=== PATIENT | male | born 1935 | race Caucasian/White ===

== ENCOUNTER 2017-08-19 17:30 | Inpatient (IN) | payer OTHER ==
--- NOTE | 2017-08-19 18:06 | ED Physician Chart ---
ED Chief Complaint/HPI - Patient Information Date Seen:: 08/19/17 Time Seen:: 18:01 Chief Complaint:: Bilateral gangrenous toes History of Present Illness:: 82 yo male with history of poorly controlled DM type II, was brought from [facility] to ER for evaluation of gangrenous right first and second toes, left first toe for 3 weeks. The patient also had cough with congestion. Allergies:: Allergies Allergy/AdvReac Type Severity Reaction Status Date / Time No Known Allergies Allergy Verified 08/19/17 17:40 Vitals:: Vital Signs - 8 hr 08/19/17 17:40 Temp 98.2 F HR 64 RR 19 BP 128/54 O2 Sat % 96 <Krunal Wang - Last Filed: 08/19/17 19:04> - Patient Information Allergies:: Allergies Allergy/AdvReac Type Severity Reaction Status Date / Time No Known Allergies Allergy Verified 08/19/17 17:40 Vitals:: Vital Signs - 8 hr 08/19/17 08/19/17 08/19/17 17:40 17:45 19:03 Temp 98.2 F 98.3 F HR 64 60 66 RR 19 18 16 BP 128/54 127/68 O2 Sat % 96 96 98 08/19/17 08/19/17 19:12 19:47 Temp 98.1 F HR 63 RR 20 BP 132/60 130/51 O2 Sat % 96 <Froylan Awan - Last Filed: 08/19/17 20:00> ED Review of Systems - Review of Systems General/Constitutional: No fever Skin: Skin lesions Head: No headache Eyes: No loss of vision ENT: No earache Neck: No neck pain Cardio Vascular: No chest pain Pulmonary: No SOB GI: No nausea, No vomiting Musculoskeletal: No bone or joint pain Neurological: Paresthesia <Krunal Wang - Last Filed: 08/19/17 19:04> ED Past Medical History - Past Medical History Past Medical History: HTN, DM, CHF, Dyslipidemia, ESRD Social History: Non Smoker, No Alcohol, No Drug Use Surgical History: other (foot surgery, cataract surgery) <Krunal Wang - Last Filed: 08/19/17 19:04> Family Medical History - Family Member Mother History Unknown: Yes Ethnicity: <Krunal Wang - Last Filed: 08/19/17 19:04> ED Physical Exam - Physical Examination General/Constitutional: Awake Head: Atraumatic Eyes: PERRL ENMT: Nasal exam nl Neck: No nuchal rigidity Other Respiratory comments:: lung congested with crackles Cardio Vascular: RRR, No murmur, gallop, rubs, NL S1 S2 GI: No tenderness/rebounding/guarding Other Extremities comments:: Left first toe distal large gangrene. Right first toe distal large gangrene, right second toe gangrene on dorsal PIP joint area. Other Neuro/Psych comments:: oriented to self, place, year and month, not date <Krunal Wang - Last Filed: 08/19/17 19:04> ED Labs/Radiology/EKG Results - Lab Results Results: Laboratory Tests 08/19/17 08/19/17 08/19/17 18:24 18:24 18:24 WBC 12.4 H RBC 4.81 Hgb 13.0 Hct 41.1 MCV 85.6 MCH 27.1 MCHC Differential 31.7 RDW 17.3 Plt Count 298 MPV 7.7 Neutrophils % 75.3 Lymphocytes % 22.1 Monocytes % 1.6 L Eosinophils % 0.8 Basophils % 0.2 PT 10.3 INR 0.99 PTT (Actin FS) 22.2 L Sodium 138 Potassium 4.3 Chloride 99 Carbon Dioxide 32.5 H Anion Gap 10.8 BUN 13 Creatinine 2.3 H Est GFR ( Amer) TNP Est GFR (Non-Af Amer) TNP BUN/Creatinine Ratio 5.7 Glucose 97 Calcium 9.5 Total Bilirubin 0.7 AST 13 ALT 10 Alkaline Phosphatase 91 Troponin I B-Natriuretic Peptide Total Protein 7.1 Albumin 2.9 L Globulin 4.2 Albumin/Globulin Ratio 0.7 L Triglycerides 88 Cholesterol 106 LDL Cholesterol Direct 60 L HDL Cholesterol 34 Urine Source Urine Color Urine Clarity Urine pH Ur Specific [place] Urine Protein Urine Glucose (UA) Urine Ketones Urine Blood Urine Nitrate Urine Bilirubin Urine Urobilinogen Ur Leukocyte Esterase Urine RBC Urine WBC Ur Epithelial Cells Urine Bacteria 08/19/17 08/19/17 08/19/17 18:24 18:24 18:50 WBC RBC Hgb Hct MCV MCH MCHC Differential RDW Plt Count MPV Neutrophils % Lymphocytes % Monocytes % Eosinophils % Basophils % PT INR PTT (Actin FS) Sodium Potassium Chloride Carbon Dioxide Anion Gap BUN Creatinine Est GFR ( Amer) Est GFR (Non-Af Amer) BUN/Creatinine Ratio Glucose Calcium Total Bilirubin AST ALT Alkaline Phosphatase Troponin I 0.06 H B-Natriuretic Peptide 716.0 H Total Protein Albumin Globulin Albumin/Globulin Ratio Triglycerides Cholesterol LDL Cholesterol Direct HDL Cholesterol Urine Source RANDOM Urine Color YELLOW Urine Clarity HAZY Urine pH 6.5 Ur Specific [place] 1.020 Urine Protein >=300 Urine Glucose (UA) NEGATIVE Urine Ketones 15 H Urine Blood LARGE H Urine Nitrate POSITIVE H Urine Bilirubin MODERATE H Urine Urobilinogen 1.0 Ur Leukocyte Esterase LARGE H Urine RBC 10-25 H Urine WBC 50-100 H Ur Epithelial Cells FEW Urine Bacteria MANY H - Radiology Results Results: chest x-ray = cardiomegaly, pleural effusion - EKG Interpretations EKG Time:: 18:37 Rate & Rhythm: 65, sinus [place]: left axis Intervals: no ectopy <Froylan Awan - Last Filed: 08/19/17 20:00> ED Assessment - Assessment General Assessment: Bilateral toes gangrene DM II, poorly controlled Leukocytosis CHF Assessment/Comments:: CBC, CMP, UA PT/PTT, Trop I, BNP, HbA1c CXR, EKG DuoNeb Levofloxacin 750mg IV Lasix 20mg IV <Krunal Wang - Last Filed: 08/19/17 19:04> ED Septic Shock - . Is Septic Shock (SBP<90, OR Lactate>4 mmol\L) present?: No - <6hrs of presentation: Vital Signs: Vital Signs - 8 hr 08/19/17 17:40 Temp 98.2 F HR 64 RR 19 BP 128/54 O2 Sat % 96 <Krunal Wang - Last Filed: 08/19/17 19:04> - . Is Septic Shock (SBP<90, OR Lactate>4 mmol\L) present?: No - <6hrs of presentation: Vital Signs: Vital Signs - 8 hr 08/19/17 08/19/17 08/19/17 17:40 17:45 19:03 Temp 98.2 F 98.3 F HR 64 60 66 RR 19 18 16 BP 128/54 127/68 O2 Sat % 96 96 98 08/19/17 08/19/17 19:12 19:47 Temp 98.1 F HR 63 RR 20 BP 132/60 130/51 O2 Sat % 96 <Froylan Awan - Last Filed: 08/19/17 20:00> ED Reassessment (Disposition) - Reassessment Reassessment:: Dr. Awan assumed care on 19:00 Reassessment Condition:: Improved - Patient Disposition Discharge/Transfer:: Acute Care w/in this hosp Admitting Medical Physician:: Javi Robin <Krunal Wang - Last Filed: 08/19/17 19:04> - Patient Disposition Condition at Disposition:: Unchanged <Froylan Awan - Last Filed: 08/19/17 20:00> ED Discharge Plan <Krunal Wang - Last Filed: 08/19/17 19:04> <Froylan Awan - Last Filed: 08/19/17 20:00> - Patient Disposition Admit/Discharge/Transfer: Acute Care w/in this hosp Condition at Disposition: Unchanged
[2017-08-19 18:30] LABS: % BASOPHILS 0.2 % (0.0-2.0); % EOSINOPHILS 0.8 % (0.0-5.0); % LYMPHOCYTES 22.1 % (20.0-50.0); % MONOCYTES 1.6 % (2.0-10.0); % NEUTROPHILS 75.3 % (40.0-80.0); EOSINOPHILE ABSOLUTE 0.1 Th/cmm (0.1-0.4); HEMATOCRIT 41.1 % (41.0-60); LYMPHOCYTE ABSOLUTE 2.7 Th/cmm (1.5-3.0); MEAN CELL VOLUME 85.6 fl (80-99); MEAN CORPUSCULAR HEMOGLOBIN 27.1 pg (27.0-31.0); MEAN CORPUSCULAR HGB CONC 31.7 pg (28.0-36.0); MEAN PLATELET VOLUME 7.7 fl; MONOCYTE ABSOLUTE 0.2 Th/cmm (0.3-1.0); NEUTROPHILE ABSOLUTE 9.4 Th/cmm (1.8-8.0); PLATELET COUNT 298 Th/cmm (150-400); RED BLOOD COUNT 4.81 Mil/cmm (3.80-5.80); RED CELL DISTRIBUTION WIDTH 17.3 % (11.5-20.0)
[2017-08-19 18:34] LABS: WHITE BLOOD COUNT 12.4 Th/cmm (4.8-10.8)
[2017-08-19 18:46] LABS: INR 0.99 (0.5-1.4); PROTHROMBIN TIME (TEST) 10.3 SECONDS (9.5-11.5)
[2017-08-19 18:50] LABS: ALB/GLOB RATIO 0.7 (1.0-1.8); ALBUMIN 2.9 gm/dL (4.2-5.5); ALKALINE PHOSPHATASE 91 U/L (34-104); ANION GAP 10.8 (7.0-16.0); BILIRUBIN,TOTAL 0.7 mg/dL (0.3-1.0); BUN - UREA NITROGEN 13 mg/dL (7-25); CALCIUM SERUM 9.5 mg/dL (8.6-10.3); CARBON DIOXIDE 32.5 mEq/L (21.0-31.0); CHLORIDE 99 mEq/L (98-107); CHOLESTEROL 106 mg/dL (<200); CREATININE - SERUM 2.3 mg/dL (0.7-1.3); GLUCOSE 97 mg/dL (70-105); HDL -HIGH DENSITY LIPOPROTEIN 34 mg/dL (23-92); POTASSIUM SERUM 4.3 mEq/L (3.5-5.1); SGOT 13 U/L (13-39); SGPT/ALT 10 U/L (7-52); SODIUM SERUM 138 mEq/L (136-145); TOTAL PROTEIN,SERUM 7.1 gm/dL (6.0-8.3); TRIGLYCERIDES 88 mg/dL (<150)
[2017-08-19] MEDS ORDERED: Levofloxacin 750mg/150mL 750 MG/150 ML BAG IV ONE ×2 (18:52→19:10)
[2017-08-19] MEDS ORDERED: Albuterol/Ipratropium Neb 3 ML AERS HHN ONE ×2 (18:53→18:59)
[2017-08-19 19:20] LABS: URINE MICROSCOPIC INDICATED? YES; URINE SOURCE RANDOM
[2017-08-19 19:23] LABS: URINE BILIRUBIN MODERATE (NEGATIVE); URINE BLOOD LARGE (NEGATIVE); URINE GLUCOSE (UA) NEGATIVE (NEGATIVE); URINE KETONE 15 mg/dL (NEGATIVE); URINE LEUKOCYTE ESTERASE LARGE (NEGATIVE); URINE NITRATE POSITIVE (NEGATIVE); URINE PH 6.5 (4.6 - 8.0); URINE PROTEIN >=300 mg/dL (NEGATIVE)
[2017-08-19 19:31] LABS: URINE CLARITY HAZY (CLEAR); URINE COLOR YELLOW
[2017-08-19 19:36] LABS: URINE BACTERIA MANY /hpf (NONE SEEN); URINE EPITHELIAL CELLS FEW /lpf (FEW); URINE WBC 50-100 /hpf (0-5)
[2017-08-19] MEDS ORDERED: Vancomycin HCl 500 MG in Sodium Chloride 0.9% 100 ML IV SCH (22:00)
[2017-08-19] MEDS ORDERED: Piperacillin Sodium/Tazobact 2.25 gm Vial IV ONE (22:57)
[2017-08-20] MEDS: Piperacillin/Tazobact 2.25 gm in 0.9% NS 50 ML IV SCH ×5 (00:13→23:35)
[2017-08-20] MEDS ORDERED: Piperacillin Sodium/Tazobact 2.25 gm Vial IV ONE (03:57)
--- NOTE | 2017-08-20 09:31 | Diagnostic Imaging Report ---
Exam: Chest portable HISTORY cough. Findings: Portable examination of chest upright at 1924 hours reviewed no prior studies available comparison. The study demonstrates right subclavian catheter terminating in superior vena cava. Mediastinal structures midline the heart is not enlarged. There is evidence for left basilar infiltrate superimposed effusion. The right lung parenchyma is well aerated. Degenerative changes shoulder joints appreciated bilaterally. IMPRESSION: Cardiomegaly Left basilar infiltrate and effusion. Follow-up dictation recommended
--- NOTE | 2017-08-20 09:34 | General Progress Note ---
Subjective - Review of Systems Service Date: 08/20/17 Events since last encounter: chart reviewed likely Alzheimers, patient not able to answer coherently has gangrenous toes (dry) bilateral feet are warm, no pedal pulses Arterial doppler ordered Objective - Results Result Diagrams: 08/19/17 18:24 08/19/17 18: Recent Labs: Laboratory Last Values WBC 12.4 Th/cmm (4.8-10.8) H 08/19/17 18: RBC 4.81 Mil/cmm (3.80-5.80) 08/19/17 18: Hgb 13.0 gm/dL (12-16) 08/19/17 18: Hct 41.1 % (41.0-60) 08/19/17 18: MCV 85.6 fl (80-99) 08/19/17 18: MCH 27.1 pg (27.0-31.0) 08/19/17: MCHC Differential 31.7 pg (28.0-36.0) 08/19/17: RDW 17.3 % (11.5-20.0) 08/19/17 18: Plt Count 298 Th/cmm (150-400) 08/19/17 18: MPV 7.7 fl 08/19/17 18: Neutrophils % 75.3 % (40.0-80.0) 08/19/17 18: Lymphocytes % 22.1 % (20.0-50.0) 08/19/17: Monocytes % 1.6 % (2.0-10.0) L 08/19/17: Eosinophils % 0.8 % (0.0-5.0) 08/19/17 18: Basophils % 0.2 % (0.0-2.0) 08/19/17 18: PT 10.3 SECONDS (9.5-11.5) 08/19/17 18: INR 0.99 (0.5-1.4) 08/19/17 18: PTT (Actin FS) 22.2 SECONDS (26.0-38.0) L 08/19/17 18: Sodium 138 mEq/L (136-145) 08/19/17 18: Potassium 4.3 mEq/L (3.5-5.1) 08/19/17 18:24 Chloride 99 mEq/L (98-107) 08/19/17 18:24 Carbon Dioxide 32.5 mEq/L (21.0-31.0) H 08/19/17 18:24 Anion Gap 10.8 (7.0-16.0) 08/19/17 18:24 BUN 13 mg/dL (7-25) 08/19/17 18:24 Creatinine 2.3 mg/dL (0.7-1.3) H 08/19/17 18:24 Est GFR ( Amer) TNP 08/19/17 18:24 Est GFR (Non-Af Amer) TNP 08/19/17 18:24 BUN/Creatinine Ratio 5.7 08/19/17 18:24 Glucose 97 mg/dL (70-105) 08/19/17 18:24 POC Glucose 74 MG/DL (70 - 105) 08/20/17 05:40 Whole Bld Lactic Acid 1.59 mmol/L (0.60-1.99) 08/19/17 19:40 Calcium 9.5 mg/dL (8.6-10.3) 08/19/17 18:24 Total Bilirubin 0.7 mg/dL (0.3-1.0) 08/19/17 18:24 AST 13 U/L (13-39) 08/19/17 18:24 ALT 10 U/L (7-52) 08/19/17 18:24 Alkaline Phosphatase 91 U/L (34-104) 08/19/17 18:24 Troponin I 0.06 ng/mL (0.01-0.05) H 08/19/17 18:24 B-Natriuretic Peptide 716.0 pg/mL (5.0-100.0) H 08/19/17 18:24 Total Protein 7.1 gm/dL (6.0-8.3) 08/19/17 18:24 Albumin 2.9 gm/dL (4.2-5.5) L 08/19/17 18:24 Globulin 4.2 gm/dL 08/19/17 18:24 Albumin/Globulin Ratio 0.7 (1.0-1.8) L 08/19/17 18:24 Triglycerides 88 mg/dL (<150) 08/19/17 18:24 Cholesterol 106 mg/dL (<200) 08/19/17 18:24 LDL Cholesterol Direct 60 mg/dL (75-193) L 08/19/17 18:24 HDL Cholesterol 34 mg/dL (23-92) 08/19/17 18:24 Urine Source RANDOM 08/19/17 18:50 Urine Color YELLOW 08/19/17 18:50 Urine Clarity HAZY (CLEAR) 08/19/17 18:50 Urine pH 6.5 (4.6 - 8.0) 08/19/17 18:50 Ur Specific [place] 1.020 (1.005-1.030) 08/19/17 18:50 Urine Protein >=300 mg/dL (NEGATIVE) 08/19/17 18:50 Urine Glucose (UA) NEGATIVE mg/dL (NEGATIVE) 08/19/17 18:50 Urine Ketones 15 mg/dL (NEGATIVE) H 08/19/17 18:50 Urine Blood LARGE (NEGATIVE) H 08/19/17 18:50 Urine Nitrate POSITIVE (NEGATIVE) H 08/19/17 18:50 Urine Bilirubin MODERATE (NEGATIVE) H 08/19/17 18:50 Urine Urobilinogen 1.0 E.U./dL (0.2 - 1.0) 08/19/17 18:50 Ur Leukocyte Esterase LARGE (NEGATIVE) H 08/19/17 18:50 Urine RBC 10-25 /hpf (0-5) H 08/19/17 18:50 Urine WBC 50-100 /hpf (0-5) H 08/19/17 18:50 Ur Epithelial Cells FEW /lpf (FEW) 08/19/17 18:50 Urine Bacteria MANY /hpf (NONE SEEN) H 08/19/17 18:50 - Physical Exam Vitals and I&O: Vital Signs Temp 97.1 F 08/20/17 08:00 Pulse 62 08/20/17 08:00 Resp 18 08/20/17 08:00 BP 117/70 08/20/17 08:00 Pulse Ox 98 08/20/17 08:00 Intake & Output 08/19/17 08/20/17 08/20/17 18:59 06:59 18:59 Intake Total 296.667 Output Total 100 Balance 196.667 Weight (lbs) 61.689 kg Intake: Intake, IV Amount 146.667 Piperacillin Sodium/ 50 Tazobact 2.25 gm In Sodium Chloride 0.9% 50 ml @ 100 mls/hr IV Q6HR [facility] Rx#:[id number] Vancomycin HCl 500 mg In 96.667 Sodium Chloride 0.9% 100 ml @ 100 mls/hr IV Q24H [facility] Rx#:[id number] Oral 150 Output: Urine 100 Other: # Bowel Movements 0 Weight Source Bedscale Active Medications: Current Medications Piperacillin Sod/Tazobactam (Sod 2.25 gm/ Sodium Chloride) 50 mls @ 100 mls/hr IV Q6HR [facility] Stop: 10/19/17 00:00 Last Admin: 08/20/17 05:35 Dose: 100 mls/hr Vancomycin HCl 500 mg/ Sodium (Chloride) 100 mls @ 100 mls/hr IV Q24H [facility] Stop: 10/19/17 09:59 Miscellaneous (Vancomycin Iv Per Pharmacy) 1 [facility] PRN PRN PRN Reason: PROTOCOL Stop: 10/18/17 19:30 Miscellaneous (Zosyn Iv Per Pharmacy) 1 [facility] PRN PRN PRN Reason: PROTOCOL Stop: 10/18/17 19:30 Assessment/Plan - Problem List Patient Problems: All Active Problems BILATERAL GREAT TOE BLACKNESS (Acute)
[2017-08-20] MEDS ORDERED: Vancomycin HCl 500 MG in Sodium Chloride 0.9% 100 ML IV SCH (10:00)
[2017-08-20] MEDS ORDERED: Albuterol/Ipratropium Neb 3 ML AERS HHN PRN (12:42)
--- NOTE | 2017-08-20 13:05 | History and Physical ---
History of Present Illness - HPI Chief Complaint: Gangrene of the great toes bilaterally HPI: 82 yo male with history of poorly controlled DM type II, was [facility] from [facility] to ER for evaluation of gangrenous right first and second toes, left first toe for 3 weeks. The patient also had cough with congestion. Patient was seen by a group. Vital Signs: Last Vital Signs Temp 97.4 F 08/20/17 12:00 Pulse 63 08/20/17 12:00 Resp 18 08/20/17 12:00 BP 119/71 08/20/17 12:00 Pulse Ox 96 08/20/17 12:00 Past Medical History Cardiovascular: Report: CHF, HTN, Hyperlipidemia. Denies: AFIB, CAD, IA, Syncope, Mitral Valve Stenosis, Aortic Stenosis, Valve Insufficiency, Pulmonary Hypertension Pulmonary: Report: COPD, Pneumonia. Denies: Asthma, Bronchitis, Pulmonary Embolus, Previously Intubated, Other [employer]: Report: Dementia. Denies: Carpal Tunnel Syndrome, CVA, Migraine, Peripheral neuropathy, Seizure, Vertigo GI: Report: GERD. Denies: Constipation, Diverticulosis, GI Bleed, Gastritis, Hemorrhoids, Inflam. bowel disease, Irritable bowel disease, Peptic Ulcer Psych: Denies: Anxiety, Addictions, Bipolar, Depression, Panic, Psychosis, Schizophrenia Musculoskeletal: Report: Osteoarthritis, Swelling (Left upper estimate). Denies : Low Back Pain, Bursitis, Weakness, Stiffness Rheumatologic: Denies: Fibromyalgia, Rheumatoid Arthritis, Vasculitis Infectious Disease: Denies: Bacterial Vaginosis, Chlamydia, Gonorrhea, HIV, Human Papilloma Virus, Herpes Simplex 1, Herpes Simplex 2, Herpes Zoster Renal/: Report: Chronic Renal Insuff. Denies: Acute Renal Failure, Chronic Renal Failure, UTI, Benign Prostatic Enlarg, Prostate CA, Bladder CA, Urinary Incontinence, Hematuria Endocrine: Report: Diabetes, Osteoporosis. Denies: Hyperthyroidism, Hypothyroidism, Hyperparathyroidism, Osteopenia Dermatology: Denies: Eczema, Cellulitis, Psoriasis, Melanoma, Basal Cell, Squamous Cell, Rash - Past Surgical History Past Surgical History: Cataract Removal Family Medical History - Family Member Mother History Unknown: Yes Ethnicity: Living Status: Unknown Hx Family Coronary Artery Disease: (UNKNOWN) Hx Family Congestive Heart Failure: (UNKNOWN) Hx Family Hypertension: (UNKNOWN) Hx Family Stroke: (UNKNOWN) Hx Family Diabetes: (UNKNOWN) Hx Family Seizures: (UNKNOWN) Hx Family Dementia: (UNKNOWN) Hx Family AIDS: (UNKNOWN) Hx Family COPD: (UNKNOWN) Hx Family Hepatitis: (UNKNOWN) Hx Family Psychiatric Problems: (UNKNOWN) Hx Family Tuberculosis: (UNKNOWN) Other Medical History: UNKNOWN Social History Smoke: No Alcohol: None Drugs: None Lives: [facility] - Medications Home Medications: Home Medication Medication Instructions Recorded Type Acetaminophen [Tylenol] 650 mg PO Q4HR PRN 08/19/17 History Albuterol/Ipratropium Neb [Duoneb 3 ml HHN Q12H PRN 08/19/17 History Neb] Amlodipine Besylate 10 mg PO DAILY 08/19/17 History Ascorbic Acid [Vitamin C] 500 mg PO DAILY 08/19/17 History Aspirin [Aspirin Chewable] 81 mg PO DAILY 08/19/17 History Atorvastatin Calcium [Lipitor] 20 mg PO HS 08/19/17 History Bisacodyl [Dulcolax 10 Mg Supp] 10 mg RC DAILY PRN 08/19/17 History Calazime 1 unit TP DAILY 08/19/17 History Calcium Carbonate 500 mg PO DAILY 08/19/17 History Cranberry Fruit Extract [Cranberry] 425 mg PO BID 08/19/17 History Docusate Sodium [Colace] 100 mg PO BID 08/19/17 History Ferrous Sulfate [Iron] 1 tab PO DAILY 08/19/17 History Finasteride [Proscar*] 5 mg PO DAILY 08/19/17 History Folic Acid/Vit Bcomp,C 0.8 mg PO DAILY 08/19/17 History [Nephro-Cordelia Tablet] Insulin Aspart Sliding Scale 0 units SUBQ QID 08/19/17 History [NovoLOG INSULIN SLIDING SCALE] Insulin Detemir [Levemir] 10 unit SQ HS 08/19/17 History Levofloxacin [Levaquin] 500 mg PO Q48H 08/19/17 History Ondansetron [Zofran ODT] 4 mg PO Q4H PRN 08/19/17 History Sennosides A and B [Senna] 2 tab PO HS 08/19/17 History Tamsulosin [Flomax] 0.4 mg PO DAILY 08/19/17 History - Allergies Allergies/Adverse Reactions: Allergies Allergy/AdvReac Type Severity Reaction Status Date / Time No Known Allergies Allergy Verified 08/19/17 17:40 Review of Systems - Review of Systems Constitutional: Report: Weakness. Denies: Fever, Chills, Sweats, Malaise Eyes: Denies: Pain, Vision Change, Conjunctivae Inflammation, Eyelid Inflammation, Redness ENT: Denies: Ear Pain, Ear Discharge, Nose Pain, Nose Discharge, Nose Congestion , Mouth Pain, Mouth Swelling, Throat Pain, Throat Swelling, Other Respiratory: Report: Cough. Denies: Dry, Shortness of Breath, Hemoptysis, SOB with Excertion, Pleuritic Pain, Sputum, Wheezing Cardiovascular: Report: No Significant. Denies: Chest Pain, Palpitations, Orthopnea, Paroxysmal Noc. Dyspnea, Edema, Light Headedness Gastrointestinal: Report: No Significant Genitourinary: Denies: Dysuria, Frequency, Incontinence, Hematuria, Retention Musculoskeletal: Denies: Neck Pain, Shoulder Pain, Arm Pain, Back Pain, Hand Pain Skin: Denies: Rash, Lesions, Eduardo, Bruising Neurological: Report: Weakness. Denies: Numbness, Incoordination, Change in Speech, Confusion, Seizures Other: Gangrene of the bilateral big toes for more than 1 month Physical Exam - Physical Exam HEENT: Report: Ears Nose Throat within normal limits Neck: Report: Within normal limits Cardiovascular Systems: Report: +s1/s2 noted, Regular, Rate and Rhythm Respiratory: Report: Breath Sounds are within normal limits Abdomen: Report: Non-tender to palpation Back: Report: Inspection of back is within normal limits. Extremities: Report: Non-tender to palpation., Other (left upper extremity AV shunt). Denies: Calf tenderness was noted. Skin: Report: Color of skin is within normal limits, Other Neuro/Psych: Report: Mood affect is within normal limits, A+Ox3, CN II-XII intact, No sensory deficit Other Systems Exam: The toes of both feet has dry gangrene at the distal end. - Lab Results All Lab Results last 24 hours: Laboratory Results - last 24 hr 08/19/17 08/19/17 08/20/17 19:40 22:38 05:40 POC Glucose 82 74 Whole Bld Lactic Acid 1.59 - Assessment Assessment: Current Active Problems Problem Status Onset BILATERAL GREAT TOE BLACKNESS Acute 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 2. Diabetes mellitus type 2. 3. 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 4. Hypertension. 5. History of peripheral artery disease. 6. CHF. 7. Recent history of pneumonia. 8. Anemia of chronic disease. 9. COPD. 10. UTI. 11. Hyperlipidemia. 12. GERD. 13. DVT prophylaxis. 14. PPI prophylaxis. - Plan Plan: Continue vancomycin and Zosyn. Continue home medication. 2-D echocardiogram. Arterial study. Heparin subcutaneous and SCD. Protonix by mouth. Consult Dr. Day. Vascular surgery. Consult Dr. Mcmahan. Nephrology. [employer] Dr. Con Robin. Cardiology.
--- NOTE | 2017-08-20 13:56 | Discharge Progress Note ---
Discharge Progress Notes Disposition: [facility] (Not SNF) Procedures Performed: 08/19/17 19:31 ADMIT ORDERS ONCE PHYSICIAN [CONS] ONCE Vancomycin IV per Pharmacy 1 ea PRN PRN Zosyn IV Per Pharmacy 1 [facility] PRN PRN 08/19/17 19:32 PHYSICIAN [CONS] ONCE 08/19/17 22:00 Vancomycin HCl [Vancomycin] 500 mg Sodium Chloride 0.9% [NaCL 0.9%] 100 ml IV Q24H 08/19/17 22:07 Vancomycin HCl [Vancomycin] 500 mg IV .STK-MED ONE 08/19/17 22:38 GLUCOSE ACCUCHECK NOVA Routine 08/19/17 22:57 Piperacillin Sodium/Tazobact [Zosyn] 2.25 gm IV .STK-MED ONE 08/19/17 Breakfast MECHANICAL SOFT GROUND [DIET] 08/20/17 00:00 Piperacillin Sodium/Tazobact [Zosyn] 2.25 gm Sodium Chloride 0.9% [NaCL 0.9%] 50 ml IV Q6HR 08/20/17 03:57 Piperacillin Sodium/Tazobact [Zosyn] 2.25 gm IV .STK-MED ONE 08/20/17 04:41 DIETARY/NUTRITION [CONS] ONCE WOUND CARE [CONS] ONCE 08/20/17 05:40 GLUCOSE ACCUCHECK NOVA Routine 08/20/17 09:35 U/S ARTERIAL, BL LOWER EXTREM [US] Urgent 08/20/17 10:00 Vancomycin HCl [Vancomycin] 500 mg Sodium Chloride 0.9% [NaCL 0.9%] 100 ml IV Q24H 08/20/17 12:05 PHYSICIAN [CONS] ONCE 08/20/17 12:42 Acetaminophen [Tylenol] 650 mg PO Q4HR PRN Albuterol/Ipratropium Neb [Duoneb Neb] 3 ml HHN Q2HRT PRN Bisacodyl [Dulcolax 10 Mg Supp] 10 mg RC DAILY PRN Ondansetron [Zofran ODT] 4 mg PO Q4H PRN 08/20/17 13:22 Sequential Compression Device ONCE 08/20/17 13:25 PHYSICIAN [CONS] ONCE 08/20/17 13:28 ECHOCARDIOGRAM Routine 08/20/17 13:51 Apply Z Guard PRN with soiling PRN 08/20/17 17:00 Cranberry Fruit Extract [Cranberry] 425 mg PO BID Docusate Sodium [Colace] 100 mg PO BID 08/20/17 21:00 Atorvastatin Calcium [Lipitor] 20 mg PO HS Heparin Sodium [Heparin] 5,000 units SUBQ Q12HR Insulin Detemir [Levemir Insulin] 10 units SUBQ HS Sennosides A and B [Senna] 17.2 mg PO HS 08/21/17 06:00 CMP (COMPLETE METABOLIC) Routine PHOSPHOROUS Routine 08/21/17 09:00 VANCOMYCIN TROUGH Timed Ascorbic Acid [Vitamin C] 500 mg PO DAILY Aspirin [Aspirin Chewable] 81 mg PO DAILY Calazime 1 unit TP DAILY Calcium Carbonate [Os-Brad] 500 mg PO DAILY Ferrous Sulfate [Iron] 325 mg PO DAILY Finasteride [Proscar] 5 mg PO DAILY Pantoprazole [Protonix] 40 mg PO DAILY Tamsulosin [Flomax] 0.4 mg PO DAILY Vitamin B Complex w/Vitamin C 1 tab PO DAILY amLODIPine Besylate [Norvasc] 10 mg PO DAILY 08/19/17 22:38 GLUCOSE ACCUCHECK NOVA Routine 08/20/17 05:40 GLUCOSE ACCUCHECK NOVA Routine 08/21/17 06:00 CMP (COMPLETE METABOLIC) Routine PHOSPHOROUS Routine 08/21/17 09:00 VANCOMYCIN TROUGH Timed 08/20/17 12:49 Nurse Notes by Cassie Beebe Nurse's Notes: Dr. Javi Robin came in around 12:30pm and saw the patient today. Dr. Olvin Robin is covering Dr. Galeas today. Initialized on 08/20/17 12:49 - END OF NOTE 08/20/17 11:31 Nurse Notes by Cassie Beebe Nurse's Notes: Received a call back from Dr. Javi Robin at 11:07am. Told him that medications need to be reconciled and he might need breathing tx since patient has hx of COPD and occasional coughing. Doctor said that ok and he will be here today. Will continue to monitor patient. Initialized on 08/20/17 11:31 - END OF NOTE 08/20/17 10:56 Nurse Notes by Cassie Beebe Initial Notes: Received a report from PM nurse at bedside. Patient is alert and oriented x1. Confused. No sign of acute distress, pain, or labored breathing. VSS. Patient has dry coughing time to time. Medications have not reconciled yet but paged Dr. Javi Robin at 10:37am regarding it. Will wait for a call from a doctor. IV remains intact on right hand #[id number]. Patient had one loose moderate amount of bowel movement in the morning. Ate 20% of breakfast. Call light is within reach and bed is in low position. Will continue to monitor patient. Initialized on 08/20/17 10:56 - END OF NOTE 08/20/17 10:37 Nurse Notes by Cassie Beebe Nurse's Notes: Paged Dr. Javi Robin at 10:37am to ask medication reconciliations. Will wait for a call from doctor at this time. Initialized on 08/20/17 10:37 - END OF NOTE 08/20/17 07:08 Nurse Notes by Gómez Crowell END OF SHIFT: NO C/O PAIN ON SINUS RHYTHM STILL COUGHING SALINE LOCK INTACT MARINO CATH DRAINING WELL SMALL AMOUNT OF URINE REPOSITIONED NO DISTRESS CALL LIGHT AT REACH BED ALARM ON. Initialized on 08/20/17 07:08 - END OF NOTE 08/20/17 00:55 Nurse Notes by Gómez Crowell NURSE NOTES: ADMITTED THIS PT FROM ER VIA GURNEY PT AAOX3 NO C/O PAIN SOB ON EXERTION WITH OCCASSIONAL COUGH O2 ON SINUS RHYTHM TO SINUS SHANTI WHEN PT ASLEEP VSS SKIN ASSESSMENT DONE IV ANTIBIOTICS GIVEN ORDERED NO ADVERSE REACTION NOTED KEPT MONITORED. Initialized on 08/20/17 00:55 - END OF NOTE 08/19/17 20:08 Nurse Notes by Naman Goff 2004: SBAR REPORT CALLED AND GIVEN TO NURSE GÓMEZ DURAN. PATIENT TAKEN TO TELE ROOM 29B VIA RNEY ACCOMPANIED BY THIS DOPE HOUSE OPERATOR HELPER. Initialized on 08/19/17 20:08 - END OF NOTE 08/19/17 19:37 Nurse Notes by Naman Goff 193: patient admitted to Telemetry unit under the care of Dr. Javi Robin with dx of CHF, UTI and gangrenous B feet. awaiting for bed assignment from nursing retail route supervisor. Initialized on 08/19/17 19:37 - END OF NOTE Reason for Hospitalization: Gangrene of Both big toe Hospital Course (Significant Findings/Progress/Treatments): 82-year-old male with a past medical history of diabetes mellitus type 2, hypertension, hyperlipidemia, COPD, peripheral artery disease, admitted for gangrene of the great toes of both feet. Arterial study was performed................... Patient Aware of Diagnosis & Prognosis?: Yes Allergies/Adverse Reactions: Allergies Allergy/AdvReac Type Severity Reaction Status Date / Time No Known Allergies Allergy Verified 08/19/17 17:40 Condition at Discharge: Unchanged Home Medications: Home Medication Medication Instructions Recorded Type Acetaminophen [Tylenol] 650 mg PO Q4HR PRN 08/19/17 History Albuterol/Ipratropium Neb [Duoneb 3 ml HHN Q12H PRN 08/19/17 History Neb] Amlodipine Besylate 10 mg PO DAILY 08/19/17 History Ascorbic Acid [Vitamin C] 500 mg PO DAILY 08/19/17 History Aspirin [Aspirin Chewable] 81 mg PO DAILY 08/19/17 History Atorvastatin Calcium [Lipitor] 20 mg PO HS 08/19/17 History Bisacodyl [Dulcolax 10 Mg Supp] 10 mg RC DAILY PRN 08/19/17 History Calazime 1 unit TP DAILY 08/19/17 History Calcium Carbonate 500 mg PO DAILY 08/19/17 History Cranberry Fruit Extract [Cranberry] 425 mg PO BID 08/19/17 History Docusate Sodium [Colace] 100 mg PO BID 08/19/17 History Ferrous Sulfate [Iron] 1 tab PO DAILY 08/19/17 History Finasteride [Proscar*] 5 mg PO DAILY 08/19/17 History Folic Acid/Vit Bcomp,C 0.8 mg PO DAILY 08/19/17 History [Nephro-Cordelia Tablet] Insulin Aspart Sliding Scale 0 units SUBQ QID 08/19/17 History [NovoLOG INSULIN SLIDING SCALE] Insulin Detemir [Levemir] 10 unit SQ HS 08/19/17 History Levofloxacin [Levaquin] 500 mg PO Q48H 08/19/17 History Ondansetron [Zofran ODT] 4 mg PO Q4H PRN 08/19/17 History Sennosides A and B [Senna] 2 tab PO HS 08/19/17 History Tamsulosin [Flomax] 0.4 mg PO DAILY 08/19/17 History Referrals: Jorden Galeas [Primary Care Provider] - Rehab Potential: Poor Diet: Renal
[2017-08-20 14:31] LABS: A1C % 6.7 % (4.0-6.0)
--- NOTE | 2017-08-20 15:03 | Consultation ---
DATE OF CONSULTATION: 08/19/2017 RENAL CONSULTATION I thank you very much, Dr. Javi Robin for allowing me to participate in the management of this patient of yours. IDENTIFICATION: This is an 82-year-old gentleman conscious, alert. The patient is not a good historian. History taken from the old chart and from the patient. HISTORY OF PRESENT ILLNESS: This is an 82-year-old male patient who is known case of CKD 5, on chronic hemodialysis. The patient has a right subclavian Perm-A-Cath and the left upper extremity AV fistula. The patient states that he is getting dialysis from both of that since AV graft is not functioning properly many times. The patient also has a history of diabetes mellitus, hypertension, anemia, and peripheral vascular disease. The patient has for last 2-3 weeks worsening of both feet big toe getting black and with pain. The patient was evaluated in the Emergency Room and was found to have bilateral toe gangrene, cellulitis, severe peripheral vascular disease. The patient has been admitted. Zosyn and vancomycin antibiotic has been started. The patient has been evaluated by Dr. Day. The patient's last hemodialysis was yesterday, which was uneventful. The patient is conscious and alert. Denies chest pain. The patient does complain of mild cough, which is chronic in nature. No complaint of vomiting, diarrhea, or shortness of breath. PAST MEDICAL HISTORY: Diabetes mellitus; hypertension; CKD 5, on chronic hemodialysis; history of anemia; and peripheral vascular disease. PAST SURGICAL HISTORY: History of right subclavian Perm-A-Cath insertion and history of left upper extremity AV graft surgery. SOCIAL HISTORY: No history of drug use, alcohol, or smoking. PHYSICAL EXAMINATION: GENERAL: An 82-year-old male patient, conscious, alert. VITAL SIGNS: Temperature 97.4, pulse 63, blood pressure 119/71, and respirations 18. HEENT: Head is normocephalic and atraumatic. Eyes, sclerae is nonicteric. Conjunctivae are pink. Pupils are reactive. Ear, nose, and throat, no bleeding or discharge. NECK: Thyroid is nontender, not enlarged. Jugular venous pressure is not distended. LUNGS: Good air entry. No rales or rhonchi. HEART: Regular. No rub or gallop. Devine in the sixth intercostal space outside the midclavicular line. ABDOMEN: Soft and not distended. Bowel sounds present. EXTREMITIES: No edema of the leg. Dorsalis pedis diminished both sides. Both feet big toe gangrene and cellulitis. NEUROLOGICAL: Conscious and alert. Able to move all 4 extremities. LABORATORY DATA: WBC 12.4 and hemoglobin 13. Sodium 138, potassium 4.3, chloride 99, CO2 32, BUN 13, creatinine 2.3, blood sugar 97, and calcium 9.5. Urinalysis; nitrite positive, large leukocyte count, many bacterias. ASSESSMENT: 1. Urinary tract infection. 2. Bilateral toe cellulitis and gangrene. 3. Peripheral vascular disease. 4. Diabetes mellitus. 5. Hypertension. 6. Anemia. 7. Peripheral vascular disease. 8. Chronic kidney disease 5, on chronic hemodialysis Monday, , and Monday. PLAN: 1. Next hemodialysis will be on Monday. 2. Check blood cultures and urine culture. 3. Check CMP, phosphorus, CBC, and TSH in the morning. 4. Depends upon the outcome of this blood test tomorrow, further management will be determined. Meanwhile, the patient is being evaluated by vascular surgeon, infectious disease cardiology consultants also. ____ will take over this patient starting tomorrow morning. JOB# [id number]
[2017-08-20] MEDS ORDERED: Non-Formulary Item 1 EA (Cranberry Fruit Extract [Cranberry] 425 MG) PO SCH (17:00)
[2017-08-20] MEDS: Albuterol/Ipratropium Neb 3 ML AERS HHN SCH (18:33)
[2017-08-20] MEDS ORDERED: Albuterol/Ipratropium Neb 3 ML AERS HHN SCH (19:00)
[2017-08-20 20:35] VITALS: BP 129/47
--- NOTE | 2017-08-20 22:34 | Consultation ---
DATE OF CONSULTATION: 08/20/[address] Galeas. HISTORY AND PHYSICAL: This is an 82-year-old male patient who was transferred from [facility] complaining of pain in both toes. The patient was found to have gangrene of the right first and second toe and left first toe. The patient also had elevated BNP level with congestive heart failure and hence Cardiology consult is requested. PAST MEDICAL HISTORY: Diabetes mellitus type 2, insulin-dependent diabetes mellitus, diabetic peripheral vascular disease with gangrene of the toes, hypertension, hyperlipidemia, congestive heart failure, iron deficiency anemia, BPH, COPD. FAMILY HISTORY: Unremarkable. SOCIAL HISTORY: No history of smoking, alcohol abuse. ALLERGIES: None. PHYSICAL EXAMINATION: VITAL SIGNS: Blood pressure 150/80, pulse 70, respirations 20. HEAD: Normocephalic. No lumps or bumps. EYES: Pupils equal, reactive to light. Fundi showing nicking, sclerae white, conjunctivae pink. NECK: Carotid 2+. Normal upstroke. JVD 10 cm above sternal angle. Thyroid not palpable. Lymph nodes not palpable. CHEST: Shows increased AP diameter. No kyphosis, scoliosis. LUNGS: Bilateral rales. Decreased breath sounds both the bases. HEART: PMI sixth intercostal space with lateral to midclavicular line. S1, S2, S3, S4, soft systolic murmur. ABDOMEN: Soft. Liver, spleen not palpable. No organomegaly. Bowel sounds active. NEUROLOGIC: No focal neurological deficit. EXTREMITIES: Peripheral pulses feeble. The patient has gangrene of the right first, second toe and left first toe. DIAGNOSES: Congestive heart failure. We will get echocardiogram for left ventricular function, gangrene of the first and second toe of the right foot and left foot first toe secondary to diabetes mellitus with peripheral vascular disease. Diabetes mellitus type 2, insulin-dependent diabetes mellitus, hypertension, hyperlipidemia, iron deficiency anemia, BPH, chronic obstructive pulmonary disease. PLAN: At the present time, we will continue present care dialysis with ultrafiltration and get an echocardiogram. JOB# [id number]
[2017-08-20] MEDS: Atorvastatin Calcium 10 MG TAB PO SCH (23:18)
[2017-08-20] MEDS: Insulin Detemir 100 units/mL 10mL Vial SUBQ SCH (23:18)
[2017-08-21] MEDS: Piperacillin/Tazobact 2.25 gm in 0.9% NS 50 ML IV SCH ×3 (05:43→17:51)
[2017-08-21] MEDS: Albuterol/Ipratropium Neb 3 ML AERS HHN SCH ×3 (06:59→18:47)
[2017-08-21 07:01] LABS: ALB/GLOB RATIO 0.7 (1.0-1.8); ALBUMIN 2.4 gm/dL (4.2-5.5); ALKALINE PHOSPHATASE 70 U/L (34-104); ANION GAP 12.2 (7.0-16.0); BILIRUBIN,TOTAL 0.6 mg/dL (0.3-1.0); BUN - UREA NITROGEN 23 mg/dL (7-25); CALCIUM SERUM 8.4 mg/dL (8.6-10.3); CARBON DIOXIDE 26.7 mEq/L (21.0-31.0); CHLORIDE 102 mEq/L (98-107); CREATININE - SERUM 3.9 mg/dL (0.7-1.3); GLUCOSE 111 mg/dL (70-105); PHOSPHOROUS 3.1 mg/dL (2.5-5.0); POTASSIUM SERUM 3.9 mEq/L (3.5-5.1); SGOT 10 U/L (13-39); SGPT/ALT 6 U/L (7-52); SODIUM SERUM 137 mEq/L (136-145); TOTAL PROTEIN,SERUM 5.8 gm/dL (6.0-8.3)
--- NOTE | 2017-08-21 07:31 | Diagnostic Imaging Report ---
Bilateral lower extremity arterial Doppler study HISTORY: Gangrenous toes COMPARISON: None Technique: Longitudinal and transverse sonographic images of the bilateral lower extremity arteries were obtained with doppler analysis. FINDINGS: Exam of the right side demonstrates diffuse atherosclerotic vascular disease with primarily biphasic monophasic waveforms. No significant flow was identified in areas of the right posterior and right anterior tibial arteries. Right KIRBY was not able to be obtained after multiple attempts. Exam of the left side demonstrates diffuse atherosclerotic vascular disease with primarily monophasic and biphasic waveforms. No significant flow was identified in portions of the left posterior tibial artery. The left ankle-brachial index is not able to be obtained. IMPRESSION: Moderate to severe bilateral atherosclerotic vascular disease. No significant flow identified in areas of the right anterior and posterior tibial arteries and left posterior tibial artery. Please correlate with clinical findings. If indicated, dedicated CT angiography of the bilateral lower extremity may be obtained.
[2017-08-21] MEDS: Pantoprazole 40 mg EC Tab PO SCH (09:00)
[2017-08-21] MEDS ORDERED: CALAZIME TP SCH (09:00)
[2017-08-21] MEDS: Aspirin 81mg Chewable Tab PO SCH (09:00)
[2017-08-21] MEDS: Ferrous Sulfate 325 MG TAB PO SCH (09:01)
[2017-08-21] MEDS: Vitamin B Complex w/Vitamin C Tab PO SCH (09:01)
[2017-08-21] MEDS ORDERED: Probiotic Screen MC PRN (09:15)
--- NOTE | 2017-08-21 11:24 | General Progress Note ---
Subjective - Review of Systems Service Date: 08/21/17 Events since last encounter: occluded distal vessels, no revascularization recommended Plan: 1. right 1st and 2nd toe amputation 2. amputation of left big toe Objective - Results Result Diagrams: 08/19/17 18:24 08/21/17 06:11 Recent Labs: Laboratory Last Values WBC 12.4 Th/cmm (4.8-10.8) H 08/19/17 18:24 RBC 4.81 Mil/cmm (3.80-5.80) 08/19/17 18:24 Hgb 13.0 gm/dL (12-16) 08/19/17 18:24 Hct 41.1 % (41.0-60) 08/19/17 18:24 MCV 85.6 fl (80-99) 08/19/17 18:24 MCH 27.1 pg (27.0-31.0) 08/19/17 18: MCHC Differential 31.7 pg (28.0-36.0) 08/19/17 18: RDW 17.3 % (11.5-20.0) 08/19/17 18:24 Plt Count 298 Th/cmm (150-400) 08/19/17 18:24 MPV 7.7 fl 08/19/17 18:24 Neutrophils % 75.3 % (40.0-80.0) 08/19/17 18:24 Lymphocytes % 22.1 % (20.0-50.0) 08/19/17 18:24 Monocytes % 1.6 % (2.0-10.0) L 08/19/17 18: Eosinophils % 0.8 % (0.0-5.0) 08/19/17 18: Basophils % 0.2 % (0.0-2.0) 08/19/17 18:24 PT 10.3 SECONDS (9.5-11.5) 08/19/17 18:24 INR 0.99 (0.5-1.4) 08/19/17 18:24 PTT (Actin FS) 22.2 SECONDS (26.0-38.0) L 08/19/17 18:24 Sodium 137 mEq/L (136-145) 08/21/17 06:11 Potassium 3.9 mEq/L (3.5-5.1) 08/21/17 06:11 Chloride 102 mEq/L (98-107) 08/21/17 06:11 Carbon Dioxide 26.7 mEq/L (21.0-31.0) 08/21/17 06:11 Anion Gap 12.2 (7.0-16.0) 08/21/17 06:11 BUN 23 mg/dL (7-25) 08/21/17 06:11 Creatinine 3.9 mg/dL (0.7-1.3) H 08/21/17 06:11 Est GFR ( Amer) TNP 08/21/17 06:11 Est GFR (Non-Af Amer) TNP 08/21/17 06:11 BUN/Creatinine Ratio 5.9 08/21/17 06:11 Glucose 111 mg/dL (70-105) H 08/21/17 06:11 POC Glucose 152 MG/DL (70 - 105) H 08/20/17 23:07 Hemoglobin A1c % 6.7 % (4.0-6.0) H 08/19/17 18:24 Whole Bld Lactic Acid 1.59 mmol/L (0.60-1.99) 08/19/17 19:40 Calcium 8.4 mg/dL (8.6-10.3) L 08/21/17 06:11 Phosphorus 3.1 mg/dL (2.5-5.0) 08/21/17 06:11 Total Bilirubin 0.6 mg/dL (0.3-1.0) 08/21/17 06:11 AST 10 U/L (13-39) L 08/21/17 06:11 ALT 6 U/L (7-52) L 08/21/17 06:11 Alkaline Phosphatase 70 U/L (34-104) 08/21/17 06:11 Troponin I 0.06 ng/mL (0.01-0.05) H 08/19/17 18:24 B-Natriuretic Peptide 716.0 pg/mL (5.0-100.0) H 08/19/17 18:24 Total Protein 5.8 gm/dL (6.0-8.3) L 08/21/17 06:11 Albumin 2.4 gm/dL (4.2-5.5) L 08/21/17 06:11 Globulin 3.4 gm/dL 08/21/17 06:11 Albumin/Globulin Ratio 0.7 (1.0-1.8) L 08/21/17 06:11 Triglycerides 88 mg/dL (<150) 08/19/17 18:24 Cholesterol 106 mg/dL (<200) 08/19/17 18:24 LDL Cholesterol Direct 60 mg/dL (75-193) L 08/19/17 18:24 HDL Cholesterol 34 mg/dL (23-92) 08/19/17 18:24 Urine Source RANDOM 08/19/17 18:50 Urine Color YELLOW 08/19/17 18:50 Urine Clarity HAZY (CLEAR) 08/19/17 18:50 Urine pH 6.5 (4.6 - 8.0) 08/19/17 18:50 Ur Specific [place] 1.020 (1.005-1.030) 08/19/17 18:50 Urine Protein >=300 mg/dL (NEGATIVE) 08/19/17 18:50 Urine Glucose (UA) NEGATIVE mg/dL (NEGATIVE) 08/19/17 18:50 Urine Ketones 15 mg/dL (NEGATIVE) H 08/19/17 18:50 Urine Blood LARGE (NEGATIVE) H 08/19/17 18:50 Urine Nitrate POSITIVE (NEGATIVE) H 08/19/17 18:50 Urine Bilirubin MODERATE (NEGATIVE) H 08/19/17 18:50 Urine Urobilinogen 1.0 E.U./dL (0.2 - 1.0) 08/19/17 18:50 Ur Leukocyte Esterase LARGE (NEGATIVE) H 08/19/17 18:50 Urine RBC 10-25 /hpf (0-5) H 08/19/17 18:50 Urine WBC 50-100 /hpf (0-5) H 08/19/17 18:50 Ur Epithelial Cells FEW /lpf (FEW) 08/19/17 18:50 Urine Bacteria MANY /hpf (NONE SEEN) H 08/19/17 18:50 Vancomycin Trough 10.5 ug/mL (5-10) H 08/21/17 06:11 - Physical Exam Vitals and I&O: Vital Signs Temp 97.8 F 08/21/17 08:00 Pulse 62 08/21/17 09:00 Resp 18 08/21/17 08:00 BP 124/49 08/21/17 09:00 Pulse Ox 99 08/21/17 08:00 Intake & Output 08/20/17 08/21/17 08/21/17 18:59 06:59 18:59 Intake Total 550.000 200 Output Total 25 25 Balance 525.000 175 Weight (lbs) 61.779 kg 61.689 kg Intake: Intake, IV Amount 200.000 100 Piperacillin Sodium/ 100.000 100 Tazobact 2.25 gm In Sodium Chloride 0.9% 50 ml @ 100 mls/hr IV Q6HR [facility] Rx#:[id number] Vancomycin HCl 500 mg In 100 Sodium Chloride 0.9% 100 ml @ 100 mls/hr IV Q24H [facility] Rx#:[id number] Oral 350 100 Output: Urine 25 25 Other: # Bowel Movements 1 0 Stool Characteristics Soft Green Weight Source Bedscale Bedscale Active Medications: Current Medications Acetaminophen (Tylenol) 650 mg PO Q4HR PRN PRN Reason: MILD PAIN Stop: 10/19/17 12:41 Albuterol/Ipratropium (Duoneb Neb) 3 ml HHN Q2HRT PRN PRN Reason: COPD Stop: 10/19/17 12:41 Last Admin: 08/20/17 13:22 Dose: 3 ml Albuterol/Ipratropium (Duoneb Neb) 3 ml HHN [id number] [facility] Stop: 10/19/17 18:59 Last Admin: 08/21/17 06:59 Dose: 3 ml Amlodipine Besylate (Norvasc) 10 mg PO DAILY [facility] Stop: 10/20/17 08:59 Last Admin: 08/21/17 09:00 Dose: 10 mg Ascorbic Acid (Vitamin C) 500 mg PO DAILY [facility] Stop: 10/20/17 08:59 Last Admin: 08/21/17 09:01 Dose: 500 mg Aspirin (Aspirin Chewable) 81 mg PO DAILY [facility] Stop: 10/20/17 08:59 Last Admin: 08/21/17 09:00 Dose: 81 mg Atorvastatin Calcium (Lipitor) 20 mg PO HS [facility] Stop: 10/19/17 20:59 Last Admin: 08/20/17 23:18 Dose: 20 mg Bisacodyl (Dulcolax 10 Mg Supp) 10 mg RC DAILY PRN PRN Reason: IF MOM INEFECTIVE Stop: 10/19/17 12:41 Calcium Carbonate (Os-Brad) 500 mg PO DAILY [facility] Stop: 10/20/17 08:59 Last Admin: 08/21/17 09:01 Dose: 500 mg Docusate Sodium (Colace) 100 mg PO BID [facility] Stop: 10/19/17 16:59 Last Admin: 08/21/17 09:01 Dose: 100 mg Ferrous Sulfate (Iron) 325 mg PO DAILY [facility] Stop: 10/20/17 08:59 Last Admin: 08/21/17 09:01 Dose: 325 mg Finasteride (Proscar) 5 mg PO DAILY [facility] PRN Reason: Protocol Stop: 10/20/17 08:59 Last Admin: 08/21/17 09:00 Dose: 5 mg Heparin Sodium (Porcine) (Heparin) 5,000 units SUBQ Q12HR [facility] Stop: 10/19/17 20:59 Last Admin: 08/21/17 09:01 Dose: 5,000 units Piperacillin Sod/Tazobactam (Sod 2.25 gm/ Sodium Chloride) 50 mls @ 100 mls/hr IV Q6HR [facility] Stop: 10/19/17 00:00 Last Infusion: 08/21/17 06:49 Dose: Infused Insulin Aspart (Novolog Insulin Sliding Scale) 0 units SUBQ ACHS [facility] PRN Reason: Protocol Stop: 10/20/17 11:29 Insulin Detemir (Levemir Insulin) 10 units SUBQ HS [facility] PRN Reason: Protocol Stop: 10/19/17 20:59 Last Admin: 08/20/17 23:18 Dose: 2 unit Lactobacillus Rhamnosus (Culturelle 15b) 1 each PO DAILY [facility] Stop: 10/21/17 08:59 Miscellaneous (Vancomycin Iv Per Pharmacy) 1 ea PRN PRN PRN Reason: PROTOCOL Stop: 10/18/17 19:30 Miscellaneous (Zosyn Iv Per Pharmacy) 1 ea PRN PRN PRN Reason: PROTOCOL Stop: 10/18/17 19:30 Miscellaneous (Probiotic Screen) 1 ea PRN PRN PRN Reason: PROTOCOL Stop: 10/20/17 09:14 Ondansetron HCl (Zofran Odt) 4 mg PO Q4H PRN PRN Reason: Nausea / Vomiting Stop: 10/19/17 12:41 Pantoprazole Sodium (Protonix) 40 mg PO DAILY [facility] Stop: 10/20/17 08:59 Last Admin: 08/21/17 09:00 Dose: 40 mg Senna (Senna) 17.2 mg PO HS [facility] Stop: 10/19/17 20:59 Last Admin: 08/20/17 23:18 Dose: 17.2 mg Tamsulosin HCl (Flomax) 0.4 mg PO DAILY [facility] Stop: 10/20/17 08:59 Last Admin: 08/21/17 09:01 Dose: 0.4 mg Vitamin B Complex/Vit C/Folic Acid (Vitamin B Complex W/Vitamin C) 1 tab PO DAILY [facility] Stop: 10/20/17 08:59 Last Admin: 08/21/17 09:01 Dose: 1 tab Assessment/Plan - Problem List Patient Problems: All Active Problems BILATERAL GREAT TOE BLACKNESS (Acute)
--- NOTE | 2017-08-21 11:33 | General Progress Note ---
Subjective - Review of Systems Service Date: 08/21/17 Events since last encounter: discussed informed consent with daughter in law Plan: amputation in AM Objective - Results Result Diagrams: 08/19/17 18:24 08/21/17 06:11 Recent Labs: Laboratory Last Values WBC 12.4 Th/cmm (4.8-10.8) H 08/19/17 18:24 RBC 4.81 Mil/cmm (3.80-5.80) 08/19/17 18:24 Hgb 13.0 gm/dL (12-16) 08/19/17 18:24 Hct 41.1 % (41.0-60) 08/19/17 18:24 MCV 85.6 fl (80-99) 08/19/17 18:24 MCH 27.1 pg (27.0-31.0) 08/19/17 18: MCHC Differential 31.7 pg (28.0-36.0) 08/19/17 18:24 RDW 17.3 % (11.5-20.0) 08/19/17 18:24 Plt Count 298 Th/cmm (150-400) 08/19/17 18:24 MPV 7.7 fl 08/19/17 18:24 Neutrophils % 75.3 % (40.0-80.0) 08/19/17 18:24 Lymphocytes % 22.1 % (20.0-50.0) 08/19/17 18:24 Monocytes % 1.6 % (2.0-10.0) L 08/19/17 18: Eosinophils % 0.8 % (0.0-5.0) 08/19/17 18: Basophils % 0.2 % (0.0-2.0) 08/19/17 18:24 PT 10.3 SECONDS (9.5-11.5) 08/19/17 18:24 INR 0.99 (0.5-1.4) 08/19/17 18:24 PTT (Actin FS) 22.2 SECONDS (26.0-38.0) L 08/19/17 18:24 Sodium 137 mEq/L (136-145) 08/21/17 06:11 Potassium 3.9 mEq/L (3.5-5.1) 08/21/17 06:11 Chloride 102 mEq/L (98-107) 08/21/17 06:11 Carbon Dioxide 26.7 mEq/L (21.0-31.0) 08/21/17 06:11 Anion Gap 12.2 (7.0-16.0) 08/21/17 06:11 BUN 23 mg/dL (7-25) 08/21/17 06:11 Creatinine 3.9 mg/dL (0.7-1.3) H 08/21/17 06:11 Est GFR ( Amer) TNP 08/21/17 06:11 Est GFR (Non-Af Amer) TNP 08/21/17 06:11 BUN/Creatinine Ratio 5.9 08/21/17 06:11 Glucose 111 mg/dL (70-105) H 08/21/17 06:11 POC Glucose 152 MG/DL (70 - 105) H 08/20/17 23:07 Hemoglobin A1c % 6.7 % (4.0-6.0) H 08/19/17 18:24 Whole Bld Lactic Acid 1.59 mmol/L (0.60-1.99) 08/19/17 19:40 Calcium 8.4 mg/dL (8.6-10.3) L 08/21/17 06:11 Phosphorus 3.1 mg/dL (2.5-5.0) 08/21/17 06:11 Total Bilirubin 0.6 mg/dL (0.3-1.0) 08/21/17 06:11 AST 10 U/L (13-39) L 08/21/17 06:11 ALT 6 U/L (7-52) L 08/21/17 06:11 Alkaline Phosphatase 70 U/L (34-104) 08/21/17 06:11 Troponin I 0.06 ng/mL (0.01-0.05) H 08/19/17 18:24 B-Natriuretic Peptide 716.0 pg/mL (5.0-100.0) H 08/19/17 18:24 Total Protein 5.8 gm/dL (6.0-8.3) L 08/21/17 06:11 Albumin 2.4 gm/dL (4.2-5.5) L 08/21/17 06:11 Globulin 3.4 gm/dL 08/21/17 06:11 Albumin/Globulin Ratio 0.7 (1.0-1.8) L 08/21/17 06:11 Triglycerides 88 mg/dL (<150) 08/19/17 18:24 Cholesterol 106 mg/dL (<200) 08/19/17 18:24 LDL Cholesterol Direct 60 mg/dL (75-193) L 08/19/17 18:24 HDL Cholesterol 34 mg/dL (23-92) 08/19/17 18:24 Urine Source RANDOM 08/19/17 18:50 Urine Color YELLOW 08/19/17 18:50 Urine Clarity HAZY (CLEAR) 08/19/17 18:50 Urine pH 6.5 (4.6 - 8.0) 08/19/17 18:50 Ur Specific Conrad 1.020 (1.005-1.030) 08/19/17 18:50 Urine Protein >=300 mg/dL (NEGATIVE) 08/19/17 18:50 Urine Glucose (UA) NEGATIVE mg/dL (NEGATIVE) 08/19/17 18:50 Urine Ketones 15 mg/dL (NEGATIVE) H 08/19/17 18:50 Urine Blood LARGE (NEGATIVE) H 08/19/17 18:50 Urine Nitrate POSITIVE (NEGATIVE) H 08/19/17 18:50 Urine Bilirubin MODERATE (NEGATIVE) H 08/19/17 18:50 Urine Urobilinogen 1.0 E.U./dL (0.2 - 1.0) 08/19/17 18:50 Ur Leukocyte Esterase LARGE (NEGATIVE) H 08/19/17 18:50 Urine RBC 10-25 /hpf (0-5) H 08/19/17 18:50 Urine WBC 50-100 /hpf (0-5) H 08/19/17 18:50 Ur Epithelial Cells FEW /lpf (FEW) 08/19/17 18:50 Urine Bacteria MANY /hpf (NONE SEEN) H 08/19/17 18:50 Vancomycin Trough 10.5 ug/mL (5-10) H 08/21/17 06:11 - Physical Exam Vitals and I&O: Vital Signs Temp 97.8 F 08/21/17 08:00 Pulse 62 08/21/17 09:00 Resp 18 08/21/17 08:00 BP 124/49 08/21/17 09:00 Pulse Ox 99 08/21/17 08:00 Intake & Output 08/20/17 08/21/17 08/21/17 18:59 06:59 18:59 Intake Total 550.000 200 Output Total 25 25 Balance 525.000 175 Weight (lbs) 61.779 kg 61.689 kg Intake: Intake, IV Amount 200.000 100 Piperacillin Sodium/ 100.000 100 Tazobact 2.25 gm In Sodium Chloride 0.9% 50 ml @ 100 mls/hr IV Q6HR [facility] Rx#:[id number] Vancomycin HCl 500 mg In 100 Sodium Chloride 0.9% 100 ml @ 100 mls/hr IV Q24H [facility] Rx#:[id number] Oral 350 100 Output: Urine 25 25 Other: # Bowel Movements 1 0 Stool Characteristics Soft Green Weight Source Bedscale Bedscale Active Medications: Current Medications Acetaminophen (Tylenol) 650 mg PO Q4HR PRN PRN Reason: MILD PAIN Stop: 10/19/17 12:41 Albuterol/Ipratropium (Duoneb Neb) 3 ml HHN Q2HRT PRN PRN Reason: COPD Stop: 10/19/17 12:41 Last Admin: 08/20/17 13:22 Dose: 3 ml Albuterol/Ipratropium (Duoneb Neb) 3 ml HHN [id number] [facility] Stop: 10/19/17 18:59 Last Admin: 08/21/17 06:59 Dose: 3 ml Amlodipine Besylate (Norvasc) 10 mg PO DAILY [facility] Stop: 10/20/17 08:59 Last Admin: 08/21/17 09:00 Dose: 10 mg Ascorbic Acid (Vitamin C) 500 mg PO DAILY [facility] Stop: 10/20/17 08:59 Last Admin: 08/21/17 09:01 Dose: 500 mg Aspirin (Aspirin Chewable) 81 mg PO DAILY [facility] Stop: 10/20/17 08:59 Last Admin: 08/21/17 09:00 Dose: 81 mg Atorvastatin Calcium (Lipitor) 20 mg PO HS [facility] Stop: 10/19/17 20:59 Last Admin: 08/20/17 23:18 Dose: 20 mg Bisacodyl (Dulcolax 10 Mg Supp) 10 mg RC DAILY PRN PRN Reason: IF MOM INEFECTIVE Stop: 10/19/17 12:41 Calcium Carbonate (Os-Brad) 500 mg PO DAILY [facility] Stop: 10/20/17 08:59 Last Admin: 08/21/17 09:01 Dose: 500 mg Docusate Sodium (Colace) 100 mg PO BID [facility] Stop: 10/19/17 16:59 Last Admin: 08/21/17 09:01 Dose: 100 mg Ferrous Sulfate (Iron) 325 mg PO DAILY [facility] Stop: 10/20/17 08:59 Last Admin: 08/21/17 09:01 Dose: 325 mg Finasteride (Proscar) 5 mg PO DAILY [facility] PRN Reason: Protocol Stop: 10/20/17 08:59 Last Admin: 08/21/17 09:00 Dose: 5 mg Heparin Sodium (Porcine) (Heparin) 5,000 units SUBQ Q12HR [facility] Stop: 10/19/17 20:59 Last Admin: 08/21/17 09:01 Dose: 5,000 units Piperacillin Sod/Tazobactam (Sod 2.25 gm/ Sodium Chloride) 50 mls @ 100 mls/hr IV Q6HR [facility] Stop: 10/19/17 00:00 Last Infusion: 08/21/17 06:49 Dose: Infused Insulin Aspart (Novolog Insulin Sliding Scale) 0 units SUBQ ACHS [facility] PRN Reason: Protocol Stop: 10/20/17 11:29 Insulin Detemir (Levemir Insulin) 10 units SUBQ HS [facility] PRN Reason: Protocol Stop: 10/19/17 20:59 Last Admin: 08/20/17 23:18 Dose: 2 unit Lactobacillus Rhamnosus (Culturelle 15b) 1 each PO DAILY [facility] Stop: 10/21/17 08:59 Miscellaneous (Vancomycin Iv Per Pharmacy) 1 ea PRN PRN PRN Reason: PROTOCOL Stop: 10/18/17 19:30 Miscellaneous (Zosyn Iv Per Pharmacy) 1 ea PRN PRN PRN Reason: PROTOCOL Stop: 10/18/17 19:30 Miscellaneous (Probiotic Screen) 1 ea PRN PRN PRN Reason: PROTOCOL Stop: 10/20/17 09:14 Ondansetron HCl (Zofran Odt) 4 mg PO Q4H PRN PRN Reason: Nausea / Vomiting Stop: 10/19/17 12:41 Pantoprazole Sodium (Protonix) 40 mg PO DAILY [facility] Stop: 10/20/17 08:59 Last Admin: 08/21/17 09:00 Dose: 40 mg Senna (Senna) 17.2 mg PO HS [facility] Stop: 10/19/17 20:59 Last Admin: 08/20/17 23:18 Dose: 17.2 mg Tamsulosin HCl (Flomax) 0.4 mg PO DAILY [facility] Stop: 10/20/17 08:59 Last Admin: 08/21/17 09:01 Dose: 0.4 mg Vitamin B Complex/Vit C/Folic Acid (Vitamin B Complex W/Vitamin C) 1 tab PO DAILY [facility] Stop: 10/20/17 08:59 Last Admin: 08/21/17 09:01 Dose: 1 tab Assessment/Plan - Problem List Patient Problems: All Active Problems BILATERAL GREAT TOE BLACKNESS (Acute)
--- NOTE | 2017-08-21 11:40 | Infectious Disease Prog Note ---
Infectious Disease Subjective - Review of Systems Service Date: 08/21/17 Subjective: There is no new change, no fever. Infectious Disease Objective - Results Result Diagrams: 08/19/17 18:24 08/21/17 06:11 Recent Labs: Laboratory Last Values WBC 12.4 Th/cmm (4.8-10.8) H 08/19/17 18:24 RBC 4.81 Mil/cmm (3.80-5.80) 08/19/17 18: Hgb 13.0 gm/dL (12-16) 08/19/17 18:24 Hct 41.1 % (41.0-60) 08/19/17 18:24 MCV 85.6 fl (80-99) 08/19/17 18: MCH 27.1 pg (27.0-31.0) 08/19/17 18: MCHC Differential 31.7 pg (28.0-36.0) 08/19/17 18: RDW 17.3 % (11.5-20.0) 08/19/17 18: Plt Count 298 Th/cmm (150-400) 08/19/17 18:24 MPV 7.7 fl 08/19/17 18:24 Neutrophils % 75.3 % (40.0-80.0) 08/19/17 18:24 Lymphocytes % 22.1 % (20.0-50.0) 08/19/17 18:24 Monocytes % 1.6 % (2.0-10.0) L 08/19/17 18: Eosinophils % 0.8 % (0.0-5.0) 08/19/17 18: Basophils % 0.2 % (0.0-2.0) 08/19/17 18:24 PT 10.3 SECONDS (9.5-11.5) 08/19/17 18:24 INR 0.99 (0.5-1.4) 08/19/17 18:24 PTT (Actin FS) 22.2 SECONDS (26.0-38.0) L 08/19/17 18:24 Sodium 137 mEq/L (136-145) 08/21/17 06:11 Potassium 3.9 mEq/L (3.5-5.1) 08/21/17 06:11 Chloride 102 mEq/L (98-107) 08/21/17 06:11 Carbon Dioxide 26.7 mEq/L (21.0-31.0) 08/21/17 06:11 Anion Gap 12.2 (7.0-16.0) 08/21/17 06:11 BUN 23 mg/dL (7-25) 08/21/17 06:11 Creatinine 3.9 mg/dL (0.7-1.3) H 08/21/17 06:11 Est GFR ( Amer) TNP 08/21/17 06:11 Est GFR (Non-Af Amer) TNP 08/21/17 06:11 BUN/Creatinine Ratio 5.9 08/21/17 06:11 Glucose 111 mg/dL (70-105) H 08/21/17 06:11 POC Glucose 152 MG/DL (70 - 105) H 08/20/17 23:07 Hemoglobin A1c % 6.7 % (4.0-6.0) H 08/19/17 18:24 Whole Bld Lactic Acid 1.59 mmol/L (0.60-1.99) 08/19/17 19:40 Calcium 8.4 mg/dL (8.6-10.3) L 08/21/17 06:11 Phosphorus 3.1 mg/dL (2.5-5.0) 08/21/17 06:11 Total Bilirubin 0.6 mg/dL (0.3-1.0) 08/21/17 06:11 AST 10 U/L (13-39) L 08/21/17 06:11 ALT 6 U/L (7-52) L 08/21/17 06:11 Alkaline Phosphatase 70 U/L (34-104) 08/21/17 06:11 Troponin I 0.06 ng/mL (0.01-0.05) H 08/19/17 18:24 B-Natriuretic Peptide 716.0 pg/mL (5.0-100.0) H 08/19/17 18:24 Total Protein 5.8 gm/dL (6.0-8.3) L 08/21/17 06:11 Albumin 2.4 gm/dL (4.2-5.5) L 08/21/17 06:11 Globulin 3.4 gm/dL 08/21/17 06:11 Albumin/Globulin Ratio 0.7 (1.0-1.8) L 08/21/17 06:11 Triglycerides 88 mg/dL (<150) 08/19/17 18:24 Cholesterol 106 mg/dL (<200) 08/19/17 18:24 LDL Cholesterol Direct 60 mg/dL (75-193) L 08/19/17 18:24 HDL Cholesterol 34 mg/dL (23-92) 08/19/17 18:24 Urine Source RANDOM 08/19/17 18:50 Urine Color YELLOW 08/19/17 18:50 Urine Clarity HAZY (CLEAR) 08/19/17 18:50 Urine pH 6.5 (4.6 - 8.0) 08/19/17 18:50 Ur Specific [place] 1.020 (1.005-1.030) 08/19/17 18:50 Urine Protein >=300 mg/dL (NEGATIVE) 08/19/17 18:50 Urine Glucose (UA) NEGATIVE mg/dL (NEGATIVE) 08/19/17 18:50 Urine Ketones 15 mg/dL (NEGATIVE) H 08/19/17 18:50 Urine Blood LARGE (NEGATIVE) H 08/19/17 18:50 Urine Nitrate POSITIVE (NEGATIVE) H 08/19/17 18:50 Urine Bilirubin MODERATE (NEGATIVE) H 08/19/17 18:50 Urine Urobilinogen 1.0 E.U./dL (0.2 - 1.0) 08/19/17 18:50 Ur Leukocyte Esterase LARGE (NEGATIVE) H 08/19/17 18:50 Urine RBC 10-25 /hpf (0-5) H 08/19/17 18:50 Urine WBC 50-100 /hpf (0-5) H 08/19/17 18:50 Ur Epithelial Cells FEW /lpf (FEW) 08/19/17 18:50 Urine Bacteria MANY /hpf (NONE SEEN) H 08/19/17 18:50 Vancomycin Trough 10.5 ug/mL (5-10) H 08/21/17 06:11 - Physical Exam Vitals and I&O: Vital Signs Temp 97.8 F 08/21/17 08:00 Pulse 62 08/21/17 09:00 Resp 18 08/21/17 08:00 BP 124/49 08/21/17 09:00 Pulse Ox 99 08/21/17 08:00 Intake & Output 08/20/17 08/21/17 08/21/17 18:59 06:59 18:59 Intake Total 550.000 200 Output Total 25 25 Balance 525.000 175 Weight (lbs) 61.779 kg 61.689 kg Intake: Intake, IV Amount 200.000 100 Piperacillin Sodium/ 100.000 100 Tazobact 2.25 gm In Sodium Chloride 0.9% 50 ml @ 100 mls/hr IV Q6HR [facility] Rx#:[id number] Vancomycin HCl 500 mg In 100 Sodium Chloride 0.9% 100 ml @ 100 mls/hr IV Q24H [facility] Rx#:[id number] Oral 350 100 Output: Urine 25 25 Other: # Bowel Movements 1 0 Stool Characteristics Soft Green Weight Source Bedscale Bedscale Active Medications: Current Medications Acetaminophen (Tylenol) 650 mg PO Q4HR PRN PRN Reason: MILD PAIN Stop: 10/19/17 12:41 Albuterol/Ipratropium (Duoneb Neb) 3 ml HHN Q2HRT PRN PRN Reason: COPD Stop: 10/19/17 12:41 Last Admin: 08/20/17 13:22 Dose: 3 ml Albuterol/Ipratropium (Duoneb Neb) 3 ml HHN [id number] [facility] Stop: 10/19/17 18:59 Last Admin: 08/21/17 06:59 Dose: 3 ml Amlodipine Besylate (Norvasc) 10 mg PO DAILY [facility] Stop: 10/20/17 08:59 Last Admin: 08/21/17 09:00 Dose: 10 mg Ascorbic Acid (Vitamin C) 500 mg PO DAILY [facility] Stop: 10/20/17 08:59 Last Admin: 08/21/17 09:01 Dose: 500 mg Aspirin (Aspirin Chewable) 81 mg PO DAILY [facility] Stop: 10/20/17 08:59 Last Admin: 08/21/17 09:00 Dose: 81 mg Atorvastatin Calcium (Lipitor) 20 mg PO HS [facility] Stop: 10/19/17 20:59 Last Admin: 08/20/17 23:18 Dose: 20 mg Bisacodyl (Dulcolax 10 Mg Supp) 10 mg RC DAILY PRN PRN Reason: IF MOM INEFECTIVE Stop: 10/19/17 12:41 Calcium Carbonate (Os-Brad) 500 mg PO DAILY [facility] Stop: 10/20/17 08:59 Last Admin: 08/21/17 09:01 Dose: 500 mg Docusate Sodium (Colace) 100 mg PO BID [facility] Stop: 10/19/17 16:59 Last Admin: 08/21/17 09:01 Dose: 100 mg Ferrous Sulfate (Iron) 325 mg PO DAILY [facility] Stop: 10/20/17 08:59 Last Admin: 08/21/17 09:01 Dose: 325 mg Finasteride (Proscar) 5 mg PO DAILY [facility] PRN Reason: Protocol Stop: 10/20/17 08:59 Last Admin: 08/21/17 09:00 Dose: 5 mg Heparin Sodium (Porcine) (Heparin) 5,000 units SUBQ Q12HR [facility] Stop: 10/19/17 20:59 Last Admin: 08/21/17 09:01 Dose: 5,000 units Piperacillin Sod/Tazobactam (Sod 2.25 gm/ Sodium Chloride) 50 mls @ 100 mls/hr IV Q6HR [facility] Stop: 10/19/17 00:00 Last Infusion: 08/21/17 06:49 Dose: Infused Insulin Aspart (Novolog Insulin Sliding Scale) 0 units SUBQ ACHS [facility] PRN Reason: Protocol Stop: 10/20/17 11:29 Insulin Detemir (Levemir Insulin) 10 units SUBQ HS [facility] PRN Reason: Protocol Stop: 10/19/17 20:59 Last Admin: 08/20/17 23:18 Dose: 2 unit Lactobacillus Rhamnosus (Culturelle 15b) 1 each PO DAILY [facility] Stop: 10/21/17 08:59 Miscellaneous (Vancomycin Iv Per Pharmacy) 1 ea PRN PRN PRN Reason: PROTOCOL Stop: 10/18/17 19:30 Miscellaneous (Zosyn Iv Per Pharmacy) 1 ea PRN PRN PRN Reason: PROTOCOL Stop: 10/18/17 19:30 Miscellaneous (Probiotic Screen) 1 ea PRN PRN PRN Reason: PROTOCOL Stop: 10/20/17 09:14 Ondansetron HCl (Zofran Odt) 4 mg PO Q4H PRN PRN Reason: Nausea / Vomiting Stop: 10/19/17 12:41 Pantoprazole Sodium (Protonix) 40 mg PO DAILY [facility] Stop: 10/20/17 08:59 Last Admin: 08/21/17 09:00 Dose: 40 mg Senna (Senna) 17.2 mg PO HS [facility] Stop: 10/19/17 20:59 Last Admin: 08/20/17 23:18 Dose: 17.2 mg Tamsulosin HCl (Flomax) 0.4 mg PO DAILY [facility] Stop: 10/20/17 08:59 Last Admin: 08/21/17 09:01 Dose: 0.4 mg Vitamin B Complex/Vit C/Folic Acid (Vitamin B Complex W/Vitamin C) 1 tab PO DAILY [facility] Stop: 10/20/17 08:59 Last Admin: 08/21/17 09:01 Dose: 1 tab General: no acute distress, well developed, well nourished HEENT: atraumatic, normocephalic, PERRLA Neck: supple, no thyromegaly Cardiovascular: S1S2, regular Lungs: clear to auscultation bilaterally, clear to percussion Abdomen: soft, no tender, no distended Extremities: other (gangrene of the bilateral big toes, and right 2nd toe.), no cyanosis, no clubbing Neurological: awake, alert, oriented Infectious Disease Assmt/Plan - Problem List Patient Problems: All Active Problems BILATERAL GREAT TOE BLACKNESS (Acute) - Assessment Assessment: Current Active Problems Problem Status Onset BILATERAL GREAT TOE BLACKNESS Acute 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 2. Diabetes mellitus type 2. 3. 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 4. Hypertension. 5. History of peripheral artery disease. 6. CHF. 7. Recent history of pneumonia. 8. Anemia of chronic disease. 9. COPD. 10. UTI. 11. Hyperlipidemia. 12. GERD. 13. DVT prophylaxis. 14. PPI prophylaxis. - Plan Plan: Continue vancomycin and Zosyn. Plan to do amputation of toes. Continue home medication. 2-D echocardiogram. Heparin subcutaneous and SCD. Protonix by mouth. Consult Dr. Day. Vascular surgery. Consult Dr. Mcmahan. Nephrology. Form Grader Operator Dr. Con Robin. Cardiology.
[2017-08-21] MEDS: INSULIN ASPART SLIDING SCALE 100 UNITS/ML UNIT SUBQ SCH ×2 (12:51→17:46)
--- NOTE | 2017-08-21 15:00 | General Progress Note ---
Subjective - Review of Systems Service Date: 08/21/17 Subjective: alert, verbal, min pain Objective - Results Result Diagrams: 08/19/17 18:24 08/21/17 06:11 Recent Labs: Laboratory Last Values WBC 12.4 Th/cmm (4.8-10.8) H 08/19/17 18:24 RBC 4.81 Mil/cmm (3.80-5.80) 08/19/17 18:24 Hgb 13.0 gm/dL (12-16) 08/19/17 18:24 Hct 41.1 % (41.0-60) 08/19/17 18:24 MCV 85.6 fl (80-99) 08/19/17 18: MCH 27.1 pg (27.0-31.0) 08/19/17 18: MCHC Differential 31.7 pg (28.0-36.0) 08/19/17 18: RDW 17.3 % (11.5-20.0) 08/19/17 18: Plt Count 298 Th/cmm (150-400) 08/19/17 18:24 MPV 7.7 fl 08/19/17 18:24 Neutrophils % 75.3 % (40.0-80.0) 08/19/17 18:24 Lymphocytes % 22.1 % (20.0-50.0) 08/19/17 18: Monocytes % 1.6 % (2.0-10.0) L 08/19/17 18: Eosinophils % 0.8 % (0.0-5.0) 08/19/17 18: Basophils % 0.2 % (0.0-2.0) 08/19/17 18:24 PT 10.3 SECONDS (9.5-11.5) 08/19/17 18:24 INR 0.99 (0.5-1.4) 08/19/17 18:24 PTT (Actin FS) 22.2 SECONDS (26.0-38.0) L 08/19/17 18:24 Sodium 137 mEq/L (136-145) 08/21/17 06:11 Potassium 3.9 mEq/L (3.5-5.1) 08/21/17 06:11 Chloride 102 mEq/L (98-107) 08/21/17 06:11 Carbon Dioxide 26.7 mEq/L (21.0-31.0) 08/21/17 06:11 Anion Gap 12.2 (7.0-16.0) 08/21/17 06:11 BUN 23 mg/dL (7-25) 08/21/17 06:11 Creatinine 3.9 mg/dL (0.7-1.3) H 08/21/17 06:11 Est GFR ( Amer) TNP 08/21/17 06:11 Est GFR (Non-Af Amer) TNP 08/21/17 06:11 BUN/Creatinine Ratio 5.9 08/21/17 06:11 Glucose 111 mg/dL (70-105) H 08/21/17 06:11 POC Glucose 156 MG/DL (70 - 105) H 08/21/17 12:49 Hemoglobin A1c % 6.7 % (4.0-6.0) H 08/19/17 18:24 Whole Bld Lactic Acid 1.59 mmol/L (0.60-1.99) 08/19/17 19:40 Calcium 8.4 mg/dL (8.6-10.3) L 08/21/17 06:11 Phosphorus 3.1 mg/dL (2.5-5.0) 08/21/17 06:11 Total Bilirubin 0.6 mg/dL (0.3-1.0) 08/21/17 06:11 AST 10 U/L (13-39) L 08/21/17 06:11 ALT 6 U/L (7-52) L 08/21/17 06:11 Alkaline Phosphatase 70 U/L (34-104) 08/21/17 06:11 Troponin I 0.06 ng/mL (0.01-0.05) H 08/19/17 18:24 B-Natriuretic Peptide 716.0 pg/mL (5.0-100.0) H 08/19/17 18:24 Total Protein 5.8 gm/dL (6.0-8.3) L 08/21/17 06:11 Albumin 2.4 gm/dL (4.2-5.5) L 08/21/17 06:11 Globulin 3.4 gm/dL 08/21/17 06:11 Albumin/Globulin Ratio 0.7 (1.0-1.8) L 08/21/17 06:11 Triglycerides 88 mg/dL (<150) 08/19/17 18:24 Cholesterol 106 mg/dL (<200) 08/19/17 18:24 LDL Cholesterol Direct 60 mg/dL (75-193) L 08/19/17 18:24 HDL Cholesterol 34 mg/dL (23-92) 08/19/17 18:24 Urine Source RANDOM 08/19/17 18:50 Urine Color YELLOW 08/19/17 18:50 Urine Clarity HAZY (CLEAR) 08/19/17 18:50 Urine pH 6.5 (4.6 - 8.0) 08/19/17 18:50 Ur Specific [place] 1.020 (1.005-1.030) 08/19/17 18:50 Urine Protein >=300 mg/dL (NEGATIVE) 08/19/17 18:50 Urine Glucose (UA) NEGATIVE mg/dL (NEGATIVE) 08/19/17 18:50 Urine Ketones 15 mg/dL (NEGATIVE) H 08/19/17 18:50 Urine Blood LARGE (NEGATIVE) H 08/19/17 18:50 Urine Nitrate POSITIVE (NEGATIVE) H 08/19/17 18:50 Urine Bilirubin MODERATE (NEGATIVE) H 08/19/17 18:50 Urine Urobilinogen 1.0 E.U./dL (0.2 - 1.0) 08/19/17 18:50 Ur Leukocyte Esterase LARGE (NEGATIVE) H 08/19/17 18:50 Urine RBC 10-25 /hpf (0-5) H 08/19/17 18:50 Urine WBC 50-100 /hpf (0-5) H 08/19/17 18:50 Ur Epithelial Cells FEW /lpf (FEW) 08/19/17 18:50 Urine Bacteria MANY /hpf (NONE SEEN) H 08/19/17 18:50 Vancomycin Trough 10.5 ug/mL (5-10) H 08/21/17 06:11 - Physical Exam Vitals and I&O: Vital Signs Temp 97.6 F 08/21/17 12:00 Pulse 62 08/21/17 12:30 Resp 16 08/21/17 12:30 BP 105/49 08/21/17 12:00 Pulse Ox 93 08/21/17 12:30 Intake & Output 08/20/17 08/21/1718 18:59 06:59 18:59 Intake Total 550.000 200 Output Total 25 25 Balance 525.000 175 Weight (lbs) 61.779 kg 61.689 kg 61.689 kg Intake: Intake, IV Amount 200.000 100 Piperacillin Sodium/ 100.000 100 Tazobact 2.25 gm In Sodium Chloride 0.9% 50 ml @ 100 mls/hr IV Q6HR [facility] Rx#:[id number] Vancomycin HCl 500 mg In 100 Sodium Chloride 0.9% 100 ml @ 100 mls/hr IV Q24H [facility] Rx#:[id number] Oral 350 100 Output: Urine 25 25 Other: # Bowel Movements 1 0 0 Stool Characteristics Soft Green Weight Source Bedscale Bedscale Bedscale Active Medications: Current Medications Acetaminophen (Tylenol) 650 mg PO Q4HR PRN PRN Reason: MILD PAIN Stop: 10/19/17 12:41 Albuterol/Ipratropium (Duoneb Neb) 3 ml HHN Q2HRT PRN PRN Reason: COPD Stop: 10/19/17 12:41 Last Admin: 08/20/17 13:22 Dose: 3 ml Albuterol/Ipratropium (Duoneb Neb) 3 ml HHN [id number] [facility] Stop: 10/19/17 18:59 Last Admin: 08/21/17 12:27 Dose: 3 ml Amlodipine Besylate (Norvasc) 10 mg PO DAILY [facility] Stop: 10/20/17 08:59 Last Admin: 08/21/17 09:00 Dose: 10 mg Ascorbic Acid (Vitamin C) 500 mg PO DAILY [facility] Stop: 10/20/17 08:59 Last Admin: 08/21/17 09:01 Dose: 500 mg Aspirin (Aspirin Chewable) 81 mg PO DAILY [facility] Stop: 10/20/17 08:59 Last Admin: 08/21/17 09:00 Dose: 81 mg Atorvastatin Calcium (Lipitor) 20 mg PO HS [facility] Stop: 10/19/17 20:59 Last Admin: 08/20/17 23:18 Dose: 20 mg Bisacodyl (Dulcolax 10 Mg Supp) 10 mg RC DAILY PRN PRN Reason: IF MOM INEFECTIVE Stop: 10/19/17 12:41 Calcium Carbonate (Os-Brad) 500 mg PO DAILY [facility] Stop: 10/20/17 08:59 Last Admin: 08/21/17 09:01 Dose: 500 mg Docusate Sodium (Colace) 100 mg PO BID [facility] Stop: 10/19/17 16:59 Last Admin: 08/21/17 09:01 Dose: 100 mg Ferrous Sulfate (Iron) 325 mg PO DAILY [facility] Stop: 10/20/17 08:59 Last Admin: 08/21/17 09:01 Dose: 325 mg Finasteride (Proscar) 5 mg PO DAILY [facility] PRN Reason: Protocol Stop: 10/20/17 08:59 Last Admin: 08/21/17 09:00 Dose: 5 mg Heparin Sodium (Porcine) (Heparin) 5,000 units SUBQ Q12HR [facility] Stop: 10/19/17 20:59 Last Admin: 08/21/17 09:01 Dose: 5,000 units Piperacillin Sod/Tazobactam (Sod 2.25 gm/ Sodium Chloride) 50 mls @ 100 mls/hr IV Q6HR [facility] Stop: 10/19/17 00:00 Last Admin: 08/21/17 12:52 Dose: 100 mls/hr Insulin Aspart (Novolog Insulin Sliding Scale) 0 units SUBQ ACHS [facility] PRN Reason: Protocol Stop: 10/20/17 11:29 Last Admin: 08/21/17 12:51 Dose: Not Given Insulin Detemir (Levemir Insulin) 10 units SUBQ HS [facility] PRN Reason: Protocol Stop: 10/19/17 20:59 Last Admin: 08/20/17 23:18 Dose: 2 unit Lactobacillus Rhamnosus (Culturelle 15b) 1 each PO DAILY [facility] Stop: 10/21/17 08:59 Miscellaneous (Vancomycin Iv Per Pharmacy) 1 ea [facility] PRN PRN PRN Reason: PROTOCOL Stop: 10/18/17 19:30 Miscellaneous (Zosyn Iv Per Pharmacy) 1 ea [facility] PRN PRN PRN Reason: PROTOCOL Stop: 10/18/17 19:30 Miscellaneous (Probiotic Screen) 1 ea [facility] PRN PRN PRN Reason: PROTOCOL Stop: 10/20/17 09:14 Ondansetron HCl (Zofran Odt) 4 mg PO Q4H PRN PRN Reason: Nausea / Vomiting Stop: 10/19/17 12:41 Pantoprazole Sodium (Protonix) 40 mg PO DAILY [facility] Stop: 10/20/17 08:59 Last Admin: 08/21/17 09:00 Dose: 40 mg Senna (Senna) 17.2 mg PO HS [facility] Stop: 10/19/17 20:59 Last Admin: 08/20/17 23:18 Dose: 17.2 mg Tamsulosin HCl (Flomax) 0.4 mg PO DAILY [facility] Stop: 10/20/17 08:59 Last Admin: 08/21/17 09:01 Dose: 0.4 mg Vitamin B Complex/Vit C/Folic Acid (Vitamin B Complex W/Vitamin C) 1 tab PO DAILY [facility] Stop: 10/20/17 08:59 Last Admin: 08/21/17 09:01 Dose: 1 tab General: Alert, Mild distress HEENT: Mucous membr. moist/pink Neck: Supple, +2 carotid pulse wo bruit Cardiovascular: Regular rate, Normal S1, Normal S2 Lungs: Normal air movement Abdomen: Bowel sounds, Soft Extremities: no Edema Neurological: Sensation intact Skin: no Rash Psych/Mental Status: Mood NL Assessment/Plan - Problem List Patient Problems: All Active Problems BILATERAL GREAT TOE BLACKNESS (Acute) - Assessment Assessment: 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 Htn W/ CKD PAD CHF Anemia of CD COPD Dyslipidemia GERD - Plan Plan: Lab - Result Diagrams 08/21/17 06:11 Current Medications Acetaminophen (Tylenol) 650 mg PO Q4HR PRN PRN Reason: MILD PAIN Stop: 10/19/17 12:41 Albuterol/Ipratropium (Duoneb Neb) 3 ml HHN Q2HRT PRN PRN Reason: COPD Stop: 10/19/17 12:41 Last Admin: 08/20/17 13:22 Dose: 3 ml Albuterol/Ipratropium (Duoneb Neb) 3 ml HHN [id number] [facility] Stop: 10/19/17 18:59 Last Admin: 08/21/17 12:27 Dose: 3 ml Amlodipine Besylate (Norvasc) 10 mg PO DAILY [facility] Stop: 10/20/17 08:59 Last Admin: 08/21/17 09:00 Dose: 10 mg Ascorbic Acid (Vitamin C) 500 mg PO DAILY [facility] Stop: 10/20/17 08:59 Last Admin: 08/21/17 09:01 Dose: 500 mg Aspirin (Aspirin Chewable) 81 mg PO DAILY [facility] Stop: 10/20/17 08:59 Last Admin: 08/21/17 09:00 Dose: 81 mg Atorvastatin Calcium (Lipitor) 20 mg PO HS [facility] Stop: 10/19/17 20:59 Last Admin: 08/20/17 23:18 Dose: 20 mg Bisacodyl (Dulcolax 10 Mg Supp) 10 mg RC DAILY PRN PRN Reason: IF MOM INEFECTIVE Stop: 10/19/17 12:41 Calcium Carbonate (Os-Brad) 500 mg PO DAILY [facility] Stop: 10/20/17 08:59 Last Admin: 08/21/17 09:01 Dose: 500 mg Docusate Sodium (Colace) 100 mg PO BID [facility] Stop: 10/19/17 16:59 Last Admin: 08/21/17 09:01 Dose: 100 mg Ferrous Sulfate (Iron) 325 mg PO DAILY [facility] Stop: 10/20/17 08:59 Last Admin: 08/21/17 09:01 Dose: 325 mg Finasteride (Proscar) 5 mg PO DAILY [facility] PRN Reason: Protocol Stop: 10/20/17 08:59 Last Admin: 08/21/17 09:00 Dose: 5 mg Heparin Sodium (Porcine) (Heparin) 5,000 units SUBQ Q12HR [facility] Stop: 10/19/17 20:59 Last Admin: 08/21/17 09:01 Dose: 5,000 units Piperacillin Sod/Tazobactam (Sod 2.25 gm/ Sodium Chloride) 50 mls @ 100 mls/hr IV Q6HR [facility] Stop: 10/19/17 00:00 Last Admin: 08/21/17 12:52 Dose: 100 mls/hr Insulin Aspart (Novolog Insulin Sliding Scale) 0 units SUBQ ACHS [facility] PRN Reason: Protocol Stop: 10/20/17 11:29 Last Admin: 08/21/17 12:51 Dose: Not Given Insulin Detemir (Levemir Insulin) 10 units SUBQ HS [facility] PRN Reason: Protocol Stop: 10/19/17 20:59 Last Admin: 08/20/17 23:18 Dose: 2 unit Lactobacillus Rhamnosus (Culturelle 15b) 1 each PO DAILY [facility] Stop: 10/21/17 08:59 Miscellaneous (Vancomycin Iv Per Pharmacy) 1 ea [facility] PRN PRN PRN Reason: PROTOCOL Stop: 10/18/17 19:30 Miscellaneous (Zosyn Iv Per Pharmacy) 1 ea PRN PRN PRN Reason: PROTOCOL Stop: 10/18/17 19:30 Miscellaneous (Probiotic Screen) 1 ea PRN PRN PRN Reason: PROTOCOL Stop: 10/20/17 09:14 Ondansetron HCl (Zofran Odt) 4 mg PO Q4H PRN PRN Reason: Nausea / Vomiting Stop: 10/19/17 12:41 Pantoprazole Sodium (Protonix) 40 mg PO DAILY [facility] Stop: 10/20/17 08:59 Last Admin: 08/21/17 09:00 Dose: 40 mg Senna (Senna) 17.2 mg PO HS [facility] Stop: 10/19/17 20:59 Last Admin: 08/20/17 23:18 Dose: 17.2 mg Tamsulosin HCl (Flomax) 0.4 mg PO DAILY [facility] Stop: 10/20/17 08:59 Last Admin: 08/21/17 09:01 Dose: 0.4 mg Vitamin B Complex/Vit C/Folic Acid (Vitamin B Complex W/Vitamin C) 1 tab PO DAILY [facility] Stop: 10/20/17 08:59 Last Admin: 08/21/17 09:01 Dose: 1 tab Lab - Result Diagrams 08/19/17 18:24 08/21/17 06:11 schedule for HD in am possible amputations of toes f/u electrolytes, cbc
[2017-08-21] MEDS: Atorvastatin Calcium 10 MG TAB PO SCH (22:21)
[2017-08-22] MEDS ORDERED: Albumin 25% 25gm/100mL 25 GM/100 ML BTL IV PRN
[2017-08-22] MEDS: Piperacillin/Tazobact 2.25 gm in 0.9% NS 50 ML IV SCH ×4 (00:16→20:47)
[2017-08-22] MEDS: INSULIN ASPART SLIDING SCALE 100 UNITS/ML UNIT SUBQ SCH ×5 (00:46→20:49)
[2017-08-22] MEDS: Insulin Detemir 100 units/mL 10mL Vial SUBQ SCH ×2 (00:47→20:48)
[2017-08-22 06:18] LABS: % BASOPHILS 0.4 % (0.0-2.0); % EOSINOPHILS 1.9 % (0.0-5.0); % LYMPHOCYTES 27.2 % (20.0-50.0); % MONOCYTES 7.2 % (2.0-10.0); % NEUTROPHILS 63.3 % (40.0-80.0); EOSINOPHILE ABSOLUTE 0.2 Th/cmm (0.1-0.4); HEMATOCRIT 31.8 % (41.0-60); HEMOGLOBIN 10.2 gm/dL (12-16); LYMPHOCYTE ABSOLUTE 2.9 Th/cmm (1.5-3.0); MEAN CELL VOLUME 86.1 fl (80-99); MEAN CORPUSCULAR HEMOGLOBIN 27.7 pg (27.0-31.0); MEAN CORPUSCULAR HGB CONC 32.2 pg (28.0-36.0); MEAN PLATELET VOLUME 7.2 fl; MONOCYTE ABSOLUTE 0.8 Th/cmm (0.3-1.0); NEUTROPHILE ABSOLUTE 6.6 Th/cmm (1.8-8.0); PLATELET COUNT 233 Th/cmm (150-400); RED BLOOD COUNT 3.69 Mil/cmm (3.80-5.80); RED CELL DISTRIBUTION WIDTH 17.9 % (11.5-20.0); WHITE BLOOD COUNT 10.5 Th/cmm (4.8-10.8)
[2017-08-22 06:30] LABS: ANION GAP 13.9 (7.0-16.0); BUN - UREA NITROGEN 24 mg/dL (7-25); CALCIUM SERUM 6.5 mg/dL (8.6-10.3); CARBON DIOXIDE 21.2 mEq/L (21.0-31.0); CHLORIDE 109 mEq/L (98-107); CREATININE - SERUM 3.8 mg/dL (0.7-1.3); GLUCOSE 108 mg/dL (70-105); POTASSIUM SERUM 3.1 mEq/L (3.5-5.1); SODIUM SERUM 141 mEq/L (136-145)
[2017-08-22] MEDS: Albuterol/Ipratropium Neb 3 ML AERS HHN SCH ×3 (06:52→19:15)
[2017-08-22] MEDS ORDERED: Lidocaine 2% Vial 20 mL Vial ONE ×2 (07:30→14:17)
[2017-08-22] MEDS ORDERED: PROPOFOL SURGERY USE ONLY IV ONE (07:30)
[2017-08-22] MEDS: Aspirin 81mg Chewable Tab PO SCH (08:17)
[2017-08-22] MEDS: Lactobacillus Rhamnosus GG 15 Billion CFU CAP.SPRINK PO SCH (08:18)
[2017-08-22] MEDS: Ferrous Sulfate 325 MG TAB PO SCH (08:18)
[2017-08-22] MEDS: Pantoprazole 40 mg EC Tab PO SCH (08:19)
[2017-08-22] MEDS: Vitamin B Complex w/Vitamin C Tab PO SCH (08:19)
--- NOTE | 2017-08-22 09:33 | Infectious Disease Prog Note ---
Infectious Disease Subjective - Review of Systems Service Date: 08/22/17 Subjective: There is no new change, no fever. Infectious Disease Objective - Results Result Diagrams: 08/22/17 05:50 08/22/17 05:50 Recent Labs: Laboratory Last Values WBC 10.5 Th/cmm (4.8-10.8) 08/22/17 05:50 RBC 3.69 Mil/cmm (3.80-5.80) L 08/22/17 05:50 Hgb 10.2 gm/dL (12-16) L 08/22/17 05:50 Hct 31.8 % (41.0-60) L 08/22/17 05:50 MCV 86.1 fl (80-99) 08/22/17 05:50 MCH 27.7 pg (27.0-31.0) 08/22/17 05:50 MCHC Differential 32.2 pg (28.0-36.0) 08/22/17 05:50 RDW 17.9 % (11.5-20.0) 08/22/17 05:50 Plt Count 233 Th/cmm (150-400) 08/22/17 05:50 MPV 7.2 fl 08/22/17 05:50 Neutrophils % 63.3 % (40.0-80.0) 08/22/17 05:50 Lymphocytes % 27.2 % (20.0-50.0) 08/22/17 05:50 Monocytes % 7.2 % (2.0-10.0) 08/22/17 05:50 Eosinophils % 1.9 % (0.0-5.0) 08/22/17 05:50 Basophils % 0.4 % (0.0-2.0) 08/22/17 05:50 PT 10.3 SECONDS (9.5-11.5) 08/19/17 18:24 INR 0.99 (0.5-1.4) 08/19/17 18:24 PTT (Actin FS) 22.2 SECONDS (26.0-38.0) L 08/19/17 18:24 Sodium 141 mEq/L (136-145) 08/22/17 05:50 Potassium 3.1 mEq/L (3.5-5.1) L 08/22/17 05:50 Chloride 109 mEq/L (98-107) H 08/22/17 05:50 Carbon Dioxide 21.2 mEq/L (21.0-31.0) 08/22/17 05:50 Anion Gap 13.9 (7.0-16.0) 08/22/17 05:50 BUN 24 mg/dL (7-25) 08/22/17 05:50 Creatinine 3.8 mg/dL (0.7-1.3) H 08/22/17 05:50 Est GFR ( Amer) TNP 08/22/17 05:50 Est GFR (Non-Af Amer) TNP 08/22/17 05:50 BUN/Creatinine Ratio 6.3 08/22/17 05:50 Glucose 108 mg/dL (70-105) H 08/22/17 05:50 POC Glucose 116 MG/DL (70 - 105) H 08/22/17 06:56 Hemoglobin A1c % 6.7 % (4.0-6.0) H 08/19/17 18:24 Whole Bld Lactic Acid 1.59 mmol/L (0.60-1.99) 08/19/17 19:40 Calcium 6.5 mg/dL (8.6-10.3) L 08/22/17 05:50 Phosphorus 3.1 mg/dL (2.5-5.0) 08/21/17 06:11 Total Bilirubin 0.6 mg/dL (0.3-1.0) 08/21/17 06:11 AST 10 U/L (13-39) L 08/21/17 06:11 ALT 6 U/L (7-52) L 08/21/17 06:11 Alkaline Phosphatase 70 U/L (34-104) 08/21/17 06:11 Troponin I 0.06 ng/mL (0.01-0.05) H 08/19/17 18:24 B-Natriuretic Peptide 716.0 pg/mL (5.0-100.0) H 08/19/17 18:24 Total Protein 5.8 gm/dL (6.0-8.3) L 08/21/17 06:11 Albumin 2.4 gm/dL (4.2-5.5) L 08/21/17 06:11 Globulin 3.4 gm/dL 08/21/17 06:11 Albumin/Globulin Ratio 0.7 (1.0-1.8) L 08/21/17 06:11 Triglycerides 88 mg/dL (<150) 08/19/17 18:24 Cholesterol 106 mg/dL (<200) 08/19/17 18:24 LDL Cholesterol Direct 60 mg/dL (75-193) L 08/19/17 18:24 HDL Cholesterol 34 mg/dL (23-92) 08/19/17 18:24 Urine Source RANDOM 08/19/17 18:50 Urine Color YELLOW 08/19/17 18:50 Urine Clarity HAZY (CLEAR) 08/19/17 18:50 Urine pH 6.5 (4.6 - 8.0) 08/19/17 18:50 Ur Specific [place] 1.020 (1.005-1.030) 08/19/17 18:50 Urine Protein >=300 mg/dL (NEGATIVE) 08/19/17 18:50 Urine Glucose (UA) NEGATIVE mg/dL (NEGATIVE) 08/19/17 18:50 Urine Ketones 15 mg/dL (NEGATIVE) H 08/19/17 18:50 Urine Blood LARGE (NEGATIVE) H 08/19/17 18:50 Urine Nitrate POSITIVE (NEGATIVE) H 08/19/17 18:50 Urine Bilirubin MODERATE (NEGATIVE) H 08/19/17 18:50 Urine Urobilinogen 1.0 E.U./dL (0.2 - 1.0) 08/19/17 18:50 Ur Leukocyte Esterase LARGE (NEGATIVE) H 08/19/17 18:50 Urine RBC 10-25 /hpf (0-5) H 08/19/17 18:50 Urine WBC 50-100 /hpf (0-5) H 08/19/17 18:50 Ur Epithelial Cells FEW /lpf (FEW) 08/19/17 18:50 Urine Bacteria MANY /hpf (NONE SEEN) H 08/19/17 18:50 Vancomycin Trough 10.5 ug/mL (5-10) H 08/21/17 06:11 Random Vancomycin 19.0 ug/mL (5.0-40.0) 08/22/17 05:50 - Physical Exam Vitals and I&O: Vital Signs Temp 96.3 F 08/22/17 07:52 Pulse 94 08/22/17 08:16 Resp 17 08/22/17 07:52 BP 127/55 05/01/18 08:16 Pulse Ox 98 08/22/17 07:52 Intake & Output 08/21/17 08/22/17 08/22/17 18:59 06:59 18:59 Intake Total 100 450 50 Output Total 70 Balance 100 380 50 Weight (lbs) 61.689 kg 69.49 kg Intake: Intake, IV Amount 100 50 50 Piperacillin Sodium/ 100 50 50 Tazobact 2.25 gm In Sodium Chloride 0.9% 50 ml @ 100 mls/hr IV Q6HR [facility] Rx#:[id number] Oral 400 Output: Urine 70 Other: # Bowel Movements 0 0 Weight Source Bedscale Bedscale Active Medications: Current Medications Acetaminophen (Tylenol) 650 mg PO Q4HR PRN PRN Reason: MILD PAIN Stop: 10/19/17 12:41 Albuterol/Ipratropium (Duoneb Neb) 3 ml HHN Q2HRT PRN PRN Reason: COPD Stop: 10/19/17 12:41 Last Admin: 08/20/17 13:22 Dose: 3 ml Albuterol/Ipratropium (Duoneb Neb) 3 ml HHN [id number] [facility] Stop: 10/19/17 18:59 Last Admin: 08/22/17 06:52 Dose: 3 ml Amlodipine Besylate (Norvasc) 10 mg PO DAILY [facility] Stop: 10/20/17 08:59 Last Admin: 08/22/17 08:16 Dose: Not Given Ascorbic Acid (Vitamin C) 500 mg PO DAILY [facility] Stop: 10/20/17 08:59 Last Admin: 08/22/17 08:17 Dose: Not Given Aspirin (Aspirin Chewable) 81 mg PO DAILY [facility] Stop: 10/20/17 08:59 Last Admin: 08/22/17 08:17 Dose: Not Given Atorvastatin Calcium (Lipitor) 20 mg PO HS [facility] Stop: 10/19/17 20:59 Last Admin: 08/21/17 22:21 Dose: 20 mg Bisacodyl (Dulcolax 10 Mg Supp) 10 mg RC DAILY PRN PRN Reason: IF MOM INEFECTIVE Stop: 10/19/17 12:41 Calcium Carbonate (Os-Alic[place]) 500 mg PO DAILY [facility] Stop: 10/20/17 08:59 Last Admin: 05/01/18 08:17 Dose: Not Given Docusate Sodium (Colace) 100 mg PO BID [facility] Stop: 10/19/17 16:59 Last Admin: 08/22/17 08:17 Dose: Not Given Ferrous Sulfate (Iron) 325 mg PO DAILY [facility] Stop: 10/20/17 08:59 Last Admin: 08/22/17 08:18 Dose: Not Given Finasteride (Proscar) 5 mg PO DAILY [facility] PRN Reason: Protocol Stop: 10/20/17 08:59 Last Admin: 08/22/17 08:18 Dose: Not Given Heparin Sodium (Porcine) (Heparin) 5,000 units SUBQ Q12HR [facility] Stop: 10/19/17 20:59 Last Admin: 08/22/17 08:18 Dose: Not Given Heparin Sodium (Porcine) (Heparin) 5,000 units HD UD [facility] Stop: 08/23/17 00:00 Last Admin: 08/22/17 00:19 Dose: Not Given Piperacillin Sod/Tazobactam (Sod 2.25 gm/ Sodium Chloride) 50 mls @ 100 mls/hr IV Q6HR [facility] Stop: 10/19/17 00:00 Last Infusion: 08/22/17 07:22 Dose: Infused Albumin Human (Albuminar 25%) 25 gm in 100 mls @ 50 mls/hr IV PRN PRN PRN Reason: BP Support During HD Vancomycin HCl 1.25 gm/ Sodium (Chloride) 250 mls @ 165 mls/hr IV ONCE ONE Stop: 08/22/17 11:30 Insulin Aspart (Novolog Insulin Sliding Scale) 0 units SUBQ ACHS [facility] PRN Reason: Protocol Stop: 10/20/17 11:29 Last Admin: 08/22/17 08:16 Dose: Not Given Insulin Detemir (Levemir Insulin) 10 units SUBQ HS [facility] PRN Reason: Protocol Stop: 10/19/17 20:59 Last Admin: 08/22/17 00:47 Dose: Not Given Lactobacillus Rhamnosus (Culturelle 15b) 1 each PO DAILY [facility] Stop: 10/21/17 08:59 Last Admin: 08/22/17 08:18 Dose: Not Given Miscellaneous (Vancomycin Iv Per Pharmacy) 1 ea PRN PRN PRN Reason: PROTOCOL Stop: 10/18/17 19:30 Miscellaneous (Zosyn Iv Per Pharmacy) 1 ea PRN PRN PRN Reason: PROTOCOL Stop: 10/18/17 19:30 Miscellaneous (Probiotic Screen) 1 [facility] PRN PRN PRN Reason: PROTOCOL Stop: 10/20/17 09:14 Ondansetron HCl (Zofran Odt) 4 mg PO Q4H PRN PRN Reason: Nausea / Vomiting Stop: 10/19/17 12:41 Pantoprazole Sodium (Protonix) 40 mg PO DAILY [facility] Stop: 10/20/17 08:59 Last Admin: 08/22/17 08:19 Dose: Not Given Senna (Senna) 17.2 mg PO HS [facility] Stop: 10/19/17 20:59 Last Admin: 08/21/17 22:21 Dose: 17.2 mg Tamsulosin HCl (Flomax) 0.4 mg PO DAILY [facility] Stop: 10/20/17 08:59 Last Admin: 08/22/17 08:19 Dose: Not Given Vitamin B Complex/Vit C/Folic Acid (Vitamin B Complex W/Vitamin C) 1 tab PO DAILY [facility] Stop: 10/20/17 08:59 Last Admin: 08/22/17 08:19 Dose: Not Given General: no acute distress, well developed, well nourished HEENT: atraumatic, normocephalic, PERRLA, EOMI Neck: supple, no thyromegaly Cardiovascular: S1S2, regular Lungs: clear to auscultation bilaterally, clear to percussion Abdomen: soft, no tender, no distended, no mass, no rebound, no hepatomegaly Extremities: other (Right 1st and 2nd toes, and left 1st toe blackening of the skin/dry gangrene.), no cyanosis, no clubbing, no edema Infectious Disease Assmt/Plan - Problem List Patient Problems: All Active Problems BILATERAL GREAT TOE BLACKNESS (Acute) - Assessment Assessment: Current Active Problems Problem Status Onset BILATERAL GREAT TOE BLACKNESS Acute 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 2. Diabetes mellitus type 2. 3. 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 4. Hypertension. 5. History of peripheral artery disease. 6. CHF. 7. Recent history of pneumonia. 8. Anemia of chronic disease. 9. COPD. 10. UTI. 11. Hyperlipidemia. 12. GERD. 13. DVT prophylaxis. 14. PPI prophylaxis. - Plan Plan: Continue vancomycin and Zosyn. Plan to do amputation of toes. Continue home medication. 2-D echocardiogram. Heparin subcutaneous and SCD. Protonix by mouth. Consult Dr. Day. Vascular surgery. Consult Dr. Mcmahan. Nephrology. Teletypesetter Monitor Dr. Con Robin. Cardiology. Consult, Dr El Robin, Pulmonary. Nutritional Asmnt/[place]-PDOC - Dietary Evaluation Malnutrition Findings (Please click <Entered> for more info): Nutritional Asmnt/Malnutrition Start: 08/21/17 17: 29 Text: Status: Complete Freq: Document 08/21/17 17:29 HENG (Rec: 08/21/17 17:43 LCHEN [id number]) Nutritional Asmnt/Malnutrition Patient General Information Nutritional Screening High Risk Consult Diagnosis CHF, gangrenuous L&R foot Pertinent Medical Hx/Surgical Hx CHF, HTN, hyperlipidemia, COPD , PNA, dementia, GERD, OA, swelling, chronic renal insuff , DM, osteoporosis Subjective Information Consult received for diabetic. Pt seen lying in bed at time of visit, awake and alert. Pt reported good appetite. Per nurse note, pt will have amputation on right great and 2nd toe, and left great toe. Per EMR, PO intake 30-75%. Pt is on diaysis noted. Current Diet Order/ Nutrition Support mech soft renal nectar thick liquid Pertinent Medications vit C, os-alicia, colace, iron, novolog, levemir, culturelle, protonix, piperacillin, senna, vitamin B complex /vitC/folic acid Pertinent Labs 08/21 cr 3.9, glucose 111, POC 156 08/19 A1c 6.7 Nutritional Hx/Data Height 1.7 m Height (Calculated Centimeters) 170.2 Current Weight (lbs) 61.689 kg Weight (Calculated Kilograms) 61.7 Weight (Calculated Grams) 06057.6 [place] Body Weight 148 Body Mass Index (BMI) 21.2 Weight Status Approriate GI Symptoms GI Symptoms None Last BM 08/20 Difficult in: None Skin Integrity/Comment: Yes: DECUBS decubs to sacrum, 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 Problem Problem altered nutrition related labs Etiology hx of DM, chronic renal insuff Signs/Symptoms: Cr 3.9, glucose 111, POC 156, A1c 6.7 Malnutrition Alert Protein-Calorie Malnutrition N/A Is there a minimum of two criteria No selected? Query Text:Check all the applicable criteria. A minimum of two criteria are recommended for diagnosis of either severe or non-severe malnutrition. Intervention/Recommendation Comments 1. Considering adding CCHO- 60gm diet if glucose continue high. Encouraged protein food intake. 2. Monitor PO intake, wt, labs and skin integrity 3. F/U as high risk in 2-3 days, 5/2-5/3 Expected Outcomes/Goals Expected Outcomes/Goals 1. PO intake to meet at least 75% of nutritional needs. 2. Wt stability, skin to remain intact, labs to approach WNL.
[2017-08-22] MEDS ORDERED: Potassium Chloride 20 mEq ER Tab PO ONE (11:50)
[2017-08-22] MEDS ORDERED: Propofol **SURGERY USE ONLY** 20 ML IV ONE (14:17)
--- NOTE | 2017-08-22 14:32 | General Progress Note ---
Subjective - Review of Systems Service Date: 08/22/17 Subjective: alert, verbal, min pain Objective - Results Result Diagrams: 08/22/17 05:50 08/22/17 05:50 Recent Labs: Laboratory Last Values WBC 10.5 Th/cmm (4.8-10.8) 08/22/17 05:50 RBC 3.69 Mil/cmm (3.80-5.80) L 08/22/17 05:50 Hgb 10.2 gm/dL (12-16) L 08/22/17 05:50 Hct 31.8 % (41.0-60) L 08/22/17 05:50 MCV 86.1 fl (80-99) 08/22/17 05:50 MCH 27.7 pg (27.0-31.0) 08/22/17 05:50 MCHC Differential 32.2 pg (28.0-36.0) 08/22/17 05:50 RDW 17.9 % (11.5-20.0) 08/22/17 05:50 Plt Count 233 Th/cmm (150-400) 08/22/17 05:50 MPV 7.2 fl 08/22/17 05:50 Neutrophils % 63.3 % (40.0-80.0) 08/22/17 05:50 Lymphocytes % 27.2 % (20.0-50.0) 08/22/17 05:50 Monocytes % 7.2 % (2.0-10.0) 08/22/17 05:50 Eosinophils % 1.9 % (0.0-5.0) 08/22/17 05:50 Basophils % 0.4 % (0.0-2.0) 08/22/17 05:50 PT 10.3 SECONDS (9.5-11.5) 08/19/17 18:24 INR 0.99 (0.5-1.4) 08/19/17 18:24 PTT (Actin FS) 22.2 SECONDS (26.0-38.0) L 08/19/17 18:24 Sodium 141 mEq/L (136-145) 08/22/17 05:50 Potassium 3.1 mEq/L (3.5-5.1) L 08/22/17 05:50 Chloride 109 mEq/L (98-107) H 08/22/17 05:50 Carbon Dioxide 21.2 mEq/L (21.0-31.0) 08/22/17 05:50 Anion Gap 13.9 (7.0-16.0) 08/22/17 05:50 BUN 24 mg/dL (7-25) 08/22/17 05:50 Creatinine 3.8 mg/dL (0.7-1.3) H 08/22/17 05:50 Est GFR ( Amer) TNP 08/22/17 05:50 Est GFR (Non-Af Amer) TNP 08/22/17 05:50 BUN/Creatinine Ratio 6.3 08/22/17 05:50 Glucose 108 mg/dL (70-105) H 08/22/17 05:50 POC Glucose 111 MG/DL (70 - 105) H 08/22/17 12:24 Hemoglobin A1c % 6.7 % (4.0-6.0) H 08/19/17 18:24 Whole Bld Lactic Acid 1.59 mmol/L (0.60-1.99) 08/19/17 19:40 Calcium 6.5 mg/dL (8.6-10.3) L 08/22/17 05:50 Phosphorus 3.1 mg/dL (2.5-5.0) 08/21/17 06:11 Total Bilirubin 0.6 mg/dL (0.3-1.0) 08/21/17 06:11 AST 10 U/L (13-39) L 08/21/17 06:11 ALT 6 U/L (7-52) L 08/21/17 06:11 Alkaline Phosphatase 70 U/L (34-104) 08/21/17 06:11 Troponin I 0.06 ng/mL (0.01-0.05) H 08/19/17 18:24 B-Natriuretic Peptide 716.0 pg/mL (5.0-100.0) H 08/19/17 18:24 Total Protein 5.8 gm/dL (6.0-8.3) L 08/21/17 06:11 Albumin 2.4 gm/dL (4.2-5.5) L 08/21/17 06:11 Globulin 3.4 gm/dL 08/21/17 06:11 Albumin/Globulin Ratio 0.7 (1.0-1.8) L 08/21/17 06:11 Triglycerides 88 mg/dL (<150) 08/19/17 18:24 Cholesterol 106 mg/dL (<200) 08/19/17 18:24 LDL Cholesterol Direct 60 mg/dL (75-193) L 08/19/17 18:24 HDL Cholesterol 34 mg/dL (23-92) 08/19/17 18:24 Urine Source RANDOM 08/19/17 18:50 Urine Color YELLOW 08/19/17 18:50 Urine Clarity HAZY (CLEAR) 08/19/17 18:50 Urine pH 6.5 (4.6 - 8.0) 08/19/17 18:50 Ur Specific [place] 1.020 (1.005-1.030) 08/19/17 18:50 Urine Protein >=300 mg/dL (NEGATIVE) 08/19/17 18:50 Urine Glucose (UA) NEGATIVE mg/dL (NEGATIVE) 08/19/17 18:50 Urine Ketones 15 mg/dL (NEGATIVE) H 08/19/17 18:50 Urine Blood LARGE (NEGATIVE) H 08/19/17 18:50 Urine Nitrate POSITIVE (NEGATIVE) H 08/19/17 18:50 Urine Bilirubin MODERATE (NEGATIVE) H 08/19/17 18:50 Urine Urobilinogen 1.0 E.U./dL (0.2 - 1.0) 08/19/17 18:50 Ur Leukocyte Esterase LARGE (NEGATIVE) H 08/19/17 18:50 Urine RBC 10-25 /hpf (0-5) H 08/19/17 18:50 Urine WBC 50-100 /hpf (0-5) H 08/19/17 18:50 Ur Epithelial Cells FEW /lpf (FEW) 08/19/17 18:50 Urine Bacteria MANY /hpf (NONE SEEN) H 08/19/17 18:50 Vancomycin Trough 10.5 ug/mL (5-10) H 08/21/17 06:11 Random Vancomycin 19.0 ug/mL (5.0-40.0) 08/22/17 05:50 - Physical Exam Vitals and I&O: Vital Signs Temp 96.7 F 08/22/17 12:03 Pulse 57 08/22/17 13:07 Resp 18 08/22/17 13:07 BP 130/45 08/22/17 12:03 Pulse Ox 96 08/22/17 13:07 Intake & Output 08/21/17 08/22/17 08/22/17 18:59 06:59 18:59 Intake Total 100 450 250 Output Total 70 Balance 100 380 250 Weight (lbs) 61.689 kg 69.49 kg 61.689 kg Intake: Intake, IV Amount 100 50 50 Piperacillin Sodium/ 100 50 50 Tazobact 2.25 gm In Sodium Chloride 0.9% 50 ml @ 100 mls/hr IV Q6HR [facility] Rx#:[id number] Oral 400 200 Output: Urine 70 Other: # Bowel Movements 0 0 0 Weight Source Bedscale Bedscale Bedscale Active Medications: Current Medications Acetaminophen (Tylenol) 650 mg PO Q4HR PRN PRN Reason: MILD PAIN Stop: 10/19/17 12:41 Albuterol/Ipratropium (Duoneb Neb) 3 ml HHN Q2HRT PRN PRN Reason: COPD Stop: 10/19/17 12:41 Last Admin: 08/20/17 13:22 Dose: 3 ml Albuterol/Ipratropium (Duoneb Neb) 3 ml HHN [id number] [facility] Stop: 10/19/17 18:59 Last Admin: 08/22/17 13:07 Dose: 3 ml Albuterol/Ipratropium (Duoneb Neb) 3 ml HHN [id number] [facility] Stop: 10/21/17 14:59 Amlodipine Besylate (Norvasc) 10 mg PO DAILY [facility] Stop: 10/20/17 08:59 Last Admin: 08/22/17 08:16 Dose: Not Given Ascorbic Acid (Vitamin C) 500 mg PO DAILY [facility] Stop: 10/20/17 08:59 Last Admin: 08/22/17 08:17 Dose: Not Given Aspirin (Aspirin Chewable) 81 mg PO DAILY [facility] Stop: 10/20/17 08:59 Last Admin: 08/22/17 08:17 Dose: Not Given Atorvastatin Calcium (Lipitor) 20 mg PO HS [facility] Stop: 10/19/17 20:59 Last Admin: 08/21/17 22:21 Dose: 20 mg Bisacodyl (Dulcolax 10 Mg Supp) 10 mg RC DAILY PRN PRN Reason: IF MOM INEFECTIVE Stop: 10/19/17 12:41 Budesonide (Pulmicort) 0.5 mg HHN BIDRT [facility] Stop: 10/21/17 18:59 Calcium Carbonate (Os-Brad) 500 mg PO DAILY [facility] Stop: 10/20/17 08:59 Last Admin: 08/22/17 08:17 Dose: Not Given Docusate Sodium (Colace) 100 mg PO BID [facility] Stop: 10/19/17 16:59 Last Admin: 08/22/17 08:17 Dose: Not Given Ferrous Sulfate (Iron) 325 mg PO DAILY [facility] Stop: 10/20/17 08:59 Last Admin: 08/22/17 08:18 Dose: Not Given Finasteride (Proscar) 5 mg PO DAILY [facility] PRN Reason: Protocol Stop: 10/20/17 08:59 Last Admin: 08/22/17 08:18 Dose: Not Given Heparin Sodium (Porcine) (Heparin) 5,000 units SUBQ Q12HR [facility] Stop: 10/19/17 20:59 Last Admin: 08/22/17 08:18 Dose: Not Given Heparin Sodium (Porcine) (Heparin) 5,000 units HD UD [facility] Stop: 08/23/17 00:00 Last Admin: 08/22/17 09:35 Dose: Not Given Piperacillin Sod/Tazobactam (Sod 2.25 gm/ Sodium Chloride) 50 mls @ 100 mls/hr IV Q6HR [facility] Stop: 10/19/17 00:00 Last Admin: 08/22/17 12:39 Dose: 100 mls/hr Albumin Human (Albuminar 25%) 25 gm in 100 mls @ 50 mls/hr IV PRN PRN PRN Reason: BP Support During HD Insulin Aspart (Novolog Insulin Sliding Scale) 0 units SUBQ ACHS [facility] PRN Reason: Protocol Stop: 10/20/17 11:29 Last Admin: 08/22/17 12:31 Dose: Not Given Insulin Detemir (Levemir Insulin) 10 units SUBQ HS [facility] PRN Reason: Protocol Stop: 10/19/17 20:59 Last Admin: 08/22/17 00:47 Dose: Not Given Lactobacillus Rhamnosus (Culturelle 15b) 1 each PO DAILY [facility] Stop: 10/21/17 08:59 Last Admin: 08/22/17 08:18 Dose: Not Given Miscellaneous (Vancomycin Iv Per Pharmacy) 1 ea PRN PRN PRN Reason: PROTOCOL Stop: 10/18/17 19:30 Miscellaneous (Zosyn Iv Per Pharmacy) 1 [facility] PRN PRN PRN Reason: PROTOCOL Stop: 10/18/17 19:30 Miscellaneous (Probiotic Screen) 1 [facility] PRN PRN PRN Reason: PROTOCOL Stop: 10/20/17 09:14 Ondansetron HCl (Zofran Odt) 4 mg PO Q4H PRN PRN Reason: Nausea / Vomiting Stop: 10/19/17 12:41 Pantoprazole Sodium (Protonix) 40 mg PO DAILY [facility] Stop: 10/20/17 08:59 Last Admin: 08/22/17 08:19 Dose: Not Given Senna (Senna) 17.2 mg PO HS [facility] Stop: 10/19/17 20:59 Last Admin: 08/21/17 22:21 Dose: 17.2 mg Tamsulosin HCl (Flomax) 0.4 mg PO DAILY [facility] Stop: 10/20/17 08:59 Last Admin: 08/22/17 08:19 Dose: Not Given Vitamin B Complex/Vit C/Folic Acid (Vitamin B Complex W/Vitamin C) 1 tab PO DAILY [facility] Stop: 10/20/17 08:59 Last Admin: 08/22/17 08:19 Dose: Not Given General: Alert, Mild distress HEENT: Mucous membr. moist/pink Neck: Supple, +2 carotid pulse wo bruit Cardiovascular: Regular rate, Normal S1, Normal S2 Lungs: Normal air movement Abdomen: Bowel sounds, Soft Extremities: no Edema Neurological: Sensation intact Skin: no Rash Psych/Mental Status: Mood NL Assessment/Plan - Problem List Patient Problems: All Active Problems BILATERAL GREAT TOE BLACKNESS (Acute) - Assessment Assessment: 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 Htn W/ CKD PAD CHF Anemia of CD COPD Dyslipidemia GERD - Plan Plan: Lab - Result Diagrams 08/21/17 06:11 Current Medications Acetaminophen (Tylenol) 650 mg PO Q4HR PRN PRN Reason: MILD PAIN Stop: 10/19/17 12:41 Albuterol/Ipratropium (Duoneb Neb) 3 ml HHN Q2HRT PRN PRN Reason: COPD Stop: 10/19/17 12:41 Last Admin: 08/20/17 13:22 Dose: 3 ml Albuterol/Ipratropium (Duoneb Neb) 3 ml HHN [id number] [facility] Stop: 10/19/17 18:59 Last Admin: 08/21/17 12:27 Dose: 3 ml Amlodipine Besylate (Norvasc) 10 mg PO DAILY [facility] Stop: 10/20/17 08:59 Last Admin: 08/21/17 09:00 Dose: 10 mg Ascorbic Acid (Vitamin C) 500 mg PO DAILY [facility] Stop: 10/20/17 08:59 Last Admin: 08/21/17 09:01 Dose: 500 mg Aspirin (Aspirin Chewable) 81 mg PO DAILY [facility] Stop: 10/20/17 08:59 Last Admin: 08/21/17 09:00 Dose: 81 mg Atorvastatin Calcium (Lipitor) 20 mg PO HS [facility] Stop: 10/19/17 20:59 Last Admin: 08/20/17 23:18 Dose: 20 mg Bisacodyl (Dulcolax 10 Mg Supp) 10 mg RC DAILY PRN PRN Reason: IF MOM INEFECTIVE Stop: 10/19/17 12:41 Calcium Carbonate (Os-Brad) 500 mg PO DAILY [facility] Stop: 10/20/17 08:59 Last Admin: 08/21/17 09:01 Dose: 500 mg Docusate Sodium (Colace) 100 mg PO BID [facility] Stop: 10/19/17 16:59 Last Admin: 08/21/17 09:01 Dose: 100 mg Ferrous Sulfate (Iron) 325 mg PO DAILY [facility] Stop: 10/20/17 08:59 Last Admin: 08/21/17 09:01 Dose: 325 mg Finasteride (Proscar) 5 mg PO DAILY [facility] PRN Reason: Protocol Stop: 10/20/17 08:59 Last Admin: 08/21/17 09:00 Dose: 5 mg Heparin Sodium (Porcine) (Heparin) 5,000 units SUBQ Q12HR [facility] Stop: 10/19/17 20:59 Last Admin: 08/21/17 09:01 Dose: 5,000 units Piperacillin Sod/Tazobactam (Sod 2.25 gm/ Sodium Chloride) 50 mls @ 100 mls/hr IV Q6HR [facility] Stop: 10/19/17 00:00 Last Admin: 08/21/17 12:52 Dose: 100 mls/hr Insulin Aspart (Novolog Insulin Sliding Scale) 0 units SUBQ ACHS [facility] PRN Reason: Protocol Stop: 10/20/17 11:29 Last Admin: 08/21/17 12:51 Dose: Not Given Insulin Detemir (Levemir Insulin) 10 units SUBQ HS [facility] PRN Reason: Protocol Stop: 10/19/17 20:59 Last Admin: 08/20/17 23:18 Dose: 2 unit Lactobacillus Rhamnosus (Culturelle 15b) 1 each PO DAILY [facility] Stop: 10/21/17 08:59 Miscellaneous (Vancomycin Iv Per Pharmacy) 1 ea PRN PRN PRN Reason: PROTOCOL Stop: 10/18/17 19:30 Miscellaneous (Zosyn Iv Per Pharmacy) 1 [facility] PRN PRN PRN Reason: PROTOCOL Stop: 10/18/17 19:30 Miscellaneous (Probiotic Screen) 1 [facility] PRN PRN PRN Reason: PROTOCOL Stop: 10/20/17 09:14 Ondansetron HCl (Zofran Odt) 4 mg PO Q4H PRN PRN Reason: Nausea / Vomiting Stop: 10/19/17 12:41 Pantoprazole Sodium (Protonix) 40 mg PO DAILY [facility] Stop: 10/20/17 08:59 Last Admin: 08/21/17 09:00 Dose: 40 mg Senna (Senna) 17.2 mg PO HS [facility] Stop: 10/19/17 20:59 Last Admin: 08/20/17 23:18 Dose: 17.2 mg Tamsulosin HCl (Flomax) 0.4 mg PO DAILY [facility] Stop: 10/20/17 08:59 Last Admin: 08/21/17 09:01 Dose: 0.4 mg Vitamin B Complex/Vit C/Folic Acid (Vitamin B Complex W/Vitamin C) 1 tab PO DAILY [facility] Stop: 10/20/17 08:59 Last Admin: 08/21/17 09:01 Dose: 1 tab Lab - Result Diagrams 08/22/17 05:50 08/22/17 05:50 schedule for HD in am possible amputations of toes today f/u electrolytes, cbc replace K Nutritional Asmnt/Malnutr-PDOC - Dietary Evaluation Malnutrition Findings (Please click <Entered> for more info): Nutritional Asmnt/Malnutrition Start: 08/21/17 17: 29 Text: Status: Complete Freq: Document 08/21/17 17:29 LCHENG (Rec: 08/21/17 17:43 [id number]) Nutritional Asmnt/Malnutrition Patient General Information Nutritional Screening High Risk Consult Diagnosis CHF, gangrenuous L&R foot Pertinent Medical Hx/Surgical Hx CHF, HTN, hyperlipidemia, COPD , PNA, dementia, GERD, OA, swelling, chronic renal insuff , DM, osteoporosis Subjective Information Consult received for diabetic. Pt seen lying in bed at time of visit, awake and alert. Pt reported good appetite. Per nurse note, pt will have amputation on right great and 2nd toe, and left great toe. Per EMR, PO intake 30-75%. Pt is on diaysis noted. Current Diet Order/ Nutrition Support [facility] soft renal nectar thick liquid Pertinent Medications vit C, os-brad, colace, iron, novolog, levemir, culturelle, protonix, piperacillin, senna, vitamin B complex /vitC/folic acid Pertinent Labs 08/21 cr 3.9, glucose 111, POC 156 08/19 A1c 6.7 Nutritional Hx/Data Height 1.7 m Height (Calculated Centimeters) 170.2 Current Weight (lbs) 61.689 kg Weight (Calculated Kilograms) 61.7 Weight (Calculated Grams) 42728.6 [place] Body Weight 148 Body Mass Index (BMI) 21.2 Weight Status Approriate GI Symptoms GI Symptoms None Last BM 08/20 Difficult in: None Skin Integrity/Comment: Yes: DECUBS decubs to sacrum, gangrene to right toe, left toe and left lower foot Current %PO Fair (50-74%) Estimated Nutritional Goals BEE in Kcals: Using Current wt Calories/Kcals/Kg 30-35 Kcals Calculated 8176-3427 Protein: Using Current wt Protein g/k.2-1.4 Protein Calculated 74-87 Fluid: ml per MD Nutritional Problem 1. Problem Problem altered nutrition related labs Etiology hx of DM, chronic renal insuff Signs/Symptoms: Cr 3.9, glucose 111, POC 156, A1c 6.7 Malnutrition Alert Protein-Calorie Malnutrition N/A Is there a minimum of two criteria No selected? Query Text:Check all the applicable criteria. A minimum of two criteria are recommended for diagnosis of either severe or non-severe malnutrition. Intervention/Recommendation Comments 1. Considering adding CCHO- 60gm diet if glucose continue high. Encouraged protein food intake. 2. Monitor PO intake, wt, labs and skin integrity 3. F/U as high risk in 2-3 days, 08/23-08/24 Expected Outcomes/Goals Expected Outcomes/Goals 1. PO intake to meet at least 75% of nutritional needs. 2. Wt stability, skin to remain intact, labs to approach WNL.
[2017-08-22] MEDS ORDERED: fentaNYL Citrate 100 mcg/2mL Vial IVP PRN (15:52)
--- NOTE | 2017-08-22 16:15 | Consultation ---
DATE OF CONSULTATION: 08/20/2017 REFERRING PHYSICIAN: Dr. Javi Robin. REASON FOR CONSULTATION: Gangrene, right and left toes. Thank you for referring this patient to me. HISTORY OF PRESENT ILLNESS: An 82-year-old male with poorly controlled diabetes mellitus who comes in because of gangrenous changes and the toes of the right and left foot. The patient has had a cough and congestion as well. He has history of chronic kidney disease on hemodialysis, hypertension, peripheral vascular disease, CHF, and COPD. The examination shows gangrene of the tips of the right big toe and second toe and on the left side the big toe gangrene of the distal phalanx. There is an ulceration in the left leg medial aspect. LABORATORY STUDIES: Were done and this showed a CBC to be essentially normal. BUN is 24, creatinine of 3.8. The patient underwent a Doppler study of lower extremities, which showed severe disease showing no flow in the right anterior and posterior tibial arteries and in the left side there is no flow in the left posterior tibial. Physical examination shows that both feet are slightly cool, but moves extremities well. The [id number] has approved consent for amputation of right first and second toes and the left big toe as well as debridement of the left leg. PLAN: We will schedule for surgery. JOB# [id number]
--- NOTE | 2017-08-22 17:58 | Operative Report ---
DATE OF SURGERY: 08/22/2017 PREOPERATIVE DIAGNOSES: 1. Gangrene of the right big toe. 2. Gangrene of the right second toe. 3. Gangrene of the left big toe. 4. Ulcer, left medial aspect of the leg. 5. Diabetes mellitus with poor control. 6. Hypertension. 7. Peripheral vascular disease, severe. POSTOPERATIVE DIAGNOSES: 1. Gangrene of the right big toe. 2. Gangrene of the right second toe. 3. Gangrene of the left big toe. 4. Ulcer, left medial aspect of the leg. 5. Diabetes mellitus with poor control. 6. Hypertension. 7. Peripheral vascular disease, severe. OPERATION DONE: 1. Disarticulation of the right big toe at the MP joint 2. Disarticulation at the MP joint of the right second toe. 3. Disarticulation of the left big toe at the MP joint. 4. Excisional debridement, left leg ulcer. 5. Removal of tunneled catheter (Perm-A-Cath), left internal jugular vein. SURGEON: Prasanna Day M.D. ANESTHESIA: General. ANESTHESIOLOGIST: Michael. ESTIMATED BLOOD LOSS: 10 mL. PROCEDURE: The patient was given general anesthesia. Both feet and left leg were prepped with Betadine and draped. Disarticulation was done with incision on the dorsal and plantar aspect of the MP joint on the right big toe extending into the second toe. The MP joints were then disarticulated. Bleeders were electrocoagulated. The wound was reprepped with Betadine and the incision was closed with interrupted sutures of 3-0 Vicryl subcutaneously and the skin with subcuticular suture of 4-0 Vicryl. Compression dressing was placed over this. The same procedure was repeated on the left big toe. The ulcer in the left leg was debrided. A size of this ulcer is 2 x 1 cm. In the process of the procedure, the [id number] called and asked that the Perm-A-Cath be removed. This was witnessed by 2 nurses in the operating room. This had not been discussed before, but the instruction of the [id number] was followed. The Perm-A-Cath on the right neck area was exposed via an incision to remove cuff from the subcutaneous tissues, which is done, with scar formation now. The catheter was removed from the jugular vein and compression was placed on the vein. The rest of the catheter was removed. All specimens were sent to pathology. The patient tolerated the procedure well. [facility]# [id number] JORDY
[2017-08-22] MEDS: Budesonide 0.5 Mg/2 mL Ud HHN SCH (19:37)
[2017-08-22] MEDS: Atorvastatin Calcium 10 MG TAB PO SCH (20:46)
[2017-08-23] MEDS: Piperacillin/Tazobact 2.25 gm in 0.9% NS 50 ML IV SCH ×4 (01:00→17:25)
--- NOTE | 2017-08-23 04:31 | Progress Notes ---
DATE: 08/19/2017 REASON FOR CONSULTATION: Abnormal chest x-ray. CONSULT NOTE: This is an 82-year-old gentleman who is on chronic renal failure, hemodialysis. He stays in a local convalescent home. As the patient developed gangrenous on the right toes, first and second and third over the last couple of days. Subsequently, the patient was brought to the hospital. Incidentally, the patient also has a history of coughing, some wheezing and some shortness of breath, though had "some kind of pneumonia," for which he was admitted to the hospital. The patient denies of shortness of breath, some coughing, not much sputum production. Denies of any chest pain, no fever or chills. PAST MEDICAL HISTORY: History of hypertension, dyslipoproteinemia, question COPD, recent pneumonia, and a history of renal failure on hemodialysis, and smoking history is nil. SURGICAL HISTORY: Cataract removal. FAMILY HISTORY: Noncontributory. Questionable history suggestive of obstructive sleep apnea syndrome. CURRENT MEDICATION: Prior to coming to the hospital includes multiple including breathing treatment with albuterol, insulin with sliding scale, Levaquin, Flomax, ferrous sulfate, finasteride, Proscar, vitamins, calcium carbonate, Lipitor. ALLERGIES: None. PHYSICAL EXAMINATION: GENERAL: This is an elderly looking gentleman, quite heavy set, snoring at my exam, but waking up, in no respiratory distress, etc. VITAL SIGNS: The patient's recorded vital signs, temperature is 96.3, blood pressure 130/45, saturation is 96 and respirations 18. HEENT: Examination of the head is essentially unremarkable. Pupils appear to be equal and reacting to light. Conjunctivae are slightly pallor. Oral cavity shows poor dental hygiene with tongue coated. Oropharyngeal opening is very small. NECK: Very short practically nonexistent. No palpable nodes in the neck could be appreciated. CHEST: Shows diminished air entry with occasional secretory noise. ABDOMEN: Soft, nontender. EXTREMITIES: Right leg's first and second toe gangrene is dry. Poor pulsations. Left side appears to be okay. No peripheral edema. LABORATORY DATA: The patient's pertinent laboratory studies: White count is 10.5, potassium is 3.1, creatinine is 3.8 and sugar is 108. The patient's chest x-ray shows some haziness in the left basal area and potassium is 3.1. ASSESSMENT: 1. The patient clinically appears to have a resolving pneumonia, effusion either parapneumonic and/or possibly fluid overload. 2. Suspect obstructive sleep apnea syndrome with morbid obesity. 4. Renal failure, on hemodialysis. 5. Dry gangrene is on right upper toes, but otherwise unremarkable. IMPRESSION: 1. The patient has probably resolving pneumonia, though is very hard to say with previous history of pneumonia recently. 2. Possibly effusion, possibly parapneumonic versus fluid overload, ____ suspect obstructive sleep apnea syndrome. PLANS AND SUGGESTIONS: We will give aggressive inhalation treatment, bronchodilator studies, bronchodilator treatment, inhale steroid, repeat sputum studies and antibiotic per ID. We will get a CT of the chest, etc., and see how he does and go from there. JOB# [id number]
[2017-08-23] MEDS ORDERED: Dextrose 50% 50 mL Abboject IVP ONE (05:31)
[2017-08-23] MEDS: Budesonide 0.5 Mg/2 mL Ud HHN SCH ×2 (06:43→18:56)
[2017-08-23] MEDS: Albuterol/Ipratropium Neb 3 ML AERS HHN SCH ×4 (06:43→18:56)
[2017-08-23] MEDS: Vitamin B Complex w/Vitamin C Tab PO SCH (08:24)
[2017-08-23] MEDS: Pantoprazole 40 mg EC Tab PO SCH (08:24)
[2017-08-23] MEDS: Ferrous Sulfate 325 MG TAB PO SCH (08:25)
[2017-08-23] MEDS: Lactobacillus Rhamnosus GG 15 Billion CFU CAP.SPRINK PO SCH (08:25)
[2017-08-23] MEDS: INSULIN ASPART SLIDING SCALE 100 UNITS/ML UNIT SUBQ SCH ×4 (08:26→20:51)
[2017-08-23] MEDS: Aspirin 81mg Chewable Tab PO SCH (08:38)
--- NOTE | 2017-08-23 08:51 | Infectious Disease Prog Note ---
Infectious Disease Subjective - Review of Systems Service Date: 08/23/17 Events since last encounter: Amputation of right 1st, 2nd, left 1st toes was performed by Dr Day yesterday. He had bleeding form permacath, aspirin and heparin was put on hold. Permacath was removed, had had bleeding from the cath site, pressure dressing applied. Subjective: There is no new change, no fever. Infectious Disease Objective - Results Result Diagrams: 08/22/17 05:50 08/22/17 05:50 Recent Labs: Laboratory Last Values WBC 10.5 Th/cmm (4.8-10.8) 08/22/17 05:50 RBC 3.69 Mil/cmm (3.80-5.80) L 08/22/17 05:50 Hgb 10.2 gm/dL (12-16) L 08/22/17 05:50 Hct 31.8 % (41.0-60) L 08/22/17 05:50 MCV 86.1 fl (80-99) 08/22/17 05:50 MCH 27.7 pg (27.0-31.0) 08/22/17 05:50 MCHC Differential 32.2 pg (28.0-36.0) 08/22/17 05:50 RDW 17.9 % (11.5-20.0) 08/22/17 05:50 Plt Count 233 Th/cmm (150-400) 08/22/17 05:50 MPV 7.2 fl 08/22/17 05:50 Neutrophils % 63.3 % (40.0-80.0) 08/22/17 05:50 Lymphocytes % 27.2 % (20.0-50.0) 08/22/17 05:50 Monocytes % 7.2 % (2.0-10.0) 08/22/17 05:50 Eosinophils % 1.9 % (0.0-5.0) 08/22/17 05:50 Basophils % 0.4 % (0.0-2.0) 08/22/17 05:50 PT 10.3 SECONDS (9.5-11.5) 08/19/17 18:24 INR 0.99 (0.5-1.4) 08/19/17 18:24 PTT (Actin FS) 22.2 SECONDS (26.0-38.0) L 08/19/17 18:24 Sodium 141 mEq/L (136-145) 08/22/17 05:50 Potassium 3.1 mEq/L (3.5-5.1) L 08/22/17 05:50 Chloride 109 mEq/L (98-107) H 08/22/17 05:50 Carbon Dioxide 21.2 mEq/L (21.0-31.0) 08/22/17 05:50 Anion Gap 13.9 (7.0-16.0) 08/22/17 05:50 BUN 24 mg/dL (7-25) 08/22/17 05:50 Creatinine 3.8 mg/dL (0.7-1.3) H 08/22/17 05:50 Est GFR ( Amer) TNP 08/22/17 05:50 Est GFR (Non-Af Amer) TNP 08/22/17 05:50 BUN/Creatinine Ratio 6.3 08/22/17 05:50 Glucose 52 mg/dL (70-105) L 08/23/17 05:47 POC Glucose 138 MG/DL (70 - 105) H 08/23/17 06:27 Hemoglobin A1c % 6.7 % (4.0-6.0) H 08/19/17 18:24 Whole Bld Lactic Acid 1.59 mmol/L (0.60-1.99) 08/19/17 19:40 Calcium 6.5 mg/dL (8.6-10.3) L 08/22/17 05:50 Phosphorus 3.1 mg/dL (2.5-5.0) 08/21/17 06:11 Total Bilirubin 0.6 mg/dL (0.3-1.0) 08/21/17 06:11 AST 10 U/L (13-39) L 08/21/17 06:11 ALT 6 U/L (7-52) L 08/21/17 06:11 Alkaline Phosphatase 70 U/L (34-104) 08/21/17 06:11 Troponin I 0.06 ng/mL (0.01-0.05) H 08/19/17 18:24 B-Natriuretic Peptide 716.0 pg/mL (5.0-100.0) H 08/19/17 18:24 Total Protein 5.8 gm/dL (6.0-8.3) L 08/21/17 06:11 Albumin 2.4 gm/dL (4.2-5.5) L 08/21/17 06:11 Globulin 3.4 gm/dL 08/21/17 06:11 Albumin/Globulin Ratio 0.7 (1.0-1.8) L 08/21/17 06:11 Triglycerides 88 mg/dL (<150) 08/19/17 18:24 Cholesterol 106 mg/dL (<200) 08/19/17 18:24 LDL Cholesterol Direct 60 mg/dL (75-193) L 08/19/17 18:24 HDL Cholesterol 34 mg/dL (23-92) 08/19/17 18:24 Urine Source RANDOM 08/19/17 18:50 Urine Color YELLOW 08/19/17 18:50 Urine Clarity HAZY (CLEAR) 08/19/17 18:50 Urine pH 6.5 (4.6 - 8.0) 08/19/17 18:50 Ur Specific [place] 1.020 (1.005-1.030) 08/19/17 18:50 Urine Protein >=300 mg/dL (NEGATIVE) 08/19/17 18:50 Urine Glucose (UA) NEGATIVE mg/dL (NEGATIVE) 08/19/17 18:50 Urine Ketones 15 mg/dL (NEGATIVE) H 08/19/17 18:50 Urine Blood LARGE (NEGATIVE) H 08/19/17 18:50 Urine Nitrate POSITIVE (NEGATIVE) H 08/19/17 18:50 Urine Bilirubin MODERATE (NEGATIVE) H 08/19/17 18:50 Urine Urobilinogen 1.0 E.U./dL (0.2 - 1.0) 08/19/17 18:50 Ur Leukocyte Esterase LARGE (NEGATIVE) H 08/19/17 18:50 Urine RBC 10-25 /hpf (0-5) H 08/19/17 18:50 Urine WBC 50-100 /hpf (0-5) H 08/19/17 18:50 Ur Epithelial Cells FEW /lpf (FEW) 08/19/17 18:50 Urine Bacteria MANY /hpf (NONE SEEN) H 08/19/17 18:50 Vancomycin Trough 10.5 ug/mL (5-10) H 08/21/17 06:11 Random Vancomycin 19.0 ug/mL (5.0-40.0) 08/22/17 05:50 - Physical Exam Vitals and I&O: Vital Signs Temp 97.6 F 08/23/17 07:50 Pulse 68 08/23/17 07:50 Resp 18 08/23/17 08:35 BP 134/54 08/23/17 07:50 Pulse Ox 98 08/23/17 07:50 Intake & Output 08/22/17 08/23/17 08/23/17 18:59 06:59 18:59 Intake Total 300 340 Output Total 2250 Balance 300 -1910 Weight (lbs) 61.689 kg 72.257 kg Intake: Intake, IV Amount 100 100 Piperacillin Sodium/ 100 100 Tazobact 2.25 gm In Sodium Chloride 0.9% 50 ml @ 100 mls/hr IV Q6HR [facility] Rx#:[id number] Oral 200 240 Output: Urine 150 Hemodialysis 2100 Other: # Bowel Movements 0 3 Weight Source Bedscale Bedscale Active Medications: Current Medications Acetaminophen (Tylenol) 650 mg PO Q4HR PRN PRN Reason: MILD PAIN Stop: 10/19/17 12:41 Albuterol/Ipratropium (Duoneb Neb) 3 ml HHN Q2HRT PRN PRN Reason: COPD Stop: 10/19/17 12:41 Last Admin: 08/20/17 13:22 Dose: 3 ml Albuterol/Ipratropium (Duoneb Neb) 3 ml HHN [id number] [facility] Stop: 10/21/17 14:59 Last Admin: 08/23/17 06:43 Dose: 3 ml Amlodipine Besylate (Norvasc) 10 mg PO DAILY [facility] Stop: 10/20/17 08:59 Last Admin: 08/23/17 08:38 Dose: Not Given Ascorbic Acid (Vitamin C) 500 mg PO DAILY [facility] Stop: 10/20/17 08:59 Last Admin: 08/23/17 08:25 Dose: 500 mg Aspirin (Aspirin Chewable) 81 mg PO DAILY [facility] Stop: 10/20/17 08:59 Last Admin: 08/23/17 08:38 Dose: Not Given Atorvastatin Calcium (Lipitor) 20 mg PO HS [facility] Stop: 10/19/17 20:59 Last Admin: 08/22/17 20:46 Dose: 20 mg Bisacodyl (Dulcolax 10 Mg Supp) 10 mg RC DAILY PRN PRN Reason: IF MOM INEFECTIVE Stop: 10/19/17 12:41 Budesonide (Pulmicort) 0.5 mg HHN BIDRT [facility] Stop: 10/21/17 18:59 Last Admin: 08/23/17 06:43 Dose: 0.5 mg Calcium Carbonate (Os-Alicia) 500 mg PO DAILY [facility] Stop: 10/20/17 08:59 Last Admin: 08/23/17 08:25 Dose: 500 mg Docusate Sodium (Colace) 100 mg PO BID [facility] Stop: 10/19/17 16:59 Last Admin: 08/23/17 08:25 Dose: 100 mg Fentanyl Citrate (Sublimaze) 50 mcg IVP UD PRN PRN Reason: Pain (Moderate) Stop: 08/23/17 15:51 Ferrous Sulfate (Iron) 325 mg PO DAILY [facility] Stop: 10/20/17 08:59 Last Admin: 08/23/17 08:25 Dose: 325 mg Finasteride (Proscar) 5 mg PO DAILY [facility] PRN Reason: Protocol Stop: 10/20/17 08:59 Last Admin: 08/23/17 08:25 Dose: 5 mg Heparin Sodium (Porcine) (Heparin) 5,000 units SUBQ Q12HR [facility] Stop: 10/19/17 20:59 Last Admin: 08/23/17 08:38 Dose: Not Given Piperacillin Sod/Tazobactam (Sod 2.25 gm/ Sodium Chloride) 50 mls @ 100 mls/hr IV Q6HR [facility] Stop: 10/19/17 00:00 Last Admin: 08/23/17 06:09 Dose: 100 mls/hr Albumin Human (Albuminar 25%) 25 gm in 100 mls @ 50 mls/hr IV PRN PRN PRN Reason: BP Support During HD Insulin Aspart (Novolog Insulin Sliding Scale) 0 units SUBQ ACHS [facility] PRN Reason: Protocol Stop: 10/20/17 11:29 Last Admin: 08/23/17 08:26 Dose: Not Given Insulin Detemir (Levemir Insulin) 10 units SUBQ HS [facility] PRN Reason: Protocol Stop: 10/19/17 20:59 Last Admin: 08/22/17 20:48 Dose: 10 unit Lactobacillus Rhamnosus (Culturelle 15b) 1 each PO DAILY [facility] Stop: 10/21/17 08:59 Last Admin: 08/23/17 08:25 Dose: 1 each Miscellaneous (Vancomycin Iv Per Pharmacy) 1 ea PRN PRN PRN Reason: PROTOCOL Stop: 10/18/17 19:30 Miscellaneous (Zosyn Iv Per Pharmacy) 1 ea PRN PRN PRN Reason: PROTOCOL Stop: 10/18/17 19:30 Miscellaneous (Probiotic Screen) 1 ea PRN PRN PRN Reason: PROTOCOL Stop: 10/20/17 09:14 Ondansetron HCl (Zofran Odt) 4 mg PO Q4H PRN PRN Reason: Nausea / Vomiting Stop: 10/19/17 12:41 Ondansetron HCl (Zofran) 4 mg IV UD PRN PRN Reason: Nausea / Vomiting Stop: 08/23/17 15:51 Pantoprazole Sodium (Protonix) 40 mg PO DAILY [facility] Stop: 10/20/17 08:59 Last Admin: 08/23/17 08:24 Dose: 40 mg Senna (Senna) 17.2 mg PO HS [facility] Stop: 10/19/17 20:59 Last Admin: 08/22/17 20:46 Dose: 17.2 mg Tamsulosin HCl (Flomax) 0.4 mg PO DAILY [facility] Stop: 10/20/17 08:59 Last Admin: 08/23/17 08:25 Dose: 0.4 mg Vitamin B Complex/Vit C/Folic Acid (Vitamin B Complex W/Vitamin C) 1 tab PO DAILY [facility] Stop: 10/20/17 08:59 Last Admin: 08/23/17 08:24 Dose: 1 tab General: no acute distress, well developed, well nourished HEENT: atraumatic, normocephalic, PERRLA, EOMI Neck: supple, no thyromegaly Cardiovascular: S1S2, regular Lungs: clear to auscultation bilaterally, clear to percussion, crackles Abdomen: soft, no tender, no distended, no mass, no hepatomegaly Extremities: other (bilateral foot dressing.), no cyanosis, no clubbing, no edema Neurological: awake, alert, oriented Infectious Disease Assmt/Plan - Problem List Patient Problems: All Active Problems BILATERAL GREAT TOE BLACKNESS (Acute) - Assessment Assessment: Current Active Problems Problem Status Onset BILATERAL GREAT TOE BLACKNESS Acute 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 2. Diabetes mellitus type 2. 3. 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 4. Hypertension. 5. History of peripheral artery disease. 6. CHF. 7. Recent history of pneumonia. 8. Anemia of chronic disease. 9. COPD. 10. UTI. 11. Hyperlipidemia. 12. GERD. 13. bleeding from permacath site. 14. PPI prophylaxis. 15. DVT prophylaxis. - Plan Plan: Continue vancomycin and Zosyn. Continue same treatment. 2-D echocardiogram. Heparin subcutaneous and SCD. Protonix by mouth. Consult Dr. Day. Vascular surgery. Consult Dr. Mcmahan. Nephrology. Storage Manager Dr. Con Robin. Cardiology. Consult, Dr El Robin, Pulmonary. Dc Plan to snf or LTAC tomorrow. Nutritional Asmnt/Malnutr-PDOC - Dietary Evaluation Malnutrition Findings (Please click <Entered> for more info): Nutritional Asmnt/Malnutrition Start: 08/21/17 17: 29 Text: Status: Complete Freq: Document 08/21/17 17:29 HEN (Rec: 08/21/17 17:43 LCHEN [email or web address]) Nutritional Asmnt/Malnutrition Patient General Information Nutritional Screening High Risk Consult Diagnosis CHF, gangrenuous L&R foot Pertinent Medical Hx/Surgical Hx CHF, HTN, hyperlipidemia, COPD , PNA, dementia, GERD, OA, swelling, chronic renal insuff , DM, osteoporosis Subjective Information Consult received for diabetic. Pt seen lying in bed at time of visit, awake and alert. Pt reported good appetite. Per nurse note, pt will have amputation on right great and 2nd toe, and left great toe. Per EMR, PO intake 30-75%. Pt is on diaysis noted. Current Diet Order/ Nutrition Support [facility] soft renal nectar thick liquid Pertinent Medications vit C, os-alicia, colace, iron, novolog, levemir, culturelle, protonix, piperacillin, senna, vitamin B complex /vitC/folic acid Pertinent Labs 08/21 cr 3.9, glucose 111, POC 156 08/19 A1c 6.7 Nutritional Hx/Data Height 1.7 m Height (Calculated Centimeters) 170.2 Current Weight (lbs) 61.689 kg Weight (Calculated Kilograms) 61.7 Weight (Calculated Grams) 60577.6 [place] Body Weight 148 Body Mass Index (BMI) 21.2 Weight Status Approriate GI Symptoms GI Symptoms None Last BM 08/20 Difficult in: None Skin Integrity/Comment: Yes: DECUBS decubs to sacrum, gangrene to right toe, left toe and left lower foot Current %PO Fair (50-74%) Estimated Nutritional Goals BEE in Kcals: Using Current wt Calories/Kcals/Kg 30-35 Kcals Calculated 6801-7779 Protein: Using Current wt Protein g/k.2-1.4 Protein Calculated 74-87 Fluid: ml per MD Nutritional Problem 1. Problem Problem altered nutrition related labs Etiology hx of DM, chronic renal insuff Signs/Symptoms: Cr 3.9, glucose 111, POC 156, A1c 6.7 Malnutrition Alert Protein-Calorie Malnutrition N/A Is there a minimum of two criteria No selected? Query Text:Check all the applicable criteria. A minimum of two criteria are recommended for diagnosis of either severe or non-severe malnutrition. Intervention/Recommendation Comments 1. Considering adding CCHO- 60gm diet if glucose continue high. Encouraged protein food intake. 2. Monitor PO intake, wt, labs and skin integrity 3. F/U as high risk in 2-3 days, 5/2-5/3 Expected Outcomes/Goals Expected Outcomes/Goals 1. PO intake to meet at least 75% of nutritional needs. 2. Wt stability, skin to remain intact, labs to approach WNL.
--- NOTE | 2017-08-23 09:15 | General Progress Note ---
Subjective - Review of Systems Service Date: 08/23/17 Events since last encounter: stumps of amputation clean some oozing from IJ site removal of permcath Objective - Results Result Diagrams: 08/22/17 05:50 08/22/17 05:50 Recent Labs: Laboratory Last Values WBC 10.5 Th/cmm (4.8-10.8) 08/22/17 05:50 RBC 3.69 Mil/cmm (3.80-5.80) L 08/22/17 05:50 Hgb 10.2 gm/dL (12-16) L 08/22/17 05:50 Hct 31.8 % (41.0-60) L 08/22/17 05:50 MCV 86.1 fl (80-99) 08/22/17 05:50 MCH 27.7 pg (27.0-31.0) 08/22/17 05:50 MCHC Differential 32.2 pg (28.0-36.0) 08/22/17 05:50 RDW 17.9 % (11.5-20.0) 08/22/17 05:50 Plt Count 233 Th/cmm (150-400) 08/22/17 05:50 MPV 7.2 fl 08/22/17 05:50 Neutrophils % 63.3 % (40.0-80.0) 08/22/17 05:50 Lymphocytes % 27.2 % (20.0-50.0) 08/22/17 05:50 Monocytes % 7.2 % (2.0-10.0) 08/22/17 05:50 Eosinophils % 1.9 % (0.0-5.0) 08/22/17 05:50 Basophils % 0.4 % (0.0-2.0) 08/22/17 05:50 PT 10.3 SECONDS (9.5-11.5) 08/19/17 18:24 INR 0.99 (0.5-1.4) 08/19/17 18:24 PTT (Actin FS) 22.2 SECONDS (26.0-38.0) L 08/19/17 18:24 Sodium 141 mEq/L (136-145) 08/22/17 05:50 Potassium 3.1 mEq/L (3.5-5.1) L 08/22/17 05:50 Chloride 109 mEq/L (98-107) H 08/22/17 05:50 Carbon Dioxide 21.2 mEq/L (21.0-31.0) 08/22/17 05:50 Anion Gap 13.9 (7.0-16.0) 08/22/17 05:50 BUN 24 mg/dL (7-25) 08/22/17 05:50 Creatinine 3.8 mg/dL (0.7-1.3) H 08/22/17 05:50 Est GFR ( Amer) TNP 08/22/17 05:50 Est GFR (Non-Af Amer) TNP 08/22/17 05:50 BUN/Creatinine Ratio 6.3 08/22/17 05:50 Glucose 52 mg/dL (70-105) L 08/23/17 05:47 POC Glucose 138 MG/DL (70 - 105) H 08/23/17 06:27 Hemoglobin A1c % 6.7 % (4.0-6.0) H 08/19/17 18:24 Whole Bld Lactic Acid 1.59 mmol/L (0.60-1.99) 08/19/17 19:40 Calcium 6.5 mg/dL (8.6-10.3) L 08/22/17 05:50 Phosphorus 3.1 mg/dL (2.5-5.0) 08/21/17 06:11 Total Bilirubin 0.6 mg/dL (0.3-1.0) 08/21/17 06:11 AST 10 U/L (13-39) L 08/21/17 06:11 ALT 6 U/L (7-52) L 08/21/17 06:11 Alkaline Phosphatase 70 U/L (34-104) 08/21/17 06:11 Troponin I 0.06 ng/mL (0.01-0.05) H 08/19/17 18:24 B-Natriuretic Peptide 716.0 pg/mL (5.0-100.0) H 08/19/17 18:24 Total Protein 5.8 gm/dL (6.0-8.3) L 08/21/17 06:11 Albumin 2.4 gm/dL (4.2-5.5) L 08/21/17 06:11 Globulin 3.4 gm/dL 08/21/17 06:11 Albumin/Globulin Ratio 0.7 (1.0-1.8) L 08/21/17 06:11 Triglycerides 88 mg/dL (<150) 08/19/17 18:24 Cholesterol 106 mg/dL (<200) 08/19/17 18:24 LDL Cholesterol Direct 60 mg/dL (75-193) L 08/19/17 18:24 HDL Cholesterol 34 mg/dL (23-92) 08/19/17 18:24 Urine Source RANDOM 08/19/17 18:50 Urine Color YELLOW 08/19/17 18:50 Urine Clarity HAZY (CLEAR) 08/19/17 18:50 Urine pH 6.5 (4.6 - 8.0) 08/19/17 18:50 Ur Specific [place] 1.020 (1.005-1.030) 08/19/17 18:50 Urine Protein >=300 mg/dL (NEGATIVE) 08/19/17 18:50 Urine Glucose (UA) NEGATIVE mg/dL (NEGATIVE) 08/19/17 18:50 Urine Ketones 15 mg/dL (NEGATIVE) H 08/19/17 18:50 Urine Blood LARGE (NEGATIVE) H 08/19/17 18:50 Urine Nitrate POSITIVE (NEGATIVE) H 08/19/17 18:50 Urine Bilirubin MODERATE (NEGATIVE) H 08/19/17 18:50 Urine Urobilinogen 1.0 E.U./dL (0.2 - 1.0) 08/19/17 18:50 Ur Leukocyte Esterase LARGE (NEGATIVE) H 08/19/17 18:50 Urine RBC 10-25 /hpf (0-5) H 08/19/17 18:50 Urine WBC 50-100 /hpf (0-5) H 08/19/17 18:50 Ur Epithelial Cells FEW /lpf (FEW) 08/19/17 18:50 Urine Bacteria MANY /hpf (NONE SEEN) H 08/19/17 18:50 Vancomycin Trough 10.5 ug/mL (5-10) H 08/21/17 06:11 Random Vancomycin 19.0 ug/mL (5.0-40.0) 08/22/17 05:50 - Physical Exam Vitals and I&O: Vital Signs Temp 97.6 F 08/23/17 07:50 Pulse 68 08/23/17 07:50 Resp 18 08/23/17 08:35 BP 134/54 08/23/17 07:50 Pulse Ox 98 08/23/17 07:50 Intake & Output 08/22/17 08/23/17 08/23/17 18:59 06:59 18:59 Intake Total 300 340 Output Total 2250 Balance 300 -1910 Weight (lbs) 61.689 kg 72.257 kg Intake: Intake, IV Amount 100 100 Piperacillin Sodium/ 100 100 Tazobact 2.25 gm In Sodium Chloride 0.9% 50 ml @ 100 mls/hr IV Q6HR [facility] Rx#:[id number] Oral 200 240 Output: Urine 150 Hemodialysis 2100 Other: # Bowel Movements 0 3 Weight Source Bedscale Bedscale Active Medications: Current Medications Acetaminophen (Tylenol) 650 mg PO Q4HR PRN PRN Reason: MILD PAIN Stop: 10/19/17 12:41 Albuterol/Ipratropium (Duoneb Neb) 3 ml HHN Q2HRT PRN PRN Reason: COPD Stop: 10/19/17 12:41 Last Admin: 08/20/17 13:22 Dose: 3 ml Albuterol/Ipratropium (Duoneb Neb) 3 ml HHN [id number] [facility] Stop: 10/21/17 14:59 Last Admin: 08/23/17 06:43 Dose: 3 ml Amlodipine Besylate (Norvasc) 10 mg PO DAILY [facility] Stop: 10/20/17 08:59 Last Admin: 08/23/17 08:38 Dose: Not Given Ascorbic Acid (Vitamin C) 500 mg PO DAILY [facility] Stop: 10/20/17 08:59 Last Admin: 08/23/17 08:25 Dose: 500 mg Aspirin (Aspirin Chewable) 81 mg PO DAILY [facility] Stop: 10/20/17 08:59 Last Admin: 08/23/17 08:38 Dose: Not Given Atorvastatin Calcium (Lipitor) 20 mg PO HS [facility] Stop: 10/19/17 20:59 Last Admin: 08/22/17 20:46 Dose: 20 mg Bisacodyl (Dulcolax 10 Mg Supp) 10 mg RC DAILY PRN PRN Reason: IF MOM INEFECTIVE Stop: 10/19/17 12:41 Budesonide (Pulmicort) 0.5 mg HHN BIDRT [facility] Stop: 10/21/17 18:59 Last Admin: 08/23/17 06:43 Dose: 0.5 mg Calcium Carbonate (Os-Alicia) 500 mg PO DAILY [facility] Stop: 10/20/17 08:59 Last Admin: 08/23/17 08:25 Dose: 500 mg Docusate Sodium (Colace) 100 mg PO BID [facility] Stop: 10/19/17 16:59 Last Admin: 08/23/17 08:25 Dose: 100 mg Fentanyl Citrate (Sublimaze) 50 mcg IVP UD PRN PRN Reason: Pain (Moderate) Stop: 08/23/17 15:51 Ferrous Sulfate (Iron) 325 mg PO DAILY [facility] Stop: 10/20/17 08:59 Last Admin: 08/23/17 08:25 Dose: 325 mg Finasteride (Proscar) 5 mg PO DAILY [facility] PRN Reason: Protocol Stop: 10/20/17 08:59 Last Admin: 08/23/17 08:25 Dose: 5 mg Heparin Sodium (Porcine) (Heparin) 5,000 units SUBQ Q12HR [facility] Stop: 10/19/17 20:59 Last Admin: 08/23/17 08:38 Dose: Not Given Piperacillin Sod/Tazobactam (Sod 2.25 gm/ Sodium Chloride) 50 mls @ 100 mls/hr IV Q6HR [facility] Stop: 10/19/17 00:00 Last Admin: 08/23/17 06:09 Dose: 100 mls/hr Albumin Human (Albuminar 25%) 25 gm in 100 mls @ 50 mls/hr IV PRN PRN PRN Reason: BP Support During HD Insulin Aspart (Novolog Insulin Sliding Scale) 0 units SUBQ ACHS [facility] PRN Reason: Protocol Stop: 10/20/17 11:29 Last Admin: 08/23/17 08:26 Dose: Not Given Insulin Detemir (Levemir Insulin) 10 units SUBQ HS [facility] PRN Reason: Protocol Stop: 10/19/17 20:59 Last Admin: 08/22/17 20:48 Dose: 10 unit Lactobacillus Rhamnosus (Culturelle 15b) 1 each PO DAILY [facility] Stop: 10/21/17 08:59 Last Admin: 08/23/17 08:25 Dose: 1 each Miscellaneous (Vancomycin Iv Per Pharmacy) 1 ea PRN PRN PRN Reason: PROTOCOL Stop: 10/18/17 19:30 Miscellaneous (Zosyn Iv Per Pharmacy) 1 ea MC PRN PRN PRN Reason: PROTOCOL Stop: 10/18/17 19:30 Miscellaneous (Probiotic Screen) 1 ea MC PRN PRN PRN Reason: PROTOCOL Stop: 10/20/17 09:14 Ondansetron HCl (Zofran Odt) 4 mg PO Q4H PRN PRN Reason: Nausea / Vomiting Stop: 10/19/17 12:41 Ondansetron HCl (Zofran) 4 mg IV UD PRN PRN Reason: Nausea / Vomiting Stop: 08/23/17 15:51 Pantoprazole Sodium (Protonix) 40 mg PO DAILY [facility] Stop: 10/20/17 08:59 Last Admin: 08/23/17 08:24 Dose: 40 mg Senna (Senna) 17.2 mg PO HS [facility] Stop: 10/19/17 20:59 Last Admin: 08/22/17 20:46 Dose: 17.2 mg Tamsulosin HCl (Flomax) 0.4 mg PO DAILY [facility] Stop: 10/20/17 08:59 Last Admin: 08/23/17 08:25 Dose: 0.4 mg Vitamin B Complex/Vit C/Folic Acid (Vitamin B Complex W/Vitamin C) 1 tab PO DAILY [facility] Stop: 10/20/17 08:59 Last Admin: 08/23/17 08:24 Dose: 1 tab General: Alert, Mild distress HEENT: Mucous membr. moist/pink Neck: Supple, +2 carotid pulse wo bruit Cardiovascular: Regular rate, Normal S1, Normal S2 Lungs: Normal air movement Abdomen: Bowel sounds, Soft Extremities: no Edema Neurological: Sensation intact Skin: no Rash Psych/Mental Status: Mood NL Assessment/Plan - Problem List Patient Problems: All Active Problems BILATERAL GREAT TOE BLACKNESS (Acute) Nutritional Asmnt/Malnutr-PDOC - Dietary Evaluation Malnutrition Findings (Please click <Entered> for more info): Nutritional Asmnt/Malnutrition Start: 08/21/17 17: 29 Text: Status: Complete Freq: Document 08/21/17 17:29 HERACLIO (Rec: 08/21/17 17:43 MOY [id number]) Nutritional Asmnt/Malnutrition Patient General Information Nutritional Screening High Risk Consult Diagnosis CHF, gangrenuous L&R foot Pertinent Medical Hx/Surgical Hx CHF, HTN, hyperlipidemia, COPD , PNA, dementia, GERD, OA, swelling, chronic renal insuff , DM, osteoporosis Subjective Information Consult received for diabetic. Pt seen lying in bed at time of visit, awake and alert. Pt reported good appetite. Per nurse note, pt will have amputation on right great and 2nd toe, and left great toe. Per EMR, PO intake 30-75%. Pt is on diaysis noted. Current Diet Order/ Nutrition Support [facility] soft renal nectar thick liquid Pertinent Medications vit C, os-alicia, colace, iron, novolog, levemir, culturelle, protonix, piperacillin, senna, vitamin B complex /vitC/folic acid Pertinent Labs 08/21 cr 3.9, glucose 111, POC 156 08/19 A1c 6.7 Nutritional Hx/Data Height 1.7 m Height (Calculated Centimeters) 170.2 Current Weight (lbs) 61.689 kg Weight (Calculated Kilograms) 61.7 Weight (Calculated Grams) 02725.6 [place] Body Weight 148 Body Mass Index (BMI) 21.2 Weight Status Approriate GI Symptoms GI Symptoms None Last BM 08/20 Difficult in: None Skin Integrity/Comment: Yes: DECUBS decubs to sacrum, 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 Problem Problem altered nutrition related labs Etiology hx of DM, chronic renal insuff Signs/Symptoms: Cr 3.9, glucose 111, POC 156, A1c 6.7 Malnutrition Alert Protein-Calorie Malnutrition N/A Is there a minimum of two criteria No selected? Query Text:Check all the applicable criteria. A minimum of two criteria are recommended for diagnosis of either severe or non-severe malnutrition. Intervention/Recommendation Comments 1. Considering adding CCHO- 60gm diet if glucose continue high. Encouraged protein food intake. 2. Monitor PO intake, wt, labs and skin integrity 3. F/U as high risk in 2-3 days, 5/2-/ Expected Outcomes/Goals Expected Outcomes/Goals 1. PO intake to meet at least 75% of nutritional needs. 2. Wt stability, skin to remain intact, labs to approach WNL.
--- NOTE | 2017-08-23 12:00 | Diagnostic Imaging Report ---
CT Chest without IV contrast HISTORY: Pneumonia, pleural effusions COMPARISON: Chest x-ray on 08/19/2017. Technique: Axial images were obtained from the base of the neck to the upper abdomen without IV contrast. Reconstructions were made. Total DLP 362, CTD I 19.1 Findings: Evaluation of the mediastinum is limited due to lack of IV contrast. Area of primarily fluid density is seen along the pretracheal region located posterior to the aortic arch measuring 3.7 x 2.3 cm. A few calcified mediastinal lymph nodes are noted. Moderate atherosclerosis is noted. Heart size is normal. Trace pericardial fluid is noted. The lung whitaker demonstrate hypoventilatory and atelectatic changes. Small left and trace right pleural effusion is seen with left basal consolidative changes and possible partial collapse. There is a 3 mm nodular density along the minor fissure. There is elevation of the left hemidiaphragm. The upper abdomen demonstrates distended stomach and small hiatal hernia. Nonspecific mild bilateral perinephric Inflammatory changes are noted. Degenerative changes of the spine are noted with mild scoliosis. Diffuse large marginal osteophytic spurring is noted. Advanced degenerative changes of the shoulders are noted. IMPRESSION: Small left pleural effusion with marked left basal passive atelectasis/consolidative changes involving the left lower lobe. Postobstructive pneumonia/endobronchial lesion cannot be excluded. Clinical correlation follow-up is recommended to ensure resolution. Trace right effusion with minimal right basal passive atelectasis and consolidative changes. 3 mm nodular density along the minor fissure probably due to old infectious or inflammatory process. Fluid density measuring 3.7 x 2.3 cm along the pretracheal region posterior to the aortic arch. Significance is uncertain may have been due to old inflammatory process. Moderate atherosclerotic vascular disease.
--- NOTE | 2017-08-23 14:10 | General Progress Note ---
Subjective - Review of Systems Service Date: 08/23/17 Subjective: alert, verbal, min pain Objective - Results Result Diagrams: 08/22/17 05:50 08/22/17 05:50 Recent Labs: Laboratory Last Values WBC 10.5 Th/cmm (4.8-10.8) 08/22/17 05:50 RBC 3.69 Mil/cmm (3.80-5.80) L 08/22/17 05:50 Hgb 10.2 gm/dL (12-16) L 08/22/17 05:50 Hct 31.8 % (41.0-60) L 08/22/17 05:50 MCV 86.1 fl (80-99) 08/22/17 05:50 MCH 27.7 pg (27.0-31.0) 08/22/17 05:50 MCHC Differential 32.2 pg (28.0-36.0) 08/22/17 05:50 RDW 17.9 % (11.5-20.0) 08/22/17 05:50 Plt Count 233 Th/cmm (150-400) 08/22/17 05:50 MPV 7.2 fl 08/22/17 05:50 Neutrophils % 63.3 % (40.0-80.0) 08/22/17 05:50 Lymphocytes % 27.2 % (20.0-50.0) 08/22/17 05:50 Monocytes % 7.2 % (2.0-10.0) 08/22/17 05:50 Eosinophils % 1.9 % (0.0-5.0) 08/22/17 05:50 Basophils % 0.4 % (0.0-2.0) 08/22/17 05:50 PT 10.3 SECONDS (9.5-11.5) 08/19/17 18:24 INR 0.99 (0.5-1.4) 08/19/17 18:24 PTT (Actin FS) 22.2 SECONDS (26.0-38.0) L 08/19/17 18:24 Sodium 141 mEq/L (136-145) 08/22/17 05:50 Potassium 3.1 mEq/L (3.5-5.1) L 08/22/17 05:50 Chloride 109 mEq/L (98-107) H 08/22/17 05:50 Carbon Dioxide 21.2 mEq/L (21.0-31.0) 08/22/17 05:50 Anion Gap 13.9 (7.0-16.0) 08/22/17 05:50 BUN 24 mg/dL (7-25) 08/22/17 05:50 Creatinine 3.8 mg/dL (0.7-1.3) H 08/22/17 05:50 Est GFR ( Amer) TNP 08/22/17 05:50 Est GFR (Non-Af Amer) TNP 08/22/17 05:50 BUN/Creatinine Ratio 6.3 08/22/17 05:50 Glucose 52 mg/dL (70-105) L 08/23/17 05:47 POC Glucose 179 MG/DL (70 - 105) H 08/23/17 12:05 Hemoglobin A1c % 6.7 % (4.0-6.0) H 08/19/17 18:24 Whole Bld Lactic Acid 1.59 mmol/L (0.60-1.99) 08/19/17 19:40 Calcium 6.5 mg/dL (8.6-10.3) L 08/22/17 05:50 Phosphorus 3.1 mg/dL (2.5-5.0) 08/21/17 06:11 Total Bilirubin 0.6 mg/dL (0.3-1.0) 08/21/17 06:11 AST 10 U/L (13-39) L 08/21/17 06:11 ALT 6 U/L (7-52) L 08/21/17 06:11 Alkaline Phosphatase 70 U/L (34-104) 08/21/17 06:11 Troponin I 0.06 ng/mL (0.01-0.05) H 08/19/17 18:24 B-Natriuretic Peptide 716.0 pg/mL (5.0-100.0) H 08/19/17 18:24 Total Protein 5.8 gm/dL (6.0-8.3) L 08/21/17 06:11 Albumin 2.4 gm/dL (4.2-5.5) L 08/21/17 06:11 Globulin 3.4 gm/dL 08/21/17 06:11 Albumin/Globulin Ratio 0.7 (1.0-1.8) L 08/21/17 06:11 Triglycerides 88 mg/dL (<150) 08/19/17 18:24 Cholesterol 106 mg/dL (<200) 08/19/17 18:24 LDL Cholesterol Direct 60 mg/dL (75-193) L 08/19/17 18:24 HDL Cholesterol 34 mg/dL (23-92) 08/19/17 18:24 Urine Source RANDOM 08/19/17 18:50 Urine Color YELLOW 08/19/17 18:50 Urine Clarity HAZY (CLEAR) 08/19/17 18:50 Urine pH 6.5 (4.6 - 8.0) 08/19/17 18:50 Ur Specific [place] 1.020 (1.005-1.030) 08/19/17 18:50 Urine Protein >=300 mg/dL (NEGATIVE) 08/19/17 18:50 Urine Glucose (UA) NEGATIVE mg/dL (NEGATIVE) 08/19/17 18:50 Urine Ketones 15 mg/dL (NEGATIVE) H 08/19/17 18:50 Urine Blood LARGE (NEGATIVE) H 08/19/17 18:50 Urine Nitrate POSITIVE (NEGATIVE) H 08/19/17 18:50 Urine Bilirubin MODERATE (NEGATIVE) H 08/19/17 18:50 Urine Urobilinogen 1.0 E.U./dL (0.2 - 1.0) 08/19/17 18:50 Ur Leukocyte Esterase LARGE (NEGATIVE) H 08/19/17 18:50 Urine RBC 10-25 /hpf (0-5) H 08/19/17 18:50 Urine WBC 50-100 /hpf (0-5) H 08/19/17 18:50 Ur Epithelial Cells FEW /lpf (FEW) 08/19/17 18:50 Urine Bacteria MANY /hpf (NONE SEEN) H 08/19/17 18:50 Vancomycin Trough 10.5 ug/mL (5-10) H 08/21/17 06:11 Random Vancomycin 19.0 ug/mL (5.0-40.0) 08/22/17 05:50 - Physical Exam Vitals and I&O: Vital Signs Temp 97.6 F 08/23/17 12:07 Pulse 54 08/23/17 12:07 Resp 19 08/23/17 12:07 BP 109/59 08/23/17 12:07 Pulse Ox 90 08/23/17 12:07 Intake & Output 08/22/17 08/23/17 08/23/17 18:59 06:59 18:59 Intake Total 300 390 Output Total 2250 Balance 300 -1860 Weight (lbs) 61.689 kg 72.257 kg Intake: Intake, IV Amount 100 150 Piperacillin Sodium/ 100 150 Tazobact 2.25 gm In Sodium Chloride 0.9% 50 ml @ 100 mls/hr IV Q6HR [facility] Rx#:[id number] Oral 200 240 Output: Urine 150 Hemodialysis 2100 Other: # Bowel Movements 0 3 Weight Source Bedscale Bedscale Active Medications: Current Medications Acetaminophen (Tylenol) 650 mg PO Q4HR PRN PRN Reason: MILD PAIN Stop: 10/19/17 12:41 Albuterol/Ipratropium (Duoneb Neb) 3 ml HHN Q2HRT PRN PRN Reason: COPD Stop: 10/19/17 12:41 Last Admin: 08/20/17 13:22 Dose: 3 ml Albuterol/Ipratropium (Duoneb Neb) 3 ml HHN [id number] [facility] Stop: 10/21/17 14:59 Last Admin: 08/23/17 10:35 Dose: 3 ml Amlodipine Besylate (Norvasc) 10 mg PO DAILY [facility] Stop: 10/20/17 08:59 Last Admin: 08/23/17 08:38 Dose: Not Given Ascorbic Acid (Vitamin C) 500 mg PO DAILY [facility] Stop: 10/20/17 08:59 Last Admin: 08/23/17 08:25 Dose: 500 mg Aspirin (Aspirin Chewable) 81 mg PO DAILY [facility] Stop: 10/20/17 08:59 Last Admin: 08/23/17 08:38 Dose: Not Given Atorvastatin Calcium (Lipitor) 20 mg PO HS [facility] Stop: 10/19/17 20:59 Last Admin: 08/22/17 20:46 Dose: 20 mg Bisacodyl (Dulcolax 10 Mg Supp) 10 mg RC DAILY PRN PRN Reason: IF MOM INEFECTIVE Stop: 10/19/17 12:41 Budesonide (Pulmicort) 0.5 mg HHN BIDRT [facility] Stop: 10/21/17 18:59 Last Admin: 08/23/17 06:43 Dose: 0.5 mg Calcium Carbonate (Os-Brda) 500 mg PO DAILY [facility] Stop: 10/20/17 08:59 Last Admin: 08/23/17 08:25 Dose: 500 mg Docusate Sodium (Colace) 100 mg PO BID [facility] Stop: 10/19/17 16:59 Last Admin: 08/23/17 08:25 Dose: 100 mg Fentanyl Citrate (Sublimaze) 50 mcg IVP UD PRN PRN Reason: Pain (Moderate) Stop: 08/23/17 15:51 Ferrous Sulfate (Iron) 325 mg PO DAILY [facility] Stop: 10/20/17 08:59 Last Admin: 08/23/17 08:25 Dose: 325 mg Finasteride (Proscar) 5 mg PO DAILY [facility] PRN Reason: Protocol Stop: 10/20/17 08:59 Last Admin: 08/23/17 08:25 Dose: 5 mg Heparin Sodium (Porcine) (Heparin) 5,000 units SUBQ Q12HR [facility] Stop: 10/19/17 20:59 Last Admin: 08/23/17 08:38 Dose: Not Given Piperacillin Sod/Tazobactam (Sod 2.25 gm/ Sodium Chloride) 50 mls @ 100 mls/hr IV Q6HR [facility] Stop: 10/19/17 00:00 Last Admin: 08/23/17 12:46 Dose: 100 mls/hr Albumin Human (Albuminar 25%) 25 gm in 100 mls @ 50 mls/hr IV PRN PRN PRN Reason: BP Support During HD Insulin Aspart (Novolog Insulin Sliding Scale) 0 units SUBQ ACHS [facility] PRN Reason: Protocol Stop: 10/20/17 11:29 Last Admin: 08/23/17 13:40 Dose: Not Given Insulin Detemir (Levemir Insulin) 10 units SUBQ HS [facility] PRN Reason: Protocol Stop: 10/19/17 20:59 Last Admin: 08/22/17 20:48 Dose: 10 unit Lactobacillus Rhamnosus (Culturelle 15b) 1 each PO DAILY [facility] Stop: 10/21/17 08:59 Last Admin: 08/23/17 08:25 Dose: 1 each Miscellaneous (Vancomycin Iv Per Pharmacy) 1 ea PRN PRN PRN Reason: PROTOCOL Stop: 10/18/17 19:30 Miscellaneous (Zosyn Iv Per Pharmacy) 1 ea PRN PRN PRN Reason: PROTOCOL Stop: 10/18/17 19:30 Miscellaneous (Probiotic Screen) 1 ea PRN PRN PRN Reason: PROTOCOL Stop: 10/20/17 09:14 Ondansetron HCl (Zofran Odt) 4 mg PO Q4H PRN PRN Reason: Nausea / Vomiting Stop: 10/19/17 12:41 Ondansetron HCl (Zofran) 4 mg IV UD PRN PRN Reason: Nausea / Vomiting Stop: 08/23/17 15:51 Pantoprazole Sodium (Protonix) 40 mg PO DAILY [facility] Stop: 10/20/17 08:59 Last Admin: 08/23/17 08:24 Dose: 40 mg Senna (Senna) 17.2 mg PO HS [facility] Stop: 10/19/17 20:59 Last Admin: 08/22/17 20:46 Dose: 17.2 mg Tamsulosin HCl (Flomax) 0.4 mg PO DAILY [facility] Stop: 10/20/17 08:59 Last Admin: 08/23/17 08:25 Dose: 0.4 mg Vitamin B Complex/Vit C/Folic Acid (Vitamin B Complex W/Vitamin C) 1 tab PO DAILY [facility] Stop: 10/20/17 08:59 Last Admin: 08/23/17 08:24 Dose: 1 tab General: Alert, Mild distress HEENT: Mucous membr. moist/pink Neck: Supple, +2 carotid pulse wo bruit Cardiovascular: Regular rate, Normal S1, Normal S2 Lungs: Normal air movement Abdomen: Bowel sounds, Soft Extremities: Other (dressings intact), no Edema Neurological: Sensation intact Skin: no Rash Psych/Mental Status: Mood NL - Procedures Procedures: Procedures Procedure Code Date AMPUTATION OF TOE 74165 08/19/17 DETACHMENT AT LEFT 1ST TOE, COMPLETE, OPEN APPROACH [id number] 08/19/17 DETACHMENT AT RIGHT 1ST TOE, COMPLETE, OPEN APPROACH [id number] 08/19/17 DETACHMENT AT RIGHT 2ND TOE, COMPLETE, OPEN APPROACH [id number] 08/19/17 REMOVAL OF INFUSION DEVICE FROM UPPER VEIN, PERC APPROACH [id number] 08/19/17 REMOVAL TUNNELED CV CATH 92002 08/19/17 Assessment/Plan - Problem List Patient Problems: All Active Problems BILATERAL GREAT TOE BLACKNESS (Acute) - Assessment Assessment: 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 Htn W/ CKD PAD CHF Anemia of CD COPD Dyslipidemia GERD - Plan Plan: Lab - Result Diagrams 08/21/17 06:11 Current Medications Acetaminophen (Tylenol) 650 mg PO Q4HR PRN PRN Reason: MILD PAIN Stop: 10/19/17 12:41 Albuterol/Ipratropium (Duoneb Neb) 3 ml HHN Q2HRT PRN PRN Reason: COPD Stop: 10/19/17 12:41 Last Admin: 08/20/17 13:22 Dose: 3 ml Albuterol/Ipratropium (Duoneb Neb) 3 ml HHN [id number] [facility] Stop: 10/19/17 18:59 Last Admin: 08/21/17 12:27 Dose: 3 ml Amlodipine Besylate (Norvasc) 10 mg PO DAILY [facility] Stop: 10/20/17 08:59 Last Admin: 08/21/17 09:00 Dose: 10 mg Ascorbic Acid (Vitamin C) 500 mg PO DAILY [facility] Stop: 10/20/17 08:59 Last Admin: 08/21/17 09:01 Dose: 500 mg Aspirin (Aspirin Chewable) 81 mg PO DAILY [facility] Stop: 10/20/17 08:59 Last Admin: 08/21/17 09:00 Dose: 81 mg Atorvastatin Calcium (Lipitor) 20 mg PO HS [facility] Stop: 10/19/17 20:59 Last Admin: 08/20/17 23:18 Dose: 20 mg Bisacodyl (Dulcolax 10 Mg Supp) 10 mg RC DAILY PRN PRN Reason: IF MOM INEFECTIVE Stop: 10/19/17 12:41 Calcium Carbonate (Os-Brad) 500 mg PO DAILY [facility] Stop: 10/20/17 08:59 Last Admin: 08/21/17 09:01 Dose: 500 mg Docusate Sodium (Colace) 100 mg PO BID [facility] Stop: 10/19/17 16:59 Last Admin: 08/21/17 09:01 Dose: 100 mg Ferrous Sulfate (Iron) 325 mg PO DAILY [facility] Stop: 10/20/17 08:59 Last Admin: 08/21/17 09:01 Dose: 325 mg Finasteride (Proscar) 5 mg PO DAILY [facility] PRN Reason: Protocol Stop: 10/20/17 08:59 Last Admin: 08/21/17 09:00 Dose: 5 mg Heparin Sodium (Porcine) (Heparin) 5,000 units SUBQ Q12HR [facility] Stop: 10/19/17 20:59 Last Admin: 08/21/17 09:01 Dose: 5,000 units Piperacillin Sod/Tazobactam (Sod 2.25 gm/ Sodium Chloride) 50 mls @ 100 mls/hr IV Q6HR [facility] Stop: 10/19/17 00:00 Last Admin: 08/21/17 12:52 Dose: 100 mls/hr Insulin Aspart (Novolog Insulin Sliding Scale) 0 units SUBQ ACHS [facility] PRN Reason: Protocol Stop: 10/20/17 11:29 Last Admin: 08/21/17 12:51 Dose: Not Given Insulin Detemir (Levemir Insulin) 10 units SUBQ HS [facility] PRN Reason: Protocol Stop: 10/19/17 20:59 Last Admin: 08/20/17 23:18 Dose: 2 unit Lactobacillus Rhamnosus (Culturelle 15b) 1 each PO DAILY [facility] Stop: 10/21/17 08:59 Miscellaneous (Vancomycin Iv Per Pharmacy) 1 ea PRN PRN PRN Reason: PROTOCOL Stop: 10/18/17 19:30 Miscellaneous (Zosyn Iv Per Pharmacy) 1 [facility] PRN PRN PRN Reason: PROTOCOL Stop: 10/18/17 19:30 Miscellaneous (Probiotic Screen) 1 [facility] PRN PRN PRN Reason: PROTOCOL Stop: 10/20/17 09:14 Ondansetron HCl (Zofran Odt) 4 mg PO Q4H PRN PRN Reason: Nausea / Vomiting Stop: 10/19/17 12:41 Pantoprazole Sodium (Protonix) 40 mg PO DAILY [facility] Stop: 10/20/17 08:59 Last Admin: 08/21/17 09:00 Dose: 40 mg Senna (Senna) 17.2 mg PO HS [facility] Stop: 10/19/17 20:59 Last Admin: 08/20/17 23:18 Dose: 17.2 mg Tamsulosin HCl (Flomax) 0.4 mg PO DAILY [facility] Stop: 10/20/17 08:59 Last Admin: 08/21/17 09:01 Dose: 0.4 mg Vitamin B Complex/Vit C/Folic Acid (Vitamin B Complex W/Vitamin C) 1 tab PO DAILY [facility] Stop: 10/20/17 08:59 Last Admin: 08/21/17 09:01 Dose: 1 tab Lab - Result Diagrams 08/22/17 05:50 08/22/17 05:50 schedule for HD in am possible amputations of toes today f/u electrolytes, cbc replace K Nutritional Asmnt/Malnutr-PDOC - Dietary Evaluation Malnutrition Findings (Please click <Entered> for more info): Nutritional Asmnt/Malnutrition Start: 08/21/17 17: 29 Text: Status: Complete Freq: Document 08/21/17 17:29 HENG (Rec: 08/21/17 17:43 HEN [id number]) Nutritional Asmnt/Malnutrition Patient General Information Nutritional Screening High Risk Consult Diagnosis CHF, gangrenuous L&R foot Pertinent Medical Hx/Surgical Hx CHF, HTN, hyperlipidemia, COPD , PNA, dementia, GERD, OA, swelling, chronic renal insuff , DM, osteoporosis Subjective Information Consult received for diabetic. Pt seen lying in bed at time of visit, awake and alert. Pt reported good appetite. Per nurse note, pt will have amputation on right great and 2nd toe, and left great toe. Per EMR, PO intake 30-75%. Pt is on diaysis noted. Current Diet Order/ Nutrition Support mech soft renal nectar thick liquid Pertinent Medications vit C, os-brad, colace, iron, novolog, levemir, culturelle, protonix, piperacillin, senna, vitamin B complex /vitC/folic acid Pertinent Labs 08/21 cr 3.9, glucose 111, POC 156 08/19 A1c 6.7 Nutritional Hx/Data Height 1.7 m Height (Calculated Centimeters) 170.2 Current Weight (lbs) 61.689 kg Weight (Calculated Kilograms) 61.7 Weight (Calculated Grams) 52223.6 [place] Body Weight 148 Body Mass Index (BMI) 21.2 Weight Status Approriate GI Symptoms GI Symptoms None Last BM 08/20 Difficult in: None Skin Integrity/Comment: Yes: DECUBS decubs to sacrum, gangrene to right toe, left toe and left lower foot Current %PO Fair (50-74%) Estimated Nutritional Goals BEE in Kcals: Using Current wt Calories/Kcals/Kg 30-35 Kcals Calculated 8984-6827 Protein: Using Current wt Protein g/k.2-1.4 Protein Calculated 74-87 Fluid: ml per MD Nutritional Problem 1. Problem Problem altered nutrition related labs Etiology hx of DM, chronic renal insuff Signs/Symptoms: Cr 3.9, glucose 111, POC 156, A1c 6.7 Malnutrition Alert Protein-Calorie Malnutrition N/A Is there a minimum of two criteria No selected? Query Text:Check all the applicable criteria. A minimum of two criteria are recommended for diagnosis of either severe or non-severe malnutrition. Intervention/Recommendation Comments 1. Considering adding CCHO- 60gm diet if glucose continue high. Encouraged protein food intake. 2. Monitor PO intake, wt, labs and skin integrity 3. F/U as high risk in 2-3 days, 5/2-5/3 Expected Outcomes/Goals Expected Outcomes/Goals 1. PO intake to meet at least 75% of nutritional needs. 2. Wt stability, skin to remain intact, labs to approach WNL.
--- NOTE | 2017-08-23 17:50 | Cardiology ---
08/21/2017 PROCEDURE: Echocardiogram The patient of Dr. Javi Robin. M-MODE ECHOCARDIOGRAM: Mitral valve, anterior leaflet of mitral valve shows normal excursion, EF velocity. Posterior leaflet of the mitral valve shows normal excursion. Left ventricle posterior wall shows increased thickness, normal excursion. Interventricular septum shows increased thickness, normal excursion, hypertrophy of the left ventricle, ejection fraction 66%. Left atrium normal. Aortic root shows normal dimension, normal excursion of aortic leaflets. CONCLUSION: Hypertrophy of the left ventricle, ejection fraction 66%. 2D ECHO: Long axis view showed normal sized left ventricle with hypertrophy of the left ventricle. Left atrium normal. Aortic root shows normal dimension, normal excursion of aortic leaflets. Short axis view of mitral valve normal. Short axis of view of aortic valve normal. Apical four chamber view showed normal sized left ventricle, left atrium, right ventricle, right atrium, tricuspid and mitral valve. Ejection fraction 66%. CONCLUSION: Hypertrophy of the left ventricle, ejection fraction 66%. Doppler study shows mild mitral regurgitation, mild tricuspid regurgitation, prominent area consistent with poor compliance of left ventricle. [facility]# [id number]
[2017-08-23] MEDS: Insulin Detemir 100 units/mL 10mL Vial SUBQ SCH (20:43)
[2017-08-23] MEDS: Atorvastatin Calcium 10 MG TAB PO SCH (20:44)
--- NOTE | 2017-08-23 22:57 | Progress Notes ---
DATE: 08/23/2017 PROBLEM LIST: 1. Possibly left lower lobe pneumonia. 2. Obstructive sleep apnea syndrome. 3. Metabolic syndrome with chronic renal failure, on hemodialysis. SYMPTOMS: Nil. The patient is feeling okay, offers no specific new symptoms, feeling cold when symptoms recovered. PHYSICAL EXAMINATION: GENERAL: Not in any acute distress. VITAL SIGNS: The patient's recorded vitals: Temperature is 97.6, respirations 18, saturation 90% on 2 liters per minute. NECK: Veins not visualized. CHEST: Shows diminished air entry with occasional rhonchi. HEART: Regular. ABDOMEN: Soft, nontender. PERTINENT LABORATORY STUDIES: Sugar is 179 and the patient's ABG is pending and the patient's CT of the chest shows some minor fissure fluid with trace of effusion on the right side and significant atherosclerotic changes. Urine shows E. coli, ESBL, otherwise unremarkable. ASSESSMENT: 1. The patient clinically and respiratory gallegos stable, possibly fluid overload. 2. Urine ESBL. 3. Suspect obstructive sleep apnea syndrome. PLANS AND SUGGESTIONS: We will continue current treatment as initiated by Dr. Javi Robin. We will continue to monitor the status periodically, etc. and go from there. JOB# [id number]
[2017-08-24] MEDS: Piperacillin/Tazobact 2.25 gm in 0.9% NS 50 ML IV SCH ×4 (00:21→18:38)
[2017-08-24 06:16] LABS: % BASOPHILS 0.2 % (0.0-2.0); % EOSINOPHILS 2.3 % (0.0-5.0); % LYMPHOCYTES 27.8 % (20.0-50.0); % MONOCYTES 6.9 % (2.0-10.0); % NEUTROPHILS 62.8 % (40.0-80.0); EOSINOPHILE ABSOLUTE 0.3 Th/cmm (0.1-0.4); HEMATOCRIT 31.4 % (41.0-60); HEMOGLOBIN 10.2 gm/dL (12-16); LYMPHOCYTE ABSOLUTE 3.3 Th/cmm (1.5-3.0); MEAN CELL VOLUME 85.3 fl (80-99); MEAN CORPUSCULAR HEMOGLOBIN 27.8 pg (27.0-31.0); MEAN CORPUSCULAR HGB CONC 32.6 pg (28.0-36.0); MEAN PLATELET VOLUME 7.1 fl; MONOCYTE ABSOLUTE 0.8 Th/cmm (0.3-1.0); NEUTROPHILE ABSOLUTE 7.3 Th/cmm (1.8-8.0); PLATELET COUNT 232 Th/cmm (150-400); RED BLOOD COUNT 3.68 Mil/cmm (3.80-5.80); RED CELL DISTRIBUTION WIDTH 17.5 % (11.5-20.0); WHITE BLOOD COUNT 11.7 Th/cmm (4.8-10.8)
[2017-08-24 06:31] LABS: ANION GAP 12.2 (7.0-16.0); BUN - UREA NITROGEN 21 mg/dL (7-25); CALCIUM SERUM 7.9 mg/dL (8.6-10.3); CARBON DIOXIDE 23.7 mEq/L (21.0-31.0); CHLORIDE 105 mEq/L (98-107); GLUCOSE 104 mg/dL (70-105); POTASSIUM SERUM 3.9 mEq/L (3.5-5.1); SODIUM SERUM 137 mEq/L (136-145)
[2017-08-24 06:36] LABS: CREATININE - SERUM 4.3 mg/dL (0.7-1.3)
[2017-08-24] MEDS: INSULIN ASPART SLIDING SCALE 100 UNITS/ML UNIT SUBQ SCH ×3 (06:45→17:43)
[2017-08-24] MEDS: Albuterol/Ipratropium Neb 3 ML AERS HHN SCH ×3 (07:01→17:12)
[2017-08-24] MEDS: Budesonide 0.5 Mg/2 mL Ud HHN SCH (07:01)
--- NOTE | 2017-08-24 08:53 | General Progress Note ---
Subjective - Review of Systems Service Date: 08/24/17 Events since last encounter: stumps redressed, clean may DC Objective - Results Result Diagrams: 08/24/17 06:04 08/24/17 06:04 Recent Labs: Laboratory Last Values WBC 11.7 Th/cmm (4.8-10.8) H 08/24/17 06:04 RBC 3.68 Mil/cmm (3.80-5.80) L 08/24/17 06:04 Hgb 10.2 gm/dL (12-16) L 08/24/17 06:04 Hct 31.4 % (41.0-60) L 08/24/17 06:04 MCV 85.3 fl (80-99) 08/24/17 06:04 MCH 27.8 pg (27.0-31.0) 08/24/17 06:04 MCHC Differential 32.6 pg (28.0-36.0) 08/24/17 06:04 RDW 17.5 % (11.5-20.0) 08/24/17 06:04 Plt Count 232 Th/cmm (150-400) 08/24/17 06:04 MPV 7.1 fl 08/24/17 06:04 Neutrophils % 62.8 % (40.0-80.0) 08/24/17 06:04 Lymphocytes % 27.8 % (20.0-50.0) 08/24/17 06:04 Monocytes % 6.9 % (2.0-10.0) 08/24/17 06:04 Eosinophils % 2.3 % (0.0-5.0) 08/24/17 06:04 Basophils % 0.2 % (0.0-2.0) 08/24/17 06:04 PT 10.3 SECONDS (9.5-11.5) 08/19/17 18:24 INR 0.99 (0.5-1.4) 08/19/17 18:24 PTT (Actin FS) 22.2 SECONDS (26.0-38.0) L 08/19/17 18:24 Sodium 137 mEq/L (136-145) 08/24/17 06:04 Potassium 3.9 mEq/L (3.5-5.1) 08/24/17 06:04 Chloride 105 mEq/L (98-107) 08/24/17 06:04 Carbon Dioxide 23.7 mEq/L (21.0-31.0) 08/24/17 06:04 Anion Gap 12.2 (7.0-16.0) 08/24/17 06:04 BUN 21 mg/dL (7-25) 08/24/17 06:04 Creatinine 4.3 mg/dL (0.7-1.3) H* 08/24/17 06:04 Est GFR ( Amer) TNP 08/24/17 06:04 Est GFR (Non-Af Amer) TNP 08/24/17 06:04 BUN/Creatinine Ratio 4.9 08/24/17 06:04 Glucose 104 mg/dL (70-105) 08/24/17 06:04 POC Glucose 97 MG/DL (70 - 105) 08/24/17 06:02 Hemoglobin A1c % 6.7 % (4.0-6.0) H 08/19/17 18:24 Whole Bld Lactic Acid 1.59 mmol/L (0.60-1.99) 08/19/17 19:40 Calcium 7.9 mg/dL (8.6-10.3) L 08/24/17 06:04 Phosphorus 3.1 mg/dL (2.5-5.0) 08/21/17 06:11 Total Bilirubin 0.6 mg/dL (0.3-1.0) 08/21/17 06:11 AST 10 U/L (13-39) L 08/21/17 06:11 ALT 6 U/L (7-52) L 08/21/17 06:11 Alkaline Phosphatase 70 U/L (34-104) 08/21/17 06:11 Troponin I 0.06 ng/mL (0.01-0.05) H 08/19/17 18:24 B-Natriuretic Peptide 716.0 pg/mL (5.0-100.0) H 08/19/17 18:24 Total Protein 5.8 gm/dL (6.0-8.3) L 08/21/17 06:11 Albumin 2.4 gm/dL (4.2-5.5) L 08/21/17 06:11 Globulin 3.4 gm/dL 08/21/17 06:11 Albumin/Globulin Ratio 0.7 (1.0-1.8) L 08/21/17 06:11 Triglycerides 88 mg/dL (<150) 08/19/17 18:24 Cholesterol 106 mg/dL (<200) 08/19/17 18:24 LDL Cholesterol Direct 60 mg/dL (75-193) L 08/19/17 18:24 HDL Cholesterol 34 mg/dL (23-92) 08/19/17 18:24 Urine Source RANDOM 08/19/17 18:50 Urine Color YELLOW 08/19/17 18:50 Urine Clarity HAZY (CLEAR) 08/19/17 18:50 Urine pH 6.5 (4.6 - 8.0) 08/19/17 18:50 Ur Specific [place] 1.020 (1.005-1.030) 08/19/17 18:50 Urine Protein >=300 mg/dL (NEGATIVE) 08/19/17 18:50 Urine Glucose (UA) NEGATIVE mg/dL (NEGATIVE) 08/19/17 18:50 Urine Ketones 15 mg/dL (NEGATIVE) H 08/19/17 18:50 Urine Blood LARGE (NEGATIVE) H 08/19/17 18:50 Urine Nitrate POSITIVE (NEGATIVE) H 08/19/17 18:50 Urine Bilirubin MODERATE (NEGATIVE) H 08/19/17 18:50 Urine Urobilinogen 1.0 E.U./dL (0.2 - 1.0) 08/19/17 18:50 Ur Leukocyte Esterase LARGE (NEGATIVE) H 08/19/17 18:50 Urine RBC 10-25 /hpf (0-5) H 08/19/17 18:50 Urine WBC 50-100 /hpf (0-5) H 08/19/17 18:50 Ur Epithelial Cells FEW /lpf (FEW) 08/19/17 18:50 Urine Bacteria MANY /hpf (NONE SEEN) H 08/19/17 18:50 Vancomycin Trough 10.5 ug/mL (5-10) H 08/21/17 06:11 Random Vancomycin 30.2 ug/mL (5.0-40.0) 08/24/17 06:04 - Physical Exam Vitals and I&O: Vital Signs Temp 98.4 F 08/24/17 07:35 Pulse 77 08/24/17 07:35 Resp 18 08/24/17 07:35 BP 124/100 08/24/17 07:35 Pulse Ox 100 08/24/17 07:35 Intake & Output 08/23/17 08/24/17 08/24/17 18:59 06:59 18:59 Intake Total 100 700 Output Total 80 Balance 100 620 Weight (lbs) 72.575 kg Intake: Intake, IV Amount 100 50 Piperacillin Sodium/ 100 50 Tazobact 2.25 gm In Sodium Chloride 0.9% 50 ml @ 100 mls/hr IV Q6HR [facility] Rx#:[id number] Oral 650 Output: Urine 80 Other: # Bowel Movements 1 Weight Source Bedscale Active Medications: Current Medications Acetaminophen (Tylenol) 650 mg PO Q4HR PRN PRN Reason: MILD PAIN Stop: 10/19/17 12:41 Last Admin: 08/24/17 03:42 Dose: 650 mg Albuterol/Ipratropium (Duoneb Neb) 3 ml HHN Q2HRT PRN PRN Reason: COPD Stop: 10/19/17 12:41 Last Admin: 08/20/17 13:22 Dose: 3 ml Albuterol/Ipratropium (Duoneb Neb) 3 ml HHN [id number] [facility] Stop: 10/21/17 14:59 Last Admin: 08/24/17 07:01 Dose: 3 ml Amlodipine Besylate (Norvasc) 10 mg PO DAILY [facility] Stop: 10/20/17 08:59 Last Admin: 08/23/17 08:38 Dose: Not Given Ascorbic Acid (Vitamin C) 500 mg PO DAILY [facility] Stop: 10/20/17 08:59 Last Admin: 08/23/17 08:25 Dose: 500 mg Aspirin (Aspirin Chewable) 81 mg PO DAILY [facility] Stop: 10/20/17 08:59 Last Admin: 08/23/17 08:38 Dose: Not Given Atorvastatin Calcium (Lipitor) 20 mg PO HS [facility] Stop: 10/19/17 20:59 Last Admin: 08/23/17 20:44 Dose: 20 mg Bisacodyl (Dulcolax 10 Mg Supp) 10 mg RC DAILY PRN PRN Reason: IF MOM INEFECTIVE Stop: 10/19/17 12:41 Budesonide (Pulmicort) 0.5 mg HHN BIDRT [facility] Stop: 10/21/17 18:59 Last Admin: 08/24/17 07:01 Dose: 0.5 mg Calcium Carbonate (Os-Brad) 500 mg PO DAILY [facility] Stop: 10/20/17 08:59 Last Admin: 08/23/17 08:25 Dose: 500 mg Docusate Sodium (Colace) 100 mg PO BID [facility] Stop: 10/19/17 16:59 Last Admin: 08/23/17 17:25 Dose: Not Given Ferrous Sulfate (Iron) 325 mg PO DAILY [facility] Stop: 10/20/17 08:59 Last Admin: 08/23/17 08:25 Dose: 325 mg Finasteride (Proscar) 5 mg PO DAILY [facility] PRN Reason: Protocol Stop: 10/20/17 08:59 Last Admin: 08/23/17 08:25 Dose: 5 mg Heparin Sodium (Porcine) (Heparin) 5,000 units SUBQ Q12HR [facility] Stop: 10/19/17 20:59 Last Admin: 08/23/17 20:50 Dose: 5,000 units Piperacillin Sod/Tazobactam (Sod 2.25 gm/ Sodium Chloride) 50 mls @ 100 mls/hr IV Q6HR [facility] Stop: 10/19/17 00:00 Last Admin: 08/24/17 05:53 Dose: 100 mls/hr Albumin Human (Albuminar 25%) 25 gm in 100 mls @ 50 mls/hr IV PRN PRN PRN Reason: BP Support During HD Insulin Aspart (Novolog Insulin Sliding Scale) 0 units SUBQ ACHS [facility] PRN Reason: Protocol Stop: 10/20/17 11:29 Last Admin: 08/24/17 06:45 Dose: Not Given Insulin Detemir (Levemir Insulin) 10 units SUBQ HS [facility] PRN Reason: Protocol Stop: 10/19/17 20:59 Last Admin: 08/23/17 20:43 Dose: Not Given Lactobacillus Rhamnosus (Culturelle 15b) 1 each PO DAILY [facility] Stop: 10/21/17 08:59 Last Admin: 08/23/17 08:25 Dose: 1 each Miscellaneous (Vancomycin Iv Per Pharmacy) 1 ea PRN PRN PRN Reason: PROTOCOL Stop: 10/18/17 19:30 Miscellaneous (Zosyn Iv Per Pharmacy) 1 ea PRN PRN PRN Reason: PROTOCOL Stop: 10/18/17 19:30 Miscellaneous (Probiotic Screen) 1 ea PRN PRN PRN Reason: PROTOCOL Stop: 10/20/17 09:14 Ondansetron HCl (Zofran Odt) 4 mg PO Q4H PRN PRN Reason: Nausea / Vomiting Stop: 10/19/17 12:41 Pantoprazole Sodium (Protonix) 40 mg PO DAILY [facility] Stop: 10/20/17 08:59 Last Admin: 08/23/17 08:24 Dose: 40 mg Senna (Senna) 17.2 mg PO HS [facility] Stop: 10/19/17 20:59 Last Admin: 08/23/17 20:45 Dose: 17.2 mg Tamsulosin HCl (Flomax) 0.4 mg PO DAILY [facility] Stop: 10/20/17 08:59 Last Admin: 08/23/17 08:25 Dose: 0.4 mg Vitamin B Complex/Vit C/Folic Acid (Vitamin B Complex W/Vitamin C) 1 tab PO DAILY [facility] Stop: 10/20/17 08:59 Last Admin: 08/23/17 08:24 Dose: 1 tab General: Alert, Mild distress HEENT: Mucous membr. moist/pink Neck: Supple, +2 carotid pulse wo bruit Cardiovascular: Regular rate, Normal S1, Normal S2 Lungs: Normal air movement Abdomen: Bowel sounds, Soft Extremities: Other (dressings intact), no Edema Neurological: Sensation intact Skin: no Rash Psych/Mental Status: Mood NL - Procedures Procedures: Procedures Procedure Code Date AMPUTATION OF TOE 18428 08/19/17 DETACHMENT AT LEFT 1ST TOE, COMPLETE, OPEN APPROACH [id number] 08/19/17 DETACHMENT AT RIGHT 1ST TOE, COMPLETE, OPEN APPROACH [id number] 08/19/17 DETACHMENT AT RIGHT 2ND TOE, COMPLETE, OPEN APPROACH [id number] 08/19/17 REMOVAL OF INFUSION DEVICE FROM UPPER VEIN, PERC APPROACH [id number] 08/19/17 REMOVAL TUNNELED CV CATH [id number] 08/19/17 Assessment/Plan - Problem List Patient Problems: All Active Problems BILATERAL GREAT TOE BLACKNESS (Acute) Nutritional Asmnt/Malnutr-PDOC - Dietary Evaluation Malnutrition Findings (Please click <Entered> for more info): Nutritional Asmnt/Malnutrition Start: 08/21/17 17: 29 Text: Status: Complete Freq: Document 08/21/17 17:29 [facility] (Rec: 08/21/17 17:43 [facility] [id number]) Nutritional Asmnt/Malnutrition Patient General Information Nutritional Screening High Risk Consult Diagnosis CHF, gangrenuous L&R foot Pertinent Medical Hx/Surgical Hx CHF, HTN, hyperlipidemia, COPD , PNA, dementia, GERD, OA, swelling, chronic renal insuff , DM, osteoporosis Subjective Information Consult received for diabetic. Pt seen lying in bed at time of visit, awake and alert. Pt reported good appetite. Per nurse note, pt will have amputation on right great and 2nd toe, and left great toe. Per EMR, PO intake 30-75%. Pt is on diaysis noted. Current Diet Order/ Nutrition Support [facility] soft renal nectar thick liquid Pertinent Medications vit C, os-brad, colace, iron, novolog, levemir, culturelle, protonix, piperacillin, senna, vitamin B complex /vitC/folic acid Pertinent Labs 08/21 cr 3.9, glucose 111, POC 156 08/19 A1c 6.7 Nutritional Hx/Data Height 1.7 m Height (Calculated Centimeters) 170.2 Current Weight (lbs) 61.689 kg Weight (Calculated Kilograms) 61.7 Weight (Calculated Grams) 89272.6 [place] Body Weight 148 Body Mass Index (BMI) 21.2 Weight Status Approriate GI Symptoms GI Symptoms None Last BM 08/20 Difficult in: None Skin Integrity/Comment: Yes: DECUBS decubs to sacrum, gangrene to right toe, left toe and left lower foot Current %PO Fair (50-74%) Estimated Nutritional Goals BEE in Kcals: Using Current wt Calories/Kcals/Kg 30-35 Kcals Calculated 4372-5202 Protein: Using Current wt Protein g/k.2-1.4 Protein Calculated 74-87 Fluid: ml per MD Nutritional Problem 1. Problem Problem altered nutrition related labs Etiology hx of DM, chronic renal insuff Signs/Symptoms: Cr 3.9, glucose 111, POC 156, A1c 6.7 Malnutrition Alert Protein-Calorie Malnutrition N/A Is there a minimum of two criteria No selected? Query Text:Check all the applicable criteria. A minimum of two criteria are recommended for diagnosis of either severe or non-severe malnutrition. Intervention/Recommendation Comments 1. Considering adding CCHO- 60gm diet if glucose continue high. Encouraged protein food intake. 2. Monitor PO intake, wt, labs and skin integrity 3. F/U as high risk in 2-3 days, 08/23-08/24 Expected Outcomes/Goals Expected Outcomes/Goals 1. PO intake to meet at least 75% of nutritional needs. 2. Wt stability, skin to remain intact, labs to approach WNL.
[2017-08-24] MEDS ORDERED: Meropenem 500 MG in Sodium Chloride 0.9% 100 ML IV SCH (09:45)
--- NOTE | 2017-08-24 09:45 | Infectious Disease Prog Note ---
Infectious Disease Subjective - Review of Systems Service Date: 08/24/17 Subjective: There is no new change, no fever. Infectious Disease Objective - Results Result Diagrams: 08/24/17 06:04 08/24/17 06:04 Recent Labs: Laboratory Last Values WBC 11.7 Th/cmm (4.8-10.8) H 08/24/17 06:04 RBC 3.68 Mil/cmm (3.80-5.80) L 08/24/17 06:04 Hgb 10.2 gm/dL (12-16) L 08/24/17 06:04 Hct 31.4 % (41.0-60) L 08/24/17 06:04 MCV 85.3 fl (80-99) 08/24/17 06:04 MCH 27.8 pg (27.0-31.0) 08/24/17 06:04 MCHC Differential 32.6 pg (28.0-36.0) 08/24/17 06:04 RDW 17.5 % (11.5-20.0) 08/24/17 06:04 Plt Count 232 Th/cmm (150-400) 08/24/17 06:04 MPV 7.1 fl 08/24/17 06:04 Neutrophils % 62.8 % (40.0-80.0) 08/24/17 06:04 Lymphocytes % 27.8 % (20.0-50.0) 08/24/17 06:04 Monocytes % 6.9 % (2.0-10.0) 08/24/17 06:04 Eosinophils % 2.3 % (0.0-5.0) 08/24/17 06:04 Basophils % 0.2 % (0.0-2.0) 08/24/17 06:04 PT 10.3 SECONDS (9.5-11.5) 08/19/17 18:24 INR 0.99 (0.5-1.4) 08/19/17 18:24 PTT (Actin FS) 22.2 SECONDS (26.0-38.0) L 08/19/17 18:24 Sodium 137 mEq/L (136-145) 08/24/17 06:04 Potassium 3.9 mEq/L (3.5-5.1) 08/24/17 06:04 Chloride 105 mEq/L (98-107) 08/24/17 06:04 Carbon Dioxide 23.7 mEq/L (21.0-31.0) 08/24/17 06:04 Anion Gap 12.2 (7.0-16.0) 08/24/17 06:04 BUN 21 mg/dL (7-25) 08/24/17 06:04 Creatinine 4.3 mg/dL (0.7-1.3) H* 08/24/17 06:04 Est GFR ( Amer) TNP 08/24/17 06:04 Est GFR (Non-Af Amer) TNP 08/24/17 06:04 BUN/Creatinine Ratio 4.9 08/24/17 06:04 Glucose 104 mg/dL (70-105) 08/24/17 06:04 POC Glucose 97 MG/DL (70 - 105) 08/24/17 06:02 Hemoglobin A1c % 6.7 % (4.0-6.0) H 08/19/17 18:24 Whole Bld Lactic Acid 1.59 mmol/L (0.60-1.99) 08/19/17 19:40 Calcium 7.9 mg/dL (8.6-10.3) L 08/24/17 06:04 Phosphorus 3.1 mg/dL (2.5-5.0) 08/21/17 06:11 Total Bilirubin 0.6 mg/dL (0.3-1.0) 08/21/17 06:11 AST 10 U/L (13-39) L 08/21/17 06:11 ALT 6 U/L (7-52) L 08/21/17 06:11 Alkaline Phosphatase 70 U/L (34-104) 08/21/17 06:11 Troponin I 0.06 ng/mL (0.01-0.05) H 08/19/17 18:24 B-Natriuretic Peptide 716.0 pg/mL (5.0-100.0) H 08/19/17 18:24 Total Protein 5.8 gm/dL (6.0-8.3) L 08/21/17 06:11 Albumin 2.4 gm/dL (4.2-5.5) L 08/21/17 06:11 Globulin 3.4 gm/dL 08/21/17 06:11 Albumin/Globulin Ratio 0.7 (1.0-1.8) L 08/21/17 06:11 Triglycerides 88 mg/dL (<150) 08/19/17 18:24 Cholesterol 106 mg/dL (<200) 08/19/17 18:24 LDL Cholesterol Direct 60 mg/dL (75-193) L 08/19/17 18:24 HDL Cholesterol 34 mg/dL (23-92) 08/19/17 18:24 Urine Source RANDOM 08/19/17 18:50 Urine Color YELLOW 08/19/17 18:50 Urine Clarity HAZY (CLEAR) 08/19/17 18:50 Urine pH 6.5 (4.6 - 8.0) 08/19/17 18:50 Ur Specific [place] 1.020 (1.005-1.030) 08/19/17 18:50 Urine Protein >=300 mg/dL (NEGATIVE) 08/19/17 18:50 Urine Glucose (UA) NEGATIVE mg/dL (NEGATIVE) 08/19/17 18:50 Urine Ketones 15 mg/dL (NEGATIVE) H 08/19/17 18:50 Urine Blood LARGE (NEGATIVE) H 08/19/17 18:50 Urine Nitrate POSITIVE (NEGATIVE) H 08/19/17 18:50 Urine Bilirubin MODERATE (NEGATIVE) H 08/19/17 18:50 Urine Urobilinogen 1.0 E.U./dL (0.2 - 1.0) 08/19/17 18:50 Ur Leukocyte Esterase LARGE (NEGATIVE) H 08/19/17 18:50 Urine RBC 10-25 /hpf (0-5) H 08/19/17 18:50 Urine WBC 50-100 /hpf (0-5) H 08/19/17 18:50 Ur Epithelial Cells FEW /lpf (FEW) 08/19/17 18:50 Urine Bacteria MANY /hpf (NONE SEEN) H 08/19/17 18:50 Vancomycin Trough 10.5 ug/mL (5-10) H 08/21/17 06:11 Random Vancomycin 30.2 ug/mL (5.0-40.0) 08/24/17 06:04 - Physical Exam Vitals and I&O: Vital Signs Temp 98.4 F 08/24/17 07:35 Pulse 77 08/24/17 07:35 Resp 18 08/24/17 07:35 BP 124/100 08/24/17 07:35 Pulse Ox 100 08/24/17 07:35 Intake & Output 08/23/17 08/24/17 08/24/17 18:59 06:59 18:59 Intake Total 100 700 Output Total 80 Balance 100 620 Weight (lbs) 72.575 kg Intake: Intake, IV Amount 100 50 Piperacillin Sodium/ 100 50 Tazobact 2.25 gm In Sodium Chloride 0.9% 50 ml @ 100 mls/hr IV Q6HR [facility] Rx#:[id number] Oral 650 Output: Urine 80 Other: # Bowel Movements 1 Weight Source Bedscale Active Medications: Current Medications Acetaminophen (Tylenol) 650 mg PO Q4HR PRN PRN Reason: MILD PAIN Stop: 10/19/17 12:41 Last Admin: 08/24/17 03:42 Dose: 650 mg Albuterol/Ipratropium (Duoneb Neb) 3 ml HHN Q2HRT PRN PRN Reason: COPD Stop: 10/19/17 12:41 Last Admin: 08/20/17 13:22 Dose: 3 ml Albuterol/Ipratropium (Duoneb Neb) 3 ml HHN [id number] [facility] Stop: 10/21/17 14:59 Last Admin: 08/24/17 07:01 Dose: 3 ml Amlodipine Besylate (Norvasc) 10 mg PO DAILY [facility] Stop: 10/20/17 08:59 Last Admin: 08/23/17 08:38 Dose: Not Given Ascorbic Acid (Vitamin C) 500 mg PO DAILY [facility] Stop: 10/20/17 08:59 Last Admin: 08/23/17 08:25 Dose: 500 mg Aspirin (Aspirin Chewable) 81 mg PO DAILY [facility] Stop: 10/20/17 08:59 Last Admin: 08/23/17 08:38 Dose: Not Given Atorvastatin Calcium (Lipitor) 20 mg PO HS [facility] Stop: 10/19/17 20:59 Last Admin: 08/23/17 20:44 Dose: 20 mg Bisacodyl (Dulcolax 10 Mg Supp) 10 mg RC DAILY PRN PRN Reason: IF MOM INEFECTIVE Stop: 10/19/17 12:41 Budesonide (Pulmicort) 0.5 mg HHN BIDRT [facility] Stop: 10/21/17 18:59 Last Admin: 08/24/17 07:01 Dose: 0.5 mg Calcium Carbonate (Os-Alicia) 500 mg PO DAILY [facility] Stop: 10/20/17 08:59 Last Admin: 08/23/17 08:25 Dose: 500 mg Docusate Sodium (Colace) 100 mg PO BID [facility] Stop: 10/19/17 16:59 Last Admin: 08/23/17 17:25 Dose: Not Given Ferrous Sulfate (Iron) 325 mg PO DAILY [facility] Stop: 10/20/17 08:59 Last Admin: 08/23/17 08:25 Dose: 325 mg Finasteride (Proscar) 5 mg PO DAILY [facility] PRN Reason: Protocol Stop: 10/20/17 08:59 Last Admin: 08/23/17 08:25 Dose: 5 mg Heparin Sodium (Porcine) (Heparin) 5,000 units SUBQ Q12HR [facility] Stop: 10/19/17 20:59 Last Admin: 08/23/17 20:50 Dose: 5,000 units Piperacillin Sod/Tazobactam (Sod 2.25 gm/ Sodium Chloride) 50 mls @ 100 mls/hr IV Q6HR [facility] Stop: 10/19/17 00:00 Last Admin: 08/24/17 05:53 Dose: 100 mls/hr Albumin Human (Albuminar 25%) 25 gm in 100 mls @ 50 mls/hr IV PRN PRN PRN Reason: BP Support During HD Meropenem 500 mg/ Sodium (Chloride) 100 mls @ 100 mls/hr IV Q12H [facility] Stop: 10/23/17 09:44 Insulin Aspart (Novolog Insulin Sliding Scale) 0 units SUBQ ACHS [facility] PRN Reason: Protocol Stop: 10/20/17 11:29 Last Admin: 08/24/17 06:45 Dose: Not Given Insulin Detemir (Levemir Insulin) 10 units SUBQ HS [facility] PRN Reason: Protocol Stop: 10/19/17 20:59 Last Admin: 08/23/17 20:43 Dose: Not Given Lactobacillus Rhamnosus (Culturelle 15b) 1 each PO DAILY [facility] Stop: 10/21/17 08:59 Last Admin: 08/23/17 08:25 Dose: 1 each Miscellaneous (Probiotic Screen) 1 ea PRN PRN PRN Reason: PROTOCOL Stop: 10/20/17 09:14 Ondansetron HCl (Zofran Odt) 4 mg PO Q4H PRN PRN Reason: Nausea / Vomiting Stop: 10/19/17 12:41 Pantoprazole Sodium (Protonix) 40 mg PO DAILY [facility] Stop: 10/20/17 08:59 Last Admin: 08/23/17 08:24 Dose: 40 mg Senna (Senna) 17.2 mg PO HS [facility] Stop: 10/19/17 20:59 Last Admin: 08/23/17 20:45 Dose: 17.2 mg Tamsulosin HCl (Flomax) 0.4 mg PO DAILY [facility] Stop: 10/20/17 08:59 Last Admin: 08/23/17 08:25 Dose: 0.4 mg General: no acute distress, well developed, well nourished HEENT: atraumatic, normocephalic, PERRLA, EOMI Neck: supple, no thyromegaly Cardiovascular: S1S2, regular Lungs: clear to auscultation bilaterally, clear to percussion Abdomen: soft, no tender, no distended Extremities: other (bilateral foot surgical incision : healthy. ), no cyanosis, no clubbing, no edema Neurological: awake, alert, oriented - Procedures Procedures: Procedures Procedure Code Date AMPUTATION OF TOE 84063 08/19/17 DETACHMENT AT LEFT 1ST TOE, COMPLETE, OPEN APPROACH [id number] 08/19/17 DETACHMENT AT RIGHT 1ST TOE, COMPLETE, OPEN APPROACH [id number] 08/19/17 DETACHMENT AT RIGHT 2ND TOE, COMPLETE, OPEN APPROACH [id number] 08/19/17 REMOVAL OF INFUSION DEVICE FROM UPPER VEIN, PERC APPROACH [id number] 08/19/17 REMOVAL TUNNELED CV CATH [id number] 08/19/17 Infectious Disease Assmt/Plan - Problem List Patient Problems: All Active Problems BILATERAL GREAT TOE BLACKNESS (Acute) - Assessment Assessment: Current Active Problems Problem Status Onset BILATERAL GREAT TOE BLACKNESS Acute 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 2. Diabetes mellitus type 2. 3. 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 4. Hypertension. 5. History of peripheral artery disease. 6. CHF. 7. Recent history of pneumonia. 8. Anemia of chronic disease. 9. COPD. 10. UTI, ESBL positive E coli. 11. Hyperlipidemia. 12. GERD. 13. bleeding from permacath site. 14. PPI prophylaxis. 15. DVT prophylaxis. - Plan Plan: Change vancomycin and Zosyn to meropenem, It can be changed to invanz 250mg iv daily for 7 days. Continue same treatment. Heparin subcutaneous and SCD. Protonix by mouth. Consult Dr. Day. Vascular surgery. Consult Dr. Mcmahan. Nephrology. Property Controller Dr. Con Robin. Cardiology. Consult, Dr El Robin, Pulmonary. Dc Plan to snf today. Nutritional Asmnt/Malnutr-PDOC - Dietary Evaluation Malnutrition Findings (Please click <Entered> for more info): Nutritional Asmnt/Malnutrition Start: 08/21/17 17: 29 Text: Status: Complete Freq: Document 08/21/17 17:29 [facility] (Rec: 08/21/17 17:43 [facility] [email or web address]) Nutritional Asmnt/Malnutrition Patient General Information Nutritional Screening High Risk Consult Diagnosis CHF, gangrenuous L&R foot Pertinent Medical Hx/Surgical Hx CHF, HTN, hyperlipidemia, COPD , PNA, dementia, GERD, OA, swelling, chronic renal insuff , DM, osteoporosis Subjective Information Consult received for diabetic. Pt seen lying in bed at time of visit, awake and alert. Pt reported good appetite. Per nurse note, pt will have amputation on right great and 2nd toe, and left great toe. Per EMR, PO intake 30-75%. Pt is on diaysis noted. Current Diet Order/ Nutrition Support [facility] soft renal nectar thick liquid Pertinent Medications vit C, os-alicia, colace, iron, novolog, levemir, culturelle, protonix, piperacillin, senna, vitamin B complex /vitC/folic acid Pertinent Labs 08/21 cr 3.9, glucose 111, POC 156 08/19 A1c 6.7 Nutritional Hx/Data Height 1.7 m Height (Calculated Centimeters) 170.2 Current Weight (lbs) 61.689 kg Weight (Calculated Kilograms) 61.7 Weight (Calculated Grams) 11830.6 Adams Body Weight 148 Body Mass Index (BMI) 21.2 Weight Status Approriate GI Symptoms GI Symptoms None Last BM 08/20 Difficult in: None Skin Integrity/Comment: Yes: DECUBS decubs to sacrum, 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 Problem Problem altered nutrition related labs Etiology hx of DM, chronic renal insuff Signs/Symptoms: Cr 3.9, glucose 111, POC 156, A1c 6.7 Malnutrition Alert Protein-Calorie Malnutrition N/A Is there a minimum of two criteria No selected? Query Text:Check all the applicable criteria. A minimum of two criteria are recommended for diagnosis of either severe or non-severe malnutrition. Intervention/Recommendation Comments 1. Considering adding CCHO- 60gm diet if glucose continue high. Encouraged protein food intake. 2. Monitor PO intake, wt, labs and skin integrity 3. F/U as high risk in 2-3 days, 5/2-5/3 Expected Outcomes/Goals Expected Outcomes/Goals 1. PO intake to meet at least 75% of nutritional needs. 2. Wt stability, skin to remain intact, labs to approach WNL.
[2017-08-24] MEDS: Vitamin B Complex w/Vitamin C Tab PO SCH (10:02)
[2017-08-24] MEDS: Aspirin 81mg Chewable Tab PO SCH (10:57)
[2017-08-24] MEDS: Ferrous Sulfate 325 MG TAB PO SCH (10:57)
[2017-08-24] MEDS: Lactobacillus Rhamnosus GG 15 Billion CFU CAP.SPRINK PO SCH (10:58)
[2017-08-24] MEDS: Pantoprazole 40 mg EC Tab PO SCH (10:58)
--- NOTE | 2017-08-24 13:18 | General Progress Note ---
Subjective - Review of Systems Service Date: 08/24/17 Subjective: alert, verbal, min pain Objective - Results Result Diagrams: 08/24/17 06:04 08/24/17 06:04 Recent Labs: Laboratory Last Values WBC 11.7 Th/cmm (4.8-10.8) H 08/24/17 06:04 RBC 3.68 Mil/cmm (3.80-5.80) L 08/24/17 06:04 Hgb 10.2 gm/dL (12-16) L 08/24/17 06:04 Hct 31.4 % (41.0-60) L 08/24/17 06:04 MCV 85.3 fl (80-99) 08/24/17 06:04 MCH 27.8 pg (27.0-31.0) 08/24/17 06:04 MCHC Differential 32.6 pg (28.0-36.0) 08/24/17 06:04 RDW 17.5 % (11.5-20.0) 08/24/17 06:04 Plt Count 232 Th/cmm (150-400) 08/24/17 06:04 MPV 7.1 fl 08/24/17 06:04 Neutrophils % 62.8 % (40.0-80.0) 08/24/17 06:04 Lymphocytes % 27.8 % (20.0-50.0) 08/24/17 06:04 Monocytes % 6.9 % (2.0-10.0) 08/24/17 06:04 Eosinophils % 2.3 % (0.0-5.0) 08/24/17 06:04 Basophils % 0.2 % (0.0-2.0) 08/24/17 06:04 PT 10.3 SECONDS (9.5-11.5) 08/19/17 18:24 INR 0.99 (0.5-1.4) 08/19/17 18:24 PTT (Actin FS) 22.2 SECONDS (26.0-38.0) L 08/19/17 18:24 Sodium 137 mEq/L (136-145) 08/24/17 06:04 Potassium 3.9 mEq/L (3.5-5.1) 08/24/17 06:04 Chloride 105 mEq/L (98-107) 08/24/17 06:04 Carbon Dioxide 23.7 mEq/L (21.0-31.0) 08/24/17 06:04 Anion Gap 12.2 (7.0-16.0) 08/24/17 06:04 BUN 21 mg/dL (7-25) 08/24/17 06:04 Creatinine 4.3 mg/dL (0.7-1.3) H* 08/24/17 06:04 Est GFR ( Amer) TNP 08/24/17 06:04 Est GFR (Non-Af Amer) TNP 08/24/17 06:04 BUN/Creatinine Ratio 4.9 08/24/17 06:04 Glucose 104 mg/dL (70-105) 08/24/17 06:04 POC Glucose 152 MG/DL (70 - 105) H 08/24/17 12:26 Hemoglobin A1c % 6.7 % (4.0-6.0) H 08/19/17 18:24 Whole Bld Lactic Acid 1.59 mmol/L (0.60-1.99) 08/19/17 19:40 Calcium 7.9 mg/dL (8.6-10.3) L 08/24/17 06:04 Phosphorus 3.1 mg/dL (2.5-5.0) 08/21/17 06:11 Total Bilirubin 0.6 mg/dL (0.3-1.0) 08/21/17 06:11 AST 10 U/L (13-39) L 08/21/17 06:11 ALT 6 U/L (7-52) L 08/21/17 06:11 Alkaline Phosphatase 70 U/L (34-104) 08/21/17 06:11 Troponin I 0.06 ng/mL (0.01-0.05) H 08/19/17 18:24 B-Natriuretic Peptide 716.0 pg/mL (5.0-100.0) H 08/19/17 18:24 Total Protein 5.8 gm/dL (6.0-8.3) L 08/21/17 06:11 Albumin 2.4 gm/dL (4.2-5.5) L 08/21/17 06:11 Globulin 3.4 gm/dL 08/21/17 06:11 Albumin/Globulin Ratio 0.7 (1.0-1.8) L 08/21/17 06:11 Triglycerides 88 mg/dL (<150) 08/19/17 18:24 Cholesterol 106 mg/dL (<200) 08/19/17 18:24 LDL Cholesterol Direct 60 mg/dL (75-193) L 08/19/17 18:24 HDL Cholesterol 34 mg/dL (23-92) 08/19/17 18:24 Urine Source RANDOM 08/19/17 18:50 Urine Color YELLOW 08/19/17 18:50 Urine Clarity HAZY (CLEAR) 08/19/17 18:50 Urine pH 6.5 (4.6 - 8.0) 08/19/17 18:50 Ur Specific [place] 1.020 (1.005-1.030) 08/19/17 18:50 Urine Protein >=300 mg/dL (NEGATIVE) 08/19/17 18:50 Urine Glucose (UA) NEGATIVE mg/dL (NEGATIVE) 08/19/17 18:50 Urine Ketones 15 mg/dL (NEGATIVE) H 08/19/17 18:50 Urine Blood LARGE (NEGATIVE) H 08/19/17 18:50 Urine Nitrate POSITIVE (NEGATIVE) H 08/19/17 18:50 Urine Bilirubin MODERATE (NEGATIVE) H 08/19/17 18:50 Urine Urobilinogen 1.0 E.U./dL (0.2 - 1.0) 08/19/17 18:50 Ur Leukocyte Esterase LARGE (NEGATIVE) H 08/19/17 18:50 Urine RBC 10-25 /hpf (0-5) H 08/19/17 18:50 Urine WBC 50-100 /hpf (0-5) H 08/19/17 18:50 Ur Epithelial Cells FEW /lpf (FEW) 08/19/17 18:50 Urine Bacteria MANY /hpf (NONE SEEN) H 08/19/17 18:50 Vancomycin Trough 10.5 ug/mL (5-10) H 08/21/17 06:11 Random Vancomycin 30.2 ug/mL (5.0-40.0) 08/24/17 06:04 - Physical Exam Vitals and I&O: Vital Signs Temp 97.7 F 08/24/17 11:54 Pulse 70 08/24/17 11:54 Resp 17 08/24/17 11:54 BP 120/98 08/24/17 11:54 Pulse Ox 99 08/24/17 11:54 Intake & Output 08/23/17 08/24/17 08/24/17 18:59 06:59 18:59 Intake Total 100 700 Output Total 80 Balance 100 620 Weight (lbs) 72.575 kg Intake: Intake, IV Amount 100 50 Piperacillin Sodium/ 100 50 Tazobact 2.25 gm In Sodium Chloride 0.9% 50 ml @ 100 mls/hr IV Q6HR [facility] Rx#:[id number] Oral 650 Output: Urine 80 Other: # Bowel Movements 1 Weight Source Bedscale Active Medications: Current Medications Acetaminophen (Tylenol) 650 mg PO Q4HR PRN PRN Reason: MILD PAIN Stop: 10/19/17 12:41 Last Admin: 08/24/17 03:42 Dose: 650 mg Albuterol/Ipratropium (Duoneb Neb) 3 ml HHN Q2HRT PRN PRN Reason: COPD Stop: 10/19/17 12:41 Last Admin: 08/20/17 13:22 Dose: 3 ml Albuterol/Ipratropium (Duoneb Neb) [id number] [facility] Stop: 10/21/17 14:59 Last Admin: 08/24/17 10:19 Dose: 3 ml Amlodipine Besylate (Norvasc) [address] [facility] Stop: 10/20/17 08:59 Last Admin: 08/24/17 09:57 Dose: Not Given Ascorbic Acid (Vitamin C) [address] [facility] Stop: 10/20/17 08:59 Last Admin: 08/24/17 10:57 Dose: 500 mg Aspirin (Aspirin Chewable) [address] [facility] Stop: 10/20/17 08:59 Last Admin: 08/24/17 10:57 Dose: 81 mg Atorvastatin Calcium (Lipitor) [address] [facility] Stop: 10/19/17 20:59 Last Admin: 08/23/17 20:44 Dose: 20 mg Bisacodyl (Dulcolax 10 Mg Supp) 10 mg RC DAILY PRN PRN Reason: IF MOM INEFECTIVE Stop: 10/19/17 12:41 Budesonide (Pulmicort) 0.[address] [facility] Stop: 10/21/17 18:59 Last Admin: 08/24/17 07:01 Dose: 0.5 mg Calcium Carbonate (Os-Brad) 500 mg PO DAILY [facility] Stop: 10/20/17 08:59 Last Admin: 08/24/17 10:57 Dose: 500 mg Docusate Sodium (Colace) 100 mg PO BID [facility] Stop: 10/19/17 16:59 Last Admin: 08/24/17 10:57 Dose: 100 mg Ferrous Sulfate (Iron) 325 mg PO DAILY [facility] Stop: 10/20/17 08:59 Last Admin: 08/24/17 10:57 Dose: 325 mg Finasteride (Proscar) 5 mg PO DAILY [facility] PRN Reason: Protocol Stop: 10/20/17 08:59 Last Admin: 08/24/17 09:59 Dose: Not Given Heparin Sodium (Porcine) (Heparin) 5,[address] [facility] Stop: 10/19/17 20:59 Last Admin: 08/24/17 10:58 Dose: 5,000 units Piperacillin Sod/Tazobactam (Sod 2.25 gm/ Sodium Chloride) 50 mls @ 100 mls/hr IV Q6HR [facility] Stop: 10/19/17 00:00 Last Admin: 08/24/17 05:53 Dose: 100 mls/hr Albumin Human (Albuminar 25%) 25 gm in 100 mls @ 50 mls/hr IV PRN PRN PRN Reason: BP Support During HD Meropenem 500 mg/ Sodium (Chloride) 100 mls @ 100 mls/hr IV Q12H [facility] Stop: 10/23/17 09:44 Last Admin: 08/24/17 12:45 Dose: 100 mls/hr Insulin Aspart (Novolog Insulin Sliding Scale) 0 units SUBQ ACHS [facility] PRN Reason: Protocol Stop: 10/20/17 11:29 Last Admin: 08/24/17 12:47 Dose: 2 units Insulin Detemir (Levemir Insulin) 10 units SUBQ HS [facility] PRN Reason: Protocol Stop: 10/19/17 20:59 Last Admin: 08/23/17 20:43 Dose: Not Given Lactobacillus Rhamnosus (Culturelle 15b) [address] [facility] Stop: 10/21/17 08:59 Last Admin: 08/24/17 10:58 Dose: 1 each Miscellaneous (Probiotic Screen) 1 ea PRN PRN PRN Reason: PROTOCOL Stop: 10/20/17 09:14 Ondansetron HCl (Zofran Odt) 4 mg PO Q4H PRN PRN Reason: Nausea / Vomiting Stop: 10/19/17 12:41 Pantoprazole Sodium (Protonix) [address] [facility] Stop: 10/20/17 08:59 Last Admin: 08/24/17 10:58 Dose: 40 mg Senna (Senna) 17.2 mg PO HS [facility] Stop: 10/19/17 20:59 Last Admin: 08/23/17 20:45 Dose: 17.2 mg Tamsulosin HCl (Flomax) 0.[address] [facility] Stop: 10/20/17 08:59 Last Admin: 08/24/17 10:58 Dose: 0.4 mg General: Alert, Mild distress HEENT: Mucous membr. moist/pink Neck: Supple, +2 carotid pulse wo bruit Cardiovascular: Regular rate, Normal S1, Normal S2 Lungs: Normal air movement Abdomen: Bowel sounds, Soft Extremities: Other (dressings intact), no Edema Neurological: Sensation intact Skin: no Rash Psych/Mental Status: Mood NL - Procedures Procedures: Procedures Procedure Code Date AMPUTATION OF TOE 42021 08/19/17 DETACHMENT AT LEFT 1ST TOE, COMPLETE, OPEN APPROACH [id number] 08/19/17 DETACHMENT AT RIGHT 1ST TOE, COMPLETE, OPEN APPROACH [id number] 08/19/17 DETACHMENT AT RIGHT 2ND TOE, COMPLETE, OPEN APPROACH [id number] 08/19/17 REMOVAL OF INFUSION DEVICE FROM UPPER VEIN, PERC APPROACH [id number] 08/19/17 REMOVAL TUNNELED CV CATH 09446 08/19/17 Assessment/Plan - Problem List Patient Problems: All Active Problems BILATERAL GREAT TOE BLACKNESS (Acute) - Assessment Assessment: 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 Htn W/ CKD PAD CHF Anemia of CD COPD Dyslipidemia GERD - Plan Plan: Lab - Result Diagrams 08/21/17 06:11 Current Medications Acetaminophen (Tylenol) 650 mg PO Q4HR PRN PRN Reason: MILD PAIN Stop: 10/19/17 12:41 Albuterol/Ipratropium (Duoneb Neb) 3 ml HHN Q2HRT PRN PRN Reason: COPD Stop: 10/19/17 12:41 Last Admin: 08/20/17 13:22 Dose: 3 ml Albuterol/Ipratropium (Duoneb Neb) [id number] [facility] Stop: 10/19/17 18:59 Last Admin: 08/21/17 12:27 Dose: 3 ml Amlodipine Besylate (Norvasc) 10 mg PO DAILY [facility] Stop: 10/20/17 08:59 Last Admin: 08/21/17 09:00 Dose: 10 mg Ascorbic Acid (Vitamin C) 500 mg PO DAILY [facility] Stop: 10/20/17 08:59 Last Admin: 08/21/17 09:01 Dose: 500 mg Aspirin (Aspirin Chewable) 81 mg PO DAILY [facility] Stop: 10/20/17 08:59 Last Admin: 08/21/17 09:00 Dose: 81 mg Atorvastatin Calcium (Lipitor) [address] [facility] Stop: 10/19/17 20:59 Last Admin: 08/20/17 23:18 Dose: 20 mg Bisacodyl (Dulcolax 10 Mg Supp) 10 mg RC DAILY PRN PRN Reason: IF MOM INEFECTIVE Stop: 10/19/17 12:41 Calcium Carbonate (Os-Brad) [address] [facility] Stop: 10/20/17 08:59 Last Admin: 08/21/17 09:01 Dose: 500 mg Docusate Sodium (Colace) [address] [facility] Stop: 10/19/17 16:59 Last Admin: 08/21/17 09:01 Dose: 100 mg Ferrous Sulfate (Iron) [address] [facility] Stop: 10/20/17 08:59 Last Admin: 08/21/17 09:01 Dose: 325 mg Finasteride (Proscar) [address] [facility] PRN Reason: Protocol Stop: 10/20/17 08:59 Last Admin: 08/21/17 09:00 Dose: 5 mg Heparin Sodium (Porcine) (Heparin) 5,000 units SUBQ Q12HR [facility] Stop: 10/19/17 20:59 Last Admin: 08/21/17 09:01 Dose: 5,000 units Piperacillin Sod/Tazobactam (Sod 2.25 gm/ Sodium Chloride) 50 mls @ 100 mls/hr IV Q6HR [facility] Stop: 10/19/17 00:00 Last Admin: 08/21/17 12:52 Dose: 100 mls/hr Insulin Aspart (Novolog Insulin Sliding Scale) 0 units SUBQ ACHS [facility] PRN Reason: Protocol Stop: 10/20/17 11:29 Last Admin: 08/21/17 12:51 Dose: Not Given Insulin Detemir (Levemir Insulin) 10 units SUBQ HS [facility] PRN Reason: Protocol Stop: 10/19/17 20:59 Last Admin: 08/20/17 23:18 Dose: 2 unit Lactobacillus Rhamnosus (Culturelle 15b) 1 each PO DAILY [facility] Stop: 10/21/17 08:59 Miscellaneous (Vancomycin Iv Per Pharmacy) 1 ea PRN PRN PRN Reason: PROTOCOL Stop: 10/18/17 19:30 Miscellaneous (Zosyn Iv Per Pharmacy) 1 [facility] PRN PRN PRN Reason: PROTOCOL Stop: 10/18/17 19:30 Miscellaneous (Probiotic Screen) 1 [facility] PRN PRN PRN Reason: PROTOCOL Stop: 10/20/17 09:14 Ondansetron HCl (Zofran Odt) 4 mg PO Q4H PRN PRN Reason: Nausea / Vomiting Stop: 10/19/17 12:41 Pantoprazole Sodium (Protonix) 40 mg PO DAILY [facility] Stop: 10/20/17 08:59 Last Admin: 08/21/17 09:00 Dose: 40 mg Senna (Senna) 17.[address] [facility] Stop: 10/19/17 20:59 Last Admin: 08/20/17 23:18 Dose: 17.2 mg Tamsulosin HCl (Flomax) 0.4 mg PO DAILY [facility] Stop: 10/20/17 08:59 Last Admin: 08/21/17 09:01 Dose: 0.4 mg Vitamin B Complex/Vit C/Folic Acid (Vitamin B Complex W/Vitamin C) 1 tab PO DAILY [facility] Stop: 10/20/17 08:59 Last Admin: 08/21/17 09:01 Dose: 1 tab Lab - Result Diagrams 08/24/17 06:04 08/24/17 06:04 schedule for HD today f/u electrolytes, cbc replace K possible DC Nutritional Asmnt/Malnutr-PDOC - Dietary Evaluation Malnutrition Findings (Please click <Entered> for more info): Nutritional Asmnt/Malnutrition Start: 08/21/17 17: 29 Text: Status: Complete Freq: Document 08/21/17 17:29 LCHENG (Rec: 08/21/17 17:43 [id number]) Nutritional Asmnt/Malnutrition Patient General Information Nutritional Screening High Risk Consult Diagnosis CHF, gangrenuous L&R foot Pertinent Medical Hx/Surgical Hx CHF, HTN, hyperlipidemia, COPD , PNA, dementia, GERD, OA, swelling, chronic renal insuff , DM, osteoporosis Subjective Information Consult received for diabetic. Pt seen lying in bed at time of visit, awake and alert. Pt reported good appetite. Per nurse note, pt will have amputation on right great and 2nd toe, and left great toe. Per EMR, PO intake 30-75%. Pt is on diaysis noted. Current Diet Order/ Nutrition Support [facility] soft renal nectar thick liquid Pertinent Medications vit C, os-brad, colace, iron, novolog, levemir, culturelle, protonix, piperacillin, senna, vitamin B complex /vitC/folic acid Pertinent Labs 08/21 cr 3.9, glucose 111, POC 156 08/19 A1c 6.7 Nutritional Hx/Data Height 1.7 m Height (Calculated Centimeters) 170.2 Current Weight (lbs) 61.689 kg Weight (Calculated Kilograms) 61.7 Weight (Calculated Grams) 57710.6 [place] Body Weight 148 Body Mass Index (BMI) 21.2 Weight Status Approriate GI Symptoms GI Symptoms None Last BM 08/20 Difficult in: None Skin Integrity/Comment: Yes: DECUBS decubs to sacrum, gangrene to right toe, left toe and left lower foot Current %PO Fair (50-74%) Estimated Nutritional Goals BEE in Kcals: Using Current wt Calories/Kcals/Kg 30-35 Kcals Calculated 2311-3254 Protein: Using Current wt Protein g/k.2-1.4 Protein Calculated 74-87 Fluid: ml per MD Nutritional Problem 1. Problem Problem altered nutrition related labs Etiology hx of DM, chronic renal insuff Signs/Symptoms: Cr 3.9, glucose 111, POC 156, A1c 6.7 Malnutrition Alert Protein-Calorie Malnutrition N/A Is there a minimum of two criteria No selected? Query Text:Check all the applicable criteria. A minimum of two criteria are recommended for diagnosis of either severe or non-severe malnutrition. Intervention/Recommendation Comments 1. Considering adding CCHO- 60gm diet if glucose continue high. Encouraged protein food intake. 2. Monitor PO intake, wt, labs and skin integrity 3. F/U as high risk in 2-3 days, 08/23-08/24 Expected Outcomes/Goals Expected Outcomes/Goals 1. PO intake to meet at least 75% of nutritional needs. 2. Wt stability, skin to remain intact, labs to approach WNL.
[2017-08-24 13:45] LABS: pH 7.47 (7.35-7.45)
[2017-08-24 13:46] LABS: ALLEN TEST Y
--- NOTE | 2017-08-25 01:51 | Progress Notes ---
DATE: 08/24/2017 PROBLEM LIST: 1. Mild degree of acute tracheobronchitis. 2. Left-sided small effusion. 3. He has chronic renal failure, on hemodialysis. 4. Suspect obstructive sleep apnea syndrome. SYMPTOMS: The patient is feeling okay. She is going to stay in the hospital for 3 days, then will get discharged. Denies of any coughing or wheezing or any much shortness of breath. PHYSICAL EXAMINATION: VITAL SIGNS: T-max 99.7, blood pressure 120/98, temperature is 99, saturation 99 on 2 liters per minute. NECK: Veins not visualized. CHEST: Shows diminished air entry with occasional secretory noise. HEART: Regular. ABDOMEN: Soft, nontender. LABORATORY DATA: The patient's white count is 11.7. Creatinine is 4.3. ASSESSMENT: The patient is clinically overall doing better with mild degree of tracheobronchitis with questionable pneumonia with urosepsis. PLANS AND SUGGESTIONS: We will go ahead and continue current antibiotic per ID, continue inhalation treatment, etc. and go from there. JOB# [id number]
--- NOTE | 2017-08-28 12:57 | Pathology Report ---
[id number] Collection date: 08/22/2017 Surgeon: Dr. Kirstin Day Specimen Description: 1. Right big toe and right second toe amputation 2. Left big toe amputation 3. Debrided tissue, left leg 4. Tip of Perm-A-Cath from right chest Gross Description: Part I: Received in formalin is a right big toe amputation measuring 6 cm in length x up to 2.7 cm in width, with a 3.5 cm area of blackish-brown discoloration and gangrenous ulceration seen covering most of the distal aspect of the right big toe. Also received is the right second toe measuring 5 cm in length x 1.2 cm in width, and this also shows an area of brownish black discoloration and gangrenous ulceration. Carton Liner sections are submitted in one cassette labeled A. Gross Description: Part II: Received in formalin is a left big toe amputation measuring 6.5 cm in length x 2.9 cm in width, with a 1.8 cm area of brownish - black discoloration and gangrenous ulceration covering the distal aspect of the left big toe. Sectioning shows degenerated necrotic tissue. Carton Liner sections are submitted in one cassette labeled B. Gross Description: Part III: Received in formalin is a 2.0 x 0.8 x 0.2 cm portion of brownish black necrotic skin and soft tissue. Carton Liner section is submitted one cassette labeled C. Gross Description: Part IV: Received in formalin is a 6 cm in length x 0.4 cm in diameter plastic Perm-A-Cath catheter with a blueish color and a 1 cm portion of attached sol fibroconnective tissue seen on the distal tip. Carton Liner portion of the soft tissue is submitted in one cassette labeled D. Microscopic Description: Part I: The histologic sections show ulcerated necrotic skin with extensive suppurative inflammation consisting of large collections of neutrophils within a degenerative necrotic background. Diagnosis: Part I: Ulcerated necrotic tissue consistent with gangrene, right big toe and right second amputations. Microscopic Description: Part II: The histologic sections show ulcerated skin and underlying bone with extensive suppurative inflammation consisting of large collections of neutrophils within a degenerative necrotic background. These inflammatory changes are seen extending into the underlying bone consistent with osteomyelitis. Diagnosis: Part II: Ulcerated necrotic skin and bone consistent with gangrene and osteomyelitis (left big toe amputation). Microscopic Description: Part III: The histologic sections show ulcerated necrotic skin and soft tissue showing suppurative inflammation consisting of large collections of neutrophils within a degenerative necrotic background. Diagnosis: Part III: Ulcerated necrotic skin and soft tissue consistent with gangrene (left leg debridement). Microscopic Description: Part IV: The histologic sections show fibroconnective tissue with chronic inflammation consisting of lymphocytes and plasma cells. Areas of fibrosis and scarring are appreciated with granulation tissue reaction surrounding the plastic catheter. Diagnosis: Part IV: Chronic inflammation and fibrosis (tip of Perm-A-Cath catheter). [facility]# [id number] MTDD
--- NOTE | 2017-09-13 21:23 | Discharge Summary ---
DATE OF DISCHARGE: 08/24/2017 CHIEF COMPLIANT: Gangrene of the great toes bilaterally. HISTORY OF PRESENT ILLNESS AND HOSPITAL COURSE: The patient is an 82-year-old male with a past medical history of poorly controlled diabetes mellitus type 2, brought from the SNF to the ER for evaluation of the gangrene to the right first and second toe, left first toe for the last 3 weeks. The patient also had cough and congestion. The patient was diagnosed to have dry gangrene on the great toes and diabetes mellitus type 2; CKD stage 5, on hemodialysis; hypertension; history of peripheral artery disease; CHF; recent history of pneumonia; COPD; anemia of chronic disease; UTI; hyperlipidemia. The patient was treated by antibiotic and an arterial study of both lower extremities. There is a stent, [id number] bilateral atherosclerotic vascular disease. Dr. Robin was called and he performed amputation of right second toe and left big toe. Perm-A-Cath was removed. The patient did well and the patient was discharged in stable condition on 08/24/2017. Consultations were called included Dr. Day, Vascular Surgery; Dr. Naresh Robin, Cardiology; Dr. Mcmahan for Nephrology; and Dr. El Robin for Pulmonary. DISCHARGE CONDITION: Stable. DISCHARGE DIAGNOSES: 1. Dragging of the great toe. 2. Diabetes mellitus type 2. 3. Chronic kidney disease stage 5, on hemodialysis. 4. Hypertension. 5. Peripheral artery disease. 6. Congestive heart failure. 7. History of pneumonia. 8. Anemia of chronic disease. 9. Chronic obstructive pulmonary disease. 10. Urinary tract infection, extended spectrum beta-lactamases positive Escherichia coli. 11. Hyperlipidemia. 12. Gastroesophageal reflux disease. 13. Redness around the Perm-A-Cath site. 14. Mental status stabilized. RECOMMENDATION: Continue meropenem. DISCHARGE MEDICATIONS: Invanz 250 mg IV daily for 7 days. DISCHARGE DISPOSITION: Bozena Armenta [facility]# [id number]
== END 2017-08-24 20:20 | DRG 255 ==
LOC: ER 17:30 → TELE 19:30
PROVIDERS: ADMIT Internal Medicine Infectious Disease; ATTEND Internal Medicine Infectious Disease
PROC: 0Y6Q0Z0 Detachment at Left 1st Toe, Complete, Open Approach (ICD-10-PCS; principal; 2017-08-22)
PROC: 0Y6R0Z0 Detachment at Right 2nd Toe, Complete, Open Approach (ICD-10-PCS; 2017-08-22)
PROC: 0Y6P0Z0 Detachment at Right 1st Toe, Complete, Open Approach (ICD-10-PCS; 2017-08-22)
PROC: 05PY33Z Removal of Infusion Device from Upper Vein, Percutaneous Approach (ICD-10-PCS; 2017-08-22)
PROC: 0JBP0ZZ Excision of Left Lower Leg Subcutaneous Tissue and Fascia, Open Approach (ICD-10-PCS; 2017-08-22)
PROC: 5A1D70Z Performance of Urinary Filtration, Intermittent, Less than 6 Hours Per Day (ICD-10-PCS; 2017-08-22)
DX: E11.52 Type 2 diabetes mellitus with diabetic peripheral angiopathy with gangrene (principal); J18.9 Pneumonia, unspecified organism; N18.6 End stage renal disease; N39.0 Urinary tract infection, site not specified; I96 Gangrene, not elsewhere classified; I13.2 Hypertensive heart and chronic kidney disease with heart failure and with stage 5 chronic kidney disease, or end stage renal disease; L97.829 Non-pressure chronic ulcer of other part of left lower leg with unspecified severity; J44.0 Chronic obstructive pulmonary disease with (acute) lower respiratory infection; E11.22 Type 2 diabetes mellitus with diabetic chronic kidney disease; Z99.2 Dependence on renal dialysis; I50.9 Heart failure, unspecified; R58 Hemorrhage, not elsewhere classified; E78.5 Hyperlipidemia, unspecified; K21.9 Gastro-esophageal reflux disease without esophagitis; D63.8 Anemia in other chronic diseases classified elsewhere; N40.0 Benign prostatic hyperplasia without lower urinary tract symptoms; D50.9 Iron deficiency anemia, unspecified; B96.20 Unspecified Escherichia coli [E. coli] as the cause of diseases classified elsewhere; Z16.12 Extended spectrum beta lactamase (ESBL) resistance; M19.90 Unspecified osteoarthritis, unspecified site; M81.0 Age-related osteoporosis without current pathological fracture; J40 Bronchitis, not specified as acute or chronic; F03.90 Unspecified dementia, unspecified severity, without behavioral disturbance, psychotic disturbance, mood disturbance, and anxiety; E11.65 Type 2 diabetes mellitus with hyperglycemia; D72.829 Elevated white blood cell count, unspecified; L03.032 Cellulitis of left toe; L03.031 Cellulitis of right toe; Z87.01 Personal history of pneumonia (recurrent); Z98.42 Cataract extraction status, left eye; Z98.41 Cataract extraction status, right eye; Z79.82 Long term (current) use of aspirin; Z79.899 Other long term (current) drug therapy; Z79.4 Long term (current) use of insulin; Y92.89 Other specified places as the place of occurrence of the external cause
CPT/HCPCS: 36415-UA; 36600-90; 71045-TC; 71250-TC; 80048-TC; 80053-TC; 80061-TC; 80202-TC; 81001-TC; 82803-TC; 82947-TC; 82948-90; 83036-90; 83605; 83880-TC; 84100-TC; 84484-TC; 85025-TC; 85610-TC; 87086-90; 88304-TC; 90937; 93005; 93925-TC; 94640; 94760; J1644; J1815; J1940; J1956; J2185; J2543; J2704; J3010; J3370; J7030; J7040; J7799; V2790; X5716; X6494; Z7610

== ENCOUNTER 2017-09-23 14:45 | Inpatient (IN) | payer MEDICARE, OTHER ==
--- NOTE | 2017-09-23 15:25 | ED Physician Chart ---
ED Chief Complaint/HPI - Patient Information Date Seen:: 09/23/17 Time Seen:: 15:26 Chief Complaint:: LEFT AV DIALYSIS SHUNT CLOGGED WHEN HE WENT TO DIALYSIS TODAY. History of Present Illness:: Mr. Sanford is a 82 year old dialysis patient Who is scheduled for dialysis Three times a week. He was scheduled for dialysisEarlier today But technicians were unable to accessHis SchutDue to coagulation.He has no other acute complaints. Allergies:: Allergies Allergy/AdvReac Type Severity Reaction Status Date / Time No Known Allergies Allergy Verified 08/19/17 17:40 Vitals:: Vital Signs - 8 hr 09/23/17 15:01 Temp 98.2 F HR 82 RR 16 BP 137/64 O2 Sat % 100 ED Review of Systems - Review of Systems General/Constitutional: No fever, No chills, No weight loss, No weakness, No diaphoresis, No edema, Loss of appetite Skin: Skin lesions, No skin lesions, No bruising Head: No headache, No light-headedness Eyes: No diplopia ENT: No earache, No sore throat (Okay), No tinnitus (Can't do it) Hematopoietic: No bruising, No lymphadenopathy Allergic/Immuno: No urticaria, No angioedema Neurological: No paresthesia, No vertigo ED Past Medical History - Past Medical History Past Medical History: CVA/TIA Family History: Diabetes Melitus Social History: Care Facility Psychiatricy History: Dementia Medication: Reviewed (MILD DEMENTIA) Family Medical History - Family Member Mother History Unknown: Yes Ethnicity: Living Status: Unknown Hx Family Cancer: (UNKNOWN) Hx Family Coronary Artery Disease: (UNKNOWN) Hx Family Congestive Heart Failure: (UNKNOWN) Hx Family Hypertension: (UNKNOWN) Hx Family Stroke: (UNKNOWN) Hx Family Diabetes: (UNKNOWN) Hx Family Seizures: (UNKNOWN) Hx Family Dementia: (UNKNOWN) Hx Family AIDS: (UNKNOWN) Hx Family COPD: (UNKNOWN) Hx Family Hepatitis: (UNKNOWN) Hx Family Psychiatric Problems: (UNKNOWN) Hx Family Tuberculosis: (UNKNOWN) ED Physical Exam - Physical Examination General/Constitutional: Awake, Well-developed, well-nourished, Alert, No distress, Non-toxic appearing Other Gen/Cons comments:: NOT AMBULATORY. RECENT SURGERY ON BOH FEET. Head: Atraumatic Eyes: Lids, conjuctiva normal, PERRL, EOMI (SKIN LESIONS: MIDDINNG MULTIPLE DUR TO ISCHEMIC BLCK GANGRENE IN TOES) ED Septic Shock - . Is Septic Shock (SBP<90, OR Lactate>4 mmol\L) present?: No - <6hrs of presentation: Vital Signs: Vital Signs - 8 hr 09/23/17 15:01 Temp 98.2 F HR 82 RR 16 BP 137/64 O2 Sat % 100 ED Reassessment (Disposition) - Reassessment Reassessment Condition:: Unchanged - Diagnosis Diagnosis:: DIABETES MILITANTS PAD,BOTH LOWER EXTREMITIES, ADVANCED - Aftercare/Follow up Instructions Aftercare/Follow-Up Instructions:: Counseled pt regarding lab results/diagnosis & need follow up - Patient Disposition Discharge/Transfer:: Acute Care w/in this hosp ED Discharge Plan - Patient Disposition Admit/Discharge/Transfer: Acute Care w/in this hosp Condition at Disposition: Stable
[2017-09-23 16:04] LABS: ALB/GLOB RATIO 0.8 (1.0-1.8); ALBUMIN 2.7 gm/dL (4.2-5.5); ALKALINE PHOSPHATASE 91 U/L (34-104); ANION GAP 9.9 (7.0-16.0); BILIRUBIN,TOTAL 0.5 mg/dL (0.3-1.0); BUN - UREA NITROGEN 26 mg/dL (7-25); CALCIUM SERUM 8.6 mg/dL (8.6-10.3); CHLORIDE 97 mEq/L (98-107); CREATININE - SERUM 3.6 mg/dL (0.7-1.3); GLUCOSE 171 mg/dL (70-105); INR 0.9 (0.5-1.4); POTASSIUM SERUM 4.9 mEq/L (3.5-5.1); PROTHROMBIN TIME (TEST) 9.4 SECONDS (9.5-11.5); SGOT 14 U/L (13-39); SGPT/ALT 13 U/L (7-52); SODIUM SERUM 134 mEq/L (136-145); TOTAL PROTEIN,SERUM 6.1 gm/dL (6.0-8.3)
[2017-09-23] MEDS ORDERED: Albuterol/Ipratropium Neb 3 ML AERS HHN PRN (17:31)
--- NOTE | 2017-09-23 17:37 | History and Physical ---
History of Present Illness - HPI Chief Complaint: av shunt malfunction HPI: 82 year old male who is a shelter resident admitted to [facility] due to av shunt malfunction. Vital Signs: Last Vital Signs Temp 98.2 F 09/23/17 15:01 Pulse 76 09/23/17 16:29 Resp 16 09/23/17 16:29 BP 139/68 09/23/17 16:29 Pulse Ox 100 09/23/17 16:29 Past Medical History Other History: esrd on hd chf htn hyperlipidemia dementia gerd oa - Past Surgical History Past Surgical History: Cataract Removal Family Medical History - Family Member Mother History Unknown: Yes Ethnicity: Living Status: Unknown Hx Family Cancer: (UNKNOWN) Hx Family Coronary Artery Disease: (UNKNOWN) Hx Family Congestive Heart Failure: (UNKNOWN) Hx Family Hypertension: (UNKNOWN) Hx Family Stroke: (UNKNOWN) Hx Family Diabetes: (UNKNOWN) Hx Family Seizures: (UNKNOWN) Hx Family Dementia: (UNKNOWN) Hx Family AIDS: (UNKNOWN) Hx Family COPD: (UNKNOWN) Hx Family Hepatitis: (UNKNOWN) Hx Family Psychiatric Problems: (UNKNOWN) Hx Family Tuberculosis: (UNKNOWN) Social History Smoke: No Alcohol: None Drugs: None Lives: Prison - Medications Home Medications: Home Medication Medication Instructions Recorded Type Acetaminophen [Tylenol] 650 mg PO Q4HR PRN 08/19/17 History Albuterol/Ipratropium Neb [Duoneb 3 ml HHN Q12H PRN 08/19/17 History Neb] Amlodipine Besylate 10 mg PO DAILY 08/19/17 History Ascorbic Acid [Vitamin C] 500 mg PO DAILY 08/19/17 History Aspirin [Aspirin Chewable] 81 mg PO DAILY 08/19/17 History Atorvastatin Calcium [Lipitor] 20 mg PO HS 08/19/17 History Bisacodyl [Dulcolax 10 Mg Supp] 10 mg RC DAILY PRN 08/19/17 History Calazime 1 unit TP DAILY 08/19/17 History Calcium Carbonate 500 mg PO DAILY 08/19/17 History Cranberry Fruit Extract [Cranberry] 425 mg PO BID 08/19/17 History Docusate Sodium [Colace] 100 mg PO BID 08/19/17 History Ferrous Sulfate [Iron] 1 tab PO DAILY 08/19/17 History Finasteride [Proscar*] 5 mg PO DAILY 08/19/17 History Folic Acid/Vit Bcomp,C 0.8 mg PO DAILY 08/19/17 History [Nephro-Cordelia Tablet] Insulin Aspart Sliding Scale 0 units SUBQ QID 08/19/17 History [NovoLOG INSULIN SLIDING SCALE] Insulin Detemir [Levemir] 10 unit SQ HS 08/19/17 History Ondansetron [Zofran Odt] 4 mg PO Q4H PRN 08/19/17 History Sennosides A and B [Senna] 2 tab PO HS 08/19/17 History Tamsulosin [Flomax] 0.4 mg PO DAILY 08/19/17 History Albuterol/Ipratropium Neb [Duoneb 3 ml HHN [id number] aers 08/24/17 Rx Neb] Budesonide [Pulmicort] 0.5 mg HHN BIDRT ud 08/24/17 Rx Heparin Sodium [Heparin*] 5,000 units SUBQ Q12HR vial 08/24/17 Rx Insulin Aspart Sliding Scale See Protocol SUBQ ACHS unit 08/24/17 Rx [NovoLOG INSULIN SLIDING SCALE] Lactobacillus Rhamnosus GG 15B 1 each PO DAILY cap.sprink 08/24/17 Rx [Culturelle 15B] Pantoprazole [Protonix] 40 mg PO DAILY ect 08/24/17 Rx - Allergies Allergies/Adverse Reactions: Allergies Allergy/AdvReac Type Severity Reaction Status Date / Time No Known Allergies Allergy Verified 08/19/17 17:40 Review of Systems - Review of Systems Constitutional: Report: No Significant Eyes: Report: No Significant ENT: Report: No Significant Respiratory: Report: No Significant Cardiovascular: Report: No Significant Neurological: Report: Weakness Physical Exam - Physical Exam HEENT: Report: Ears Nose Throat within normal limits Neck: Report: Within normal limits Cardiovascular Systems: Report: +s1/s2 noted, Regular, Rate and Rhythm Respiratory: Report: Breath Sounds are within normal limits Abdomen: Report: Non-tender to palpation Skin: Report: Warm, Dry - Lab Results All Lab Results last 24 hours: Laboratory Results - last 24 hr 09/23/17 15:43 Sodium 134 L Potassium 4.9 Chloride 97 L Carbon Dioxide 32.0 H Anion Gap 9.9 BUN 26 H Creatinine 3.6 H Est GFR ( Amer) TNP Est GFR (Non-Af Amer) TNP BUN/Creatinine Ratio 7.2 Glucose 171 H Calcium 8.6 Total Bilirubin 0.5 AST 14 ALT 13 Alkaline Phosphatase 91 Total Protein 6.1 Albumin 2.7 L Globulin 3.4 Albumin/Globulin Ratio 0.8 L - Assessment Assessment: AV shunt malfunction esrd on hd chf htn hyperlipidemia dementia gerd oa - Plan Plan: surgical consultation for revision of shunt cbc/bmp in am accucheck with sliding scale continue the rest of the orders
[2017-09-23] MEDS: Albuterol/Ipratropium Neb 3 ML AERS HHN SCH (19:19)
[2017-09-23] MEDS: Budesonide 0.5 Mg/2 mL Ud HHN SCH (19:56)
[2017-09-23] MEDS: Insulin Detemir 100 units/mL 10mL Vial SUBQ SCH (21:32)
[2017-09-23] MEDS: INSULIN ASPART SLIDING SCALE 100 UNITS/ML UNIT SUBQ SCH (21:32)
[2017-09-23] MEDS: Atorvastatin Calcium 10 MG TAB PO SCH (21:39)
[2017-09-24] MEDS: INSULIN ASPART SLIDING SCALE 100 UNITS/ML UNIT SUBQ SCH ×4 (06:37→21:30)
[2017-09-24] MEDS: Budesonide 0.5 Mg/2 mL Ud HHN SCH ×2 (07:02→19:19)
[2017-09-24] MEDS: Albuterol/Ipratropium Neb 3 ML AERS HHN SCH ×4 (07:03→19:15)
[2017-09-24 07:13] LABS: % BASOPHILS 0.4 % (0.0-2.0); % EOSINOPHILS 5.1 % (0.0-5.0); % LYMPHOCYTES 27.1 % (20.0-50.0); % MONOCYTES 6.7 % (2.0-10.0); % NEUTROPHILS 60.7 % (40.0-80.0); EOSINOPHILE ABSOLUTE 0.5 Th/cmm (0.1-0.4); HEMOGLOBIN 9.8 gm/dL (12-16); LYMPHOCYTE ABSOLUTE 2.8 Th/cmm (1.5-3.0); MEAN CELL VOLUME 91.7 fl (80-99); MEAN CORPUSCULAR HEMOGLOBIN 29.9 pg (27.0-31.0); MEAN CORPUSCULAR HGB CONC 32.6 pg (28.0-36.0); MEAN PLATELET VOLUME 7.4 fl; MONOCYTE ABSOLUTE 0.7 Th/cmm (0.3-1.0); NEUTROPHILE ABSOLUTE 6.4 Th/cmm (1.8-8.0); PLATELET COUNT 372 Th/cmm (150-400); RED BLOOD COUNT 3.27 Mil/cmm (3.80-5.80); RED CELL DISTRIBUTION WIDTH 23.2 % (11.5-20.0); WHITE BLOOD COUNT 10.4 Th/cmm (4.8-10.8)
[2017-09-24 07:34] LABS: BUN - UREA NITROGEN 33 mg/dL (7-25); CALCIUM SERUM 8.5 mg/dL (8.6-10.3); CARBON DIOXIDE 28.3 mEq/L (21.0-31.0); CHLORIDE 99 mEq/L (98-107); GLUCOSE 107 mg/dL (70-105); POTASSIUM SERUM 4.3 mEq/L (3.5-5.1); SODIUM SERUM 135 mEq/L (136-145)
[2017-09-24 07:46] LABS: CREATININE - SERUM 4.2 mg/dL (0.7-1.3)
--- NOTE | 2017-09-24 08:47 | General Progress Note ---
Subjective - Review of Systems Service Date: 09/24/17 Events since last encounter: had left arm AV shunt (?) placed 6 months ago in [facility], declotted 3 days ago. discussed with daughter who will obtain records - thrombectomy with stent?? had amputation of toes 1 month ago, stumps necrotic and will need revision Plan: thrombectomy left arm AV shunt reamputation both feet Objective - Results Result Diagrams: 09/24/17 06:40 09/24/17 06:40 Recent Labs: Laboratory Last Values WBC 10.4 Th/cmm (4.8-10.8) 09/24/17 06:40 RBC 3.27 Mil/cmm (3.80-5.80) L 09/24/17 06:40 Hgb 9.8 gm/dL (12-16) L 09/24/17 06:40 Hct 30.0 % (41.0-60) L 09/24/17 06:40 MCV 91.7 fl (80-99) 09/24/17 06:40 MCH 29.9 pg (27.0-31.0) 09/24/17 06:40 MCHC Differential 32.6 pg (28.0-36.0) 09/24/17 06:40 RDW 23.2 % (11.5-20.0) H 09/24/17 06:40 Plt Count 372 Th/cmm (150-400) 09/24/17 06:40 MPV 7.4 fl 09/24/17 06:40 Neutrophils % 60.7 % (40.0-80.0) 09/24/17 06:40 Lymphocytes % 27.1 % (20.0-50.0) 09/24/17 06:40 Monocytes % 6.7 % (2.0-10.0) 09/24/17 06:40 Eosinophils % 5.1 % (0.0-5.0) H 09/24/17 06:40 Basophils % 0.4 % (0.0-2.0) 09/24/17 06:40 PT 9.4 SECONDS (9.5-11.5) L 09/23/17 15:43 INR 0.90 (0.5-1.4) 09/23/17 15:43 PTT (Actin FS) 24.5 SECONDS (26.0-38.0) L 09/23/17 15:43 Sodium 135 mEq/L (136-145) L 09/24/17 06:40 Potassium 4.3 mEq/L (3.5-5.1) 09/24/17 06:40 Chloride 99 mEq/L (98-107) 09/24/17 06:40 Carbon Dioxide 28.3 mEq/L (21.0-31.0) 09/24/17 06:40 Anion Gap 12.0 (7.0-16.0) 09/24/17 06:40 BUN 33 mg/dL (7-25) H 09/24/17 06:40 Creatinine 4.2 mg/dL (0.7-1.3) H* 09/24/17 06:40 Est GFR ( Amer) TNP 09/24/17 06:40 Est GFR (Non-Af Amer) TNP 09/24/17 06:40 BUN/Creatinine Ratio 7.9 09/24/17 06:40 Glucose 107 mg/dL (70-105) H 09/24/17 06:40 Calcium 8.5 mg/dL (8.6-10.3) L 09/24/17 06:40 Total Bilirubin 0.5 mg/dL (0.3-1.0) 09/23/17 15:43 AST 14 U/L (13-39) 09/23/17 15:43 ALT 13 U/L (7-52) 09/23/17 15:43 Alkaline Phosphatase 91 U/L (34-104) 09/23/17 15:43 Total Protein 6.1 gm/dL (6.0-8.3) 09/23/17 15:43 Albumin 2.7 gm/dL (4.2-5.5) L 09/23/17 15:43 Globulin 3.4 gm/dL 09/23/17 15:43 Albumin/Globulin Ratio 0.8 (1.0-1.8) L 09/23/17 15:43 - Physical Exam Vitals and I&O: Vital Signs Temp 97.7 F 09/24/17 07:47 Pulse 83 09/24/17 07:47 Resp 18 09/24/17 07:47 BP 137/58 09/24/17 07:47 Pulse Ox 100 09/24/17 07:47 Intake & Output 09/23/17 09/24/17 09/24/17 18:59 06:59 18:59 Intake Total 75 Output Total 350 Balance -275 Weight (lbs) 72.575 kg 62.142 kg Intake: Oral 75 Output: Urine 350 Stool 0 Other: Stool Characteristics Soft Weight Source Bedscale Bedscale Active Medications: Current Medications Acetaminophen (Tylenol) 650 mg PO Q4HR PRN PRN Reason: MILD PAIN Stop: 11/22/17 17:30 Albuterol/Ipratropium (Duoneb Neb) 3 ml HHN Q12HRT PRN PRN Reason: COPD Stop: 11/22/17 17:30 Albuterol/Ipratropium (Duoneb Neb) 3 ml HHN [id number] [facility] Stop: 11/22/17 18:59 Last Admin: 09/24/17 07:03 Dose: 3 ml Amlodipine Besylate (Norvasc) 10 mg PO DAILY [facility] Stop: 11/23/17 08:59 Ascorbic Acid (Vitamin C) 500 mg PO DAILY [facility] Stop: 11/23/17 08:59 Aspirin (Aspirin Chewable) 81 mg PO DAILY [facility] Stop: 11/23/17 08:59 Atorvastatin Calcium (Lipitor) 20 mg PO HS [facility] Stop: 11/22/17 20:59 Last Admin: 09/23/17 21:39 Dose: 20 mg Bisacodyl (Dulcolax 10 Mg Supp) 10 mg RC DAILY PRN PRN Reason: IF MOM INEFECTIVE Stop: 11/22/17 17:30 Budesonide (Pulmicort) 0.5 mg HHN BIDRT [facility] Stop: 11/22/17 18:59 Last Admin: 09/24/17 07:02 Dose: 0.5 mg Calcium Carbonate (Os-Brad) 500 mg PO DAILY [facility] Stop: 11/23/17 08:59 Docusate Sodium (Colace) 100 mg PO BID [facility] Stop: 11/23/17 08:59 Ferrous Sulfate (Iron) 325 mg PO DAILY [facility] Stop: 11/23/17 08:59 Finasteride (Proscar) 5 mg PO DAILY [facility]; Protocol Stop: 11/23/17 08:59 Heparin Sodium (Porcine) (Heparin) 5,000 units SUBQ Q12HR [facility] Stop: 11/22/17 20:59 Last Admin: 09/23/17 21:39 Dose: 5,000 units Insulin Aspart (Novolog Insulin Sliding Scale) 0 units SUBQ ACHS [facility]; Protocol Stop: 11/22/17 20:59 Last Admin: 09/24/17 06:37 Dose: Not Given Insulin Detemir (Levemir Insulin) 10 units SUBQ HS [facility]; Protocol Stop: 11/22/17 20:59 Last Admin: 09/23/17 21:32 Dose: Not Given Lactobacillus Rhamnosus (Culturelle 15b) 1 each PO DAILY [facility] Stop: 11/23/17 08:59 Ondansetron HCl (Zofran Odt) 4 mg PO Q4H PRN PRN Reason: Nausea / Vomiting Stop: 11/22/17 17:30 Pantoprazole Sodium (Protonix) 40 mg PO DAILY [facility] Stop: 11/23/17 08:59 Senna (Senna) 17.2 mg PO HS [facility] Stop: 11/22/17 20:59 Last Admin: 09/23/17 21:39 Dose: 17.2 mg Tamsulosin HCl (Flomax) 0.4 mg PO DAILY [facility] Stop: 11/23/17 08:59 Vitamin B Complex/Vit C/Folic Acid (Vitamin B Complex W/Vitamin C) 1 tab PO DAILY [facility] Stop: 11/23/17 08:59 - Procedures Procedures: Procedures Procedure Code Date AMPUTATION OF TOE 50918 08/19/17 DETACHMENT AT LEFT 1ST TOE, COMPLETE, OPEN APPROACH [id number] 08/19/17 DETACHMENT AT RIGHT 1ST TOE, COMPLETE, OPEN APPROACH [id number] 08/19/17 DETACHMENT AT RIGHT 2ND TOE, COMPLETE, OPEN APPROACH [id number] 08/19/17 EXCISION OF L LOW LEG SUBCU/FASCIA, OPEN APPROACH [id number] 08/19/17 PERFORMANCE OF URINARY FILTRATION, <6 HRS/DAY [id number] 08/19/17 REMOVAL OF INFUSION DEVICE FROM UPPER VEIN, PERC APPROACH [id number] 08/19/17 REMOVAL TUNNELED CV CATH [id number] 08/19/17
[2017-09-24] MEDS ORDERED: Non-Formulary Item 1 EA (Cranberry Fruit Extract [Cranberry] 425 MG) PO SCH (09:00)
[2017-09-24] MEDS ORDERED: CALAZIME TP SCH (09:00)
[2017-09-24] MEDS: Lactobacillus Rhamnosus GG 15 Billion CFU CAP.SPRINK PO SCH (09:18)
[2017-09-24] MEDS: Pantoprazole 40 mg EC Tab PO SCH (09:18)
[2017-09-24] MEDS: Ferrous Sulfate 325 MG TAB PO SCH (09:19)
[2017-09-24] MEDS: Vitamin B Complex w/Vitamin C Tab PO SCH (09:19)
[2017-09-24] MEDS: Aspirin 81mg Chewable Tab PO SCH (09:19)
--- NOTE | 2017-09-24 09:20 | Diagnostic Imaging Report ---
CHEST X-RAY: AP view INDICATION: Cough COMPARISON: Chest x-ray 08/11/[address] chest on 09-08 FINDINGS: Small left pleural effusion is noted. Cardiomegaly is noted. IMPRESSION Small left effusion. Pneumonia of the left lung base cannot be excluded. Cardiomegaly.
--- NOTE | 2017-09-24 10:28 | General Progress Note ---
Subjective - Review of Systems Events since last encounter: patient admitted for av shunt malfunction in no acute distress Objective - Results Result Diagrams: 09/24/17 06:40 09/24/17 06:40 Recent Labs: Laboratory Last Values WBC 10.4 Th/cmm (4.8-10.8) 09/24/17 06:40 RBC 3.27 Mil/cmm (3.80-5.80) L 09/24/17 06:40 Hgb 9.8 gm/dL (12-16) L 09/24/17 06:40 Hct 30.0 % (41.0-60) L 09/24/17 06:40 MCV 91.7 fl (80-99) 09/24/17 06:40 MCH 29.9 pg (27.0-31.0) 09/24/17 06:40 MCHC Differential 32.6 pg (28.0-36.0) 09/24/17 06:40 RDW 23.2 % (11.5-20.0) H 09/24/17 06:40 Plt Count 372 Th/cmm (150-400) 09/24/17 06:40 MPV 7.4 fl 09/24/17 06:40 Neutrophils % 60.7 % (40.0-80.0) 09/24/17 06:40 Lymphocytes % 27.1 % (20.0-50.0) 09/24/17 06:40 Monocytes % 6.7 % (2.0-10.0) 09/24/17 06:40 Eosinophils % 5.1 % (0.0-5.0) H 09/24/17 06:40 Basophils % 0.4 % (0.0-2.0) 09/24/17 06:40 PT 9.4 SECONDS (9.5-11.5) L 09/23/17 15:43 INR 0.90 (0.5-1.4) 09/23/17 15:43 PTT (Actin FS) 24.5 SECONDS (26.0-38.0) L 09/23/17 15:43 Sodium 135 mEq/L (136-145) L 09/24/17 06:40 Potassium 4.3 mEq/L (3.5-5.1) 09/24/17 06:40 Chloride 99 mEq/L (98-107) 09/24/17 06:40 Carbon Dioxide 28.3 mEq/L (21.0-31.0) 09/24/17 06:40 Anion Gap 12.0 (7.0-16.0) 09/24/17 06:40 BUN 33 mg/dL (7-25) H 09/24/17 06:40 Creatinine 4.2 mg/dL (0.7-1.3) H* 09/24/17 06:40 Est GFR ( Amer) TNP 09/24/17 06:40 Est GFR (Non-Af Amer) TNP 09/24/17 06:40 BUN/Creatinine Ratio 7.9 09/24/17 06:40 Glucose 107 mg/dL (70-105) H 09/24/17 06:40 Calcium 8.5 mg/dL (8.6-10.3) L 09/24/17 06:40 Total Bilirubin 0.5 mg/dL (0.3-1.0) 09/23/17 15:43 AST 14 U/L (13-39) 09/23/17 15:43 ALT 13 U/L (7-52) 09/23/17 15:43 Alkaline Phosphatase 91 U/L (34-104) 09/23/17 15:43 Total Protein 6.1 gm/dL (6.0-8.3) 09/23/17 15:43 Albumin 2.7 gm/dL (4.2-5.5) L 09/23/17 15:43 Globulin 3.4 gm/dL 09/23/17 15:43 Albumin/Globulin Ratio 0.8 (1.0-1.8) L 09/23/17 15:43 - Physical Exam Vitals and I&O: Vital Signs Temp 97.7 F 09/24/17 07:47 Pulse 79 09/24/17 09:19 Resp 18 09/24/17 07:47 BP 108/63 09/24/17 09:19 Pulse Ox 100 09/24/17 07:47 Intake & Output 09/23/17 09/24/17 09/24/17 18:59 06:59 18:59 Intake Total 75 Output Total 350 Balance -275 Weight (lbs) 72.575 kg 62.142 kg Intake: Oral 75 Output: Urine 350 Stool 0 Other: Stool Characteristics Soft Weight Source Bedscale Bedscale Active Medications: Current Medications Acetaminophen (Tylenol) 650 mg PO Q4HR PRN PRN Reason: MILD PAIN Stop: 11/22/17 17:30 Albuterol/Ipratropium (Duoneb Neb) 3 ml HHN Q12HRT PRN PRN Reason: COPD Stop: 11/22/17 17:30 Albuterol/Ipratropium (Duoneb Neb) 3 ml HHN [id number] [facility]OCENCIO Stop: 11/22/17 18:59 Last Admin: 09/24/17 07:03 Dose: 3 ml Amlodipine Besylate (Norvasc) 10 mg PO DAILY [facility] OF [facility] Stop: 11/23/17 08:59 Last Admin: 09/24/17 09:19 Dose: 10 mg Ascorbic Acid (Vitamin C) 500 mg PO DAILY [facility] Stop: 11/23/17 08:59 Last Admin: 09/24/17 09:19 Dose: 500 mg Aspirin (Aspirin Chewable) 81 mg PO DAILY [facility] Stop: 11/23/17 08:59 Last Admin: 09/24/17 09:19 Dose: 81 mg Atorvastatin Calcium (Lipitor) 20 mg PO HS [facility] Stop: 11/22/17 20:59 Last Admin: 09/23/17 21:39 Dose: 20 mg Bisacodyl (Dulcolax 10 Mg Supp) 10 mg RC DAILY PRN PRN Reason: IF MOM INEFECTIVE Stop: 11/22/17 17:30 Budesonide (Pulmicort) 0.5 mg HHN BIDRT [facility] Stop: 11/22/17 18:59 Last Admin: 09/24/17 07:02 Dose: 0.5 mg Calcium Carbonate (Os-Brad) 500 mg PO DAILY [facility] Stop: 11/23/17 08:59 Last Admin: 09/24/17 09:19 Dose: 500 mg Docusate Sodium (Colace) 100 mg PO BID [facility] Stop: 11/23/17 08:59 Last Admin: 09/24/17 09:18 Dose: 100 mg Ferrous Sulfate (Iron) 325 mg PO DAILY [facility] Stop: 11/23/17 08:59 Last Admin: 09/24/17 09:19 Dose: 325 mg Finasteride (Proscar) 5 mg PO DAILY [facility]; Protocol Stop: 11/23/17 08:59 Last Admin: 09/24/17 09:18 Dose: 5 mg Heparin Sodium (Porcine) (Heparin) 5,000 units SUBQ Q12HR [facility] Stop: 11/22/17 20:59 Last Admin: 09/24/17 09:18 Dose: 5,000 units Insulin Aspart (Novolog Insulin Sliding Scale) 0 units SUBQ [facility] ON LICENSE OF [facility]; Protocol Stop: 11/22/17 20:59 Last Admin: 09/24/17 06:37 Dose: Not Given Insulin Detemir (Levemir Insulin) 10 units SUBQ [facility]; Protocol Stop: 11/22/17 20:59 Last Admin: 09/23/17 21:32 Dose: Not Given Lactobacillus Rhamnosus (Culturelle 15b) 1 each PO DAILY [facility] Stop: 11/23/17 08:59 Last Admin: 09/24/17 09:18 Dose: 1 each Ondansetron HCl (Zofran Odt) 4 mg PO Q4H PRN PRN Reason: Nausea / Vomiting Stop: 11/22/17 17:30 Pantoprazole Sodium (Protonix) 40 mg PO DAILY [facility] Stop: 11/23/17 08:59 Last Admin: 09/24/17 09:18 Dose: 40 mg Senna (Senna) 17.2 mg PO [facility] Stop: 11/22/17 20:59 Last Admin: 09/23/17 21:39 Dose: 17.2 mg Tamsulosin HCl (Flomax) 0.4 mg PO DAILY [facility] Stop: 11/23/17 08:59 Last Admin: 09/24/17 09:18 Dose: 0.4 mg Vitamin B Complex/Vit C/Folic Acid (Vitamin B Complex W/Vitamin C) 1 tab PO DAILY [facility] Stop: 11/23/17 08:59 Last Admin: 09/24/17 09:19 Dose: 1 tab General: No acute distress HEENT: Atraumatic Cardiovascular: Regular rate Neurological: Normal gait - Procedures Procedures: Procedures Procedure Code Date AMPUTATION OF TOE 68744 08/19/17 DETACHMENT AT LEFT 1ST TOE, COMPLETE, OPEN APPROACH [id number] 08/19/17 DETACHMENT AT RIGHT 1ST TOE, COMPLETE, OPEN APPROACH [id number] 08/19/17 DETACHMENT AT RIGHT 2ND TOE, COMPLETE, OPEN APPROACH [id number] 08/19/17 EXCISION OF L LOW LEG SUBCU/FASCIA, OPEN APPROACH [id number] 08/19/17 PERFORMANCE OF URINARY FILTRATION, <6 HRS/DAY [id number] 08/19/17 REMOVAL OF INFUSION DEVICE FROM UPPER VEIN, PERC APPROACH [id number] 08/19/17 REMOVAL TUNNELED CV CATH [id number] 08/19/17 Assessment/Plan - Assessment Assessment: AV shunt malfunction esrd on hd chf htn hyperlipidemia dementia gerd oa - Plan Plan: surgical consultation for revision of shunt cbc/bmp in am accucheck with sliding scale continue the rest of the orders
[2017-09-24] MEDS: Insulin Detemir 100 units/mL 10mL Vial SUBQ SCH (21:30)
[2017-09-24] MEDS: Atorvastatin Calcium 10 MG TAB PO SCH (21:34)
[2017-09-25 06:44] LABS: ALB/GLOB RATIO 0.8 (1.0-1.8); ALBUMIN 2.6 gm/dL (4.2-5.5); ALKALINE PHOSPHATASE 82 U/L (34-104); ANION GAP 12.3 (7.0-16.0); BILIRUBIN,TOTAL 0.6 mg/dL (0.3-1.0); BUN - UREA NITROGEN 41 mg/dL (7-25); CALCIUM SERUM 8.6 mg/dL (8.6-10.3); CARBON DIOXIDE 29.6 mEq/L (21.0-31.0); CHLORIDE 97 mEq/L (98-107); GLUCOSE 113 mg/dL (70-105); POTASSIUM SERUM 4.9 mEq/L (3.5-5.1); SGOT 12 U/L (13-39); SGPT/ALT 10 U/L (7-52); SODIUM SERUM 134 mEq/L (136-145); TOTAL PROTEIN,SERUM 5.9 gm/dL (6.0-8.3)
[2017-09-25 06:47] LABS: CREATININE - SERUM 5.1 mg/dL (0.7-1.3)
[2017-09-25] MEDS ORDERED: Thrombin, Bovine 5,000 IU Vial TP ONE (06:57)
[2017-09-25] MEDS ORDERED: Venelex 60gm Tube TP ONE (06:57)
[2017-09-25 06:59] LABS: INR 0.94 (0.5-1.4); PROTHROMBIN TIME (TEST) 9.8 SECONDS (9.5-11.5)
[2017-09-25] MEDS ORDERED: Gelatin Sponge 100cm Spg TP ONE (06:59)
[2017-09-25 07:13] LABS: % BASOPHILS 0.6 % (0.0-2.0); % EOSINOPHILS 4.9 % (0.0-5.0); % LYMPHOCYTES 28.6 % (20.0-50.0); % MONOCYTES 7.4 % (2.0-10.0); % NEUTROPHILS 58.5 % (40.0-80.0); BASOPHILE ABSOLUTE 0.1 Th/cumm (0-0.2); EOSINOPHILE ABSOLUTE 0.5 Th/cmm (0.1-0.4); HEMATOCRIT 29.4 % (41.0-60); HEMOGLOBIN 9.6 gm/dL (12-16); MEAN CELL VOLUME 92.2 fl (80-99); MEAN CORPUSCULAR HEMOGLOBIN 30.2 pg (27.0-31.0); MEAN CORPUSCULAR HGB CONC 32.7 pg (28.0-36.0); MEAN PLATELET VOLUME 7.8 fl; MONOCYTE ABSOLUTE 0.8 Th/cmm (0.3-1.0); NEUTROPHILE ABSOLUTE 6.1 Th/cmm (1.8-8.0); PLATELET COUNT 407 Th/cmm (150-400); RED BLOOD COUNT 3.18 Mil/cmm (3.80-5.80); RED CELL DISTRIBUTION WIDTH 22.6 % (11.5-20.0); WHITE BLOOD COUNT 10.5 Th/cmm (4.8-10.8)
[2017-09-25] MEDS: INSULIN ASPART SLIDING SCALE 100 UNITS/ML UNIT SUBQ SCH ×4 (07:13→21:40)
[2017-09-25] MEDS: Albuterol/Ipratropium Neb 3 ML AERS HHN SCH ×4 (07:24→18:46)
[2017-09-25] MEDS: Budesonide 0.5 Mg/2 mL Ud HHN SCH ×2 (07:24→18:46)
[2017-09-25] MEDS ORDERED: fentaNYL Citrate 100 mcg/2mL Vial ONE (07:49)
--- NOTE | 2017-09-25 08:37 | Diagnostic Imaging Report ---
Bilateral lower extent a Doppler arterial ultrasound exam HISTORY: Atherosclerotic vascular disease, ischemic vascular disease Sonographic sector images were obtained through the arterial systems of both legs. Associated Doppler data was obtained. Exam is limited and compromised due to lack of patient cooperation. The exam of the right leg demonstrates triphasic waveforms within the common femoral artery. Biphasic waveforms are seen within the superficial femoral and popliteal arteries. Abnormal monophasic waveforms noted within the right anterior tibial, posterior tibial, and dorsalis pedis arteries. Elevated velocity noted within the proximal portion of the right superficial femoral artery. Slight increase in velocity noted within the right anterior tibial artery with an abnormal decrease in velocity noted within the right posterior tibial artery. Sonographic images demonstrate mild to moderate multifocal atherosclerotic plaque. Findings are more pronounced in the right popliteal artery region resulting in approximate 50-70% narrowing. Poor delineation of the right posterior tibial artery. The left leg demonstrates triphasic waveforms within the common femoral artery. Biphasic waveforms seen within the superficial femoral artery. Abnormal monophasic waveforms noted within the left popliteal, anterior tibial, posterior tibial, and dorsalis pedis arteries. Slight increase in velocity noted within the left posterior tibial artery. Sonographic images demonstrate mild to moderate diffuse atherosclerotic plaque. Ankle-brachial indices could not be obtained due to lack of patient cooperation. IMPRESSION: 1. Mild to moderate multifocal atherosclerotic changes throughout the arterial system of the right leg. Findings are more severe within the right popliteal and posterior tibial artery regions as noted above. 2. Mild to moderate diffuse atherosclerotic changes throughout the arterial system of the left leg.
--- NOTE | 2017-09-25 08:43 | Diagnostic Imaging Report ---
Bilateral lower extremity Doppler venous ultrasound exam HISTORY: Pain/swelling Sonographic sector images were obtained through the deep venous systems of both legs. Associated Doppler data was obtained. The exam demonstrates patency of the common femoral, superficial femoral, popliteal, and posterior tibial veins bilaterally. Specifically, no thrombus is seen. There are normal compressibility and augmentation responses. IMPRESSION: Negative exam for deep vein thrombophlebitis.
[2017-09-25] MEDS: Ferrous Sulfate 325 MG TAB PO SCH (08:52)
[2017-09-25] MEDS: Lactobacillus Rhamnosus GG 15 Billion CFU CAP.SPRINK PO SCH (08:52)
[2017-09-25] MEDS: Aspirin 81mg Chewable Tab PO SCH (08:52)
[2017-09-25] MEDS: Pantoprazole 40 mg EC Tab PO SCH (08:52)
[2017-09-25] MEDS: Vitamin B Complex w/Vitamin C Tab PO SCH (08:53)
[2017-09-25] MEDS ORDERED: Clindamycin 600mg/50mL 600 MG/50 ML BAG IV ONE (09:20)
[2017-09-25] MEDS ORDERED: Sodium Chloride 0.9% 250 ML IV ONE (09:20)
[2017-09-25] MEDS ORDERED: Sodium Chloride 0.9% 1,000 ML IV ONE (09:20)
--- NOTE | 2017-09-25 10:43 | Consultation ---
DATE OF CONSULTATION: 09/24/2017 VASCULAR CONSULT REFERRING PHYSICIAN: Dr. Galeas. REASON FOR CONSULTATION: Clotted left arm AV shunt. Thank you for referring this patient to me. HISTORY OF PRESENT ILLNESS: This is an 82-year-old male with initiation of hemodialysis treatment about 6 months ago. Shunt was placed at [facility]. The shunt has clotted twice, 1 most recent was 3 days ago and another one about 2-3 weeks before that. A percutaneous thrombectomy was done indicated by 2 puncture sites on the shunt. The shunt is completely clotted now. There is maintenance of radial artery pulse, however. The daughter was called over the phone and informed consent discussed regarding possibility of confucianism of function by thrombectomy and/or patch graft if needed. Thank you Dr. Day. JOB# [id number]
--- NOTE | 2017-09-25 11:18 | General Progress Note ---
Subjective - Review of Systems Events since last encounter: in no distress awake alert Objective - Results Result Diagrams: 09/25/17 06:00 09/25/17 06:00 Recent Labs: Laboratory Last Values WBC 10.5 Th/cmm (4.8-10.8) 09/25/17 06:00 RBC 3.18 Mil/cmm (3.80-5.80) L 09/25/17 06:00 Hgb 9.6 gm/dL (12-16) L 09/25/17 06:00 Hct 29.4 % (41.0-60) L 09/25/17 06:00 MCV 92.2 fl (80-99) 09/25/17 06:00 MCH 30.2 pg (27.0-31.0) 09/25/17 06:00 MCHC Differential 32.7 pg (28.0-36.0) 09/25/17 06:00 RDW 22.6 % (11.5-20.0) H 09/25/17 06:00 Plt Count 407 Th/cmm (150-400) H 09/25/17 06:00 MPV 7.8 fl 09/25/17 06:00 Neutrophils % 58.5 % (40.0-80.0) 09/25/17 06:00 Lymphocytes % 28.6 % (20.0-50.0) 09/25/17 06:00 Monocytes % 7.4 % (2.0-10.0) 09/25/17 06:00 Eosinophils % 4.9 % (0.0-5.0) 09/25/17 06:00 Basophils % 0.6 % (0.0-2.0) 09/25/17 06:00 PT 9.8 SECONDS (9.5-11.5) 09/25/17 06:00 INR 0.94 (0.5-1.4) 09/25/17 06:00 PTT (Actin FS) 26.7 SECONDS (26.0-38.0) 09/25/17 06:00 Sodium 134 mEq/L (136-145) L 09/25/17 06:00 Potassium 4.9 mEq/L (3.5-5.1) 09/25/17 06:00 Chloride 97 mEq/L (98-107) L 09/25/17 06:00 Carbon Dioxide 29.6 mEq/L (21.0-31.0) 09/25/17 06:00 Anion Gap 12.3 (7.0-16.0) 09/25/17 06:00 BUN 41 mg/dL (7-25) H 09/25/17 06:00 Creatinine 5.1 mg/dL (0.7-1.3) H* 09/25/17 06:00 Est GFR ( Amer) TNP 09/25/17 06:00 Est GFR (Non-Af Amer) TNP 09/25/17 06:00 BUN/Creatinine Ratio 8.0 09/25/17 06:00 Glucose 113 mg/dL (70-105) H 09/25/17 06:00 Calcium 8.6 mg/dL (8.6-10.3) 09/25/17 06:00 Total Bilirubin 0.6 mg/dL (0.3-1.0) 09/25/17 06:00 AST 12 U/L (13-39) L 09/25/17 06:00 ALT 10 U/L (7-52) 09/25/17 06:00 Alkaline Phosphatase 82 U/L (34-104) 09/25/17 06:00 Total Protein 5.9 gm/dL (6.0-8.3) L 09/25/17 06:00 Albumin 2.6 gm/dL (4.2-5.5) L 09/25/17 06:00 Globulin 3.3 gm/dL 09/25/17 06:00 Albumin/Globulin Ratio 0.8 (1.0-1.8) L 09/25/17 06:00 - Physical Exam Vitals and I&O: Vital Signs Temp 97.9 F 09/25/17 08:00 Pulse 91 09/25/17 10:27 Resp 18 09/25/17 10:27 BP 118/73 09/25/17 08:00 Pulse Ox 97 09/25/17 10:27 Intake & Output 09/24/17 09/25/17 09/25/17 18:59 06:59 18:59 Intake Total 928 100 Output Total 0 1000 350 Balance 928 -1000 -250 Weight (lbs) 62.142 kg 62.596 kg 62.596 kg Intake: Oral 928 100 Output: Urine 1000 350 Stool 0 0 Other: # Voids 1 Stool Characteristics Soft Soft Weight Source Bedscale Bedscale Bedscale Active Medications: Current Medications Acetaminophen (Tylenol) 650 mg PO Q4HR PRN PRN Reason: MILD PAIN Stop: 11/22/17 17:30 Albuterol/Ipratropium (Duoneb Neb) 3 ml HHN Q12HRT PRN PRN Reason: COPD Stop: 11/22/17 17:30 Albuterol/Ipratropium (Duoneb Neb) 3 ml HHN [id number] [facility] Stop: 11/22/17 18:59 Last Admin: 09/25/17 10:27 Dose: 3 ml Amlodipine Besylate (Norvasc) 10 mg PO DAILY [facility] Stop: 11/23/17 08:59 Last Admin: 09/25/17 08:52 Dose: Not Given Ascorbic Acid (Vitamin C) 500 mg PO DAILY [facility] Stop: 11/23/17 08:59 Last Admin: 09/25/17 08:52 Dose: Not Given Aspirin (Aspirin Chewable) 81 mg PO DAILY [facility] Stop: 11/23/17 08:59 Last Admin: 09/25/17 08:52 Dose: Not Given Atorvastatin Calcium (Lipitor) 20 mg PO HS [facility] Stop: 11/22/17 20:59 Last Admin: 09/24/17 21:34 Dose: 20 mg Bisacodyl (Dulcolax 10 Mg Supp) 10 mg RC DAILY PRN PRN Reason: IF MOM INEFECTIVE Stop: 11/22/17 17:30 Budesonide (Pulmicort) 0.5 mg HHN BIDRT [facility] Stop: 11/22/17 18:59 Last Admin: 09/25/17 07:24 Dose: 0.5 mg Calcium Carbonate (Os-Brad) 500 mg PO DAILY [facility] Stop: 11/23/17 08:59 Last Admin: 09/25/17 08:52 Dose: Not Given Docusate Sodium (Colace) 100 mg PO BID [facility] Stop: 11/23/17 08:59 Last Admin: 09/25/17 08:52 Dose: Not Given Ferrous Sulfate (Iron) 325 mg PO DAILY [facility] Stop: 11/23/17 08:59 Last Admin: 09/25/17 08:52 Dose: Not Given Finasteride (Proscar) 5 mg PO DAILY [facility]; Protocol Stop: 11/23/17 08:59 Last Admin: 09/25/17 08:52 Dose: Not Given Heparin Sodium (Porcine) (Heparin) 5,000 units SUBQ Q12HR [facility] Stop: 11/22/17 20:59 Last Admin: 09/25/17 08:52 Dose: Not Given Insulin Aspart (Novolog Insulin Sliding Scale) 0 units SUBQ ACHS [facility]; Protocol Stop: 11/22/17 20:59 Last Admin: 09/25/17 07:13 Dose: Not Given Insulin Detemir (Levemir Insulin) 10 units SUBQ [facility]; Protocol Stop: 11/22/17 20:59 Last Admin: 09/24/17 21:30 Dose: Not Given Lactobacillus Rhamnosus (Culturelle 15b) 1 each PO DAILY [facility] Stop: 11/23/17 08:59 Last Admin: 09/25/17 08:52 Dose: Not Given Ondansetron HCl (Zofran Odt) 4 mg PO Q4H PRN PRN Reason: Nausea / Vomiting Stop: 11/22/17 17:30 Pantoprazole Sodium (Protonix) 40 mg PO DAILY [facility] Stop: 11/23/17 08:59 Last Admin: 09/25/17 08:52 Dose: Not Given Senna (Senna) 17.2 mg PO [facility] Stop: 11/22/17 20:59 Last Admin: 09/24/17 21:34 Dose: 17.2 mg Tamsulosin HCl (Flomax) 0.4 mg PO DAILY [facility] Stop: 11/23/17 08:59 Last Admin: 09/25/17 08:52 Dose: Not Given Vitamin B Complex/Vit C/Folic Acid (Vitamin B Complex W/Vitamin C) 1 tab PO DAILY [facility] Stop: 11/23/17 08:59 Last Admin: 09/25/17 08:53 Dose: Not Given General: No acute distress HEENT: Atraumatic Cardiovascular: Regular rate Neurological: Normal gait - Procedures Procedures: Procedures Procedure Code Date AMPUTATION OF TOE 01968 08/19/17 DETACHMENT AT LEFT 1ST TOE, COMPLETE, OPEN APPROACH [id number] 08/19/17 DETACHMENT AT RIGHT 1ST TOE, COMPLETE, OPEN APPROACH [id number] 08/19/17 DETACHMENT AT RIGHT 2ND TOE, COMPLETE, OPEN APPROACH [id number] 08/19/17 EXCISION OF L LOW LEG SUBCU/FASCIA, OPEN APPROACH [id number] 08/19/17 PERFORMANCE OF URINARY FILTRATION, <6 HRS/DAY [id number] 08/19/17 REMOVAL OF INFUSION DEVICE FROM UPPER VEIN, PERC APPROACH [id number] 08/19/17 REMOVAL TUNNELED CV CATH [id number] 08/19/17 Assessment/Plan - Assessment Assessment: AV shunt malfunction esrd on hd chf htn hyperlipidemia dementia gerd oa - Plan Plan: surgical consultation for revision of shunt cbc/bmp in am accucheck with sliding scale continue the rest of the orders
[2017-09-25] MEDS ORDERED: Propofol **SURGERY USE ONLY** 20 ML IV ONE (11:24)
--- NOTE | 2017-09-25 13:05 | Operative Report ---
DATE OF SURGERY: 09/25/2017 PREOPERATIVE DIAGNOSES: 1. Clotted left arm AV shunt. 2. ____. 3. Hyperlipidemia. 4. Hypertension. POSTOPERATIVE DIAGNOSES: 1. Clotted left arm AV shunt. 2. ____. 3. Hyperlipidemia. 4. Hypertension. OPERATION DONE: 1. Thrombectomy, left arm AV shunt. 2. Patch graft venoplasty (Gordon-Dallas). SURGEON: Prasanna Day MD ANESTHESIOLOGIST: Caprice. ESTIMATED BLOOD LOSS: 20 mL. OPERATIVE FINDINGS: Stenosed venous anastomosis with patent distal and proximal vessels. DESCRIPTION OF PROCEDURE: The patient was given IV sedation. Left upper extremity was prepped with Betadine and draped in appropriate manner. A 1% lidocaine was used to infiltrate the axillary area at the previous scar. Incision was made. Bleeders were coagulated. The venous anastomosis was identified and exposed. 5000 units of heparin was given intravenously. An incision was made on the graft with proximal to the venous anastomosis. Thrombectomy was then carried out proximally with ____ excellent arterial flow. The White catheter was inserted into the subclavian vessel and thrombectomy was done. There was a fair back flow present. There was obvious stenosis at the venous anastomosis and a patch of Gordon-Dallas was sewn in place utilizing running suture of 4-0 Gordon-Dallas suture. Following the use of vascular clamps, there was good flow to the shunt. Hemostasis achieved with no reversal of the heparin and Gelfoam and thrombin was placed over the repair. The incision was closed with running suture of 4-0 Vicryl subcutaneously and the skin was closed with subcuticular suture of 4-0 Vicryl. Sterile dressings placed over this. INDICATIONS FOR SURGERY: Thrombectomy done 4 days ago and another one few weeks before that. The shunt placed 6 months ago had clotted 2 previous times. JOB# [id number]
[2017-09-25] MEDS: Atorvastatin Calcium 10 MG TAB PO SCH (21:55)
[2017-09-25] MEDS: Insulin Detemir 100 units/mL 10mL Vial SUBQ SCH (21:58)
[2017-09-26] MEDS: INSULIN ASPART SLIDING SCALE 100 UNITS/ML UNIT SUBQ SCH ×4 (06:35→21:33)
[2017-09-26 06:39] LABS: % BASOPHILS 0.6 % (0.0-2.0); % EOSINOPHILS 4.8 % (0.0-5.0); % LYMPHOCYTES 24.5 % (20.0-50.0); % MONOCYTES 7.7 % (2.0-10.0); % NEUTROPHILS 62.4 % (40.0-80.0); BASOPHILE ABSOLUTE 0.1 Th/cumm (0-0.2); EOSINOPHILE ABSOLUTE 0.5 Th/cmm (0.1-0.4); HEMOGLOBIN 9.4 gm/dL (12-16); LYMPHOCYTE ABSOLUTE 2.5 Th/cmm (1.5-3.0); MEAN CELL VOLUME 92.5 fl (80-99); MEAN CORPUSCULAR HGB CONC 32.5 pg (28.0-36.0); MEAN PLATELET VOLUME 7.2 fl; MONOCYTE ABSOLUTE 0.8 Th/cmm (0.3-1.0); NEUTROPHILE ABSOLUTE 6.4 Th/cmm (1.8-8.0); PLATELET COUNT 419 Th/cmm (150-400); RED BLOOD COUNT 3.14 Mil/cmm (3.80-5.80); WHITE BLOOD COUNT 10.3 Th/cmm (4.8-10.8)
[2017-09-26 07:09] LABS: ALB/GLOB RATIO 0.8 (1.0-1.8); ALBUMIN 2.5 gm/dL (4.2-5.5); ALKALINE PHOSPHATASE 77 U/L (34-104); ANION GAP 13.5 (7.0-16.0); BILIRUBIN,TOTAL 0.4 mg/dL (0.3-1.0); BUN - UREA NITROGEN 48 mg/dL (7-25); CALCIUM SERUM 8.3 mg/dL (8.6-10.3); CARBON DIOXIDE 27.1 mEq/L (21.0-31.0); CHLORIDE 99 mEq/L (98-107); GLUCOSE 94 mg/dL (70-105); POTASSIUM SERUM 4.6 mEq/L (3.5-5.1); SGOT 10 U/L (13-39); SGPT/ALT 11 U/L (7-52); SODIUM SERUM 135 mEq/L (136-145); TOTAL PROTEIN,SERUM 5.7 gm/dL (6.0-8.3)
[2017-09-26 07:27] LABS: CREATININE - SERUM 5.6 mg/dL (0.7-1.3)
[2017-09-26] MEDS: Albuterol/Ipratropium Neb 3 ML AERS HHN SCH ×4 (07:32→19:23)
[2017-09-26] MEDS: Budesonide 0.5 Mg/2 mL Ud HHN SCH ×2 (07:33→19:23)
[2017-09-26] MEDS: Ferrous Sulfate 325 MG TAB PO SCH (08:33)
[2017-09-26] MEDS: Vitamin B Complex w/Vitamin C Tab PO SCH (08:33)
[2017-09-26] MEDS: Pantoprazole 40 mg EC Tab PO SCH (08:33)
[2017-09-26] MEDS: Lactobacillus Rhamnosus GG 15 Billion CFU CAP.SPRINK PO SCH (08:33)
[2017-09-26] MEDS: Aspirin 81mg Chewable Tab PO SCH (08:34)
--- NOTE | 2017-09-26 13:50 | Consultation ---
DATE OF CONSULTATION: 09/23/2017 TIME: 9:30 a.m., being dictated now because that day the dictation line was not working. The patient referred through the courtesy of Dr. Galeas. REASON FOR CONSULTATION: Renal failure with clotted dialysis access and other associated problems. This patient who has been admitted here because of the fact that the patient apparently had dialysis in another hospital today and presented here, I understand, earlier this morning or yesterday because of the fact the patient has a nonfunctioning shunt and renal failure. The patient was questioned and the patient has stated that he had been on dialysis for some period of time. In addition to that, the patient also had problems with diabetes mellitus for 20-30 years. Denied any history of any smoking or lung problems. The patient had hypertension for many years. In addition to that, the patient also has hyperlipidemia for some time. In addition to that, the patient also has peripheral vascular disease involving the lower extremities with decrease in blood circulation to the feet. 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 Besides that, he denies any other problems. Denies specifically any chest pain, shortness of breath. The patient is on dialysis 3 times a week. PHYSICAL EXAMINATION: GENERAL: Reveals the patient to be conscious, cooperative, alert. The patient admits to having a family history of diabetes. Does not know if anybody else is on dialysis. The patient has 8 children and had been living with his . VITAL SIGNS: Blood pressures had been varying 150/80 mmHg to 120/80 mmHg. HEENT: Oropharynx is clear. NECK: Jugular venous pressure not raised. CHEST: Reveals good air entry bilaterally. HEART: Sounds S1, S2 normally heard. ABDOMEN: Soft, nontender. No organomegaly noticed. The patient has a dialysis shunt, which is not working at present time. Listened to both sides of the shunt and nonfunctional, but I think it can be revised easily. Oropharynx as mentioned before nonrevealing. The patient's blood circulation to the both lower extremities is significantly compromised, especially below knees with ischemic changes and may require some other procedure there. At present, would discuss with Dr. Galeas, would call Dr. Day, the vascular surgeon, may require revision of the shunt and then dialysis and then may be further treatment for whatever reasons need to be done, whether amputation or any revision of blood vessel flow. Medications reviewed and advised to continue supportive care. The medications would be reinstated what he has been on before, may be somewhat modified. The chemistries reviewed and consistent with that of a person with chronic renal failure, on dialysis with diabetes mellitus and other associated problems. Further details will be dictated. Initial chemistries revealed sodium 134, potassium 4.9, chloride 97, CO2 content 32, creatinine 3.6, BUN 26. No hemoglobin was done, which has been ordered for the next day. JOB# [id number]
--- NOTE | 2017-09-26 13:56 | General Progress Note ---
Subjective - Review of Systems Service Date: 09/26/17 Events since last encounter: declotted shunt being used for HD again Objective - Results Result Diagrams: 09/26/17 06:10 09/26/17 06:10 Recent Labs: Laboratory Last Values WBC 10.3 Th/cmm (4.8-10.8) 09/26/17 06:10 RBC 3.14 Mil/cmm (3.80-5.80) L 09/26/17 06:10 Hgb 9.4 gm/dL (12-16) L 09/26/17 06:10 Hct 29.0 % (41.0-60) L 09/26/17 06:10 MCV 92.5 fl (80-99) 09/26/17 06:10 MCH 30.0 pg (27.0-31.0) 09/26/17 06:10 MCHC Differential 32.5 pg (28.0-36.0) 09/26/17 06:10 RDW 21.0 % (11.5-20.0) H 09/26/17 06:10 Plt Count 419 Th/cmm (150-400) H 09/26/17 06:10 MPV 7.2 fl 09/26/17 06:10 Neutrophils % 62.4 % (40.0-80.0) 09/26/17 06:10 Lymphocytes % 24.5 % (20.0-50.0) 09/26/17 06:10 Monocytes % 7.7 % (2.0-10.0) 09/26/17 06:10 Eosinophils % 4.8 % (0.0-5.0) 09/26/17 06:10 Basophils % 0.6 % (0.0-2.0) 09/26/17 06:10 PT 9.8 SECONDS (9.5-11.5) 09/25/17 06:00 INR 0.94 (0.5-1.4) 09/25/17 06:00 PTT (Actin FS) 26.7 SECONDS (26.0-38.0) 09/25/17 06:00 Sodium 135 mEq/L (136-145) L 09/26/17 06:10 Potassium 4.6 mEq/L (3.5-5.1) 09/26/17 06:10 Chloride 99 mEq/L (98-107) 09/26/17 06:10 Carbon Dioxide 27.1 mEq/L (21.0-31.0) 09/26/17 06:10 Anion Gap 13.5 (7.0-16.0) 09/26/17 06:10 BUN 48 mg/dL (7-25) H 09/26/17 06:10 Creatinine 5.6 mg/dL (0.7-1.3) H* 09/26/17 06:10 Est GFR ( Amer) TNP 09/26/17 06:10 Est GFR (Non-Af Amer) TNP 09/26/17 06:10 BUN/Creatinine Ratio 8.6 09/26/17 06:10 Glucose 94 mg/dL (70-105) 09/26/17 06:10 Calcium 8.3 mg/dL (8.6-10.3) L 09/26/17 06:10 Total Bilirubin 0.4 mg/dL (0.3-1.0) 09/26/17 06:10 AST 10 U/L (13-39) L 09/26/17 06:10 ALT 11 U/L (7-52) 09/26/17 06:10 Alkaline Phosphatase 77 U/L (34-104) 09/26/17 06:10 Total Protein 5.7 gm/dL (6.0-8.3) L 09/26/17 06:10 Albumin 2.5 gm/dL (4.2-5.5) L 09/26/17 06:10 Globulin 3.2 gm/dL 09/26/17 06:10 Albumin/Globulin Ratio 0.8 (1.0-1.8) L 09/26/17 06:10 - Physical Exam Vitals and I&O: Vital Signs Temp 97.8 F 09/26/17 11:25 Pulse 85 09/26/17 11:25 Resp 18 09/26/17 11:25 BP 149/59 09/26/17 11:25 Pulse Ox 100 09/26/17 11:25 Intake & Output 09/25/17 09/26/17 09/26/17 18:59 06:59 18:59 Intake Total 520 100 Output Total 1150 200 Balance -630 -100 Weight (lbs) 62.596 kg 62.596 kg Intake: Oral 520 100 Output: Urine 1150 200 Stool 0 Other: # Bowel Movements 0 Stool Characteristics Soft Soft Weight Source Bedscale Bedscale Active Medications: Current Medications Acetaminophen (Tylenol) 650 mg PO Q4HR PRN PRN Reason: MILD PAIN Stop: 11/22/17 17:30 Albuterol/Ipratropium (Duoneb Neb) 3 ml HHN Q12HRT PRN PRN Reason: COPD Stop: 11/22/17 17:30 Albuterol/Ipratropium (Duoneb Neb) 3 ml HHN [id number] [facility] Stop: 11/22/17 18:59 Last Admin: 09/26/17 10:43 Dose: 3 ml Amlodipine Besylate (Norvasc) 10 mg PO DAILY [facility] Stop: 11/23/17 08:59 Last Admin: 09/26/17 08:35 Dose: Not Given Ascorbic Acid (Vitamin C) 500 mg PO DAILY [facility] Stop: 11/23/17 08:59 Last Admin: 09/26/17 08:33 Dose: 500 mg Aspirin (Aspirin Chewable) 81 mg PO DAILY [facility] Stop: 11/23/17 08:59 Last Admin: 09/26/17 08:34 Dose: 81 mg Atorvastatin Calcium (Lipitor) 20 mg PO HS [facility] Stop: 11/22/17 20:59 Last Admin: 09/25/17 21:55 Dose: 20 mg Bisacodyl (Dulcolax 10 Mg Supp) 10 mg RC DAILY PRN PRN Reason: IF MOM INEFECTIVE Stop: 11/22/17 17:30 Budesonide (Pulmicort) 0.5 mg HHN BIDRT [facility] Stop: 11/22/17 18:59 Last Admin: 09/26/17 07:33 Dose: 0.5 mg Calcium Carbonate (Os-Alicia) 500 mg PO DAILY [facility] Stop: 11/23/17 08:59 Last Admin: 09/26/17 08:33 Dose: 500 mg Docusate Sodium (Colace) 100 mg PO BID [facility] Stop: 11/23/17 08:59 Last Admin: 09/26/17 08:33 Dose: 100 mg Ferrous Sulfate (Iron) 325 mg PO DAILY [facility] Stop: 11/23/17 08:59 Last Admin: 09/26/17 08:33 Dose: 325 mg Finasteride (Proscar) 5 mg PO DAILY [facility]; Protocol Stop: 11/23/17 08:59 Last Admin: 09/26/17 08:33 Dose: 5 mg Heparin Sodium (Porcine) (Heparin) 5,000 units SUBQ Q12HR [facility] Stop: 11/22/17 20:59 Last Admin: 09/26/17 09:12 Dose: 5,000 units Heparin Sodium (Porcine) (Heparin Sodium) 0 units HD UD [facility] Stop: 09/27/17 00:00 Insulin Aspart (Novolog Insulin Sliding Scale) 0 units SUBQ ACHS [facility]; Protocol Stop: 11/22/17 20:59 Last Admin: 09/26/17 12:20 Dose: 4 units Insulin Detemir (Levemir Insulin) 10 units SUBQ HS [facility]; Protocol Stop: 11/22/17 20:59 Last Admin: 09/25/17 21:58 Dose: 10 units Lactobacillus Rhamnosus (Culturelle 15b) 1 each PO DAILY [facility] Stop: 11/23/17 08:59 Last Admin: 09/26/17 08:33 Dose: 1 each Miscellaneous (Clinical Monitoring) 1 ea [facility] DAILY PRN PRN Reason: RENAL Stop: 11/25/17 08:16 Ondansetron HCl (Zofran Odt) 4 mg PO Q4H PRN PRN Reason: Nausea / Vomiting Stop: 11/22/17 17:30 Pantoprazole Sodium (Protonix) 40 mg PO DAILY [facility] Stop: 11/23/17 08:59 Last Admin: 09/26/17 08:33 Dose: 40 mg Senna (Senna) 17.2 mg PO HS [facility] Stop: 11/22/17 20:59 Last Admin: 09/25/17 21:55 Dose: 17.2 mg Tamsulosin HCl (Flomax) 0.4 mg PO DAILY [facility] Stop: 11/23/17 08:59 Last Admin: 09/26/17 11:06 Dose: Not Given Vitamin B Complex/Vit C/Folic Acid (Vitamin B Complex W/Vitamin C) 1 tab PO DAILY [facility] Stop: 11/23/17 08:59 Last Admin: 09/26/17 08:33 Dose: 1 tab General: No acute distress HEENT: Atraumatic Cardiovascular: Regular rate Neurological: Normal gait - Procedures Procedures: Procedures Procedure Code Date AMPUTATION OF TOE 20660 08/19/17 DETACHMENT AT LEFT 1ST TOE, COMPLETE, OPEN APPROACH [id number] 08/19/17 DETACHMENT AT RIGHT 1ST TOE, COMPLETE, OPEN APPROACH [id number] 08/19/17 DETACHMENT AT RIGHT 2ND TOE, COMPLETE, OPEN APPROACH [id number] 08/19/17 EXCISION OF L LOW LEG SUBCU/FASCIA, OPEN APPROACH [id number] 08/19/17 PERFORMANCE OF URINARY FILTRATION, <6 HRS/DAY [id number] 08/19/17 REMOVAL OF INFUSION DEVICE FROM UPPER VEIN, PERC APPROACH [id number] 08/19/17 REMOVAL TUNNELED CV CATH [id number] 08/19/17 Nutritional Asmnt/Malnutr-PDOC - Dietary Evaluation Malnutrition Findings (Please click <Entered> for more info): Nutritional Asmnt/Malnutrition Start: 09/25/17 16: 48 Text: Status: Complete Freq: Protocol: Document 09/25/17 16:48 LCHENG (Rec: 09/25/17 17:02 [id number]) Nutritional Asmnt/Malnutrition Patient General Information Nutritional Screening High Risk Consult Diagnosis cloteed dialyisis shunt left upper arm Pertinent Medical Hx/Surgical Hx ESRD on HD, CHF, HTN, hyperlipidemia, dementia, GERD , OA Subjective Information Pt seen sleeping at time of visit. Per EMR, PO intake 100% of meals yesterday. consult received for DM. BS 171 at admission noted. Per nurse note, pt will have dialysis tomorrow. Current Diet Order/ Nutrition Support renal fluid restriction 1200 Pertinent Medications vit C, lipitor, os-alicia, iron, novolog, levmir, culturelle, protonix, senna, vit B complex w/vit C Pertinent Labs 09/25 Na 134, Cl 97, BUN 41, Cr 5.1, glucose 113 Nutritional Hx/Data Height 1.7 m Height (Calculated Centimeters) 170.2 Current Weight (lbs) 62.596 kg Weight (Calculated Kilograms) 62.6 Weight (Calculated Grams) 11486.7 [place] Body Weight 148 Body Mass Index (BMI) 21.6 Weight Status Approriate GI Symptoms GI Symptoms None Last BM not indicated Difficult in: None Skin Integrity/Comment: echymosis noted on patiens extremities Current %PO Good (75-100%) Estimated Nutritional Goals BEE in Kcals: Using Current wt Calories/Kcals/Kg 30-35 Kcals Calculated 2924-7905 Protein: Using Current wt Protein g/k.2-1.4 Protein Calculated 75-88 Fluid: ml 1890-2205ml (1ml/kcal) Nutritional Problem 1. Problem Problem altered nutrition reltaed labs Etiology ESRD, hx of DM Signs/Symptoms: BUN 41, Cr 5.1, glucose 113 Malnutrition Alert Is there a minimum of two criteria No selected? Query Text:Check all the applicable criteria. A minimum of two criteria are recommended for diagnosis of either severe or non-severe malnutrition. Malnutrition Related to Morbid Obesity Malnutrition related to morbid obesity No Intervention/Recommendation Comments 1. Recommend adding CCHO diet restriction. ROGER Dawson notified . 2. Monitor PO intake, wt, labs and skin integrity 3. F/U as moderate risk in 3-5 days, 09/28-09/30 Expected Outcomes/Goals Expected Outcomes/Goals 1. PO intake to meet at least 75% of nutritional needs. 2. Wt stability, skin to remain intact, labs to approach WNL.
[2017-09-26] MEDS: Heparin Sod 1,000 Units/mL 10ml HD SCH ×2 (16:54→16:55)
[2017-09-26] MEDS: Atorvastatin Calcium 10 MG TAB PO SCH (21:29)
[2017-09-26] MEDS: Insulin Detemir 100 units/mL 10mL Vial SUBQ SCH (21:33)
--- NOTE | 2017-09-26 22:02 | General Progress Note ---
Subjective - Review of Systems Service Date: 09/26/17 Subjective: awake, no distress Objective - Results Result Diagrams: 09/26/17 06:10 09/26/17 06:10 Recent Labs: Laboratory Last Values WBC 10.3 Th/cmm (4.8-10.8) 09/26/17 06:10 RBC 3.14 Mil/cmm (3.80-5.80) L 09/26/17 06:10 Hgb 9.4 gm/dL (12-16) L 09/26/17 06:10 Hct 29.0 % (41.0-60) L 09/26/17 06:10 MCV 92.5 fl (80-99) 09/26/17 06:10 MCH 30.0 pg (27.0-31.0) 09/26/17 06:10 MCHC Differential 32.5 pg (28.0-36.0) 09/26/17 06:10 RDW 21.0 % (11.5-20.0) H 09/26/17 06:10 Plt Count 419 Th/cmm (150-400) H 09/26/17 06:10 MPV 7.2 fl 09/26/17 06:10 Neutrophils % 62.4 % (40.0-80.0) 09/26/17 06:10 Lymphocytes % 24.5 % (20.0-50.0) 09/26/17 06:10 Monocytes % 7.7 % (2.0-10.0) 09/26/17 06:10 Eosinophils % 4.8 % (0.0-5.0) 09/26/17 06:10 Basophils % 0.6 % (0.0-2.0) 09/26/17 06:10 PT 9.8 SECONDS (9.5-11.5) 09/25/17 06:00 INR 0.94 (0.5-1.4) 09/25/17 06:00 PTT (Actin FS) 26.7 SECONDS (26.0-38.0) 09/25/17 06:00 Sodium 135 mEq/L (136-145) L 09/26/17 06:10 Potassium 4.6 mEq/L (3.5-5.1) 09/26/17 06:10 Chloride 99 mEq/L (98-107) 09/26/17 06:10 Carbon Dioxide 27.1 mEq/L (21.0-31.0) 09/26/17 06:10 Anion Gap 13.5 (7.0-16.0) 09/26/17 06:10 BUN 48 mg/dL (7-25) H 09/26/17 06:10 Creatinine 5.6 mg/dL (0.7-1.3) H* 09/26/17 06:10 Est GFR ( Amer) TNP 09/26/17 06:10 Est GFR (Non-Af Amer) TNP 09/26/17 06:10 BUN/Creatinine Ratio 8.6 09/26/17 06:10 Glucose 94 mg/dL (70-105) 09/26/17 06:10 POC Glucose 178 MG/DL (70 - 105) H 09/26/17 21:23 Calcium 8.3 mg/dL (8.6-10.3) L 09/26/17 06:10 Total Bilirubin 0.4 mg/dL (0.3-1.0) 09/26/17 06:10 AST 10 U/L (13-39) L 09/26/17 06:10 ALT 11 U/L (7-52) 09/26/17 06:10 Alkaline Phosphatase 77 U/L (34-104) 09/26/17 06:10 Total Protein 5.7 gm/dL (6.0-8.3) L 09/26/17 06:10 Albumin 2.5 gm/dL (4.2-5.5) L 09/26/17 06:10 Globulin 3.2 gm/dL 09/26/17 06:10 Albumin/Globulin Ratio 0.8 (1.0-1.8) L 09/26/17 06:10 - Physical Exam Vitals and I&O: Vital Signs Temp 98.2 F 09/26/17 20:00 Pulse 89 09/26/17 20:00 Resp 19 09/26/17 20:00 BP 133/79 09/26/17 20:00 Pulse Ox 100 09/26/17 20:00 Intake & Output 09/26/17 09/26/17 09/27/17 06:59 18:59 06:59 Intake Total 100 568 Output Total 200 400 Balance -100 168 Weight (lbs) 62.596 kg 62.596 kg Intake: Oral 100 568 Output: Urine 200 400 Other: # Bowel Movements 0 1 Stool Characteristics Soft Soft Weight Source Bedscale Bedscale Active Medications: Current Medications Acetaminophen (Tylenol) 650 mg PO Q4HR PRN PRN Reason: MILD PAIN Stop: 11/22/17 17:30 Albuterol/Ipratropium (Duoneb Neb) 3 ml HHN Q12HRT PRN PRN Reason: COPD Stop: 11/22/17 17:30 Albuterol/Ipratropium (Duoneb Neb) 3 ml HHN [id number] [facility] Stop: 11/22/17 18:59 Last Admin: 09/26/17 19:23 Dose: 3 ml Amlodipine Besylate (Norvasc) 10 mg PO DAILY [facility] Stop: 11/23/17 08:59 Last Admin: 09/26/17 08:35 Dose: Not Given Ascorbic Acid (Vitamin C) 500 mg PO DAILY [facility] Stop: 11/23/17 08:59 Last Admin: 09/26/17 08:33 Dose: 500 mg Aspirin (Aspirin Chewable) 81 mg PO DAILY [facility] Stop: 11/23/17 08:59 Last Admin: 09/26/17 08:34 Dose: 81 mg Atorvastatin Calcium (Lipitor) 20 mg PO HS [facility] Stop: 11/22/17 20:59 Last Admin: 09/26/17 21:29 Dose: 20 mg Bisacodyl (Dulcolax 10 Mg Supp) 10 mg RC DAILY PRN PRN Reason: IF MOM INEFECTIVE Stop: 11/22/17 17:30 Budesonide (Pulmicort) 0.5 mg HHN BIDRT [facility] Stop: 11/22/17 18:59 Last Admin: 09/26/17 19:23 Dose: 0.5 mg Calcium Carbonate (Os-Brad) 500 mg PO DAILY [facility] Stop: 11/23/17 08:59 Last Admin: 09/26/17 08:33 Dose: 500 mg Docusate Sodium (Colace) 100 mg PO BID [facility] Stop: 11/23/17 08:59 Last Admin: 09/26/17 16:44 Dose: 100 mg Ferrous Sulfate (Iron) 325 mg PO DAILY [facility] Stop: 11/23/17 08:59 Last Admin: 09/26/17 08:33 Dose: 325 mg Finasteride (Proscar) 5 mg PO DAILY [facility]; Protocol Stop: 11/23/17 08:59 Last Admin: 09/26/17 08:33 Dose: 5 mg Heparin Sodium (Porcine) (Heparin) 5,000 units SUBQ Q12HR [facility] Stop: 11/22/17 20:59 Last Admin: 09/26/17 21:29 Dose: 5,000 units Heparin Sodium (Porcine) (Heparin Sodium) 0 units HD UD [facility] Stop: 09/27/17 00:00 Last Admin: 09/26/17 16:55 Dose: Not Given Insulin Aspart (Novolog Insulin Sliding Scale) 0 units SUBQ ACHS [facility]; Protocol Stop: 11/22/17 20:59 Last Admin: 09/26/17 21:33 Dose: 2 units Insulin Detemir (Levemir Insulin) 10 units SUBQ HS [facility]; Protocol Stop: 11/22/17 20:59 Last Admin: 09/26/17 21:33 Dose: 10 units Lactobacillus Rhamnosus (Culturelle 15b) 1 each PO DAILY [facility] Stop: 11/23/17 08:59 Last Admin: 09/26/17 08:33 Dose: 1 each Miscellaneous (Clinical Monitoring) 1 ea MC DAILY PRN PRN Reason: RENAL Stop: 11/25/17 08:16 Ondansetron HCl (Zofran Odt) 4 mg PO Q4H PRN PRN Reason: Nausea / Vomiting Stop: 11/22/17 17:30 Pantoprazole Sodium (Protonix) 40 mg PO DAILY [facility] Stop: 11/23/17 08:59 Last Admin: 09/26/17 08:33 Dose: 40 mg Senna (Senna) 17.2 mg PO HS [facility] Stop: 11/22/17 20:59 Last Admin: 09/26/17 21:29 Dose: 17.2 mg Tamsulosin HCl (Flomax) 0.4 mg PO DAILY [facility] Stop: 11/23/17 08:59 Last Admin: 09/26/17 11:06 Dose: Not Given Vitamin B Complex/Vit C/Folic Acid (Vitamin B Complex W/Vitamin C) 1 tab PO DAILY [facility] Stop: 11/23/17 08:59 Last Admin: 09/26/17 08:33 Dose: 1 tab General: No acute distress HEENT: Atraumatic Cardiovascular: Regular rate Neurological: Normal gait - Procedures Procedures: Procedures Procedure Code Date AMPUTATION OF TOE 29764 08/19/17 DETACHMENT AT LEFT 1ST TOE, COMPLETE, OPEN APPROACH [id number] 08/19/17 DETACHMENT AT RIGHT 1ST TOE, COMPLETE, OPEN APPROACH [id number] 08/19/17 DETACHMENT AT RIGHT 2ND TOE, COMPLETE, OPEN APPROACH [id number] 08/19/17 EXCISION OF L LOW LEG SUBCU/FASCIA, OPEN APPROACH [id number] 08/19/17 PERFORMANCE OF URINARY FILTRATION, <6 HRS/DAY [id number] 08/19/17 REMOVAL OF INFUSION DEVICE FROM UPPER VEIN, PERC APPROACH [id number] 08/19/17 REMOVAL TUNNELED CV CATH [id number] 08/19/17 Assessment/Plan - Assessment Assessment: AV shunt malfunction esrd on hd chf htn hyperlipidemia dementia gerd oa - Plan Plan: cbc/bmp in am accucheck with sliding scale continue the rest of the orders Nutritional Asmnt/Malnutr-PDOC - Dietary Evaluation Malnutrition Findings (Please click <Entered> for more info): Nutritional Asmnt/Malnutrition Start: 09/25/17 16: 48 Text: Status: Complete Freq: Protocol: Document 09/25/17 16:48 LCHENG (Rec: 09/25/17 17:02 LCHENG [email or web address]) Nutritional Asmnt/Malnutrition Patient General Information Nutritional Screening High Risk Consult Diagnosis cloteed dialyisis shunt left upper arm Pertinent Medical Hx/Surgical Hx ESRD on HD, CHF, HTN, hyperlipidemia, dementia, GERD , OA Subjective Information Pt seen sleeping at time of visit. Per EMR, PO intake 100% of meals yesterday. consult received for DM. BS 171 at admission noted. Per nurse note, pt will have dialysis tomorrow. Current Diet Order/ Nutrition Support renal fluid restriction 1200 Pertinent Medications vit C, lipitor, os-brad, iron, novolog, levmir, culturelle, protonix, senna, vit B complex w/vit C Pertinent Labs 09/25 Na 134, Cl 97, BUN 41, Cr 5.1, glucose 113 Nutritional Hx/Data Height 1.7 m Height (Calculated Centimeters) 170.2 Current Weight (lbs) 62.596 kg Weight (Calculated Kilograms) 62.6 Weight (Calculated Grams) 12118.7 [place] Body Weight 148 Body Mass Index (BMI) 21.6 Weight Status Approriate GI Symptoms GI Symptoms None Last BM not indicated Difficult in: None Skin Integrity/Comment: echymosis noted on patiens extremities Current %PO Good (75-100%) Estimated Nutritional Goals BEE in Kcals: Using Current wt Calories/Kcals/Kg 30-35 Kcals Calculated 8026-6532 Protein: Using Current wt Protein g/k.2-1.4 Protein Calculated 75-88 Fluid: ml 1890-2205ml (1ml/kcal) Nutritional Problem 1. Problem Problem altered nutrition reltaed labs Etiology ESRD, hx of DM Signs/Symptoms: BUN 41, Cr 5.1, glucose 113 Malnutrition Alert Is there a minimum of two criteria No selected? Query Text:Check all the applicable criteria. A minimum of two criteria are recommended for diagnosis of either severe or non-severe malnutrition. Malnutrition Related to Morbid Obesity Malnutrition related to morbid obesity No Intervention/Recommendation Comments 1. Recommend adding CCHO diet restriction. ROGER Dawson notified . 2. Monitor PO intake, wt, labs and skin integrity 3. F/U as moderate risk in 3-5 days, 09/28-09/30 Expected Outcomes/Goals Expected Outcomes/Goals 1. PO intake to meet at least 75% of nutritional needs. 2. Wt stability, skin to remain intact, labs to approach WNL.
[2017-09-27 06:03] LABS: % BASOPHILS 0.6 % (0.0-2.0); % EOSINOPHILS 5.6 % (0.0-5.0); % LYMPHOCYTES 23.6 % (20.0-50.0); % MONOCYTES 7.7 % (2.0-10.0); % NEUTROPHILS 62.5 % (40.0-80.0); BASOPHILE ABSOLUTE 0.1 Th/cumm (0-0.2); EOSINOPHILE ABSOLUTE 0.6 Th/cmm (0.1-0.4); HEMATOCRIT 30.4 % (41.0-60); HEMOGLOBIN 9.8 gm/dL (12-16); LYMPHOCYTE ABSOLUTE 2.5 Th/cmm (1.5-3.0); MEAN CELL VOLUME 92.5 fl (80-99); MEAN CORPUSCULAR HEMOGLOBIN 29.8 pg (27.0-31.0); MEAN CORPUSCULAR HGB CONC 32.2 pg (28.0-36.0); MEAN PLATELET VOLUME 7.2 fl; MONOCYTE ABSOLUTE 0.8 Th/cmm (0.3-1.0); NEUTROPHILE ABSOLUTE 6.4 Th/cmm (1.8-8.0); PLATELET COUNT 390 Th/cmm (150-400); RED BLOOD COUNT 3.28 Mil/cmm (3.80-5.80); WHITE BLOOD COUNT 10.4 Th/cmm (4.8-10.8)
[2017-09-27] MEDS: INSULIN ASPART SLIDING SCALE 100 UNITS/ML UNIT SUBQ SCH ×4 (06:59→20:33)
[2017-09-27] MEDS: Albuterol/Ipratropium Neb 3 ML AERS HHN SCH ×4 (07:31→19:23)
[2017-09-27] MEDS: Budesonide 0.5 Mg/2 mL Ud HHN SCH ×2 (07:31→19:23)
[2017-09-27] MEDS: Aspirin 81mg Chewable Tab PO SCH (09:03)
[2017-09-27] MEDS: Ferrous Sulfate 325 MG TAB PO SCH (09:03)
[2017-09-27] MEDS: Vitamin B Complex w/Vitamin C Tab PO SCH (09:03)
[2017-09-27] MEDS: Lactobacillus Rhamnosus GG 15 Billion CFU CAP.SPRINK PO SCH (09:04)
[2017-09-27] MEDS: Pantoprazole 40 mg EC Tab PO SCH (09:04)
--- NOTE | 2017-09-27 14:14 | General Progress Note ---
Subjective - Review of Systems Service Date: 09/27/17 Events since last encounter: Plan: right transmetatarsal amputation in AM Objective - Results Result Diagrams: 09/27/17 05:30 09/26/17 06:10 Recent Labs: Laboratory Last Values WBC 10.4 Th/cmm (4.8-10.8) 09/27/17 05:30 RBC 3.28 Mil/cmm (3.80-5.80) L 09/27/17 05:30 Hgb 9.8 gm/dL (12-16) L 09/27/17 05:30 Hct 30.4 % (41.0-60) L 09/27/17 05:30 MCV 92.5 fl (80-99) 09/27/17 05:30 MCH 29.8 pg (27.0-31.0) 09/27/17 05:30 MCHC Differential 32.2 pg (28.0-36.0) 09/27/17 05:30 RDW 21.0 % (11.5-20.0) H 09/27/17 05:30 Plt Count 390 Th/cmm (150-400) 09/27/17 05:30 MPV 7.2 fl 09/27/17 05:30 Neutrophils % 62.5 % (40.0-80.0) 09/27/17 05:30 Lymphocytes % 23.6 % (20.0-50.0) 09/27/17 05:30 Monocytes % 7.7 % (2.0-10.0) 09/27/17 05:30 Eosinophils % 5.6 % (0.0-5.0) H 09/27/17 05:30 Basophils % 0.6 % (0.0-2.0) 09/27/17 05:30 PT 9.8 SECONDS (9.5-11.5) 09/25/17 06:00 INR 0.94 (0.5-1.4) 09/25/17 06:00 PTT (Actin FS) 26.7 SECONDS (26.0-38.0) 09/25/17 06:00 Sodium 135 mEq/L (136-145) L 09/26/17 06:10 Potassium 4.6 mEq/L (3.5-5.1) 09/26/17 06:10 Chloride 99 mEq/L (98-107) 09/26/17 06:10 Carbon Dioxide 27.1 mEq/L (21.0-31.0) 09/26/17 06:10 Anion Gap 13.5 (7.0-16.0) 09/26/17 06:10 BUN 48 mg/dL (7-25) H 09/26/17 06:10 Creatinine 5.6 mg/dL (0.7-1.3) H* 09/26/17 06:10 Est GFR ( Amer) TNP 09/26/17 06:10 Est GFR (Non-Af Amer) TNP 09/26/17 06:10 BUN/Creatinine Ratio 8.6 09/26/17 06:10 Glucose 94 mg/dL (70-105) 09/26/17 06:10 POC Glucose 142 MG/DL (70 - 105) H 09/27/17 11:45 Calcium 8.3 mg/dL (8.6-10.3) L 09/26/17 06:10 Total Bilirubin 0.4 mg/dL (0.3-1.0) 09/26/17 06:10 AST 10 U/L (13-39) L 09/26/17 06:10 ALT 11 U/L (7-52) 09/26/17 06:10 Alkaline Phosphatase 77 U/L (34-104) 09/26/17 06:10 B-Natriuretic Peptide 394.0 pg/mL (5.0-100.0) H 09/27/17 05:30 Total Protein 5.7 gm/dL (6.0-8.3) L 09/26/17 06:10 Albumin 2.5 gm/dL (4.2-5.5) L 09/26/17 06:10 Globulin 3.2 gm/dL 09/26/17 06:10 Albumin/Globulin Ratio 0.8 (1.0-1.8) L 09/26/17 06:10 - Physical Exam Vitals and I&O: Vital Signs Temp 98.1 F 09/27/17 11:52 Pulse 89 09/27/17 11:52 Resp 18 09/27/17 11:52 BP 134/60 09/27/17 11:52 Pulse Ox 98 09/27/17 11:52 Intake & Output 09/26/17 09/27/1709/27/18 18:59 06:59 18:59 Intake Total 568 100 Output Total 400 400 Balance 168 -300 Weight (lbs) 62.596 kg 62.596 kg Intake: Oral 568 100 Output: Urine 400 400 Other: # Bowel Movements 1 0 Stool Characteristics Soft Soft Soft Weight Source Bedscale Bedscale Active Medications: Current Medications Acetaminophen (Tylenol) 650 mg PO Q4HR PRN PRN Reason: MILD PAIN Stop: 11/22/17 17:30 Albuterol/Ipratropium (Duoneb Neb) 3 ml HHN Q12HRT PRN PRN Reason: COPD Stop: 11/22/17 17:30 Albuterol/Ipratropium (Duoneb Neb) 3 ml HHN [id number] [facility] Stop: 11/22/17 18:59 Last Admin: 09/27/17 14:13 Dose: 3 ml Amlodipine Besylate (Norvasc) 10 mg PO DAILY [facility] Stop: 11/23/17 08:59 Last Admin: 09/27/17 09:02 Dose: 10 mg Ascorbic Acid (Vitamin C) 500 mg PO DAILY [facility] Stop: 11/23/17 08:59 Last Admin: 09/27/17 09:03 Dose: 500 mg Aspirin (Aspirin Chewable) 81 mg PO DAILY [facility] Stop: 11/23/17 08:59 Last Admin: 09/27/17 09:03 Dose: 81 mg Atorvastatin Calcium (Lipitor) 20 mg PO HS [facility] Stop: 11/22/17 20:59 Last Admin: 09/26/17 21:29 Dose: 20 mg Bisacodyl (Dulcolax 10 Mg Supp) 10 mg RC DAILY PRN PRN Reason: IF MOM INEFECTIVE Stop: 11/22/17 17:30 Budesonide (Pulmicort) 0.5 mg HHN BIDRT [facility] Stop: 11/22/17 18:59 Last Admin: 09/27/17 07:31 Dose: 0.5 mg Calcium Carbonate (Os-Brad) 500 mg PO DAILY [facility] Stop: 11/23/17 08:59 Last Admin: 09/27/17 09:03 Dose: 500 mg Docusate Sodium (Colace) 100 mg PO BID [facility] Stop: 11/23/17 08:59 Last Admin: 09/27/17 09:03 Dose: 100 mg Ferrous Sulfate (Iron) 325 mg PO DAILY [facility] Stop: 11/23/17 08:59 Last Admin: 09/27/17 09:03 Dose: 325 mg Finasteride (Proscar) 5 mg PO DAILY [facility]; Protocol Stop: 11/23/17 08:59 Last Admin: 09/27/17 09:03 Dose: 5 mg Heparin Sodium (Porcine) (Heparin) 5,000 units SUBQ Q12HR [facility] Stop: 11/22/17 20:59 Last Admin: 09/27/17 09:05 Dose: 5,000 units Insulin Aspart (Novolog Insulin Sliding Scale) 0 units SUBQ [facility]; Protocol Stop: 11/22/17 20:59 Last Admin: 09/27/17 11:54 Dose: Not Given Insulin Detemir (Levemir Insulin) 10 units SUBQ [facility]; Protocol Stop: 11/22/17 20:59 Last Admin: 09/26/17 21:33 Dose: 10 units Lactobacillus Rhamnosus (Culturelle 15b) 1 each PO DAILY [facility] Stop: 11/23/17 08:59 Last Admin: 09/27/17 09:04 Dose: 1 each Miscellaneous (Clinical Monitoring) 1 ea MC DAILY PRN PRN Reason: RENAL Stop: 11/25/17 08:16 Ondansetron HCl (Zofran Odt) 4 mg PO Q4H PRN PRN Reason: Nausea / Vomiting Stop: 11/22/17 17:30 Pantoprazole Sodium (Protonix) 40 mg PO DAILY [facility] Stop: 11/23/17 08:59 Last Admin: 09/27/17 09:04 Dose: 40 mg Senna (Senna) 17.2 mg PO [facility] Stop: 11/22/17 20:59 Last Admin: 09/26/17 21:29 Dose: 17.2 mg Tamsulosin HCl (Flomax) 0.4 mg PO DAILY [facility] Stop: 11/23/17 08:59 Last Admin: 09/27/17 09:04 Dose: 0.4 mg Vitamin B Complex/Vit C/Folic Acid (Vitamin B Complex W/Vitamin C) 1 tab PO DAILY [facility] Stop: 11/23/17 08:59 Last Admin: 09/27/17 09:03 Dose: 1 tab General: No acute distress HEENT: Atraumatic Cardiovascular: Regular rate Neurological: Normal gait - Procedures Procedures: Procedures Procedure Code Date AMPUTATION OF TOE 13221 08/19/17 DETACHMENT AT LEFT 1ST TOE, COMPLETE, OPEN APPROACH [id number] 08/19/17 DETACHMENT AT RIGHT 1ST TOE, COMPLETE, OPEN APPROACH [id number] 08/19/17 DETACHMENT AT RIGHT 2ND TOE, COMPLETE, OPEN APPROACH [id number] 08/19/17 EXCISION OF L LOW LEG SUBCU/FASCIA, OPEN APPROACH [id number] 08/19/17 PERFORMANCE OF URINARY FILTRATION, <6 HRS/DAY [id number] 08/19/17 REMOVAL OF INFUSION DEVICE FROM UPPER VEIN, PERC APPROACH [id number] 08/19/17 REMOVAL TUNNELED CV CATH [id number] 08/19/17 Nutritional Asmnt/Malnutr-PDOC - Dietary Evaluation Malnutrition Findings (Please click <Entered> for more info): Nutritional Asmnt/Malnutrition Start: 09/25/17 16: 48 Text: Status: Complete Freq: Protocol: Document 09/25/17 16:48 HERACLIO (Rec: 09/25/17 17:02 [facility] Nutritional Asmnt/Malnutrition Patient General Information Nutritional Screening High Risk Consult Diagnosis cloteed dialyisis shunt left upper arm Pertinent Medical Hx/Surgical Hx ESRD on HD, CHF, HTN, hyperlipidemia, dementia, GERD , OA Subjective Information Pt seen sleeping at time of visit. Per EMR, PO intake 100% of meals yesterday. consult received for DM. BS 171 at admission noted. Per nurse note, pt will have dialysis tomorrow. Current Diet Order/ Nutrition Support renal fluid restriction 1200 Pertinent Medications vit C, lipitor, os-brad, iron, novolog, levmir, culturelle, protonix, senna, vit B complex w/vit C Pertinent Labs 09/25 Na 134, Cl 97, BUN 41, Cr 5.1, glucose 113 Nutritional Hx/Data Height 1.7 m Height (Calculated Centimeters) 170.2 Current Weight (lbs) 62.596 kg Weight (Calculated Kilograms) 62.6 Weight (Calculated Grams) 97574.7 [place] Body Weight 148 Body Mass Index (BMI) 21.6 Weight Status Approriate GI Symptoms GI Symptoms None Last BM not indicated Difficult in: None Skin Integrity/Comment: echymosis noted on patiens extremities Current %PO Good (75-100%) Estimated Nutritional Goals BEE in Kcals: Using Current wt Calories/Kcals/Kg 30-35 Kcals Calculated 0071-3008 Protein: Using Current wt Protein g/k.2-1.4 Protein Calculated 75-88 Fluid: ml 1890-2205ml (1ml/kcal) Nutritional Problem 1. Problem Problem altered nutrition reltaed labs Etiology ESRD, hx of DM Signs/Symptoms: BUN 41, Cr 5.1, glucose 113 Malnutrition Alert Is there a minimum of two criteria No selected? Query Text:Check all the applicable criteria. A minimum of two criteria are recommended for diagnosis of either severe or non-severe malnutrition. Malnutrition Related to Morbid Obesity Malnutrition related to morbid obesity No Intervention/Recommendation Comments 1. Recommend adding CCHO diet restriction. ROGER Dawson notified . 2. Monitor PO intake, wt, labs and skin integrity 3. F/U as moderate risk in 3-5 days, 09/28-09/30 Expected Outcomes/Goals Expected Outcomes/Goals 1. PO intake to meet at least 75% of nutritional needs. 2. Wt stability, skin to remain intact, labs to approach WNL.
--- NOTE | 2017-09-27 15:51 | General Progress Note ---
Subjective - Review of Systems Service Date: 09/27/17 Subjective: awake alert, no distress Objective - Results Result Diagrams: 09/27/17 05:30 09/26/17 06:10 Recent Labs: Laboratory Last Values WBC 10.4 Th/cmm (4.8-10.8) 09/27/17 05:30 RBC 3.28 Mil/cmm (3.80-5.80) L 09/27/17 05:30 Hgb 9.8 gm/dL (12-16) L 09/27/17 05:30 Hct 30.4 % (41.0-60) L 09/27/17 05:30 MCV 92.5 fl (80-99) 09/27/17 05:30 MCH 29.8 pg (27.0-31.0) 09/27/17 05:30 MCHC Differential 32.2 pg (28.0-36.0) 09/27/17 05:30 RDW 21.0 % (11.5-20.0) H 09/27/17 05:30 Plt Count 390 Th/cmm (150-400) 09/27/17 05:30 MPV 7.2 fl 09/27/17 05:30 Neutrophils % 62.5 % (40.0-80.0) 09/27/17 05:30 Lymphocytes % 23.6 % (20.0-50.0) 09/27/17 05:30 Monocytes % 7.7 % (2.0-10.0) 09/27/17 05:30 Eosinophils % 5.6 % (0.0-5.0) H 09/27/17 05:30 Basophils % 0.6 % (0.0-2.0) 09/27/17 05:30 PT 9.8 SECONDS (9.5-11.5) 09/25/17 06:00 INR 0.94 (0.5-1.4) 09/25/17 06:00 PTT (Actin FS) 26.7 SECONDS (26.0-38.0) 09/25/17 06:00 Sodium 135 mEq/L (136-145) L 09/26/17 06:10 Potassium 4.6 mEq/L (3.5-5.1) 09/26/17 06:10 Chloride 99 mEq/L (98-107) 09/26/17 06:10 Carbon Dioxide 27.1 mEq/L (21.0-31.0) 09/26/17 06:10 Anion Gap 13.5 (7.0-16.0) 09/26/17 06:10 BUN 48 mg/dL (7-25) H 09/26/17 06:10 Creatinine 5.6 mg/dL (0.7-1.3) H* 09/26/17 06:10 Est GFR ( Amer) TNP 09/26/17 06:10 Est GFR (Non-Af Amer) TNP 09/26/17 06:10 BUN/Creatinine Ratio 8.6 09/26/17 06:10 Glucose 94 mg/dL (70-105) 09/26/17 06:10 POC Glucose 142 MG/DL (70 - 105) H 09/27/17 11:45 Calcium 8.3 mg/dL (8.6-10.3) L 09/26/17 06:10 Total Bilirubin 0.4 mg/dL (0.3-1.0) 09/26/17 06:10 AST 10 U/L (13-39) L 09/26/17 06:10 ALT 11 U/L (7-52) 09/26/17 06:10 Alkaline Phosphatase 77 U/L (34-104) 09/26/17 06:10 B-Natriuretic Peptide 394.0 pg/mL (5.0-100.0) H 09/27/17 05:30 Total Protein 5.7 gm/dL (6.0-8.3) L 09/26/17 06:10 Albumin 2.5 gm/dL (4.2-5.5) L 09/26/17 06:10 Globulin 3.2 gm/dL 09/26/17 06:10 Albumin/Globulin Ratio 0.8 (1.0-1.8) L 09/26/17 06:10 - Physical Exam Vitals and I&O: Vital Signs Temp 98.2 F 09/27/17 15:37 Pulse 87 09/27/17 15:37 Resp 18 09/27/17 15:37 BP 127/57 09/27/17 15:37 Pulse Ox 100 09/27/17 15:37 Intake & Output 09/26/17 09/27/17 09/27/17 18:59 06:59 18:59 Intake Total 568 100 Output Total 400 400 Balance 168 -300 Weight (lbs) 62.596 kg 62.596 kg Intake: Oral 568 100 Output: Urine 400 400 Other: # Bowel Movements 1 0 Stool Characteristics Soft Soft Soft Weight Source Bedscale Bedscale Active Medications: Current Medications Acetaminophen (Tylenol) 650 mg PO Q4HR PRN PRN Reason: MILD PAIN Stop: 11/22/17 17:30 Albuterol/Ipratropium (Duoneb Neb) 3 ml HHN Q12HRT PRN PRN Reason: COPD Stop: 11/22/17 17:30 Albuterol/Ipratropium (Duoneb Neb) 3 ml HHN [id number] [facility] Stop: 11/22/17 18:59 Last Admin: 09/27/17 14:13 Dose: 3 ml Amlodipine Besylate (Norvasc) 10 mg PO DAILY [facility] Stop: 11/23/17 08:59 Last Admin: 09/27/17 09:02 Dose: 10 mg Ascorbic Acid (Vitamin C) 500 mg PO DAILY [facility] Stop: 11/23/17 08:59 Last Admin: 09/27/17 09:03 Dose: 500 mg Aspirin (Aspirin Chewable) 81 mg PO DAILY [facility] Stop: 11/23/17 08:59 Last Admin: 09/27/17 09:03 Dose: 81 mg Atorvastatin Calcium (Lipitor) 20 mg PO HS [facility] Stop: 11/22/17 20:59 Last Admin: 09/26/17 21:29 Dose: 20 mg Bisacodyl (Dulcolax 10 Mg Supp) 10 mg RC DAILY PRN PRN Reason: IF MOM INEFECTIVE Stop: 11/22/17 17:30 Budesonide (Pulmicort) 0.5 mg HHN BIDRT [facility] Stop: 11/22/17 18:59 Last Admin: 09/27/17 07:31 Dose: 0.5 mg Calcium Carbonate (Os-Alicia) 500 mg PO DAILY [facility] Stop: 11/23/17 08:59 Last Admin: 09/27/17 09:03 Dose: 500 mg Docusate Sodium (Colace) 100 mg PO BID [facility] Stop: 11/23/17 08:59 Last Admin: 09/27/17 09:03 Dose: 100 mg Ferrous Sulfate (Iron) 325 mg PO DAILY [facility] Stop: 11/23/17 08:59 Last Admin: 09/27/17 09:03 Dose: 325 mg Finasteride (Proscar) 5 mg PO DAILY [facility]; Protocol Stop: 11/23/17 08:59 Last Admin: 09/27/17 09:03 Dose: 5 mg Heparin Sodium (Porcine) (Heparin) 5,000 units SUBQ Q12HR [facility] Stop: 11/22/17 20:59 Last Admin: 09/27/17 09:05 Dose: 5,000 units Insulin Aspart (Novolog Insulin Sliding Scale) 0 units SUBQ ACHS [facility]; Protocol Stop: 11/22/17 20:59 Last Admin: 09/27/17 11:54 Dose: Not Given Insulin Detemir (Levemir Insulin) 10 units SUBQ [facility]; Protocol Stop: 11/22/17 20:59 Last Admin: 09/26/17 21:33 Dose: 10 units Lactobacillus Rhamnosus (Culturelle 15b) 1 each PO DAILY [facility] Stop: 11/23/17 08:59 Last Admin: 09/27/17 09:04 Dose: 1 each Miscellaneous (Clinical Monitoring) 1 ea MC DAILY PRN PRN Reason: RENAL Stop: 11/25/17 08:16 Ondansetron HCl (Zofran Odt) 4 mg PO Q4H PRN PRN Reason: Nausea / Vomiting Stop: 11/22/17 17:30 Pantoprazole Sodium (Protonix) 40 mg PO DAILY [facility] Stop: 11/23/17 08:59 Last Admin: 09/27/17 09:04 Dose: 40 mg Senna (Senna) 17.2 mg PO [facility] Stop: 11/22/17 20:59 Last Admin: 09/26/17 21:29 Dose: 17.2 mg Tamsulosin HCl (Flomax) 0.4 mg PO DAILY [facility] Stop: 11/23/17 08:59 Last Admin: 09/27/17 09:04 Dose: 0.4 mg Vitamin B Complex/Vit C/Folic Acid (Vitamin B Complex W/Vitamin C) 1 tab PO DAILY [facility] Stop: 11/23/17 08:59 Last Admin: 09/27/17 09:03 Dose: 1 tab General: Alert, No acute distress HEENT: Atraumatic Cardiovascular: Regular rate Abdomen: Bowel sounds Neurological: Normal gait - Procedures Procedures: Procedures Procedure Code Date AMPUTATION OF TOE 99573 08/19/17 DETACHMENT AT LEFT 1ST TOE, COMPLETE, OPEN APPROACH [id number] 08/19/17 DETACHMENT AT RIGHT 1ST TOE, COMPLETE, OPEN APPROACH [id number] 08/19/17 DETACHMENT AT RIGHT 2ND TOE, COMPLETE, OPEN APPROACH [id number] 08/19/17 EXCISION OF L LOW LEG SUBCU/FASCIA, OPEN APPROACH [id number] 08/19/17 PERFORMANCE OF URINARY FILTRATION, <6 HRS/DAY [id number] 08/19/17 REMOVAL OF INFUSION DEVICE FROM UPPER VEIN, PERC APPROACH [id number] 08/19/17 REMOVAL TUNNELED CV CATH [id number] 08/19/17 Assessment/Plan - Assessment Assessment: AV shunt malfunction esrd on hd chf htn hyperlipidemia dementia gerd oa - Plan Plan: [facility] monitor vitals Nutritional Asmnt/Malnutr-PDOC - Dietary Evaluation Malnutrition Findings (Please click <Entered> for more info): Nutritional Asmnt/Malnutrition Start: 09/25/17 16: 48 Text: Status: Complete Freq: Protocol: Document 09/25/17 16:48 LCHENG (Rec: 09/25/17 17:02 LCHENG [email or web address]) Nutritional Asmnt/Malnutrition Patient General Information Nutritional Screening High Risk Consult Diagnosis cloteed dialyisis shunt left upper arm Pertinent Medical Hx/Surgical Hx ESRD on HD, CHF, HTN, hyperlipidemia, dementia, GERD , OA Subjective Information Pt seen sleeping at time of visit. Per EMR, PO intake 100% of meals yesterday. consult received for DM. BS 171 at admission noted. Per nurse note, pt will have dialysis tomorrow. Current Diet Order/ Nutrition Support renal fluid restriction 1200 Pertinent Medications vit C, lipitor, os-alicia, iron, novolog, levmir, culturelle, protonix, senna, vit B complex w/vit C Pertinent Labs 09/25 Na 134, Cl 97, BUN 41, Cr 5.1, glucose 113 Nutritional Hx/Data Height 1.7 m Height (Calculated Centimeters) 170.2 Current Weight (lbs) 62.596 kg Weight (Calculated Kilograms) 62.6 Weight (Calculated Grams) 72417.7 [place] Body Weight 148 Body Mass Index (BMI) 21.6 Weight Status Approriate GI Symptoms GI Symptoms None Last BM not indicated Difficult in: None Skin Integrity/Comment: echymosis noted on patiens extremities Current %PO Good (75-100%) Estimated Nutritional Goals BEE in Kcals: Using Current wt Calories/Kcals/Kg 30-35 Kcals Calculated 0108-0974 Protein: Using Current wt Protein g/k.2-1.4 Protein Calculated 75-88 Fluid: ml 1890-2205ml (1ml/kcal) Nutritional Problem 1. Problem Problem altered nutrition reltaed labs Etiology ESRD, hx of DM Signs/Symptoms: BUN 41, Cr 5.1, glucose 113 Malnutrition Alert Is there a minimum of two criteria No selected? Query Text:Check all the applicable criteria. A minimum of two criteria are recommended for diagnosis of either severe or non-severe malnutrition. Malnutrition Related to Morbid Obesity Malnutrition related to morbid obesity No Intervention/Recommendation Comments 1. Recommend adding CCHO diet restriction. ROGER Dawson notified . 2. Monitor PO intake, wt, labs and skin integrity 3. F/U as moderate risk in 3-5 days, 09/28-09/30 Expected Outcomes/Goals Expected Outcomes/Goals 1. PO intake to meet at least 75% of nutritional needs. 2. Wt stability, skin to remain intact, labs to approach WNL.
[2017-09-27] MEDS: Insulin Detemir 100 units/mL 10mL Vial SUBQ SCH (20:33)
[2017-09-27] MEDS: Atorvastatin Calcium 10 MG TAB PO SCH (20:33)
[2017-09-28] MEDS ORDERED: Dextrose 50% 50 mL Abboject IVP PRN (05:46)
[2017-09-28 05:49] LABS: INR 0.96 (0.5-1.4)
[2017-09-28] MEDS ORDERED: Dextrose 50% 50 mL Abboject IVP ONE (05:49)
[2017-09-28 05:50] LABS: % BASOPHILS 0.7 % (0.0-2.0); % EOSINOPHILS 5.1 % (0.0-5.0); % LYMPHOCYTES 24.1 % (20.0-50.0); % MONOCYTES 5.2 % (2.0-10.0); % NEUTROPHILS 64.9 % (40.0-80.0); BASOPHILE ABSOLUTE 0.1 Th/cumm (0-0.2); EOSINOPHILE ABSOLUTE 0.7 Th/cmm (0.1-0.4); HEMATOCRIT 30.1 % (41.0-60); HEMOGLOBIN 9.9 gm/dL (12-16); LYMPHOCYTE ABSOLUTE 3.1 Th/cmm (1.5-3.0); MEAN CELL VOLUME 92.3 fl (80-99); MEAN CORPUSCULAR HEMOGLOBIN 30.3 pg (27.0-31.0); MEAN CORPUSCULAR HGB CONC 32.8 pg (28.0-36.0); MEAN PLATELET VOLUME 7.6 fl; MONOCYTE ABSOLUTE 0.7 Th/cmm (0.3-1.0); NEUTROPHILE ABSOLUTE 8.3 Th/cmm (1.8-8.0); PLATELET COUNT 406 Th/cmm (150-400); RED BLOOD COUNT 3.26 Mil/cmm (3.80-5.80); RED CELL DISTRIBUTION WIDTH 19.7 % (11.5-20.0)
[2017-09-28 05:57] LABS: WHITE BLOOD COUNT 12.9 Th/cmm (4.8-10.8)
[2017-09-28 05:59] LABS: ANION GAP 11.9 (7.0-16.0); BUN - UREA NITROGEN 32 mg/dL (7-25); CALCIUM SERUM 8.4 mg/dL (8.6-10.3); CARBON DIOXIDE 25.5 mEq/L (21.0-31.0); CHLORIDE 101 mEq/L (98-107); CREATININE - SERUM 3.8 mg/dL (0.7-1.3); GLUCOSE 52 mg/dL (70-105); POTASSIUM SERUM 4.4 mEq/L (3.5-5.1); SODIUM SERUM 134 mEq/L (136-145)
[2017-09-28] MEDS: INSULIN ASPART SLIDING SCALE 100 UNITS/ML UNIT SUBQ SCH ×4 (06:40→22:00)
[2017-09-28] MEDS: Albuterol/Ipratropium Neb 3 ML AERS HHN SCH ×4 (07:32→20:00)
[2017-09-28] MEDS: Budesonide 0.5 Mg/2 mL Ud HHN SCH ×2 (07:32→19:55)
[2017-09-28] MEDS ORDERED: fentaNYL Citrate 100 mcg/2mL Vial ONE (08:18)
[2017-09-28] MEDS: Aspirin 81mg Chewable Tab PO SCH (11:59)
[2017-09-28] MEDS: Vitamin B Complex w/Vitamin C Tab PO SCH (12:29)
[2017-09-28] MEDS: Pantoprazole 40 mg EC Tab PO SCH (12:29)
[2017-09-28] MEDS: Lactobacillus Rhamnosus GG 15 Billion CFU CAP.SPRINK PO SCH (12:29)
[2017-09-28] MEDS: Ferrous Sulfate 325 MG TAB PO SCH (12:30)
--- NOTE | 2017-09-28 12:31 | General Progress Note ---
Subjective - Review of Systems Service Date: 09/28/17 Subjective: alert, no distress no fever Objective - Results Result Diagrams: 09/28/17 05:00 09/28/17 05:00 Recent Labs: Laboratory Last Values WBC 12.9 Th/cmm (4.8-10.8) H 09/28/17 05:00 RBC 3.26 Mil/cmm (3.80-5.80) L 09/28/17 05:00 Hgb 9.9 gm/dL (12-16) L 09/28/17 05:00 Hct 30.1 % (41.0-60) L 09/28/17 05:00 MCV 92.3 fl (80-99) 09/28/17 05:00 MCH 30.3 pg (27.0-31.0) 09/28/17 05:00 MCHC Differential 32.8 pg (28.0-36.0) 09/28/17 05:00 RDW 19.7 % (11.5-20.0) 09/28/17 05:00 Plt Count 406 Th/cmm (150-400) H 09/28/17 05:00 MPV 7.6 fl 09/28/17 05:00 Neutrophils % 64.9 % (40.0-80.0) 09/28/17 05:00 Lymphocytes % 24.1 % (20.0-50.0) 09/28/17 05:00 Monocytes % 5.2 % (2.0-10.0) 09/28/17 05:00 Eosinophils % 5.1 % (0.0-5.0) H 09/28/17 05:00 Basophils % 0.7 % (0.0-2.0) 09/28/17 05:00 PT 10.0 SECONDS (9.5-11.5) 09/28/17 05:00 INR 0.96 (0.5-1.4) 09/28/17 05:00 PTT (Actin FS) 26.7 SECONDS (26.0-38.0) 09/25/17 06:00 Sodium 134 mEq/L (136-145) L 09/28/17 05:00 Potassium 4.4 mEq/L (3.5-5.1) 09/28/17 05:00 Chloride 101 mEq/L (98-107) 09/28/17 05:00 Carbon Dioxide 25.5 mEq/L (21.0-31.0) 09/28/17 05:00 Anion Gap 11.9 (7.0-16.0) 09/28/17 05:00 BUN 32 mg/dL (7-25) H 09/28/17 05:00 Creatinine 3.8 mg/dL (0.7-1.3) H 09/28/17 05:00 Est GFR ( Amer) TNP 09/28/17 05:00 Est GFR (Non-Af Amer) TNP 09/28/17 05:00 BUN/Creatinine Ratio 8.4 09/28/17 05:00 Glucose 52 mg/dL (70-105) L 09/28/17 05:00 POC Glucose 130 MG/DL (70 - 105) H 09/28/17 10:53 Calcium 8.4 mg/dL (8.6-10.3) L 09/28/17 05:00 Total Bilirubin 0.4 mg/dL (0.3-1.0) 09/26/17 06:10 AST 10 U/L (13-39) L 09/26/17 06:10 ALT 11 U/L (7-52) 09/26/17 06:10 Alkaline Phosphatase 77 U/L (34-104) 09/26/17 06:10 B-Natriuretic Peptide 394.0 pg/mL (5.0-100.0) H 09/27/17 05:30 Total Protein 5.7 gm/dL (6.0-8.3) L 09/26/17 06:10 Albumin 2.5 gm/dL (4.2-5.5) L 09/26/17 06:10 Globulin 3.2 gm/dL 09/26/17 06:10 Albumin/Globulin Ratio 0.8 (1.0-1.8) L 09/26/17 06:10 - Physical Exam Vitals and I&O: Vital Signs Temp 96.2 F 09/28/17 11:23 Pulse 89 09/28/17 11:23 Resp 18 09/28/17 11:23 BP 142/59 09/28/17 11:23 Pulse Ox 98 09/28/17 11:23 Intake & Output 09/27/17 09/28/17 09/28/17 18:59 06:59 18:59 Intake Total 720 500 Output Total 300 550 Balance 420 -50 Weight (lbs) 65.317 kg 65.317 kg Intake: Oral 720 500 Output: Urine 300 550 Other: # Bowel Movements 1 1 Stool Characteristics Soft Soft Weight Source Estimated Bedscale Active Medications: Current Medications Acetaminophen (Tylenol) 650 mg PO Q4HR PRN PRN Reason: MILD PAIN Stop: 11/22/17 17:30 Albuterol/Ipratropium (Duoneb Neb) 3 ml HHN Q12HRT PRN PRN Reason: COPD Stop: 11/22/17 17:30 Albuterol/Ipratropium (Duoneb Neb) 3 ml HHN [id number] [facility] Stop: 11/22/17 18:59 Last Admin: 09/28/17 10:52 Dose: 3 ml Amlodipine Besylate (Norvasc) 10 mg PO DAILY [facility] Stop: 11/23/17 08:59 Last Admin: 09/27/17 09:02 Dose: 10 mg Ascorbic Acid (Vitamin C) 500 mg PO DAILY [facility] Stop: 11/23/17 08:59 Last Admin: 09/27/17 09:03 Dose: 500 mg Aspirin (Aspirin Chewable) 81 mg PO DAILY [facility] Stop: 11/23/17 08:59 Last Admin: 09/28/17 11:59 Dose: Not Given Atorvastatin Calcium (Lipitor) 20 mg PO HS [facility] Stop: 11/22/17 20:59 Last Admin: 09/27/17 20:33 Dose: 20 mg Bisacodyl (Dulcolax 10 Mg Supp) 10 mg RC DAILY PRN PRN Reason: IF MOM INEFECTIVE Stop: 11/22/17 17:30 Budesonide (Pulmicort) 0.5 mg HHN BIDRT [facility] Stop: 11/22/17 18:59 Last Admin: 09/28/17 07:32 Dose: 0.5 mg Calcium Carbonate (Os-Brad) 500 mg PO DAILY [facility] Stop: 11/23/17 08:59 Last Admin: 09/27/17 09:03 Dose: 500 mg Dextrose (D50w) 50 ml IVP PRN PRN PRN Reason: Blood Glucose less than 70 Stop: 11/27/17 05:45 Last Admin: 09/28/17 05:53 Dose: 50 ml Docusate Sodium (Colace) 100 mg PO BID [facility] Stop: 11/23/17 08:59 Last Admin: 09/28/17 12:00 Dose: Not Given Ferrous Sulfate (Iron) 325 mg PO DAILY [facility] Stop: 11/23/17 08:59 Last Admin: 09/27/17 09:03 Dose: 325 mg Finasteride (Proscar) 5 mg PO DAILY [facility]; Protocol Stop: 11/23/17 08:59 Last Admin: 09/27/17 09:03 Dose: 5 mg Heparin Sodium (Porcine) (Heparin) 5,000 units SUBQ Q12HR [facility] Stop: 11/22/17 20:59 Last Admin: 09/28/17 11:59 Dose: Not Given Insulin Aspart (Novolog Insulin Sliding Scale) 0 units SUBQ [facility]; Protocol Stop: 11/22/17 20:59 Last Admin: 09/28/17 12:00 Dose: Not Given Insulin Detemir (Levemir Insulin) 10 units SUBQ [facility]; Protocol Stop: 11/22/17 20:59 Last Admin: 09/27/17 20:33 Dose: 10 units Lactobacillus Rhamnosus (Culturelle 15b) 1 each PO DAILY [facility] Stop: 11/23/17 08:59 Last Admin: 09/27/17 09:04 Dose: 1 each Miscellaneous (Clinical Monitoring) 1 ea MC DAILY PRN PRN Reason: RENAL Stop: 11/25/17 08:16 Ondansetron HCl (Zofran Odt) 4 mg PO Q4H PRN PRN Reason: Nausea / Vomiting Stop: 11/22/17 17:30 Pantoprazole Sodium (Protonix) 40 mg PO DAILY [facility] Stop: 11/23/17 08:59 Last Admin: 09/27/17 09:04 Dose: 40 mg Senna (Senna) 17.2 mg PO [facility] Stop: 11/22/17 20:59 Last Admin: 09/27/17 20:33 Dose: 17.2 mg Tamsulosin HCl (Flomax) 0.4 mg PO DAILY [facility] Stop: 11/23/17 08:59 Last Admin: 09/27/17 09:04 Dose: 0.4 mg Vitamin B Complex/Vit C/Folic Acid (Vitamin B Complex W/Vitamin C) 1 tab PO DAILY [facility] Stop: 11/23/17 08:59 Last Admin: 09/27/17 09:03 Dose: 1 tab General: Alert, No acute distress HEENT: Atraumatic Cardiovascular: Regular rate Abdomen: Bowel sounds Neurological: Normal gait - Procedures Procedures: Procedures Procedure Code Date AMPUTATION OF TOE 48031 08/19/17 DETACHMENT AT LEFT 1ST TOE, COMPLETE, OPEN APPROACH [id number] 08/19/17 DETACHMENT AT RIGHT 1ST TOE, COMPLETE, OPEN APPROACH [id number] 08/19/17 DETACHMENT AT RIGHT 2ND TOE, COMPLETE, OPEN APPROACH [id number] 08/19/17 EXCISION OF L LOW LEG SUBCU/FASCIA, OPEN APPROACH [id number] 08/19/17 EXTIRPATION OF MATTER FROM L AXILLA ART, OPEN APPROACH [id number] 09/23/17 PERFORMANCE OF URINARY FILTRATION, <6 HRS/DAY [id number] 08/19/17 REMOVAL OF INFUSION DEVICE FROM UPPER VEIN, PERC APPROACH [id number] 08/19/17 REMOVAL TUNNELED CV CATH [id number] 08/19/17 Assessment/Plan - Assessment Assessment: AV shunt malfunction esrd on hd chf htn hyperlipidemia dementia gerd oa - Plan Plan: cmp monitor vitals Nutritional Asmnt/Malnutr-PDOC - Dietary Evaluation Malnutrition Findings (Please click <Entered> for more info): Nutritional Asmnt/Malnutrition Start: 09/25/17 16: 48 Text: Status: Complete Freq: Protocol: Document 09/25/17 16:48 LCHENG (Rec: 09/25/17 17:02 LCHENG [email or web address]) Nutritional Asmnt/Malnutrition Patient General Information Nutritional Screening High Risk Consult Diagnosis cloteed dialyisis shunt left upper arm Pertinent Medical Hx/Surgical Hx ESRD on HD, CHF, HTN, hyperlipidemia, dementia, GERD , OA Subjective Information Pt seen sleeping at time of visit. Per EMR, PO intake 100% of meals yesterday. consult received for DM. BS 171 at admission noted. Per nurse note, pt will have dialysis tomorrow. Current Diet Order/ Nutrition Support renal fluid restriction 1200 Pertinent Medications vit C, lipitor, os-brad, iron, novolog, levmir, culturelle, protonix, senna, vit B complex w/vit C Pertinent Labs 09/25 Na 134, Cl 97, BUN 41, Cr 5.1, glucose 113 Nutritional Hx/Data Height 1.7 m Height (Calculated Centimeters) 170.2 Current Weight (lbs) 62.596 kg Weight (Calculated Kilograms) 62.6 Weight (Calculated Grams) 07534.7 [place] Body Weight 148 Body Mass Index (BMI) 21.6 Weight Status Approriate GI Symptoms GI Symptoms None Last BM not indicated Difficult in: None Skin Integrity/Comment: echymosis noted on patiens extremities Current %PO Good (75-100%) Estimated Nutritional Goals BEE in Kcals: Using Current wt Calories/Kcals/Kg 30-35 Kcals Calculated 0529-9195 Protein: Using Current wt Protein g/k.2-1.4 Protein Calculated 75-88 Fluid: ml 1890-2205ml (1ml/kcal) Nutritional Problem 1. Problem Problem altered nutrition reltaed labs Etiology ESRD, hx of DM Signs/Symptoms: BUN 41, Cr 5.1, glucose 113 Malnutrition Alert Is there a minimum of two criteria No selected? Query Text:Check all the applicable criteria. A minimum of two criteria are recommended for diagnosis of either severe or non-severe malnutrition. Malnutrition Related to Morbid Obesity Malnutrition related to morbid obesity No Intervention/Recommendation Comments 1. Recommend adding CCHO diet restriction. ROGER Dawson notified . 2. Monitor PO intake, wt, labs and skin integrity 3. F/U as moderate risk in 3-5 days, 09/28-09/30 Expected Outcomes/Goals Expected Outcomes/Goals 1. PO intake to meet at least 75% of nutritional needs. 2. Wt stability, skin to remain intact, labs to approach WNL.
--- NOTE | 2017-09-28 15:08 | Operative Report ---
DATE OF SURGERY: 09/28/2017 PREOPERATIVE DIAGNOSES: 1. Gangrene of the right foot. 2. Peripheral vascular disease. 3. End-stage renal disease, on hemodialysis. 4. Diabetes mellitus. POSTOPERATIVE DIAGNOSES: 1. Gangrene of the right foot. 2. Peripheral vascular disease. 3. End-stage renal disease, on hemodialysis. 4. Diabetes mellitus. OPERATION DONE: Syme's amputation, right foot. SURGEON: Prasanna Day M.D. ANESTHESIA: General. ANESTHESIOLOGIST: Michael. ESTIMATED BLOOD LOSS: 20 mL. 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 confirm distal peripheral vascular disease. The foot exhibited ischemic changes pass the mid foot and a Syme's amputation was done. DESCRIPTION OF PROCEDURE: The patient was given general anesthesia. The right foot was prepped with Betadine and draped in appropriate manner. An incision was made on the dorsum of the foot pass the area of skin ischemia evidenced by early ulcerations with black skin changes. This was carried all the way down to subcutaneous tissues. The tendons were transected. Vessels were severely calcified and cautery would not stop the bleeding. So, these were ligated. The navicular bone was transected at the level of the calcaneus. This was carried all the way down posteriorly and the plantar skin was transected to the level of the area just proximal to the skin discoloration. Bleeders were electrocoagulated. The calcaneus was trimmed. Irrigation was done with saline solution and Betadine. The incision was closed with interrupted sutures of #1 Vicryl for the fascia and the skin was closed with subcuticular suture of 4-0 Vicryl. Compression dressing was placed over the stump. The patient tolerated the procedure well. JOB# [id number] JORDY
[2017-09-28] MEDS: Insulin Detemir 100 units/mL 10mL Vial SUBQ SCH (22:00)
[2017-09-28] MEDS: Atorvastatin Calcium 10 MG TAB PO SCH (22:00)
[2017-09-28] MEDS: Hydrocodone/APAP 5mg/325mg Tab PO PRN (22:14)
[2017-09-29 05:28] LABS: % EOSINOPHILS 4.5 % (0.0-5.0); BASOPHILE ABSOLUTE 0.1 Th/cumm (0-0.2); EOSINOPHILE ABSOLUTE 0.6 Th/cmm (0.1-0.4); HEMOGLOBIN 9.5 gm/dL (12-16); LYMPHOCYTE ABSOLUTE 2.2 Th/cmm (1.5-3.0); MONOCYTE ABSOLUTE 0.9 Th/cmm (0.3-1.0); NEUTROPHILE ABSOLUTE 8.7 Th/cmm (1.8-8.0)
[2017-09-29 05:40] LABS: % BASOPHILS 0.9 % (0.0-2.0); % LYMPHOCYTES 17.3 % (20.0-50.0); % MONOCYTES 7.6 % (2.0-10.0); % NEUTROPHILS 69.7 % (40.0-80.0); HEMATOCRIT 29.3 % (41.0-60); MEAN CELL VOLUME 92.8 fl (80-99); MEAN CORPUSCULAR HEMOGLOBIN 30.1 pg (27.0-31.0); MEAN CORPUSCULAR HGB CONC 32.5 pg (28.0-36.0); PLATELET COUNT 361 Th/cmm (150-400); RED BLOOD COUNT 3.16 Mil/cmm (3.80-5.80); RED CELL DISTRIBUTION WIDTH 19.1 % (11.5-20.0)
[2017-09-29 05:45] LABS: WHITE BLOOD COUNT 12.5 Th/cmm (4.8-10.8)
[2017-09-29 05:59] LABS: ALB/GLOB RATIO 0.8 (1.0-1.8); ALBUMIN 2.6 gm/dL (4.2-5.5); ALKALINE PHOSPHATASE 79 U/L (34-104); ANION GAP 14.2 (7.0-16.0); BILIRUBIN,TOTAL 0.5 mg/dL (0.3-1.0); BUN - UREA NITROGEN 39 mg/dL (7-25); CALCIUM SERUM 8.5 mg/dL (8.6-10.3); CARBON DIOXIDE 24.4 mEq/L (21.0-31.0); CHLORIDE 100 mEq/L (98-107); GLUCOSE 79 mg/dL (70-105); POTASSIUM SERUM 5.6 mEq/L (3.5-5.1); SGOT 12 U/L (13-39); SGPT/ALT 7 U/L (7-52); SODIUM SERUM 133 mEq/L (136-145)
[2017-09-29 06:05] LABS: CREATININE - SERUM 4.4 mg/dL (0.7-1.3)
[2017-09-29] MEDS: Budesonide 0.5 Mg/2 mL Ud HHN SCH ×2 (07:09→19:10)
[2017-09-29] MEDS: Albuterol/Ipratropium Neb 3 ML AERS HHN SCH ×4 (07:09→19:10)
[2017-09-29] MEDS: INSULIN ASPART SLIDING SCALE 100 UNITS/ML UNIT SUBQ SCH ×3 (08:12→16:56)
[2017-09-29] MEDS: Aspirin 81mg Chewable Tab PO SCH (10:05)
[2017-09-29] MEDS: Ferrous Sulfate 325 MG TAB PO SCH (10:05)
[2017-09-29] MEDS: Vitamin B Complex w/Vitamin C Tab PO SCH (10:05)
[2017-09-29] MEDS: Lactobacillus Rhamnosus GG 15 Billion CFU CAP.SPRINK PO SCH (10:05)
[2017-09-29] MEDS: Pantoprazole 40 mg EC Tab PO SCH (10:05)
[2017-09-29] MEDS ORDERED: cefTRIAXone 1 GM in Sodium Chloride 0.9% 50 ML IV SCH (11:00)
--- NOTE | 2017-09-29 11:57 | Internal Medicine Prog Note ---
Internal Medicine Subjective - Subjective Service Date: 09/29/17 Patient seen and examined:: with staff Patient is:: awake Per staff patient has:: tolerating meds Internal Medicine Objective - Results Result Diagrams: 09/29/17 04:25 09/29/17 04:25 Recent Labs: Laboratory Last Values WBC 12.5 Th/cmm (4.8-10.8) H 09/29/17 04:25 RBC 3.16 Mil/cmm (3.80-5.80) L 09/29/17 04:25 Hgb 9.5 gm/dL (12-16) L 09/29/17 04:25 Hct 29.3 % (41.0-60) L 09/29/17 04:25 MCV 92.8 fl (80-99) 09/29/17 04:25 MCH 30.1 pg (27.0-31.0) 09/29/17 04:25 MCHC Differential 32.5 pg (28.0-36.0) 09/29/17 04:25 RDW 19.1 % (11.5-20.0) 09/29/17 04:25 Plt Count 361 Th/cmm (150-400) 09/29/17 04:25 MPV 8.0 fl 09/29/17 04:25 Neutrophils % 69.7 % (40.0-80.0) 09/29/17 04:25 Lymphocytes % 17.3 % (20.0-50.0) L 09/29/17 04:25 Monocytes % 7.6 % (2.0-10.0) 09/29/17 04:25 Eosinophils % 4.5 % (0.0-5.0) 09/29/17 04:25 Basophils % 0.9 % (0.0-2.0) 09/29/17 04:25 PT 10.0 SECONDS (9.5-11.5) 09/28/17 05:00 INR 0.96 (0.5-1.4) 09/28/17 05:00 PTT (Actin FS) 26.7 SECONDS (26.0-38.0) 09/25/17 06:00 Sodium 133 mEq/L (136-145) L 09/29/17 04:25 Potassium 5.6 mEq/L (3.5-5.1) H 09/29/17 04:25 Chloride 100 mEq/L (98-107) 09/29/17 04:25 Carbon Dioxide 24.4 mEq/L (21.0-31.0) 09/29/17 04:25 Anion Gap 14.2 (7.0-16.0) 09/29/17 04:25 BUN 39 mg/dL (7-25) H 09/29/17 04:25 Creatinine 4.4 mg/dL (0.7-1.3) H* 09/29/17 04:25 Est GFR ( Amer) TNP 09/29/17 04:25 Est GFR (Non-Af Amer) TNP 09/29/17 04:25 BUN/Creatinine Ratio 8.9 09/29/17 04:25 Glucose 79 mg/dL (70-105) 09/29/17 04:25 POC Glucose 89 MG/DL (70 - 105) 09/29/17 05:53 Calcium 8.5 mg/dL (8.6-10.3) L 09/29/17 04:25 Total Bilirubin 0.5 mg/dL (0.3-1.0) 09/29/17 04:25 AST 12 U/L (13-39) L 09/29/17 04:25 ALT 7 U/L (7-52) 09/29/17 04:25 Alkaline Phosphatase 79 U/L (34-104) 09/29/17 04:25 B-Natriuretic Peptide 394.0 pg/mL (5.0-100.0) H 09/27/17 05:30 Total Protein 6.0 gm/dL (6.0-8.3) 09/29/17 04:25 Albumin 2.6 gm/dL (4.2-5.5) L 09/29/17 04:25 Globulin 3.4 gm/dL 09/29/17 04:25 Albumin/Globulin Ratio 0.8 (1.0-1.8) L 09/29/17 04:25 - Physical Exam Vitals and I&O: Vital Signs Temp 97.9 F 09/29/17 07:57 Pulse 105 09/29/17 10:34 Resp 20 09/29/17 10:34 BP 123/65 09/29/17 10:04 Pulse Ox 100 09/29/17 10:34 Intake & Output 09/28/17 09/29/17 09/29/17 18:59 06:59 18:59 Intake Total 720 Output Total 300 Balance 420 Weight (lbs) 144 lb 176 lb Intake: Oral 720 Output: Urine 300 Other: # Bowel Movements 1 Stool Characteristics Soft Soft Formed Formed Weight Source Estimated Bedscale Active Medications: Current Medications Acetaminophen (Tylenol) 650 mg PO Q4HR PRN PRN Reason: MILD PAIN Stop: 11/22/17 17:30 Last Admin: 09/28/17 16:09 Dose: 650 mg Acetaminophen/Hydrocodone Bitart ([place] 5mg/325mg) 1 tab PO Q6H PRN PRN Reason: Pain (Mild) Stop: 11/27/17 20:22 Last Admin: 09/28/17 22:14 Dose: 1 tab Albuterol/Ipratropium (Duoneb Neb) 3 ml HHN Q12HRT PRN PRN Reason: COPD Stop: 11/22/17 17:30 Albuterol/Ipratropium (Duoneb Neb) 3 ml HHN [id number] [facility] Stop: 11/22/17 18:59 Last Admin: 09/29/17 10:34 Dose: 3 ml Amlodipine Besylate (Norvasc) 10 mg PO DAILY [facility] Stop: 11/23/17 08:59 Last Admin: 09/29/17 10:04 Dose: Not Given Ascorbic Acid (Vitamin C) 500 mg PO DAILY [facility] Stop: 11/23/17 08:59 Last Admin: 09/29/17 10:05 Dose: 500 mg Aspirin (Aspirin Chewable) 81 mg PO DAILY [facility] Stop: 11/23/17 08:59 Last Admin: 09/29/17 10:05 Dose: 81 mg Atorvastatin Calcium (Lipitor) 20 mg PO HS [facility] Stop: 11/22/17 20:59 Last Admin: 09/28/17 22:00 Dose: 20 mg Bisacodyl (Dulcolax 10 Mg Supp) 10 mg RC DAILY PRN PRN Reason: IF MOM INEFECTIVE Stop: 11/22/17 17:30 Budesonide (Pulmicort) 0.5 mg HHN BIDRT [facility] Stop: 11/22/17 18:59 Last Admin: 09/29/17 07:09 Dose: 0.5 mg Calcium Carbonate (Os-Alicia) 500 mg PO DAILY [facility] Stop: 11/23/17 08:59 Last Admin: 09/29/17 10:05 Dose: 500 mg Dextrose (D50w) 50 ml IVP PRN PRN PRN Reason: Blood Glucose less than 70 Stop: 11/27/17 05:45 Last Admin: 09/28/17 05:53 Dose: 50 ml Docusate Sodium (Colace) 100 mg PO BID [facility] Stop: 11/23/17 08:59 Last Admin: 09/29/17 10:05 Dose: 100 mg Ferrous Sulfate (Iron) 325 mg PO DAILY [facility] Stop: 11/23/17 08:59 Last Admin: 09/29/17 10:05 Dose: 325 mg Finasteride (Proscar) 5 mg PO DAILY [facility]; Protocol Stop: 11/23/17 08:59 Last Admin: 09/29/17 10:04 Dose: 5 mg Heparin Sodium (Porcine) (Heparin) 5,000 units SUBQ Q12HR [facility] Stop: 11/22/17 20:59 Last Admin: 09/29/17 10:05 Dose: 5,000 units Ceftriaxone Sodium 1 gm/ (Sodium Chloride) 50 mls @ 100 mls/hr IV DAILY [facility] Stop: 11/28/17 10:59 Insulin Aspart (Novolog Insulin Sliding Scale) 0 units SUBQ ACHS [facility]; Protocol Stop: 11/22/17 20:59 Last Admin: 09/29/17 08:12 Dose: Not Given Insulin Detemir (Levemir Insulin) 10 units SUBQ HS [facility]; Protocol Stop: 11/22/17 20:59 Last Admin: 09/28/17 22:00 Dose: Not Given Lactobacillus Rhamnosus (Culturelle 15b) 1 each PO DAILY [facility] Stop: 11/23/17 08:59 Last Admin: 09/29/17 10:05 Dose: 1 each Miscellaneous (Clinical Monitoring) 1 ea MC DAILY PRN PRN Reason: RENAL Stop: 11/25/17 08:16 Ondansetron HCl (Zofran Odt) 4 mg PO Q4H PRN PRN Reason: Nausea / Vomiting Stop: 11/22/17 17:30 Pantoprazole Sodium (Protonix) 40 mg PO DAILY [facility] Stop: 11/23/17 08:59 Last Admin: 09/29/17 10:05 Dose: 40 mg Senna (Senna) 17.2 mg PO HS [facility] Stop: 11/22/17 20:59 Last Admin: 09/28/17 21:45 Dose: 17.2 mg Tamsulosin HCl (Flomax) 0.4 mg PO DAILY [facility] Stop: 11/23/17 08:59 Last Admin: 09/29/17 10:04 Dose: 0.4 mg Vitamin B Complex/Vit C/Folic Acid (Vitamin B Complex W/Vitamin C) 1 tab PO DAILY [facility] Stop: 11/23/17 08:59 Last Admin: 09/29/17 10:05 Dose: 1 tab - Procedures Procedures: Procedures Procedure Code Date AMPUTATION OF TOE 45839 08/19/17 DETACHMENT AT LEFT 1ST TOE, COMPLETE, OPEN APPROACH [id number] 08/19/17 DETACHMENT AT RIGHT 1ST TOE, COMPLETE, OPEN APPROACH [id number] 08/19/17 DETACHMENT AT RIGHT 2ND TOE, COMPLETE, OPEN APPROACH [id number] 08/19/17 EXCISION OF L LOW LEG SUBCU/FASCIA, OPEN APPROACH [id number] 08/19/17 EXTIRPATION OF MATTER FROM L AXILLA ART, OPEN APPROACH [id number] 09/23/17 PERFORMANCE OF URINARY FILTRATION, <6 HRS/DAY [id number] 08/19/17 REMOVAL OF INFUSION DEVICE FROM UPPER VEIN, PERC APPROACH [id number] 08/19/17 REMOVAL TUNNELED CV CATH [id number] 08/19/17 Nutritional Asmnt/Malnutr-PDOC - Dietary Evaluation Malnutrition Findings (Please click <Entered> for more info): Nutritional Asmnt/Malnutrition Start: 09/25/17 16: 48 Text: Status: Complete Freq: Protocol: Document 09/25/17 16:48 LCHENG (Rec: 09/25/17 17:02 HEN [email or web address]) Nutritional Asmnt/Malnutrition Patient General Information Nutritional Screening High Risk Consult Diagnosis cloteed dialyisis shunt left upper arm Pertinent Medical Hx/Surgical Hx ESRD on HD, CHF, HTN, hyperlipidemia, dementia, GERD , OA Subjective Information Pt seen sleeping at time of visit. Per EMR, PO intake 100% of meals yesterday. consult received for DM. BS 171 at admission noted. Per nurse note, pt will have dialysis tomorrow. Current Diet Order/ Nutrition Support renal fluid restriction 1200 Pertinent Medications vit C, lipitor, os-alicia, iron, novolog, levmir, culturelle, protonix, senna, vit B complex w/vit C Pertinent Labs / Na 134, Cl 97, BUN 41, Cr 5.1, glucose 113 Nutritional Hx/Data Height 5 ft 7 in Height (Calculated Centimeters) 170.2 Current Weight (lbs) 138 lb Weight (Calculated Kilograms) 62.6 Weight (Calculated Grams) 01369.7 [place] Body Weight 148 Body Mass Index (BMI) 21.6 Weight Status Approriate GI Symptoms GI Symptoms None Last BM not indicated Difficult in: None Skin Integrity/Comment: echymosis noted on patiens extremities Current %PO Good (75-100%) Estimated Nutritional Goals BEE in Kcals: Using Current wt Calories/Kcals/Kg 30-35 Kcals Calculated 8702-1933 Protein: Using Current wt Protein g/k.2-1.4 Protein Calculated 75-88 Fluid: ml 1890-2205ml (1ml/kcal) Nutritional Problem 1. Problem Problem altered nutrition reltaed labs Etiology ESRD, hx of DM Signs/Symptoms: BUN 41, Cr 5.1, glucose 113 Malnutrition Alert Is there a minimum of two criteria No selected? Query Text:Check all the applicable criteria. A minimum of two criteria are recommended for diagnosis of either severe or non-severe malnutrition. Malnutrition Related to Morbid Obesity Malnutrition related to morbid obesity No Intervention/Recommendation Comments 1. Recommend adding CCHO diet restriction. ROGER Dawson notified . 2. Monitor PO intake, wt, labs and skin integrity 3. F/U as moderate risk in 3-5 days, 09/28-09/30 Expected Outcomes/Goals Expected Outcomes/Goals 1. PO intake to meet at least 75% of nutritional needs. 2. Wt stability, skin to remain intact, labs to approach WNL.
--- NOTE | 2017-09-29 11:59 | Internal Medicine Prog Note ---
Internal Medicine Subjective - Subjective Service Date: 09/29/17 Patient seen and examined:: with staff Patient is:: awake, verbal Per staff patient has:: tolerating meds Internal Medicine Objective - Results Result Diagrams: 09/29/17 04:25 09/29/17 04:25 Recent Labs: Laboratory Last Values WBC 12.5 Th/cmm (4.8-10.8) H 09/29/17 04:25 RBC 3.16 Mil/cmm (3.80-5.80) L 09/29/17 04:25 Hgb 9.5 gm/dL (12-16) L 09/29/17 04:25 Hct 29.3 % (41.0-60) L 09/29/17 04:25 MCV 92.8 fl (80-99) 09/29/17 04:25 MCH 30.1 pg (27.0-31.0) 09/29/17 04:25 MCHC Differential 32.5 pg (28.0-36.0) 09/29/17 04:25 RDW 19.1 % (11.5-20.0) 09/29/17 04:25 Plt Count 361 Th/cmm (150-400) 09/29/17 04:25 MPV 8.0 fl 09/29/17 04:25 Neutrophils % 69.7 % (40.0-80.0) 09/29/17 04:25 Lymphocytes % 17.3 % (20.0-50.0) L 09/29/17 04:25 Monocytes % 7.6 % (2.0-10.0) 09/29/17 04:25 Eosinophils % 4.5 % (0.0-5.0) 09/29/17 04:25 Basophils % 0.9 % (0.0-2.0) 09/29/17 04:25 PT 10.0 SECONDS (9.5-11.5) 09/28/17 05:00 INR 0.96 (0.5-1.4) 09/28/17 05:00 PTT (Actin FS) 26.7 SECONDS (26.0-38.0) 09/25/17 06:00 Sodium 133 mEq/L (136-145) L 09/29/17 04:25 Potassium 5.6 mEq/L (3.5-5.1) H 09/29/17 04:25 Chloride 100 mEq/L (98-107) 09/29/17 04:25 Carbon Dioxide 24.4 mEq/L (21.0-31.0) 09/29/17 04:25 Anion Gap 14.2 (7.0-16.0) 09/29/17 04:25 BUN 39 mg/dL (7-25) H 09/29/17 04:25 Creatinine 4.4 mg/dL (0.7-1.3) H* 09/29/17 04:25 Est GFR ( Amer) TNP 09/29/17 04:25 Est GFR (Non-Af Amer) TNP 09/29/17 04:25 BUN/Creatinine Ratio 8.9 09/29/17 04:25 Glucose 79 mg/dL (70-105) 09/29/17 04:25 POC Glucose 89 MG/DL (70 - 105) 09/29/17 05:53 Calcium 8.5 mg/dL (8.6-10.3) L 09/29/17 04:25 Total Bilirubin 0.5 mg/dL (0.3-1.0) 09/29/17 04:25 AST 12 U/L (13-39) L 09/29/17 04:25 ALT 7 U/L (7-52) 09/29/17 04:25 Alkaline Phosphatase 79 U/L (34-104) 09/29/17 04:25 B-Natriuretic Peptide 394.0 pg/mL (5.0-100.0) H 09/27/17 05:30 Total Protein 6.0 gm/dL (6.0-8.3) 09/29/17 04:25 Albumin 2.6 gm/dL (4.2-5.5) L 09/29/17 04:25 Globulin 3.4 gm/dL 09/29/17 04:25 Albumin/Globulin Ratio 0.8 (1.0-1.8) L 09/29/17 04:25 - Physical Exam Vitals and I&O: Vital Signs Temp 97.9 F 09/29/17 07:57 Pulse 105 09/29/17 10:34 Resp 20 09/29/17 10:34 BP 123/65 09/29/17 10:04 Pulse Ox 100 06/08/18 10:34 Intake & Output 09/28/1718 18 18:59 06:59 18:59 Intake Total 720 Output Total 300 Balance 420 Weight (lbs) 144 lb 176 lb Intake: Oral 720 Output: Urine 300 Other: # Bowel Movements 1 Stool Characteristics Soft Soft Formed Formed Weight Source Estimated Bedscale Active Medications: Current Medications Acetaminophen (Tylenol) 650 mg PO Q4HR PRN PRN Reason: MILD PAIN Stop: 11/22/17 17:30 Last Admin: 09/28/17 16:09 Dose: 650 mg Acetaminophen/Hydrocodone Bitart ([place] 5mg/325mg) 1 tab PO Q6H PRN PRN Reason: Pain (Mild) Stop: 11/27/17 20:22 Last Admin: 09/28/17 22:14 Dose: 1 tab Albuterol/Ipratropium (Duoneb Neb) 3 ml HHN Q12HRT PRN PRN Reason: COPD Stop: 11/22/17 17:30 Albuterol/Ipratropium (Duoneb Neb) 3 ml HHN [id number] [facility] Stop: 11/22/17 18:59 Last Admin: 09/29/17 10:34 Dose: 3 ml Amlodipine Besylate (Norvasc) 10 mg PO DAILY [facility] Stop: 11/23/17 08:59 Last Admin: 09/29/17 10:04 Dose: Not Given Ascorbic Acid (Vitamin C) 500 mg PO DAILY [facility] Stop: 11/23/17 08:59 Last Admin: 09/29/17 10:05 Dose: 500 mg Aspirin (Aspirin Chewable) 81 mg PO DAILY [facility] Stop: 11/23/17 08:59 Last Admin: 09/29/17 10:05 Dose: 81 mg Atorvastatin Calcium (Lipitor) 20 mg PO HS [facility] Stop: 11/22/17 20:59 Last Admin: 09/28/17 22:00 Dose: 20 mg Bisacodyl (Dulcolax 10 Mg Supp) 10 mg RC DAILY PRN PRN Reason: IF MOM INEFECTIVE Stop: 11/22/17 17:30 Budesonide (Pulmicort) 0.5 mg HHN BIDRT [facility] Stop: 11/22/17 18:59 Last Admin: 09/29/17 07:09 Dose: 0.5 mg Calcium Carbonate (Os-Alicia) 500 mg PO DAILY [facility] Stop: 11/23/17 08:59 Last Admin: 09/29/17 10:05 Dose: 500 mg Dextrose (D50w) 50 ml IVP PRN PRN PRN Reason: Blood Glucose less than 70 Stop: 11/27/17 05:45 Last Admin: 09/28/17 05:53 Dose: 50 ml Docusate Sodium (Colace) 100 mg PO BID [facility] Stop: 11/23/17 08:59 Last Admin: 09/29/17 10:05 Dose: 100 mg Ferrous Sulfate (Iron) 325 mg PO DAILY [facility] Stop: 11/23/17 08:59 Last Admin: 09/29/17 10:05 Dose: 325 mg Finasteride (Proscar) 5 mg PO DAILY [facility]; Protocol Stop: 11/23/17 08:59 Last Admin: 09/29/17 10:04 Dose: 5 mg Heparin Sodium (Porcine) (Heparin) 5,000 units SUBQ Q12HR [facility] Stop: 11/22/17 20:59 Last Admin: 09/29/17 10:05 Dose: 5,000 units Ceftriaxone Sodium 1 gm/ (Sodium Chloride) 50 mls @ 100 mls/hr IV DAILY [facility] Stop: 11/28/17 10:59 Insulin Aspart (Novolog Insulin Sliding Scale) 0 units SUBQ ACHS [facility]; Protocol Stop: 11/22/17 20:59 Last Admin: 09/29/17 08:12 Dose: Not Given Insulin Detemir (Levemir Insulin) 10 units SUBQ HS [facility]; Protocol Stop: 11/22/17 20:59 Last Admin: 09/28/17 22:00 Dose: Not Given Lactobacillus Rhamnosus (Culturelle 15b) 1 each PO DAILY [facility] Stop: 11/23/17 08:59 Last Admin: 09/29/17 10:05 Dose: 1 each Miscellaneous (Clinical Monitoring) 1 ea MC DAILY PRN PRN Reason: RENAL Stop: 11/25/17 08:16 Ondansetron HCl (Zofran Odt) 4 mg PO Q4H PRN PRN Reason: Nausea / Vomiting Stop: 11/22/17 17:30 Pantoprazole Sodium (Protonix) 40 mg PO DAILY [facility] Stop: 11/23/17 08:59 Last Admin: 09/29/17 10:05 Dose: 40 mg Senna (Senna) 17.2 mg PO HS [facility] Stop: 11/22/17 20:59 Last Admin: 09/28/17 21:45 Dose: 17.2 mg Tamsulosin HCl (Flomax) 0.4 mg PO DAILY [facility] Stop: 11/23/17 08:59 Last Admin: 09/29/17 10:04 Dose: 0.4 mg Vitamin B Complex/Vit C/Folic Acid (Vitamin B Complex W/Vitamin C) 1 tab PO DAILY [facility] Stop: 11/23/17 08:59 Last Admin: 09/29/17 10:05 Dose: 1 tab General: alert HEENT: NC/AT, PERRLA Neck: Supple Lungs: CTAB Cardiovascular: RRR, Normal S1, Normal S2 Abdomen: soft, non-tender, non-distended - Procedures Procedures: Procedures Procedure Code Date AMPUTATION OF TOE 83074 08/19/17 DETACHMENT AT LEFT 1ST TOE, COMPLETE, OPEN APPROACH [id number] 08/19/17 DETACHMENT AT RIGHT 1ST TOE, COMPLETE, OPEN APPROACH [id number] 08/19/17 DETACHMENT AT RIGHT 2ND TOE, COMPLETE, OPEN APPROACH [id number] 08/19/17 EXCISION OF L LOW LEG SUBCU/FASCIA, OPEN APPROACH [id number] 08/19/17 EXTIRPATION OF MATTER FROM L AXILLA ART, OPEN APPROACH [id number] 09/23/17 PERFORMANCE OF URINARY FILTRATION, <6 HRS/DAY [id number] 08/19/17 REMOVAL OF INFUSION DEVICE FROM UPPER VEIN, PERC APPROACH [id number] 08/19/17 REMOVAL TUNNELED CV CATH [id number] 08/19/17 Internal Medicine Assmt/Plan - Assessment Assessment: Gangrene right foot s/p syme's amputation AV shunt malfunction esrd on hd chf htn hyperlipidemia dementia gerd oa - Plan Plan: continue hd as per renal wound care to continue continue current orders Nutritional Asmnt/Malnutr-PDOC - Dietary Evaluation Malnutrition Findings (Please click <Entered> for more info): Nutritional Asmnt/Malnutrition Start: 09/25/17 16: 48 Text: Status: Complete Freq: Protocol: Document 09/25/17 16:48 HERACLIO (Rec: 09/25/17 17:02 HERACLIO [email or web address]) Nutritional Asmnt/Malnutrition Patient General Information Nutritional Screening High Risk Consult Diagnosis cloteed dialyisis shunt left upper arm Pertinent Medical Hx/Surgical Hx ESRD on HD, CHF, HTN, hyperlipidemia, dementia, GERD , OA Subjective Information Pt seen sleeping at time of visit. Per EMR, PO intake 100% of meals yesterday. consult received for DM. BS 171 at admission noted. Per nurse note, pt will have dialysis tomorrow. Current Diet Order/ Nutrition Support renal fluid restriction 1200 Pertinent Medications vit C, lipitor, os-alicia, iron, novolog, levmir, culturelle, protonix, senna, vit B complex w/vit C Pertinent Labs 09/25 Na 134, Cl 97, BUN 41, Cr 5.1, glucose 113 Nutritional Hx/Data Height 5 ft 7 in Height (Calculated Centimeters) 170.2 Current Weight (lbs) 138 lb Weight (Calculated Kilograms) 62.6 Weight (Calculated Grams) 36481.7 [place] Body Weight 148 Body Mass Index (BMI) 21.6 Weight Status Approriate GI Symptoms GI Symptoms None Last BM not indicated Difficult in: None Skin Integrity/Comment: echymosis noted on patiens extremities Current %PO Good (75-100%) Estimated Nutritional Goals BEE in Kcals: Using Current wt Calories/Kcals/Kg 30-35 Kcals Calculated 1925-6961 Protein: Using Current wt Protein g/k.2-1.4 Protein Calculated 75-88 Fluid: ml 1890-2205ml (1ml/kcal) Nutritional Problem 1. Problem Problem altered nutrition reltaed labs Etiology ESRD, hx of DM Signs/Symptoms: BUN 41, Cr 5.1, glucose 113 Malnutrition Alert Is there a minimum of two criteria No selected? Query Text:Check all the applicable criteria. A minimum of two criteria are recommended for diagnosis of either severe or non-severe malnutrition. Malnutrition Related to Morbid Obesity Malnutrition related to morbid obesity No Intervention/Recommendation Comments 1. Recommend adding CCHO diet restriction. ROGER Dawson notified . 2. Monitor PO intake, wt, labs and skin integrity 3. F/U as moderate risk in 3-5 days, 09/28-09/30 Expected Outcomes/Goals Expected Outcomes/Goals 1. PO intake to meet at least 75% of nutritional needs. 2. Wt stability, skin to remain intact, labs to approach WNL.
--- NOTE | 2017-09-29 15:32 | General Progress Note ---
Subjective - Review of Systems Service Date: 09/29/17 Events since last encounter: dressing dry, minimal pain Objective - Results Result Diagrams: 09/29/17 04:25 09/29/17 04:25 Recent Labs: Laboratory Last Values WBC 12.5 Th/cmm (4.8-10.8) H 09/29/17 04:25 RBC 3.16 Mil/cmm (3.80-5.80) L 09/29/17 04:25 Hgb 9.5 gm/dL (12-16) L 09/29/17 04:25 Hct 29.3 % (41.0-60) L 09/29/17 04:25 MCV 92.8 fl (80-99) 09/29/17 04:25 MCH 30.1 pg (27.0-31.0) 09/29/17 04:25 MCHC Differential 32.5 pg (28.0-36.0) 09/29/17 04:25 RDW 19.1 % (11.5-20.0) 09/29/17 04:25 Plt Count 361 Th/cmm (150-400) 09/29/17 04:25 MPV 8.0 fl 09/29/17 04:25 Neutrophils % 69.7 % (40.0-80.0) 09/29/17 04:25 Lymphocytes % 17.3 % (20.0-50.0) L 09/29/17 04:25 Monocytes % 7.6 % (2.0-10.0) 09/29/17 04:25 Eosinophils % 4.5 % (0.0-5.0) 09/29/17 04:25 Basophils % 0.9 % (0.0-2.0) 09/29/17 04:25 PT 10.0 SECONDS (9.5-11.5) 09/28/17 05:00 INR 0.96 (0.5-1.4) 09/28/17 05:00 PTT (Actin FS) 26.7 SECONDS (26.0-38.0) 09/25/17 06:00 Sodium 133 mEq/L (136-145) L 09/29/17 04:25 Potassium 5.6 mEq/L (3.5-5.1) H 09/29/17 04:25 Chloride 100 mEq/L (98-107) 09/29/17 04:25 Carbon Dioxide 24.4 mEq/L (21.0-31.0) 09/29/17 04:25 Anion Gap 14.2 (7.0-16.0) 09/29/17 04:25 BUN 39 mg/dL (7-25) H 09/29/17 04:25 Creatinine 4.4 mg/dL (0.7-1.3) H* 09/29/17 04:25 Est GFR ( Amer) TNP 09/29/17 04:25 Est GFR (Non-Af Amer) TNP 09/29/17 04:25 BUN/Creatinine Ratio 8.9 09/29/17 04:25 Glucose 79 mg/dL (70-105) 09/29/17 04:25 POC Glucose 194 MG/DL (70 - 105) H 09/29/17 12:26 Calcium 8.5 mg/dL (8.6-10.3) L 09/29/17 04:25 Total Bilirubin 0.5 mg/dL (0.3-1.0) 09/29/17 04:25 AST 12 U/L (13-39) L 09/29/17 04:25 ALT 7 U/L (7-52) 09/29/17 04:25 Alkaline Phosphatase 79 U/L (34-104) 09/29/17 04:25 B-Natriuretic Peptide 394.0 pg/mL (5.0-100.0) H 09/27/17 05:30 Total Protein 6.0 gm/dL (6.0-8.3) 09/29/17 04:25 Albumin 2.6 gm/dL (4.2-5.5) L 09/29/17 04:25 Globulin 3.4 gm/dL 09/29/17 04:25 Albumin/Globulin Ratio 0.8 (1.0-1.8) L 09/29/17 04:25 - Physical Exam Vitals and I&O: Vital Signs Temp 97.5 F 09/29/17 12:10 Pulse 111 09/29/17 14:26 Resp 18 09/29/17 14:09 BP 145/64 09/29/17 14:26 Pulse Ox 98 09/29/17 14:09 Intake & Output 09/28/17 09/29/17 09/29/17 18:59 06:59 18:59 Intake Total 720 Output Total 300 Balance 420 Weight (lbs) 65.317 kg 79.832 kg Intake: Oral 720 Output: Urine 300 Other: # Bowel Movements 1 Stool Characteristics Soft Soft Formed Formed Weight Source Estimated Bedscale Active Medications: Current Medications Acetaminophen (Tylenol) 650 mg PO Q4HR PRN PRN Reason: MILD PAIN Stop: 11/22/17 17:30 Last Admin: 09/28/17 16:09 Dose: 650 mg Acetaminophen/Hydrocodone Bitart (Curlew 5mg/325mg) 1 tab PO Q6H PRN PRN Reason: Pain (Mild) Stop: 11/27/17 20:22 Last Admin: 09/28/17 22:14 Dose: 1 tab Albuterol/Ipratropium (Duoneb Neb) 3 ml HHN Q12HRT PRN PRN Reason: COPD Stop: 11/22/17 17:30 Albuterol/Ipratropium (Duoneb Neb) 3 ml HHN [id number] [facility] Stop: 11/22/17 18:59 Last Admin: 09/29/17 14:09 Dose: 3 ml Amlodipine Besylate (Norvasc) 10 mg PO DAILY [facility] Stop: 11/23/17 08:59 Last Admin: 09/29/17 14:26 Dose: 10 mg Ascorbic Acid (Vitamin C) 500 mg PO DAILY [facility] Stop: 11/23/17 08:59 Last Admin: 09/29/17 10:05 Dose: 500 mg Aspirin (Aspirin Chewable) 81 mg PO DAILY [facility] Stop: 11/23/17 08:59 Last Admin: 09/29/17 10:05 Dose: 81 mg Atorvastatin Calcium (Lipitor) 20 mg PO HS [facility] Stop: 11/22/17 20:59 Last Admin: 09/28/17 22:00 Dose: 20 mg Bisacodyl (Dulcolax 10 Mg Supp) 10 mg RC DAILY PRN PRN Reason: IF MOM INEFECTIVE Stop: 11/22/17 17:30 Budesonide (Pulmicort) 0.5 mg HHN BIDRT [facility] Stop: 11/22/17 18:59 Last Admin: 09/29/17 07:09 Dose: 0.5 mg Calcium Carbonate (Os-Alicia) 500 mg PO DAILY [facility] Stop: 11/23/17 08:59 Last Admin: 09/29/17 10:05 Dose: 500 mg Dextrose (D50w) 50 ml IVP PRN PRN PRN Reason: Blood Glucose less than 70 Stop: 11/27/17 05:45 Last Admin: 09/28/17 05:53 Dose: 50 ml Docusate Sodium (Colace) 100 mg PO BID [facility] Stop: 11/23/17 08:59 Last Admin: 09/29/17 10:05 Dose: 100 mg Ferrous Sulfate (Iron) 325 mg PO DAILY [facility] Stop: 11/23/17 08:59 Last Admin: 09/29/17 10:05 Dose: 325 mg Finasteride (Proscar) 5 mg PO DAILY [facility]; Protocol Stop: 11/23/17 08:59 Last Admin: 09/29/17 10:04 Dose: 5 mg Heparin Sodium (Porcine) (Heparin) 5,000 units SUBQ Q12HR [facility] Stop: 11/22/17 20:59 Last Admin: 09/29/17 10:05 Dose: 5,000 units Ceftriaxone Sodium 1 gm/ (Sodium Chloride) 50 mls @ 100 mls/hr IV DAILY [facility] Stop: 11/28/17 10:59 Last Admin: 09/29/17 12:34 Dose: 100 mls/hr Insulin Aspart (Novolog Insulin Sliding Scale) 0 units SUBQ ACHS [facility]; Protocol Stop: 11/22/17 20:59 Last Admin: 09/29/17 12:34 Dose: 2 units Insulin Detemir (Levemir Insulin) 10 units SUBQ HS [facility]; Protocol Stop: 11/22/17 20:59 Last Admin: 09/28/17 22:00 Dose: Not Given Lactobacillus Rhamnosus (Culturelle 15b) 1 each PO DAILY [facility] Stop: 11/23/17 08:59 Last Admin: 09/29/17 10:05 Dose: 1 each Miscellaneous (Clinical Monitoring) 1 ea MC DAILY PRN PRN Reason: RENAL Stop: 11/25/17 08:16 Ondansetron HCl (Zofran Odt) 4 mg PO Q4H PRN PRN Reason: Nausea / Vomiting Stop: 11/22/17 17:30 Pantoprazole Sodium (Protonix) 40 mg PO DAILY [facility] Stop: 11/23/17 08:59 Last Admin: 09/29/17 10:05 Dose: 40 mg Senna (Senna) 17.2 mg PO HS [facility] Stop: 11/22/17 20:59 Last Admin: 09/28/17 21:45 Dose: 17.2 mg Tamsulosin HCl (Flomax) 0.4 mg PO DAILY [facility] Stop: 11/23/17 08:59 Last Admin: 09/29/17 10:04 Dose: 0.4 mg Vitamin B Complex/Vit C/Folic Acid (Vitamin B Complex W/Vitamin C) 1 tab PO DAILY [facility] Stop: 11/23/17 08:59 Last Admin: 09/29/17 10:05 Dose: 1 tab General: Alert, No acute distress HEENT: Atraumatic Cardiovascular: Regular rate Abdomen: Bowel sounds Neurological: Normal gait - Procedures Procedures: Procedures Procedure Code Date AMPUTATION OF TOE 59195 08/19/17 DETACHMENT AT LEFT 1ST TOE, COMPLETE, OPEN APPROACH [id number] 08/19/17 DETACHMENT AT RIGHT 1ST TOE, COMPLETE, OPEN APPROACH [id number] 08/19/17 DETACHMENT AT RIGHT 2ND TOE, COMPLETE, OPEN APPROACH [id number] 08/19/17 EXCISION OF L LOW LEG SUBCU/FASCIA, OPEN APPROACH [id number] 08/19/17 EXTIRPATION OF MATTER FROM L AXILLA ART, OPEN APPROACH [id number] 09/23/17 PERFORMANCE OF URINARY FILTRATION, <6 HRS/DAY [id number] 08/19/17 REMOVAL OF INFUSION DEVICE FROM UPPER VEIN, PERC APPROACH [id number] 08/19/17 REMOVAL TUNNELED CV CATH [id number] 08/19/17 Nutritional Asmnt/Malnutr-PDOC - Dietary Evaluation Malnutrition Findings (Please click <Entered> for more info): Nutritional Asmnt/Malnutrition Start: 09/25/17 16: 48 Text: Status: Complete Freq: Protocol: Document 09/25/17 16:48 LCHENG (Rec: 09/25/17 17:02 [id number]) Nutritional Asmnt/Malnutrition Patient General Information Nutritional Screening High Risk Consult Diagnosis cloteed dialyisis shunt left upper arm Pertinent Medical Hx/Surgical Hx ESRD on HD, CHF, HTN, hyperlipidemia, dementia, GERD , OA Subjective Information Pt seen sleeping at time of visit. Per EMR, PO intake 100% of meals yesterday. consult received for DM. BS 171 at admission noted. Per nurse note, pt will have dialysis tomorrow. Current Diet Order/ Nutrition Support renal fluid restriction 1200 Pertinent Medications vit C, lipitor, os-alicia, iron, novolog, levmir, culturelle, protonix, senna, vit B complex w/vit C Pertinent Labs 09/25 Na 134, Cl 97, BUN 41, Cr 5.1, glucose 113 Nutritional Hx/Data Height 1.7 m Height (Calculated Centimeters) 170.2 Current Weight (lbs) 62.596 kg Weight (Calculated Kilograms) 62.6 Weight (Calculated Grams) 94141.7 [place] Body Weight 148 Body Mass Index (BMI) 21.6 Weight Status Approriate GI Symptoms GI Symptoms None Last BM not indicated Difficult in: None Skin Integrity/Comment: echymosis noted on patiens extremities Current %PO Good (75-100%) Estimated Nutritional Goals BEE in Kcals: Using Current wt Calories/Kcals/Kg 30-35 Kcals Calculated 0530-1922 Protein: Using Current wt Protein g/k.2-1.4 Protein Calculated 75-88 Fluid: ml 1890-2205ml (1ml/kcal) Nutritional Problem 1. Problem Problem altered nutrition reltaed labs Etiology ESRD, hx of DM Signs/Symptoms: BUN 41, Cr 5.1, glucose 113 Malnutrition Alert Is there a minimum of two criteria No selected? Query Text:Check all the applicable criteria. A minimum of two criteria are recommended for diagnosis of either severe or non-severe malnutrition. Malnutrition Related to Morbid Obesity Malnutrition related to morbid obesity No Intervention/Recommendation Comments 1. Recommend adding CCHO diet restriction. ROGER Dawson notified . 2. Monitor PO intake, wt, labs and skin integrity 3. F/U as moderate risk in 3-5 days, 09/28-09/30 Expected Outcomes/Goals Expected Outcomes/Goals 1. PO intake to meet at least 75% of nutritional needs. 2. Wt stability, skin to remain intact, labs to approach WNL.
--- NOTE | 2017-09-29 16:18 | Pathology Report ---
[id number] Collection Date: 09/25/2017 Surgeon: Dr. Kirstin Day Specimen Description: Clots Gross Description: Received in formalin are multiple tubular-shaped segments of reddish-brown blood clot with no other tissue fragments appreciated. These segments of blood clot range from 1.0 to 2.5 cm in length x 0.25 cm in diameter. A sales representative uniforms portion is submitted in one cassette. Microscopic Description: The histologic sections show portions of benign blood clot. Diagnosis: Blood clot from left AV shunt. [facility]# [id number]
[2017-09-29] MEDS: Hydrocodone/APAP 5mg/325mg Tab PO PRN (19:37)
--- NOTE | 2017-10-02 14:36 | Pathology Report ---
[id number] Collection date: 09/28/2017 Surgeon: Dr. Kirstin Day Specimen Description: Right foot transmetatarsal amputation Gross Description: Received in formalin is a 14 x 9 x 6 cm transmetatarsal amputation of the right distal foot with the right first and second toes showing previous amputation. There is gangrenous ulceration measuring 3 cm to the right lateral foot and sectioning shows sol-pittman discoloration and necrosis to this nonhealing wound on the lateral right foot. The right third toe also shows evidence of sol-pittman necrosis measuring 1.2 cm in greatest dimension. Gamma Operator sections are submitted in two cassettes labeled A1 and A2. Cassette A1 shows the area of gangrenous ulceration, cassette A2 shows proximal skin and soft tissue. Microscopic Description: The histologic sections show skin and subcutaneous tissue with extensive ulceration and suppurative inflammation consisting of large collections of neutrophils with a necrotic and hemorrhagic background. The proximal skin and soft tissue are intact without evidence for gangrene. Diagnosis: Ulcerated necrotic skin and soft tissue consistent with gangrene, right foot transmetatarsal amputation. [facility]# [id number] JORDY
== END 2017-09-29 20:05 | DRG 239 ==
LOC: ER 14:45 → MSI 15:50
PROVIDERS: ADMIT Internal Medicine; ATTEND Internal Medicine
PROC: 03C60ZZ Extirpation of Matter from Left Axillary Artery, Open Approach (ICD-10-PCS; principal; 2017-09-25)
PROC: 03U60JZ Supplement Left Axillary Artery with Synthetic Substitute, Open Approach (ICD-10-PCS; 2017-09-25)
PROC: 5A1D70Z Performance of Urinary Filtration, Intermittent, Less than 6 Hours Per Day (ICD-10-PCS; 2017-09-26)
PROC: 0Y6M0Z0 Detachment at Right Foot, Complete, Open Approach (ICD-10-PCS; 2017-09-28)
PROC: 5A1D70Z Performance of Urinary Filtration, Intermittent, Less than 6 Hours Per Day (ICD-10-PCS; 2017-09-29)
DX: T82.898A Other specified complication of vascular prosthetic devices, implants and grafts, initial encounter (principal); N18.6 End stage renal disease; E11.52 Type 2 diabetes mellitus with diabetic peripheral angiopathy with gangrene; I13.2 Hypertensive heart and chronic kidney disease with heart failure and with stage 5 chronic kidney disease, or end stage renal disease; Z99.2 Dependence on renal dialysis; I50.9 Heart failure, unspecified; E78.5 Hyperlipidemia, unspecified; F03.90 Unspecified dementia, unspecified severity, without behavioral disturbance, psychotic disturbance, mood disturbance, and anxiety; Y84.8 Other medical procedures as the cause of abnormal reaction of the patient, or of later complication, without mention of misadventure at the time of the procedure; K21.9 Gastro-esophageal reflux disease without esophagitis; M19.90 Unspecified osteoarthritis, unspecified site; Z89.431 Acquired absence of right foot; Z86.73 Personal history of transient ischemic attack (TIA), and cerebral infarction without residual deficits; Y92.89 Other specified places as the place of occurrence of the external cause
CPT/HCPCS: 36415-UA; 71045-TC; 80048-TC; 80053-TC; 82948-90; 83880-TC; 85025-TC; 85610-TC; 85730-TC; 88304-TC; 90937; 93005; 93925-TC; 93970-TC-50; 94760; J0690; J0696; J1644; J1815; J2405; J2704; J3010; J7030; J7799; V2790; X5716; Z7610

== ENCOUNTER 2017-10-05 12:42 | Inpatient (IN) | payer MEDICARE, OTHER ==
[2017-10-05 13:25] LABS: % EOSINOPHILS 2.8 % (0.0-5.0); % LYMPHOCYTES 16.8 % (20.0-50.0); % MONOCYTES 2.9 % (2.0-10.0); % NEUTROPHILS 77.5 % (40.0-80.0); EOSINOPHILE ABSOLUTE 0.4 Th/cmm (0.1-0.4); HEMATOCRIT 34.5 % (41.0-60); LYMPHOCYTE ABSOLUTE 2.2 Th/cmm (1.5-3.0); MEAN CELL VOLUME 92.1 fl (80-99); MEAN CORPUSCULAR HEMOGLOBIN 29.5 pg (27.0-31.0); MEAN PLATELET VOLUME 7.8 fl; MONOCYTE ABSOLUTE 0.4 Th/cmm (0.3-1.0); NEUTROPHILE ABSOLUTE 9.9 Th/cmm (1.8-8.0); PLATELET COUNT 487 Th/cmm (150-400); RED BLOOD COUNT 3.74 Mil/cmm (3.80-5.80); WHITE BLOOD COUNT 12.9 Th/cmm (4.8-10.8)
[2017-10-05 13:35] LABS: INR 0.9 (0.5-1.4); PROTHROMBIN TIME (TEST) 9.4 SECONDS (9.5-11.5)
[2017-10-05 13:38] LABS: ANION GAP 11.1 (7.0-16.0); BUN - UREA NITROGEN 25 mg/dL (7-25); CALCIUM SERUM 8.7 mg/dL (8.6-10.3); CHLORIDE 95 mEq/L (98-107); CREATININE - SERUM 3.8 mg/dL (0.7-1.3); GLUCOSE 115 mg/dL (70-105); POTASSIUM SERUM 3.1 mEq/L (3.5-5.1); SODIUM SERUM 136 mEq/L (136-145)
--- NOTE | 2017-10-05 13:46 | ED Physician Chart ---
ED Chief Complaint/HPI - Patient Information Date Seen:: 10/05/17 Time Seen:: 13:15 Chief Complaint:: clotted hemodialysis shunt History of Present Illness:: Patient was supposed to have dialysis this morning but it could not be done because his hemodialysis shunt in the left arm was clotted. Patient states this is the third time that this has happened Allergies:: Allergies Allergy/AdvReac Type Severity Reaction Status Date / Time No Known Allergies Allergy Verified 08/19/17 17:40 Historian:: Patient Review:: Transfer documents Reviewed ED Review of Systems - Review of Systems General/Constitutional: No fever, No chills, No weight loss, No weakness, No diaphoresis, No edema, No loss of appetite Skin: No skin lesions, No rash, No bruising Head: No headache, No light-headedness Eyes: No loss of vision, No pain, No diplopia ENT: No earache, No nasal drainage, No sore throat, No tinnitus Neck: No neck pain, No swelling, No thyromegaly, No stiffness, No mass noted Cardio Vascular: No chest pain, No palpitations, No PND, No orthopnea, No edema Pulmonary: No SOB, No cough, No sputum, No wheezing GI: No nausea, No vomiting, No diarrhea, No pain, No melena, No hematochezia, No constipation, No hematemesis G/U: No dysuria, No frequency, No hematuria Musculoskeletal: No bone or joint pain, No back pain, No muscle pain Endocrine: No polyuria, No polydipsia Psychiatric: No prior psych history, No depression, No anxiety, No suicidal ideation Hematopoietic: No bruising, No lymphadenopathy Allergic/Immuno: No urticaria, No angioedema Neurological: No syncope, No focal symptoms, No weakness, No paresthesia, No headache, No seizure, No dizziness, No confusion, No vertigo ED Past Medical History - Past Medical History Past Medical History: HTN, DM, CHF, Asthma/COPD, PUD/GERD Family History: Other (unavailable) Social History: Care Facility Surgical History: other (hemodialysis shunt left arm; amputation right foot) Psychiatricy History: Dementia Family Medical History - Family Member Mother History Unknown: Yes Ethnicity: Living Status: Unknown Hx Family Cancer: (UNKNOWN) Hx Family Coronary Artery Disease: (UNKNOWN) Hx Family Congestive Heart Failure: (UNKNOWN) Hx Family Hypertension: (UNKNOWN) Hx Family Stroke: (UNKNOWN) Hx Family Diabetes: (UNKNOWN) Hx Family Seizures: (UNKNOWN) Hx Family Dementia: (UNKNOWN) Hx Family AIDS: (UNKNOWN) Hx Family COPD: (UNKNOWN) Hx Family Hepatitis: (UNKNOWN) Hx Family Psychiatric Problems: (UNKNOWN) Hx Family Tuberculosis: (UNKNOWN) ED Physical Exam - Physical Examination General/Constitutional: Awake, Well-developed, well-nourished, Alert, No distress, GCS 15, Non-toxic appearing, Ambulatory Other Gen/Cons comments:: Patient is alert and confused; he does not know the correct year Head: Atraumatic Eyes: Lids, conjuctiva normal, PERRL, EOMI Skin: Nl inspection, No rash, No skin lesions, No ecchymosis, Well hydrated, No lymphadenopathy ENMT: External ears, nose nl, Nasal exam nl, Lips, teeth, gums nl Neck: Nontender, Full ROM w/o pain, No JVD, No nuchal rigidity, No bruit, No mass, No stridor Respiratory: Nl effort/Exclusion, Clear to Auscultation, No Wheeze/Rhonchi/Rales Cardio Vascular: RRR, No murmur, gallop, rubs, NL S1 S2 GI: No tenderness/rebounding/guarding, No organomegaly, No hernia, Normal BS's, Nondistended, No mass/bruits, No McBurney tenderness : No CVA tenderness Extremities: No edema Neuro/Psych: Alert/oriented, DTR's symmetric, Normal sensory exam, Normal motor strength, Judgement/insight normal, Mood normal, Normal gait, No focal deficits Misc: Normal back, No paraspinal tenderness ED Labs/Radiology/EKG Results - Lab Results Results: Laboratory Results - last 24 hr 10/05/17 10/05/17 10/05/17 13:13 13:13 13:13 WBC 12.9 H RBC 3.74 L Hgb 11.0 L Hct 34.5 L MCV 92.1 MCH 29.5 MCHC Differential 32.0 RDW 18.0 Plt Count 487 H MPV 7.8 Neutrophils % 77.5 Lymphocytes % 16.8 L Monocytes % 2.9 Eosinophils % 2.8 Basophils % 0.0 PT 9.4 L INR 0.90 PTT (Actin FS) 20.9 L Sodium 136 Potassium 3.1 L Chloride 95 L Carbon Dioxide 33.0 H Anion Gap 11.1 BUN 25 Creatinine 3.8 H Est GFR ( Amer) TNP Est GFR (Non-Af Amer) TNP BUN/Creatinine Ratio 6.6 Glucose 115 H Calcium 8.7 ED Reassessment (Disposition) - Reassessment Reassessment Condition:: Unchanged - Diagnosis Diagnosis:: Clotted dialysis shunt; anemia; leukocytosis
[2017-10-05] MEDS ORDERED: Potassium Chloride 20 mEq ER Tab PO ONE (19:42)
[2017-10-05 20:11] VITALS: BP 136/79
[2017-10-05] MEDS: D5-0.45NS 1,000 ML IV SCH (21:25)
[2017-10-05] MEDS ORDERED: Hydrocodone/APAP 5mg/325mg Tab PO PRN (21:48)
[2017-10-06] MEDS ORDERED: Heparin Sod 1,000 Units/mL 10ml HD SCH
[2017-10-06] MEDS ORDERED: Albumin 25% 25gm/100mL 25 GM/100 ML BTL IV ONE
[2017-10-06 03:05] LABS: URINE MICROSCOPIC INDICATED? YES; URINE SOURCE FOLEY PORT
[2017-10-06 03:07] LABS: URINE BILIRUBIN NEGATIVE (NEGATIVE); URINE BLOOD SMALL (NEGATIVE); URINE GLUCOSE (UA) NEGATIVE (NEGATIVE); URINE KETONE TRACE mg/dL (NEGATIVE); URINE LEUKOCYTE ESTERASE LARGE (NEGATIVE); URINE NITRATE NEGATIVE (NEGATIVE); URINE PROTEIN 100 mg/dL (NEGATIVE); URINE UROBILINOGEN 0.2 E.U./dL (0.2 - 1.0)
[2017-10-06 03:25] LABS: URINE CLARITY CLOUDY (CLEAR); URINE COLOR YELLOW
[2017-10-06 03:26] LABS: URINE WBC >100 /hpf (0-5)
[2017-10-06 03:27] LABS: URINE BACTERIA MODERATE /hpf (NONE SEEN); URINE EPITHELIAL CELLS FEW /lpf (FEW); URINE YEAST MODERATE /hpf (NONE SEEN)
[2017-10-06 06:32] LABS: % BASOPHILS 0.9 % (0.0-2.0); % EOSINOPHILS 5.1 % (0.0-5.0); % LYMPHOCYTES 22.3 % (20.0-50.0); % MONOCYTES 5.4 % (2.0-10.0); % NEUTROPHILS 66.3 % (40.0-80.0); BASOPHILE ABSOLUTE 0.1 Th/cumm (0-0.2); EOSINOPHILE ABSOLUTE 0.6 Th/cmm (0.1-0.4); HEMATOCRIT 32.4 % (41.0-60); HEMOGLOBIN 10.6 gm/dL (12-16); LYMPHOCYTE ABSOLUTE 2.6 Th/cmm (1.5-3.0); MEAN CELL VOLUME 91.8 fl (80-99); MEAN CORPUSCULAR HEMOGLOBIN 29.9 pg (27.0-31.0); MEAN CORPUSCULAR HGB CONC 32.6 pg (28.0-36.0); MEAN PLATELET VOLUME 7.8 fl; MONOCYTE ABSOLUTE 0.6 Th/cmm (0.3-1.0); NEUTROPHILE ABSOLUTE 7.8 Th/cmm (1.8-8.0); PLATELET COUNT 446 Th/cmm (150-400); RED BLOOD COUNT 3.53 Mil/cmm (3.80-5.80); RED CELL DISTRIBUTION WIDTH 17.7 % (11.5-20.0); WHITE BLOOD COUNT 11.7 Th/cmm (4.8-10.8)
[2017-10-06 06:47] LABS: ALB/GLOB RATIO 0.7 (1.0-1.8); ALBUMIN 2.6 gm/dL (4.2-5.5); ALKALINE PHOSPHATASE 76 U/L (34-104); ANION GAP 12.4 (7.0-16.0); BILIRUBIN,TOTAL 0.3 mg/dL (0.3-1.0); BUN - UREA NITROGEN 28 mg/dL (7-25); CALCIUM SERUM 8.5 mg/dL (8.6-10.3); CARBON DIOXIDE 29.6 mEq/L (21.0-31.0); CHLORIDE 100 mEq/L (98-107); CHOLESTEROL 114 mg/dL (<200); GLUCOSE 139 mg/dL (70-105); HDL -HIGH DENSITY LIPOPROTEIN 36 mg/dL (23-92); PHOSPHOROUS 3.5 mg/dL (2.5-5.0); SGOT 11 U/L (13-39); SGPT/ALT 7 U/L (7-52); SODIUM SERUM 139 mEq/L (136-145); TOTAL PROTEIN,SERUM 6.2 gm/dL (6.0-8.3); TRIGLYCERIDES 85 mg/dL (<150)
[2017-10-06 06:53] LABS: CREATININE - SERUM 4.3 mg/dL (0.7-1.3)
--- NOTE | 2017-10-06 07:04 | Consultation ---
DATE OF CONSULTATION: 10/05/2017 ATTENDING: Samantha Galeas M.D. REASON FOR CONSULTATION: Electrolyte imbalance and fluid management. HISTORY OF PRESENT ILLNESS: This is an 82-year-old male with past medical history of end-stage renal disease on hemodialysis, who came in because of a clotted left AV fistula. A few hours prior to admission, the patient reported to the dialysis unit. However, staff noted left AV fistula was clotted. He was then brought to the Emergency Room. As per son, this is the third episode that his father's shunt had clotted. He does have a thrombectomy a week ago. There was no episode of hypotension. PAST MEDICAL HISTORY: 1. End-stage renal disease, on hemodialysis. 2. Type 2 diabetes mellitus. 3. Essential hypertension. 4. COPD. 5. Peptic ulcer disease. 6. BPH. 7. Dyslipidemia. 8. Anemia of chronic kidney disease. 9. Alzheimer dementia. 10. Peripheral arterial disease. PAST SURGICAL HISTORY: Status post creation of left AV fistula. CURRENT MEDICATIONS: Currently on vancomycin. ALLERGIES: No known drug allergies. SOCIAL HISTORY: No history of alcohol or tobacco use. FAMILY HISTORY: Noncontributory to present illness. REVIEW OF SYSTEMS: CONSTITUTIONAL: Denied any weakness, appetite has been fair, no fever or chills. HEENT: No headaches, no dizziness. CARDIORESPIRATORY: There is no chest pain, palpitations, diaphoresis, or cough. He does have essential hypertension, COPD, and peripheral arterial disease. MUSCULOSKELETAL: Multiple joint arthralgias. GENITOURINARY: History of kidney failure, on hemodialysis. HEMATOLOGIC: History of anemia of chronic kidney disease. ENDOCRINE: History of diabetes and dyslipidemia, but no thyroid abnormalities. MUSCULOSKELETAL: Multiple joint arthralgias. NEUROPSYCHIATRIC: No syncopal episode nor seizure activity. PHYSICAL EXAMINATION: GENERAL: The patient is alert, verbal, comfortable. VITAL SIGNS: Blood pressure is 155/62, pulse 74, temperature 98 degrees. SKIN: Good turgor, warm, no rash, no jaundice appreciated. HEENT: Head: Normocephalic, atraumatic. Eyes: Extraocular muscles intact. Pupils equal, round, reactive to light and accommodates. Anicteric sclerae. Pale conjunctivae. Nose: Midline nasal septum. Mouth: Moist mucosa with poor dentition. NECK: Supple, no adenopathy, no thyromegaly, no bruits. Trachea palpated in the midline. CHEST AND CVS: S1, S2. No rub, murmur, or gallop appreciated. Point of maximal impulse fifth intercostal space, left midclavicular line. No abdominal or femoral bruits appreciated. LUNGS: Equal expansion. No use of accessory muscles or supraclavicular retractions. Decreased breath sounds, clear to auscultation without any wheeze. ABDOMEN: Globular, soft. Positive for bowel sounds. No bruits either diastolic or systolic. RECTAL: Lax sphincter tone. GENITOURINARY: Normal appearing male genitalia. MUSCULOSKELETAL: No effusions present in his joints with adequate range of motion. EXTREMITIES: No evidence of any edema, cyanosis, nor clubbing with palpable femoral, but unable to fully appreciate popliteal and dorsalis pedis pulses. He has no bruit nor thrill on his left AV fistula. NEUROLOGIC: The patient is alert, verbal, motor is 5/5. Cranial nerves 3-12 intact. Sensory is intact. LABORATORY DATA: Did reveal white count 12.9, hemoglobin 11, hematocrit 34.5, platelets 487, polys 77.5%. Sodium 136, potassium 3.1, chloride 95, bicarbonate 33, BUN 25, creatinine 3.8, calcium 8.7, glucose 115. IMPRESSION: 1. Clotted left AV fistula. 2. End-stage renal disease, on hemodialysis. 3. Type 2 diabetes mellitus with chronic kidney disease. 4. Essential hypertension with chronic kidney disease. 5. Chronic obstructive pulmonary disease. 6. Peptic ulcer disease. 7. Benign prostatic hypertrophy. 8. Dyslipidemia. 9. Anemia of chronic kidney disease. 10. Alzheimer dementia. 11. Peripheral arterial disease. PLAN: 1. Vascular Surgery consult. 2. The patient may need new AV fistula since this is a third thrombectomy. 3. Hemodialysis, post-surgery. Thank you, Dr. Galeas for this consult. We will follow the patient closely with you. JOB# [id number]
[2017-10-06] MEDS: Budesonide 0.5 Mg/2 mL Ud HHN SCH ×2 (07:22→19:25)
[2017-10-06] MEDS: Albuterol/Ipratropium Neb 3 ML AERS HHN SCH ×4 (07:23→19:25)
[2017-10-06] MEDS ORDERED: Thrombin, Bovine 5,000 IU Vial TP ONE (07:38)
[2017-10-06] MEDS ORDERED: Gelatin Sponge 100cm Spg TP ONE (07:39)
[2017-10-06] MEDS ORDERED: Bupivacaine 0.5% 10 mL Vial ONE (07:40)
--- NOTE | 2017-10-06 08:40 | Diagnostic Imaging Report ---
Exam: Portable chest x-ray HISTORY: Leukocytosis. Findings: Portable upright examination of the chest at 1505 hours reviewed and compared to prior study 09/24/2017 demonstrates left basilar atelectasis superimposed small effusion. The findings are chronic. There is evidence of for bilateral degenerative changes shoulder joints. The heart is not enlarged. IMPRESSION: Persistent opacification of the left costophrenic angle most likely due to chronic small effusion.
[2017-10-06] MEDS ORDERED: Non-Formulary Item 1 EA (Cranberry Fruit Extract [Cranberry] 425 MG) PO SCH (09:00)
[2017-10-06] MEDS: cefTRIAXone 1 GM in 0.9% NS 50 ML IV SCH (09:29)
--- NOTE | 2017-10-06 10:18 | General Progress Note ---
Subjective - Review of Systems Service Date: 10/06/17 Events since last encounter: history of malfunction catheters, left arm AV shunt is patent but weak discussed options with daughter Plan: placement of Permacath and thrombectomy of left arm AV shunt Objective - Results Result Diagrams: 10/06/17 05:50 10/06/17 05:50 Recent Labs: Laboratory Last Values WBC 11.7 Th/cmm (4.8-10.8) H 10/06/17 05:50 RBC 3.53 Mil/cmm (3.80-5.80) L 10/06/17 05:50 Hgb 10.6 gm/dL (12-16) L 10/06/17 05:50 Hct 32.4 % (41.0-60) L 10/06/17 05:50 MCV 91.8 fl (80-99) 10/06/17 05:50 MCH 29.9 pg (27.0-31.0) 10/06/17 05:50 MCHC Differential 32.6 pg (28.0-36.0) 10/06/17 05:50 RDW 17.7 % (11.5-20.0) 10/06/17 05:50 Plt Count 446 Th/cmm (150-400) H 10/06/17 05:50 MPV 7.8 fl 10/06/17 05:50 Neutrophils % 66.3 % (40.0-80.0) 10/06/17 05:50 Lymphocytes % 22.3 % (20.0-50.0) 10/06/17 05:50 Monocytes % 5.4 % (2.0-10.0) 10/06/17 05:50 Eosinophils % 5.1 % (0.0-5.0) H 10/06/17 05:50 Basophils % 0.9 % (0.0-2.0) 10/06/17 05:50 PT 9.4 SECONDS (9.5-11.5) L 10/05/17 13:13 INR 0.90 (0.5-1.4) 10/05/17 13:13 PTT (Actin FS) 20.9 SECONDS (26.0-38.0) L 10/05/17 13:13 Sodium 139 mEq/L (136-145) 10/06/17 05:50 Potassium 3.0 mEq/L (3.5-5.1) L 10/06/17 05:50 Chloride 100 mEq/L (98-107) 10/06/17 05:50 Carbon Dioxide 29.6 mEq/L (21.0-31.0) 10/06/17 05:50 Anion Gap 12.4 (7.0-16.0) 10/06/17 05:50 BUN 28 mg/dL (7-25) H 10/06/17 05:50 Creatinine 4.3 mg/dL (0.7-1.3) H* 10/06/17 05:50 Est GFR ( Amer) TNP 10/06/17 05:50 Est GFR (Non-Af Amer) TNP 10/06/17 05:50 BUN/Creatinine Ratio 6.5 10/06/17 05:50 Glucose 139 mg/dL (70-105) H 10/06/17 05:50 POC Glucose 122 MG/DL (70 - 105) H 10/06/17 06:25 Calcium 8.5 mg/dL (8.6-10.3) L 10/06/17 05:50 Phosphorus 3.5 mg/dL (2.5-5.0) 10/06/17 05:50 Total Bilirubin 0.3 mg/dL (0.3-1.0) 10/06/17 05:50 AST 11 U/L (13-39) L 10/06/17 05:50 ALT 7 U/L (7-52) 10/06/17 05:50 Alkaline Phosphatase 76 U/L (34-104) 10/06/17 05:50 Total Protein 6.2 gm/dL (6.0-8.3) 10/06/17 05:50 Albumin 2.6 gm/dL (4.2-5.5) L 10/06/17 05:50 Globulin 3.6 gm/dL 10/06/17 05:50 Albumin/Globulin Ratio 0.7 (1.0-1.8) L 10/06/17 05:50 Triglycerides 85 mg/dL (<150) 10/06/17 05:50 Cholesterol 114 mg/dL (<200) 10/06/17 05:50 LDL Cholesterol Direct 64 mg/dL (75-193) L 10/06/17 05:50 HDL Cholesterol 36 mg/dL (23-92) 10/06/17 05:50 TSH 3.23 uIU/ml (0.34-5.60) 10/06/17 05:50 Urine Source [place] 10/06/17 03:00 Urine Color YELLOW 10/06/17 03:00 Urine Clarity CLOUDY (CLEAR) 10/06/17 03:00 Urine pH 6.0 (4.6 - 8.0) 10/06/17 03:00 Ur Specific [place] 1.020 (1.005-1.030) 10/06/17 03:00 Urine Protein 100 mg/dL (NEGATIVE) H 10/06/17 03:00 Urine Glucose (UA) NEGATIVE mg/dL (NEGATIVE) 10/06/17 03:00 Urine Ketones TRACE mg/dL (NEGATIVE) 10/06/17 03:00 Urine Blood SMALL (NEGATIVE) H 10/06/17 03:00 Urine Nitrate NEGATIVE (NEGATIVE) 10/06/17 03:00 Urine Bilirubin NEGATIVE (NEGATIVE) 10/06/17 03:00 Urine Urobilinogen 0.2 E.U./dL (0.2 - 1.0) 10/06/17 03:00 Ur Leukocyte Esterase LARGE (NEGATIVE) H 10/06/17 03:00 Urine RBC 2-5 /hpf (0-5) H 10/06/17 03:00 Urine WBC >100 /hpf (0-5) H 10/06/17 03:00 Ur Epithelial Cells FEW /lpf (FEW) 10/06/17 03:00 Urine Bacteria MODERATE /hpf (NONE SEEN) H 10/06/17 03:00 Urine Yeast MODERATE /hpf (NONE SEEN) H 10/06/17 03:00 - Physical Exam Vitals and I&O: Vital Signs Temp 97.3 F 10/06/17 07:58 Pulse 82 10/06/17 07:58 Resp 18 10/06/17 08:00 BP 114/46 10/06/17 07:58 Pulse Ox 96 10/06/17 07:58 Intake & Output 10/05/17 10/06/17 10/06/17 18:59 06:59 18:59 Intake Total 300 Output Total 400 Balance -100 Weight (lbs) 63.503 kg 62.777 kg Intake: Oral 200 Other 100 Output: Urine 400 Stool 0 Other: # Bowel Movements 0 Weight Source Estimated Bedscale Active Medications: Current Medications Acetaminophen (Tylenol) 650 mg PO Q4HR PRN PRN Reason: MILD PAIN Stop: 12/04/17 21:47 Acetaminophen/Hydrocodone Bitart ([place] 5mg/325mg) 1 tab PO Q6H PRN PRN Reason: Pain (Mild) Stop: 12/04/17 21:47 Albuterol/Ipratropium (Duoneb Neb) 3 ml HHN [id number] INOCENCIO Stop: 12/05/17 06:59 Last Admin: 10/06/17 07:23 Dose: 3 ml Amlodipine Besylate (Norvasc) 10 mg PO DAILY INOCENCIO Stop: 12/05/17 08:59 Ascorbic Acid (Vitamin C) 500 mg PO DAILY INOCENCIO Stop: 12/05/17 08:59 Aspirin (Aspirin Chewable) 81 mg PO DAILY INOCENCOI Stop: 12/05/17 08:59 Atorvastatin Calcium (Lipitor) 20 mg PO HS INOCENCIO Stop: 12/05/17 20:59 Bisacodyl (Dulcolax 10 Mg Supp) 10 mg RC DAILY PRN PRN Reason: IF MOM INEFECTIVE Stop: 12/04/17 21:47 Budesonide (Pulmicort) 0.5 mg HHN BIDRT INOCENCIO Stop: 12/05/17 06:59 Last Admin: 10/06/17 07:22 Dose: 0.5 mg Calamine/Phenol (Calmoseptine) 1 appl TP DAILY INOCENCIO Stop: 12/05/17 08:59 Calcium Carbonate (Os-Brad) 500 mg PO DAILY INOCENCIO Stop: 12/05/17 08:59 Docusate Sodium (Colace) 100 mg PO BID INOCENCIO Stop: 12/05/17 08:59 Ferrous Sulfate (Iron) 325 mg PO DAILY INOCENCIO Stop: 12/05/17 08:59 Finasteride (Proscar) 5 mg PO DAILY [facility]; Protocol Stop: 12/05/17 08:59 Heparin Sodium (Porcine) (Heparin Sodium) 0 units HD UD INOCENCIO Stop: 10/07/17 00:00 Heparin Sodium (Porcine) (Heparin) 5,000 units SUBQ Q12HR INOCENCIO Stop: 12/05/17 08:59 Dextrose/Sodium Chloride (D5-0.45ns) 1,000 mls @ 50 mls/hr IV .Q20H INOCENCIO Stop: 12/04/17 18:44 Last Admin: 10/05/17 21:25 Dose: 50 mls/hr Ceftriaxone Sodium 1 gm/ (Sodium Chloride) 50 mls @ 100 mls/hr IV Q24HR INOCENCIO Stop: 12/05/17 08:59 Last Admin: 10/06/17 09:29 Dose: 100 mls/hr Insulin Aspart (Novolog Insulin Sliding Scale) 0 units SUBQ ACHS INOCENCIO; Protocol Stop: 12/05/17 07:29 Insulin Detemir (Levemir Insulin) 10 units SUBQ HS INOCENCIO; Protocol Stop: 12/05/17 20:59 Lactobacillus Rhamnosus (Culturelle 15b) 1 each PO DAILY INOCENCIO Stop: 12/05/17 08:59 Miscellaneous (Vancomycin Iv Per Pharmacy) 1 ea MC PRN PRN PRN Reason: PROTOCOL Stop: 12/04/17 18:21 Ondansetron HCl (Zofran Odt) 4 mg PO Q4H PRN PRN Reason: Nausea / Vomiting Stop: 12/04/17 21:47 Pantoprazole Sodium (Protonix) 40 mg PO DAILY [facility] Stop: 12/05/17 08:59 Senna (Senna) 8.6 mg PO HS INOCENCIO Stop: 12/05/17 20:59 Tamsulosin HCl (Flomax) 0.4 mg PO DAILY [facility] Stop: 12/05/17 08:59 Vitamin B Complex/Vit C/Folic Acid (Vitamin B Complex W/Vitamin C) 1 tab PO DAILY [facility] Stop: 12/05/17 08:59 - Procedures Procedures: Procedures Procedure Code Date AMPUTATION OF TOE 15677 08/19/17 DETACHMENT AT LEFT 1ST TOE, COMPLETE, OPEN APPROACH [id number] 08/19/17 DETACHMENT AT RIGHT 1ST TOE, COMPLETE, OPEN APPROACH [id number] 08/19/17 DETACHMENT AT RIGHT 2ND TOE, COMPLETE, OPEN APPROACH [id number] 08/19/17 DETACHMENT AT RIGHT FOOT, COMPLETE, OPEN APPROACH [id number] 09/23/17 EXCISION OF L LOW LEG SUBCU/FASCIA, OPEN APPROACH [id number] 08/19/17 EXTIRPATION OF MATTER FROM L AXILLA ART, OPEN APPROACH [id number] 09/23/17 PERFORMANCE OF URINARY FILTRATION, <6 HRS/DAY [id number] 09/23/17 REMOVAL OF INFUSION DEVICE FROM UPPER VEIN, PERC APPROACH [id number] 08/19/17 REMOVAL TUNNELED CV CATH [id number] 08/19/17 SUPPLEMENT L AXILLA ART WITH SYNTH SUB, OPEN APPROACH [id number] 09/23/17
--- NOTE | 2017-10-06 10:37 | History and Physical ---
History of Present Illness - HPI Chief Complaint: clotted hd shunt HPI: This is a 82 year old male who is a [facility] resident presented to the ER for clotted left av fistula. Patient was recently discharged from this hospital for the same reason. Vital Signs: Last Vital Signs Temp 97.3 F 10/06/17 07:58 Pulse 82 10/06/17 07:58 Resp 18 10/06/17 08:00 BP 114/46 10/06/17 07:58 Pulse Ox 96 10/06/17 07:58 Past Medical History Other History: esrd on hd chf htn hyperlipidemia dementia gerd oa Family Medical History - Family Member Mother History Unknown: Yes Ethnicity: Living Status: Hx Family Cancer: (UNKNOWN) Hx Family Coronary Artery Disease: (UNKNOWN) Hx Family Congestive Heart Failure: (UNKNOWN) Hx Family Hypertension: (UNKNOWN) Hx Family Stroke: (UNKNOWN) Hx Family Diabetes: (UNKNOWN) Hx Family Seizures: (UNKNOWN) Hx Family Dementia: (UNKNOWN) Hx Family AIDS: (UNKNOWN) Hx Family COPD: (UNKNOWN) Hx Family Hepatitis: (UNKNOWN) Hx Family Psychiatric Problems: (UNKNOWN) Hx Family Tuberculosis: (UNKNOWN) Social History Smoke: No Alcohol: None Drugs: None Lives: Shelter - Medications Home Medications: Home Medication Medication Instructions Recorded Type Acetaminophen [Tylenol] 650 mg PO Q4HR PRN 08/19/17 History Albuterol/Ipratropium Neb [Duoneb 3 ml HHN Q12H PRN 08/19/17 History Neb] Amlodipine Besylate 10 mg PO DAILY 08/19/17 History Ascorbic Acid [Vitamin C] 500 mg PO DAILY 08/19/17 History Aspirin [Aspirin Chewable] 81 mg PO DAILY 08/19/17 History Atorvastatin Calcium [Lipitor] 20 mg PO HS 08/19/17 History Bisacodyl [Dulcolax 10 Mg Supp] 10 mg RC DAILY PRN 08/19/17 History Calazime 1 unit TP DAILY 08/19/17 History Calcium Carbonate 500 mg PO DAILY 08/19/17 History Cranberry Fruit Extract [Cranberry] 425 mg PO BID 08/19/17 History Docusate Sodium [Colace] 100 mg PO BID 08/19/17 History Ferrous Sulfate [Iron] 1 tab PO DAILY 08/19/17 History Finasteride [Proscar*] 5 mg PO DAILY 08/19/17 History Folic Acid/Vit Bcomp,C 0.8 mg PO DAILY 08/19/17 History [Nephro-Cordelia Tablet] Insulin Aspart Sliding Scale 0 units SUBQ QID 08/19/17 History [NovoLOG INSULIN SLIDING SCALE] Insulin Detemir [Levemir] 10 unit SQ HS 08/19/17 History Ondansetron [Zofran Odt] 4 mg PO Q4H PRN 08/19/17 History Sennosides A and B [Senna] 2 tab PO HS 08/19/17 History Tamsulosin [Flomax] 0.4 mg PO DAILY 08/19/17 History Albuterol/Ipratropium Neb [Duoneb 3 ml HHN [id number] aers 08/24/17 Rx Neb] Budesonide [Pulmicort] 0.5 mg HHN BIDRT ud 08/24/17 Rx Heparin Sodium [Heparin*] 5,000 units SUBQ Q12HR vial 08/24/17 Rx Insulin Aspart Sliding Scale See Protocol SUBQ ACHS unit 08/24/17 Rx [NovoLOG INSULIN SLIDING SCALE] Lactobacillus Rhamnosus GG 15B 1 each PO DAILY cap.[email or web address] 08/24/17 Rx [Culturelle 15B] Pantoprazole [Protonix] 40 mg PO DAILY ect 08/24/17 Rx Hydrocodone/APAP 5mg/325mg [[place] 1 tab PO Q6H PRN tab 09/29/17 Rx 5mg/325mg] [id number] [Rocephin] 1 gm IV DAILY vial 09/29/17 Rx - Allergies Allergies/Adverse Reactions: Allergies Allergy/AdvReac Type Severity Reaction Status Date / Time No Known Allergies Allergy Verified 10/05/17 13:18 Review of Systems - Review of Systems Constitutional: Report: No Significant Eyes: Report: No Significant ENT: Report: No Significant Respiratory: Report: No Significant Cardiovascular: Report: No Significant Neurological: Report: Weakness Physical Exam - Physical Exam HEENT: Report: Ears Nose Throat within normal limits Neck: Report: Within normal limits Cardiovascular Systems: Report: +s1/s2 noted, Regular, Rate and Rhythm Respiratory: Report: Breath Sounds are within normal limits Abdomen: Report: Non-tender to palpation Skin: Report: Warm, Dry Neuro/Psych: Report: A+Ox3 - Lab Results All Lab Results last 24 hours: Laboratory Results - last 24 hr 10/05/17 10/05/17 10/05/17 13:13 13:13 13:13 WBC 12.9 H RBC 3.74 L Hgb 11.0 L Hct 34.5 L MCV 92.1 MCH 29.5 MCHC Differential 32.0 RDW 18.0 Plt Count 487 H MPV 7.8 Neutrophils % 77.5 Lymphocytes % 16.8 L Monocytes % 2.9 Eosinophils % 2.8 Basophils % 0.0 PT 9.4 L INR 0.90 PTT (Actin FS) 20.9 L Sodium 136 Potassium 3.1 L Chloride 95 L Carbon Dioxide 33.0 H Anion Gap 11.1 BUN 25 Creatinine 3.8 H Est GFR ( Amer) TNP Est GFR (Non-Af Amer) TNP BUN/Creatinine Ratio 6.6 Glucose 115 H POC Glucose Calcium 8.7 Phosphorus Total Bilirubin AST ALT Alkaline Phosphatase Total Protein Albumin Globulin Albumin/Globulin Ratio Triglycerides Cholesterol LDL Cholesterol Direct HDL Cholesterol TSH Urine Source Urine Color Urine Clarity Urine pH Ur Specific [place] Urine Protein Urine Glucose (UA) Urine Ketones Urine Blood Urine Nitrate Urine Bilirubin Urine Urobilinogen Ur Leukocyte Esterase Urine RBC Urine WBC Ur Epithelial Cells Urine Bacteria Urine Yeast 10/05/17 10/06/17 10/06/17 21:06 03:00 05:50 WBC RBC Hgb Hct MCV MCH MCHC Differential RDW Plt Count MPV Neutrophils % Lymphocytes % Monocytes % Eosinophils % Basophils % PT INR PTT (Actin FS) Sodium Potassium Chloride Carbon Dioxide Anion Gap BUN Creatinine Est GFR ( Amer) Est GFR (Non-Af Amer) BUN/Creatinine Ratio Glucose POC Glucose 236 H Calcium Phosphorus Total Bilirubin AST ALT Alkaline Phosphatase Total Protein Albumin Globulin Albumin/Globulin Ratio Triglycerides Cholesterol LDL Cholesterol Direct HDL Cholesterol TSH 3.23 Urine Source [place] Urine Color YELLOW Urine Clarity CLOUDY Urine pH 6.0 Ur Specific [place] 1.020 Urine Protein 100 H Urine Glucose (UA) NEGATIVE Urine Ketones TRACE Urine Blood SMALL H Urine Nitrate NEGATIVE Urine Bilirubin NEGATIVE Urine Urobilinogen 0.2 Ur Leukocyte Esterase LARGE H Urine RBC 2-5 H Urine WBC >100 H Ur Epithelial Cells FEW Urine Bacteria MODERATE H Urine Yeast MODERATE H 10/06/17 10/06/17 10/06/17 05:50 05:50 06:25 WBC 11.7 H RBC 3.53 L Hgb 10.6 L Hct 32.4 L MCV 91.8 MCH 29.9 MCHC Differential 32.6 RDW 17.7 Plt Count 446 H MPV 7.8 Neutrophils % 66.3 Lymphocytes % 22.3 Monocytes % 5.4 Eosinophils % 5.1 H Basophils % 0.9 PT INR PTT (Actin FS) Sodium 139 Potassium 3.0 L Chloride 100 Carbon Dioxide 29.6 Anion Gap 12.4 BUN 28 H Creatinine 4.3 H* Est GFR ( Amer) TNP Est GFR (Non-Af Amer) TNP BUN/Creatinine Ratio 6.5 Glucose 139 H POC Glucose 122 H Calcium 8.5 L Phosphorus 3.5 Total Bilirubin 0.3 AST 11 L ALT 7 Alkaline Phosphatase 76 Total Protein 6.2 Albumin 2.6 L Globulin 3.6 Albumin/Globulin Ratio 0.7 L Triglycerides 85 Cholesterol 114 LDL Cholesterol Direct 64 L HDL Cholesterol 36 TSH Urine Source Urine Color Urine Clarity Urine pH Ur Specific [place] Urine Protein Urine Glucose (UA) Urine Ketones Urine Blood Urine Nitrate Urine Bilirubin Urine Urobilinogen Ur Leukocyte Esterase Urine RBC Urine WBC Ur Epithelial Cells Urine Bacteria Urine Yeast - Assessment Assessment: LEFT AV FISTULA MALFUNCTION ESRD ON HD DM2 COPD PUD DYSLIPIDEMIA ALZHEIMER ANEMIA OF CHRONIC DISEASE PAD - Plan Plan: surgical consultation nephrology consultation follow up labs in am continue the rest of the orders
[2017-10-06] MEDS: Aspirin 81mg Chewable Tab PO SCH (11:23)
[2017-10-06] MEDS: Pantoprazole 40 mg EC Tab PO SCH (11:24)
[2017-10-06] MEDS: Lactobacillus Rhamnosus GG 15 Billion CFU CAP.SPRINK PO SCH (11:24)
[2017-10-06] MEDS: Ferrous Sulfate 325 MG TAB PO SCH (11:24)
[2017-10-06] MEDS: Menthol/Zinc Oxide Oint 113gm Tube TP SCH (11:25)
[2017-10-06] MEDS: Vitamin B Complex w/Vitamin C Tab PO SCH (11:25)
[2017-10-06] MEDS: INSULIN ASPART SLIDING SCALE 100 UNITS/ML UNIT SUBQ SCH ×3 (11:35→20:25)
[2017-10-06] MEDS ORDERED: fentaNYL Citrate 100 mcg/2mL Vial ONE (11:40)
--- NOTE | 2017-10-06 12:58 | Diagnostic Imaging Report ---
Bilateral upper extremity Doppler venous ultrasound exam HISTORY: Basilar catheter placement, vascular shunt patency Sonographic sector images were obtained through the right and left internal jugular and subclavian veins. Associated Doppler data was obtained. Sonographic images obtained over the upper arm in the vicinity of the patient's reported vascular shunt. There is patency of the right and left internal jugular and subclavian veins. No occlusion. Normal compressibility and augmentation. There is limited delineation the margins of a reported vascular shunt within the left antecubital region over the region of the brachial and basilic veins. No appreciable flow. Heterogeneous density noted within the area. It is uncertain if this is intraluminal or extends about the periphery of the shunt. IMPRESSION: 1. No appreciable flow through the region of the patient's left vascular shunt 2. Patency of the left and right internal jugular and subclavian veins.
[2017-10-06] MEDS ORDERED: Propofol **SURGERY USE ONLY** 20 ML IV ONE (13:04)
[2017-10-06] MEDS ORDERED: Potassium Chloride 20 mEq ER Tab PO ONE (14:59)
--- NOTE | 2017-10-06 14:59 | General Progress Note ---
Subjective - Review of Systems Service Date: 10/06/17 Subjective: alert, eating lunch Objective - Results Result Diagrams: 10/06/17 05:50 10/06/17 05:50 Recent Labs: Laboratory Last Values WBC 11.7 Th/cmm (4.8-10.8) H 10/06/17 05:50 RBC 3.53 Mil/cmm (3.80-5.80) L 10/06/17 05:50 Hgb 10.6 gm/dL (12-16) L 10/06/17 05:50 Hct 32.4 % (41.0-60) L 10/06/17 05:50 MCV 91.8 fl (80-99) 10/06/17 05:50 MCH 29.9 pg (27.0-31.0) 10/06/17 05:50 MCHC Differential 32.6 pg (28.0-36.0) 10/06/17 05:50 RDW 17.7 % (11.5-20.0) 10/06/17 05:50 Plt Count 446 Th/cmm (150-400) H 10/06/17 05:50 MPV 7.8 fl 10/06/17 05:50 Neutrophils % 66.3 % (40.0-80.0) 10/06/17 05:50 Lymphocytes % 22.3 % (20.0-50.0) 10/06/17 05:50 Monocytes % 5.4 % (2.0-10.0) 10/06/17 05:50 Eosinophils % 5.1 % (0.0-5.0) H 10/06/17 05:50 Basophils % 0.9 % (0.0-2.0) 10/06/17 05:50 PT 9.4 SECONDS (9.5-11.5) L 10/05/17 13:13 INR 0.90 (0.5-1.4) 10/05/17 13:13 PTT (Actin FS) 20.9 SECONDS (26.0-38.0) L 10/05/17 13:13 Sodium 139 mEq/L (136-145) 10/06/17 05:50 Potassium 3.0 mEq/L (3.5-5.1) L 10/06/17 05:50 Chloride 100 mEq/L (98-107) 10/06/17 05:50 Carbon Dioxide 29.6 mEq/L (21.0-31.0) 10/06/17 05:50 Anion Gap 12.4 (7.0-16.0) 10/06/17 05:50 BUN 28 mg/dL (7-25) H 10/06/17 05:50 Creatinine 4.3 mg/dL (0.7-1.3) H* 10/06/17 05:50 Est GFR ( Amer) TNP 10/06/17 05:50 Est GFR (Non-Af Amer) TNP 10/06/17 05:50 BUN/Creatinine Ratio 6.5 10/06/17 05:50 Glucose 139 mg/dL (70-105) H 10/06/17 05:50 POC Glucose 131 MG/DL (70 - 105) H 10/06/17 11:03 Calcium 8.5 mg/dL (8.6-10.3) L 10/06/17 05:50 Phosphorus 3.5 mg/dL (2.5-5.0) 10/06/17 05:50 Total Bilirubin 0.3 mg/dL (0.3-1.0) 10/06/17 05:50 AST 11 U/L (13-39) L 10/06/17 05:50 ALT 7 U/L (7-52) 10/06/17 05:50 Alkaline Phosphatase 76 U/L (34-104) 10/06/17 05:50 Total Protein 6.2 gm/dL (6.0-8.3) 10/06/17 05:50 Albumin 2.6 gm/dL (4.2-5.5) L 10/06/17 05:50 Globulin 3.6 gm/dL 10/06/17 05:50 Albumin/Globulin Ratio 0.7 (1.0-1.8) L 10/06/17 05:50 Triglycerides 85 mg/dL (<150) 10/06/17 05:50 Cholesterol 114 mg/dL (<200) 10/06/17 05:50 LDL Cholesterol Direct 64 mg/dL (75-193) L 10/06/17 05:50 HDL Cholesterol 36 mg/dL (23-92) 10/06/17 05:50 TSH 3.23 uIU/ml (0.34-5.60) 10/06/17 05:50 Urine Source [place] 10/06/17 03:00 Urine Color YELLOW 10/06/17 03:00 Urine Clarity CLOUDY (CLEAR) 10/06/17 03:00 Urine pH 6.0 (4.6 - 8.0) 10/06/17 03:00 Ur Specific [place] 1.020 (1.005-1.030) 10/06/17 03:00 Urine Protein 100 mg/dL (NEGATIVE) H 10/06/17 03:00 Urine Glucose (UA) NEGATIVE mg/dL (NEGATIVE) 10/06/17 03:00 Urine Ketones TRACE mg/dL (NEGATIVE) 10/06/17 03:00 Urine Blood SMALL (NEGATIVE) H 10/06/17 03:00 Urine Nitrate NEGATIVE (NEGATIVE) 10/06/17 03:00 Urine Bilirubin NEGATIVE (NEGATIVE) 10/06/17 03:00 Urine Urobilinogen 0.2 E.U./dL (0.2 - 1.0) 10/06/17 03:00 Ur Leukocyte Esterase LARGE (NEGATIVE) H 10/06/17 03:00 Urine RBC 2-5 /hpf (0-5) H 10/06/17 03:00 Urine WBC >100 /hpf (0-5) H 10/06/17 03:00 Ur Epithelial Cells FEW /lpf (FEW) 10/06/17 03:00 Urine Bacteria MODERATE /hpf (NONE SEEN) H 10/06/17 03:00 Urine Yeast MODERATE /hpf (NONE SEEN) H 10/06/17 03:00 - Physical Exam Vitals and I&O: Vital Signs Temp 97.4 F 10/06/17 13:59 Pulse 80 10/06/17 13:59 Resp 18 10/06/17 11:53 BP 146/74 10/06/17 13:59 Pulse Ox 96 10/06/17 13:59 Intake & Output 10/05/17 10/06/17 10/06/17 18:59 06:59 18:59 Intake Total 300 Output Total 400 Balance -100 Weight (lbs) 63.503 kg 62.777 kg Intake: Oral 200 Other 100 Output: Urine 400 Stool 0 Other: # Bowel Movements 0 Weight Source Estimated Bedscale Active Medications: Current Medications Acetaminophen (Tylenol) 650 mg PO Q4HR PRN PRN Reason: MILD PAIN Stop: 12/04/17 21:47 Acetaminophen/Hydrocodone Bitart ([place] 5mg/325mg) 1 tab PO Q6H PRN PRN Reason: Pain (Mild) Stop: 12/04/17 21:47 Albuterol/Ipratropium (Duoneb Neb) 3 ml HHN [id number] [facility] Stop: 12/05/17 06:59 Last Admin: 10/06/17 12:48 Dose: Not Given Amlodipine Besylate (Norvasc) 10 mg PO DAILY [facility] Stop: 12/05/17 08:59 Last Admin: 10/06/17 11:25 Dose: Not Given Ascorbic Acid (Vitamin C) 500 mg PO DAILY [facility] Stop: 12/05/17 08:59 Last Admin: 10/06/17 11:23 Dose: Not Given Aspirin (Aspirin Chewable) 81 mg PO DAILY [facility] Stop: 12/05/17 08:59 Last Admin: 10/06/17 11:23 Dose: Not Given Atorvastatin Calcium (Lipitor) 20 mg PO HS [facility] Stop: 12/05/17 20:59 Bisacodyl (Dulcolax 10 Mg Supp) 10 mg RC DAILY PRN PRN Reason: IF MOM INEFECTIVE Stop: 12/04/17 21:47 Budesonide (Pulmicort) 0.5 mg HHN BIDRT [facility] Stop: 12/05/17 06:59 Last Admin: 10/06/17 07:22 Dose: 0.5 mg Calamine/Phenol (Calmoseptine) 1 appl TP DAILY [facility] Stop: 12/05/17 08:59 Last Admin: 10/06/17 11:25 Dose: Not Given Calcium Carbonate (Os-Brad) 500 mg PO DAILY [facility] Stop: 12/05/17 08:59 Last Admin: 10/06/17 11:23 Dose: Not Given Docusate Sodium (Colace) 100 mg PO BID [facility] Stop: 12/05/17 08:59 Last Admin: 10/06/17 11:23 Dose: Not Given Ferrous Sulfate (Iron) 325 mg PO DAILY [facility] Stop: 12/05/17 08:59 Last Admin: 10/06/17 11:24 Dose: Not Given Finasteride (Proscar) 5 mg PO DAILY [facility]; Protocol Stop: 12/05/17 08:59 Last Admin: 10/06/17 11:24 Dose: Not Given Heparin Sodium (Porcine) (Heparin Sodium) 0 units HD UD [facility] Stop: 10/07/17 00:00 Heparin Sodium (Porcine) (Heparin) 5,000 units SUBQ Q12HR [facility] Stop: 12/05/17 08:59 Last Admin: 10/06/17 11:24 Dose: Not Given Dextrose/Sodium Chloride (D5-0.45ns) 1,000 mls @ 50 mls/hr IV .Q20H [facility] Stop: 12/04/17 18:44 Last Admin: 10/05/17 21:25 Dose: 50 mls/hr Ceftriaxone Sodium 1 gm/ (Sodium Chloride) 50 mls @ 100 mls/hr IV Q24HR [facility] Stop: 12/05/17 08:59 Last Admin: 10/06/17 09:29 Dose: 100 mls/hr Insulin Aspart (Novolog Insulin Sliding Scale) 0 units SUBQ [facility]; Protocol Stop: 12/05/17 07:29 Last Admin: 10/06/17 11:35 Dose: Not Given Insulin Detemir (Levemir Insulin) 10 units SUBQ [facility]; Protocol Stop: 12/05/17 20:59 Lactobacillus Rhamnosus (Culturelle 15b) 1 each PO DAILY [facility] Stop: 12/05/17 08:59 Last Admin: 10/06/17 11:24 Dose: Not Given Miscellaneous (Vancomycin Iv Per Pharmacy) 1 ea MC PRN PRN PRN Reason: PROTOCOL Stop: 12/04/17 18:21 Ondansetron HCl (Zofran Odt) 4 mg PO Q4H PRN PRN Reason: Nausea / Vomiting Stop: 12/04/17 21:47 Pantoprazole Sodium (Protonix) 40 mg PO DAILY [facility] Stop: 12/05/17 08:59 Last Admin: 10/06/17 11:24 Dose: Not Given Senna (Senna) 8.6 mg PO HS [facility] Stop: 12/05/17 20:59 Tamsulosin HCl (Flomax) 0.4 mg PO DAILY [facility] Stop: 12/05/17 08:59 Last Admin: 10/06/17 11:25 Dose: Not Given Vitamin B Complex/Vit C/Folic Acid (Vitamin B Complex W/Vitamin C) 1 tab PO DAILY [facility] Stop: 12/05/17 08:59 Last Admin: 10/06/17 11:25 Dose: Not Given General: Alert, No acute distress HEENT: Atraumatic, Mucous membr. moist/pink Neck: Supple, +2 carotid pulse wo bruit Cardiovascular: Regular rate, Normal S1, Normal S2 Lungs: Clear to auscultation Abdomen: Bowel sounds, Soft Extremities: no Edema Neurological: Sensation intact Skin: no Rash Psych/Mental Status: Mood NL - Procedures Procedures: Procedures Procedure Code Date AMPUTATION OF TOE 77087 08/19/17 DETACHMENT AT LEFT 1ST TOE, COMPLETE, OPEN APPROACH [id number] 08/19/17 DETACHMENT AT RIGHT 1ST TOE, COMPLETE, OPEN APPROACH [id number] 08/19/17 DETACHMENT AT RIGHT 2ND TOE, COMPLETE, OPEN APPROACH [id number] 08/19/17 DETACHMENT AT RIGHT FOOT, COMPLETE, OPEN APPROACH [id number] 09/23/17 EXCISION OF L LOW LEG SUBCU/FASCIA, OPEN APPROACH [id number] 08/19/17 EXTIRPATION OF MATTER FROM L AXILLA ART, OPEN APPROACH [id number] 09/23/17 PERFORMANCE OF URINARY FILTRATION, <6 HRS/DAY [id number] 09/23/17 REMOVAL OF INFUSION DEVICE FROM UPPER VEIN, PERC APPROACH [id number] 08/19/17 REMOVAL TUNNELED CV CATH 16800 08/19/17 SUPPLEMENT L AXILLA ART WITH SYNTH SUB, OPEN APPROACH [id number] 09/23/17 Assessment/Plan - Assessment Assessment: Clotted Left AVF ESRD on HD T2DM W/ CKD Ess Htn w/ CKD COPD PUD BPH - Plan Plan: Lab - Result Diagrams 10/06/17 05:50 10/06/17 05:50 Current Medications Acetaminophen (Tylenol) 650 mg PO Q4HR PRN PRN Reason: MILD PAIN Stop: 12/04/17 21:47 Acetaminophen/Hydrocodone Bitart ([place] 5mg/325mg) 1 tab PO Q6H PRN PRN Reason: Pain (Mild) Stop: 12/04/17 21:47 Albuterol/Ipratropium (Duoneb Neb) 3 ml HHN [id number] [facility] Stop: 12/05/17 06:59 Last Admin: 10/06/17 12:48 Dose: Not Given Amlodipine Besylate (Norvasc) 10 mg PO DAILY [facility] Stop: 12/05/17 08:59 Last Admin: 10/06/17 11:25 Dose: Not Given Ascorbic Acid (Vitamin C) 500 mg PO DAILY [facility] Stop: 12/05/17 08:59 Last Admin: 10/06/17 11:23 Dose: Not Given Aspirin (Aspirin Chewable) 81 mg PO DAILY [facility] Stop: 12/05/17 08:59 Last Admin: 10/06/17 11:23 Dose: Not Given Atorvastatin Calcium (Lipitor) 20 mg PO HS [facility] Stop: 12/05/17 20:59 Bisacodyl (Dulcolax 10 Mg Supp) 10 mg RC DAILY PRN PRN Reason: IF MOM INEFECTIVE Stop: 12/04/17 21:47 Budesonide (Pulmicort) 0.5 mg HHN BIDRT [facility] Stop: 12/05/17 06:59 Last Admin: 10/06/17 07:22 Dose: 0.5 mg Calamine/Phenol (Calmoseptine) 1 appl TP DAILY [facility] Stop: 12/05/17 08:59 Last Admin: 10/06/17 11:25 Dose: Not Given Calcium Carbonate (Os-Brad) 500 mg PO DAILY [facility] Stop: 12/05/17 08:59 Last Admin: 10/06/17 11:23 Dose: Not Given Docusate Sodium (Colace) 100 mg PO BID [facility] Stop: 12/05/17 08:59 Last Admin: 10/06/17 11:23 Dose: Not Given Ferrous Sulfate (Iron) 325 mg PO DAILY [facility] Stop: 12/05/17 08:59 Last Admin: 10/06/17 11:24 Dose: Not Given Finasteride (Proscar) 5 mg PO DAILY [facility]; Protocol Stop: 12/05/17 08:59 Last Admin: 10/06/17 11:24 Dose: Not Given Heparin Sodium (Porcine) (Heparin Sodium) 0 units HD UD [facility] Stop: 10/07/17 00:00 Heparin Sodium (Porcine) (Heparin) 5,000 units SUBQ Q12HR [facility] Stop: 12/05/17 08:59 Last Admin: 10/06/17 11:24 Dose: Not Given Dextrose/Sodium Chloride (D5-0.45ns) 1,000 mls @ 50 mls/hr IV .Q20H [facility] Stop: 12/04/17 18:44 Last Admin: 10/05/17 21:25 Dose: 50 mls/hr Ceftriaxone Sodium 1 gm/ (Sodium Chloride) 50 mls @ 100 mls/hr IV Q24HR [facility] Stop: 12/05/17 08:59 Last Admin: 10/06/17 09:29 Dose: 100 mls/hr Insulin Aspart (Novolog Insulin Sliding Scale) 0 units SUBQ ACHS [facility]; Protocol Stop: 12/05/17 07:29 Last Admin: 10/06/17 11:35 Dose: Not Given Insulin Detemir (Levemir Insulin) 10 units SUBQ HS [facility]; Protocol Stop: 12/05/17 20:59 Lactobacillus Rhamnosus (Culturelle 15b) 1 each PO DAILY [facility] Stop: 12/05/17 08:59 Last Admin: 10/06/17 11:24 Dose: Not Given Miscellaneous (Vancomycin Iv Per Pharmacy) 1 ea MC PRN PRN PRN Reason: PROTOCOL Stop: 12/04/17 18:21 Ondansetron HCl (Zofran Odt) 4 mg PO Q4H PRN PRN Reason: Nausea / Vomiting Stop: 12/04/17 21:47 Pantoprazole Sodium (Protonix) 40 mg PO DAILY [facility] Stop: 12/05/17 08:59 Last Admin: 10/06/17 11:24 Dose: Not Given Senna (Senna) 8.6 mg PO HS [facility] Stop: 12/05/17 20:59 Tamsulosin HCl (Flomax) 0.4 mg PO DAILY [facility] Stop: 12/05/17 08:59 Last Admin: 10/06/17 11:25 Dose: Not Given Vitamin B Complex/Vit C/Folic Acid (Vitamin B Complex W/Vitamin C) 1 tab PO DAILY [facility] Stop: 12/05/17 08:59 Last Admin: 10/06/17 11:25 Dose: Not Given Lab - Result Diagrams 10/06/17 05:50 10/06/17 05:50 replace K Had thrombectomy & placement of left Perma cath for HD today
--- NOTE | 2017-10-06 17:23 | Operative Report ---
DATE OF SURGERY: 10/06/2017 PREOPERATIVE DIAGNOSES: 1. Clotted left arm AV shunt. 2. End-stage renal disease. 3. Hypertension. POSTOPERATIVE DIAGNOSES: 1. Clotted left arm AV shunt. 2. End-stage renal disease. 3. Hypertension. OPERATION DONE: 1. Placement of Perm-A-Cath, left subclavian vein under fluoroscopy. 2. Thrombectomy, left arm AV shunt. SURGEON: Prasanna Day M.D. ANESTHESIA: MAC. ANESTHESIOLOGIST: Dr. Vasques. ESTIMATED BLOOD LOSS: 10 mL. OPERATIVE FINDINGS: The left subclavian vein was patent and a 24 cm Perm-A-Cath was inserted. The left arm AV shunt clotted. Thrombectomy was carried out successfully with multiple clots removed. PROCEDURE: The patient was given IV sedation. The left chest and upper extremity was prepped with Betadine and draped in appropriate manner. 1% lidocaine was used to infiltrate the area identified for the subclavian vein. An incision was made and size 18 needle was used to close the vein. The guide was inserted under fluoroscopy. The dilator was placed over the guidewire and then introducer and a [place] 24 Perm-A-Cath was inserted. There was good inflow and outflow of the catheter and 3 mL of 1:100,000 heparin was instilled in each port. The left arm incision in the axillary area was infiltrated with 1% lidocaine. The venous anastomosis was exposed. A 3000 units of heparin was given intravenously. An incision was made on the graft just proximal to the anastomosis and thrombectomy was carried out proximally with rastafari of excellent backflow. White catheter was then introduced distally with removal of additional clots. The incision on the graft was closed with a 5-0 Prolene. There was rastafari of good flow. Incision was closed with thrombin and Gelfoam at the anastomosis and the wound was closed with running suture of 4-0 Vicryl subcutaneously and the skin with subcuticular suture of 4-0 Vicryl. Sterile dressing was placed over this. The patient tolerated the procedure well. JOB# [id number]
[2017-10-06] MEDS: D5-0.45NS 1,000 ML IV SCH (18:26)
[2017-10-06] MEDS ORDERED: Insulin Detemir 100 units/mL 10mL Vial SUBQ SCH (21:00)
[2017-10-06] MEDS ORDERED: Atorvastatin Calcium 10 MG TAB PO SCH (21:00)
[2017-10-06 21:03] LABS: A1C % 4.7 % (4.0-6.0)
[2017-10-07 07:10] LABS: % BASOPHILS 0.7 % (0.0-2.0); % EOSINOPHILS 4.6 % (0.0-5.0); % LYMPHOCYTES 23.1 % (20.0-50.0); % MONOCYTES 8.5 % (2.0-10.0); % NEUTROPHILS 63.1 % (40.0-80.0); BASOPHILE ABSOLUTE 0.1 Th/cumm (0-0.2); EOSINOPHILE ABSOLUTE 0.5 Th/cmm (0.1-0.4); HEMATOCRIT 29.7 % (41.0-60); HEMOGLOBIN 9.6 gm/dL (12-16); LYMPHOCYTE ABSOLUTE 2.5 Th/cmm (1.5-3.0); MEAN CELL VOLUME 92.3 fl (80-99); MEAN CORPUSCULAR HEMOGLOBIN 29.7 pg (27.0-31.0); MEAN CORPUSCULAR HGB CONC 32.2 pg (28.0-36.0); MEAN PLATELET VOLUME 7.7 fl; MONOCYTE ABSOLUTE 0.9 Th/cmm (0.3-1.0); NEUTROPHILE ABSOLUTE 6.7 Th/cmm (1.8-8.0); PLATELET COUNT 411 Th/cmm (150-400); RED BLOOD COUNT 3.22 Mil/cmm (3.80-5.80); RED CELL DISTRIBUTION WIDTH 18.4 % (11.5-20.0); WHITE BLOOD COUNT 10.7 Th/cmm (4.8-10.8)
[2017-10-07 07:20] LABS: ANION GAP 7.8 (7.0-16.0); BUN - UREA NITROGEN 13 mg/dL (7-25); CALCIUM SERUM 8.3 mg/dL (8.6-10.3); CARBON DIOXIDE 32.5 mEq/L (21.0-31.0); CHLORIDE 100 mEq/L (98-107); CREATININE - SERUM 2.4 mg/dL (0.7-1.3); GLUCOSE 96 mg/dL (70-105); POTASSIUM SERUM 3.3 mEq/L (3.5-5.1); SODIUM SERUM 137 mEq/L (136-145)
[2017-10-07] MEDS: Budesonide 0.5 Mg/2 mL Ud HHN SCH ×2 (07:34→19:11)
[2017-10-07] MEDS: Albuterol/Ipratropium Neb 3 ML AERS HHN SCH ×4 (07:34→19:11)
[2017-10-07] MEDS: INSULIN ASPART SLIDING SCALE 100 UNITS/ML UNIT SUBQ SCH ×3 (07:46→18:36)
--- NOTE | 2017-10-07 09:08 | Diagnostic Imaging Report ---
Portable chest x-ray HISTORY: Shortness of breath, vascular catheter placement Compared to prior exam of 10/05/2017, a left-sided vascular catheter is been inserted. The tip is in the region of the splenic vena cava. Mild pleural reaction noted about the left costophrenic angle unchanged from the earlier study. No acute bony parenchymal processes. No pneumothorax. IMPRESSION: 1. New vascular catheter placement as noted above 2. No significant change in the pulmonary status.
[2017-10-07] MEDS ORDERED: Potassium Chloride 10 mEq ER Tab PO ONE (09:38)
[2017-10-07] MEDS: Menthol/Zinc Oxide Oint 113gm Tube TP SCH (10:57)
[2017-10-07] MEDS: Aspirin 81mg Chewable Tab PO SCH (11:00)
[2017-10-07] MEDS: Ferrous Sulfate 325 MG TAB PO SCH (11:01)
[2017-10-07] MEDS: Lactobacillus Rhamnosus GG 15 Billion CFU CAP.SPRINK PO SCH (11:02)
[2017-10-07] MEDS: Pantoprazole 40 mg EC Tab PO SCH (11:02)
[2017-10-07] MEDS: Vitamin B Complex w/Vitamin C Tab PO SCH (11:02)
[2017-10-07] MEDS: cefTRIAXone 1 GM in 0.9% NS 50 ML IV SCH (11:58)
--- NOTE | 2017-10-07 14:18 | General Progress Note ---
Subjective - Review of Systems Service Date: 10/07/17 Subjective: sleeping, comfortable Objective - Results Result Diagrams: 10/07/17 05:56 10/07/17 05:56 Recent Labs: Laboratory Last Values WBC 10.7 Th/cmm (4.8-10.8) 10/07/17 05:56 RBC 3.22 Mil/cmm (3.80-5.80) L 10/07/17 05:56 Hgb 9.6 gm/dL (12-16) L 10/07/17 05:56 Hct 29.7 % (41.0-60) L 10/07/17 05:56 MCV 92.3 fl (80-99) 10/07/17 05:56 MCH 29.7 pg (27.0-31.0) 10/07/17 05:56 MCHC Differential 32.2 pg (28.0-36.0) 10/07/17 05:56 RDW 18.4 % (11.5-20.0) 10/07/17 05:56 Plt Count 411 Th/cmm (150-400) H 10/07/17 05:56 MPV 7.7 fl 10/07/17 05:56 Neutrophils % 63.1 % (40.0-80.0) 10/07/17 05:56 Lymphocytes % 23.1 % (20.0-50.0) 10/07/17 05:56 Monocytes % 8.5 % (2.0-10.0) 10/07/17 05:56 Eosinophils % 4.6 % (0.0-5.0) 10/07/17 05:56 Basophils % 0.7 % (0.0-2.0) 10/07/17 05:56 PT 9.4 SECONDS (9.5-11.5) L 10/05/17 13:13 INR 0.90 (0.5-1.4) 10/05/17 13:13 PTT (Actin FS) 20.9 SECONDS (26.0-38.0) L 10/05/17 13:13 Sodium 137 mEq/L (136-145) 10/07/17 05:56 Potassium 3.3 mEq/L (3.5-5.1) L 10/07/17 05:56 Chloride 100 mEq/L (98-107) 10/07/17 05:56 Carbon Dioxide 32.5 mEq/L (21.0-31.0) H 10/07/17 05:56 Anion Gap 7.8 (7.0-16.0) 10/07/17 05:56 BUN 13 mg/dL (7-25) 10/07/17 05:56 Creatinine 2.4 mg/dL (0.7-1.3) H 10/07/17 05:56 Est GFR ( Amer) TNP 10/07/17 05:56 Est GFR (Non-Af Amer) TNP 10/07/17 05:56 BUN/Creatinine Ratio 5.4 10/07/17 05:56 Glucose 96 mg/dL (70-105) 10/07/17 05:56 POC Glucose 170 MG/DL (70 - 105) H 10/07/17 12:27 Hemoglobin A1c % 4.7 % (4.0-6.0) 10/06/17 05:50 Calcium 8.3 mg/dL (8.6-10.3) L 10/07/17 05:56 Phosphorus 3.5 mg/dL (2.5-5.0) 10/06/17 05:50 Total Bilirubin 0.3 mg/dL (0.3-1.0) 10/06/17 05:50 AST 11 U/L (13-39) L 10/06/17 05:50 ALT 7 U/L (7-52) 10/06/17 05:50 Alkaline Phosphatase 76 U/L (34-104) 10/06/17 05:50 Total Protein 6.2 gm/dL (6.0-8.3) 10/06/17 05:50 Albumin 2.6 gm/dL (4.2-5.5) L 10/06/17 05:50 Globulin 3.6 gm/dL 10/06/17 05:50 Albumin/Globulin Ratio 0.7 (1.0-1.8) L 10/06/17 05:50 Triglycerides 85 mg/dL (<150) 10/06/17 05:50 Cholesterol 114 mg/dL (<200) 10/06/17 05:50 LDL Cholesterol Direct 64 mg/dL (75-193) L 10/06/17 05:50 HDL Cholesterol 36 mg/dL (23-92) 10/06/17 05:50 TSH 3.23 uIU/ml (0.34-5.60) 10/06/17 05:50 Urine Source [place] 10/06/17 03:00 Urine Color YELLOW 10/06/17 03:00 Urine Clarity CLOUDY (CLEAR) 10/06/17 03:00 Urine pH 6.0 (4.6 - 8.0) 10/06/17 03:00 Ur Specific [place] 1.020 (1.005-1.030) 10/06/17 03:00 Urine Protein 100 mg/dL (NEGATIVE) H 10/06/17 03:00 Urine Glucose (UA) NEGATIVE mg/dL (NEGATIVE) 10/06/17 03:00 Urine Ketones TRACE mg/dL (NEGATIVE) 10/06/17 03:00 Urine Blood SMALL (NEGATIVE) H 10/06/17 03:00 Urine Nitrate NEGATIVE (NEGATIVE) 10/06/17 03:00 Urine Bilirubin NEGATIVE (NEGATIVE) 10/06/17 03:00 Urine Urobilinogen 0.2 E.U./dL (0.2 - 1.0) 10/06/17 03:00 Ur Leukocyte Esterase LARGE (NEGATIVE) H 10/06/17 03:00 Urine RBC 2-5 /hpf (0-5) H 10/06/17 03:00 Urine WBC >100 /hpf (0-5) H 10/06/17 03:00 Ur Epithelial Cells FEW /lpf (FEW) 10/06/17 03:00 Urine Bacteria MODERATE /hpf (NONE SEEN) H 10/06/17 03:00 Urine Yeast MODERATE /hpf (NONE SEEN) H 10/06/17 03:00 Random Vancomycin 11.7 ug/mL (5.0-40.0) 10/07/17 05:56 - Physical Exam Vitals and I&O: Vital Signs Temp 97.1 F 10/07/17 11:34 Pulse 80 10/07/17 11:34 Resp 18 10/07/17 11:34 BP 112/70 10/07/17 11:34 Pulse Ox 98 10/07/17 11:34 Intake & Output 10/06/17 10/07/17 10/07/17 18:59 06:59 18:59 Intake Total 1050 300 250 Output Total 400 Balance 1050 -100 250 Weight (lbs) 63.775 kg Intake: Intake, IV Amount 1050 250 D5-0.45NS 1,000 ml @ 50 1000 mls/hr IV .Q20H [facility] Rx#: [id number] Vancomycin HCl 1 gm In 250 Sodium Chloride 0.9% 250 ml @ 165 mls/hr IV 0900 [facility] Rx#:[id number] cefTRIAXone 1 gm In 50 Sodium Chloride 0.9% 50 ml @ 100 mls/hr IV Q24HR [facility] Rx#:[id number] Oral 200 Other 100 Output: Urine 400 Stool 0 Other: # Bowel Movements 0 Weight Source Bedscale Active Medications: Current Medications Acetaminophen (Tylenol) 650 mg PO Q4HR PRN PRN Reason: MILD PAIN Stop: 12/04/17 21:47 Acetaminophen/Hydrocodone Bitart ([place] 5mg/325mg) 1 tab PO Q6H PRN PRN Reason: Pain (Mild) Stop: 12/04/17 21:47 Albuterol/Ipratropium (Duoneb Neb) 3 ml HHN [id number] [facility] Stop: 12/05/17 06:59 Last Admin: 10/07/17 11:22 Dose: 3 ml Amlodipine Besylate (Norvasc) 10 mg PO DAILY [facility] Stop: 12/05/17 08:59 Last Admin: 10/07/17 10:56 Dose: Not Given Ascorbic Acid (Vitamin C) 500 mg PO DAILY [facility] Stop: 12/05/17 08:59 Last Admin: 10/07/17 11:00 Dose: 500 mg Aspirin (Aspirin Chewable) 81 mg PO DAILY [facility] Stop: 12/05/17 08:59 Last Admin: 10/07/17 11:00 Dose: 81 mg Atorvastatin Calcium (Lipitor) 20 mg PO HS [facility] Stop: 12/05/17 20:59 Last Admin: 10/06/17 20:24 Dose: 20 mg Bisacodyl (Dulcolax 10 Mg Supp) 10 mg RC DAILY PRN PRN Reason: IF MOM INEFECTIVE Stop: 12/04/17 21:47 Budesonide (Pulmicort) 0.5 mg HHN BIDRT [facility] Stop: 12/05/17 06:59 Last Admin: 10/07/17 07:34 Dose: 0.5 mg Calamine/Phenol (Calmoseptine) 1 appl TP DAILY [facility] Stop: 12/05/17 08:59 Last Admin: 10/06/17 11:25 Dose: Not Given Calcium Carbonate (Os-Alicia) 500 mg PO DAILY [facility] Stop: 12/05/17 08:59 Last Admin: 10/07/17 11:00 Dose: 500 mg Docusate Sodium (Colace) 100 mg PO BID [facility] Stop: 12/05/17 08:59 Last Admin: 10/07/17 11:01 Dose: 100 mg Ferrous Sulfate (Iron) 325 mg PO DAILY [facility] Stop: 12/05/17 08:59 Last Admin: 10/07/17 11:01 Dose: 325 mg Finasteride (Proscar) 5 mg PO DAILY [facility]; Protocol Stop: 12/05/17 08:59 Last Admin: 10/07/17 11:02 Dose: 5 mg Heparin Sodium (Porcine) (Heparin) 5,000 units SUBQ Q12HR [facility] Stop: 12/05/17 08:59 Last Admin: 10/07/17 11:02 Dose: 5,000 units Ceftriaxone Sodium 1 gm/ (Sodium Chloride) 50 mls @ 100 mls/hr IV Q24HR [facility] Stop: 12/05/17 08:59 Last Admin: 10/07/17 11:58 Dose: 100 mls/hr Insulin Aspart (Novolog Insulin Sliding Scale) 0 units SUBQ ACHS [facility]; Protocol Stop: 12/05/17 07:29 Last Admin: 10/07/17 12:46 Dose: 2 units Insulin Detemir (Levemir Insulin) 10 units SUBQ HS [facility]; Protocol Stop: 12/05/17 20:59 Last Admin: 10/06/17 20:26 Dose: 10 units Lactobacillus Rhamnosus (Culturelle 15b) 1 each PO DAILY [facility] Stop: 12/05/17 08:59 Last Admin: 10/07/17 11:02 Dose: 1 each Miscellaneous (Vancomycin Iv Per Pharmacy) 1 [facility] PRN PRN PRN Reason: PROTOCOL Stop: 12/04/17 18:21 Ondansetron HCl (Zofran Odt) 4 mg PO Q4H PRN PRN Reason: Nausea / Vomiting Stop: 12/04/17 21:47 Last Admin: 10/07/17 13:22 Dose: 4 mg Pantoprazole Sodium (Protonix) 40 mg PO DAILY [facility] Stop: 12/05/17 08:59 Last Admin: 06/16/18 11:02 Dose: 40 mg Senna (Senna) 8.6 mg PO HS [facility] Stop: 12/05/17 20:59 Last Admin: 10/06/17 20:27 Dose: 8.6 mg Tamsulosin HCl (Flomax) 0.4 mg PO DAILY [facility] Stop: 12/05/17 08:59 Last Admin: 10/07/17 11:02 Dose: 0.4 mg Vitamin B Complex/Vit C/Folic Acid (Vitamin B Complex W/Vitamin C) 1 tab PO DAILY [facility] Stop: 12/05/17 08:59 Last Admin: 10/07/17 11:02 Dose: 1 tab General: Alert, No acute distress HEENT: Atraumatic, Mucous membr. moist/pink Neck: Supple, +2 carotid pulse wo bruit Cardiovascular: Regular rate, Normal S1, Normal S2 Lungs: Clear to auscultation Abdomen: Bowel sounds, Soft Extremities: no Edema Neurological: Sensation intact Skin: no Rash Psych/Mental Status: Mood NL - Procedures Procedures: Procedures Procedure Code Date AMPUTATION OF TOE 95445 08/19/17 DETACHMENT AT LEFT 1ST TOE, COMPLETE, OPEN APPROACH [id number] 08/19/17 DETACHMENT AT RIGHT 1ST TOE, COMPLETE, OPEN APPROACH [id number] 08/19/17 DETACHMENT AT RIGHT 2ND TOE, COMPLETE, OPEN APPROACH [id number] 08/19/17 DETACHMENT AT RIGHT FOOT, COMPLETE, OPEN APPROACH [id number] 09/23/17 EXCISION OF L LOW LEG SUBCU/FASCIA, OPEN APPROACH [id number] 08/19/17 EXTIRPATION OF MATTER FROM L AXILLA ART, OPEN APPROACH [id number] 09/23/17 PERFORMANCE OF URINARY FILTRATION, <6 HRS/DAY [id number] 09/23/17 REMOVAL OF INFUSION DEVICE FROM UPPER VEIN, PERC APPROACH [id number] 08/19/17 REMOVAL TUNNELED CV CATH [id number] 08/19/17 SUPPLEMENT L AXILLA ART WITH SYNTH SUB, OPEN APPROACH [id number] 09/23/17 Assessment/Plan - Assessment Assessment: Clotted Left AVF, S/P Thrombectomy S/P left perma cath ESRD on HD T2DM W/ CKD Ess Htn w/ CKD COPD PUD BPH - Plan Plan: Lab - Result Diagrams 10/06/17 05:50 10/06/17 05:50 Current Medications Acetaminophen (Tylenol) 650 mg PO Q4HR PRN PRN Reason: MILD PAIN Stop: 12/04/17 21:47 Acetaminophen/Hydrocodone Bitart ([place] 5mg/325mg) 1 tab PO Q6H PRN PRN Reason: Pain (Mild) Stop: 12/04/17 21:47 Albuterol/Ipratropium (Duoneb Neb) 3 ml HHN [id number] [facility] Stop: 12/05/17 06:59 Last Admin: 10/06/17 12:48 Dose: Not Given Amlodipine Besylate (Norvasc) 10 mg PO DAILY [facility] Stop: 12/05/17 08:59 Last Admin: 10/06/17 11:25 Dose: Not Given Ascorbic Acid (Vitamin C) 500 mg PO DAILY [facility] Stop: 12/05/17 08:59 Last Admin: 10/06/17 11:23 Dose: Not Given Aspirin (Aspirin Chewable) 81 mg PO DAILY [facility] Stop: 12/05/17 08:59 Last Admin: 10/06/17 11:23 Dose: Not Given Atorvastatin Calcium (Lipitor) 20 mg PO HS [facility] Stop: 12/05/17 20:59 Bisacodyl (Dulcolax 10 Mg Supp) 10 mg RC DAILY PRN PRN Reason: IF MOM INEFECTIVE Stop: 12/04/17 21:47 Budesonide (Pulmicort) 0.5 mg HHN BIDRT [facility] Stop: 12/05/17 06:59 Last Admin: 10/06/17 07:22 Dose: 0.5 mg Calamine/Phenol (Calmoseptine) 1 appl TP DAILY [facility] Stop: 12/05/17 08:59 Last Admin: 10/06/17 11:25 Dose: Not Given Calcium Carbonate (Os-Alicia) 500 mg PO DAILY [facility] Stop: 12/05/17 08:59 Last Admin: 10/06/17 11:23 Dose: Not Given Docusate Sodium (Colace) 100 mg PO BID [facility] Stop: 12/05/17 08:59 Last Admin: 10/06/17 11:23 Dose: Not Given Ferrous Sulfate (Iron) 325 mg PO DAILY [facility] Stop: 12/05/17 08:59 Last Admin: 10/06/17 11:24 Dose: Not Given Finasteride (Proscar) 5 mg PO DAILY [facility]; Protocol Stop: 12/05/17 08:59 Last Admin: 10/06/17 11:24 Dose: Not Given Heparin Sodium (Porcine) (Heparin Sodium) 0 units HD UD [facility] Stop: 10/07/17 00:00 Heparin Sodium (Porcine) (Heparin) 5,000 units SUBQ Q12HR [facility] Stop: 12/05/17 08:59 Last Admin: 10/06/17 11:24 Dose: Not Given Dextrose/Sodium Chloride (D5-0.45ns) 1,000 mls @ 50 mls/hr IV .Q20H [facility] Stop: 12/04/17 18:44 Last Admin: 10/05/17 21:25 Dose: 50 mls/hr Ceftriaxone Sodium 1 gm/ (Sodium Chloride) 50 mls @ 100 mls/hr IV Q24HR [facility] Stop: 12/05/17 08:59 Last Admin: 10/06/17 09:29 Dose: 100 mls/hr Insulin Aspart (Novolog Insulin Sliding Scale) 0 units SUBQ [facility]; Protocol Stop: 12/05/17 07:29 Last Admin: 10/06/17 11:35 Dose: Not Given Insulin Detemir (Levemir Insulin) 10 units SUBQ [facility]; Protocol Stop: 12/05/17 20:59 Lactobacillus Rhamnosus (Culturelle 15b) 1 each PO DAILY [facility] Stop: 12/05/17 08:59 Last Admin: 10/06/17 11:24 Dose: Not Given Miscellaneous (Vancomycin Iv Per Pharmacy) 1 [facility] PRN PRN PRN Reason: PROTOCOL Stop: 12/04/17 18:21 Ondansetron HCl (Zofran Odt) 4 mg PO Q4H PRN PRN Reason: Nausea / Vomiting Stop: 12/04/17 21:47 Pantoprazole Sodium (Protonix) 40 mg PO DAILY [facility] Stop: 12/05/17 08:59 Last Admin: 10/06/17 11:24 Dose: Not Given Senna (Senna) 8.6 mg PO HS [facility] Stop: 12/05/17 20:59 Tamsulosin HCl (Flomax) 0.4 mg PO DAILY [facility] Stop: 12/05/17 08:59 Last Admin: 10/06/17 11:25 Dose: Not Given Vitamin B Complex/Vit C/Folic Acid (Vitamin B Complex W/Vitamin C) 1 tab PO DAILY [facility] Stop: 12/05/17 08:59 Last Admin: 10/06/17 11:25 Dose: Not Given Lab - Result Diagrams 10/07/17 05:56 10/07/17 05:56 replace K Had thrombectomy & placement of left Perma cath curretly being dialyzed Nutritional Asmnt/Malnutr-PDOC - Dietary Evaluation Malnutrition Findings (Please click <Entered> for more info): Nutritional Asmnt/Malnutrition Start: 10/06/17 17: 02 Text: Status: Complete Freq: Protocol: Document 10/06/17 17:03 LCHENG (Rec: 10/06/17 17:08 LCHENG [id number]) Nutritional Asmnt/Malnutrition Patient General Information Nutritional Screening High Risk Consult Diagnosis cloteed diaylysis shunt Pertinent Medical Hx/Surgical Hx ESRD on HD, CHF, HTN, hyperlipidemia, GERD, dementia , OA Subjective Information Consult received for DM and dialysis. Pt was sent to OR for permacath placement at time of visit. Pt was on renal diet. Current Diet Order/ Nutrition Support NPO Pertinent Medications vit C, os-alicia, D5-0.45ns, colace, iron, novolog, levemir , culturelle, protonix, senna, vit B complex with Vit C Pertinent Labs 10/06 K 3.0, BUN 28, Cr 4.3, glucose 139, POC 122-131, Ca 8 .5 Nutritional Hx/Data Height 1.65 m Height (Calculated Centimeters) 165.1 Current Weight (lbs) 62.596 kg Weight (Calculated Kilograms) 62.6 Weight (Calculated Grams) 44585.7 [place] Body Weight 136 Body Mass Index (BMI) 22.9 Weight Status Approriate GI Symptoms GI Symptoms None Last BM none Difficult in: None Skin Integrity/Comment: claudette Falcon Estimated Nutritional Goals BEE in Kcals: Using Current wt Calories/Kcals/Kg 30 Kcals Calculated 2009 Protein: Using Current wt Protein g/k.2-1.4 Protein Calculated 80-94 Fluid: ml per MD Nutritional Problem 1. Problem Problem altered nutrition related labs Etiology endocrine dysfunction Signs/Symptoms: glucose 115-139 (trending up) Malnutrition Alert Is there a minimum of two criteria No selected? Query Text:Check all the applicable criteria. A minimum of two criteria are recommended for diagnosis of either severe or non-severe malnutrition. Malnutrition Related to Morbid Obesity Malnutrition related to morbid obesity No Intervention/Recommendation Comments 1. Resume renal diet when medically appropriate after surgery done. If glucose continue high, will consider adding CCHO diet. 2. Monitor PO intake, wt, labs and skin integrity 3. F/U as high risk in 2-3 days, 10/08-10/09 Expected Outcomes/Goals Expected Outcomes/Goals 1. PO intake to meet at least 75% of nutritional needs. 2. Wt stability, skin to remain intact, labs to approach WNL.
--- NOTE | 2017-10-07 19:22 | Progress Notes ---
DATE: 10/07/2017 SUBJECTIVE: The patient was seen in her room, lying in the bed. The patient is asleep but easily arousable. Denies any pain or discomfort at this time. Otherwise, the patient is in no acute distress. OBJECTIVE: VITAL SIGNS: Temperature 97.5, heart rate of 85, blood pressure 108/63, respiration rate 18, 98% on room air. HEENT: Head is atraumatic and normocephalic. Eyes: Bilateral conjunctivae are clear. Bilateral pupils are equally round and reactive. NECK: Supple. No JVD. CARDIOVASCULAR: S1 and S2, without murmur. PULMONARY: Clear to auscultation. GASTROINTESTINAL: Soft and nontender without guarding. Positive bowel sounds. MUSCULOSKELETAL: No clubbing. No cyanosis noted. ASSESSMENT: 1. End-stage renal disease. 2. Corrected hemodialysis access. 3. Status post thrombectomy. 4. Hypertension. 5. Anemia. PLAN: We will continue current treatment. We will continue hemodialysis as scheduled. [facility] once bed is available. Treatment plans were discussed with the patient's nurse. Treatment plans were discussed with Dr. Galeas. JOB# [id number]
[2017-10-08] MEDS ORDERED: Potassium Chloride 10 mEq ER Tab PO ONE (09:38)
== END 2017-10-07 19:35 | DRG 252 ==
LOC: ER 12:42 → MSI 15:45
PROVIDERS: ADMIT Internal Medicine; ATTEND Internal Medicine
PROC: 02HV33Z Insertion of Infusion Device into Superior Vena Cava, Percutaneous Approach (ICD-10-PCS; principal; 2017-10-06)
PROC: 03CY0ZZ Extirpation of Matter from Upper Artery, Open Approach (ICD-10-PCS; 2017-10-06)
PROC: B5181ZA Fluoroscopy of Superior Vena Cava using Low Osmolar Contrast, Guidance (ICD-10-PCS; 2017-10-06)
PROC: 5A1D70Z Performance of Urinary Filtration, Intermittent, Less than 6 Hours Per Day (ICD-10-PCS; 2017-10-06)
PROC: 5A1D70Z Performance of Urinary Filtration, Intermittent, Less than 6 Hours Per Day (ICD-10-PCS; 2017-10-07)
DX: T82.868A Thrombosis due to vascular prosthetic devices, implants and grafts, initial encounter (principal); N18.6 End stage renal disease; I13.2 Hypertensive heart and chronic kidney disease with heart failure and with stage 5 chronic kidney disease, or end stage renal disease; Z99.2 Dependence on renal dialysis; E78.5 Hyperlipidemia, unspecified; M19.90 Unspecified osteoarthritis, unspecified site; K21.9 Gastro-esophageal reflux disease without esophagitis; E11.22 Type 2 diabetes mellitus with diabetic chronic kidney disease; D63.1 Anemia in chronic kidney disease; J44.9 Chronic obstructive pulmonary disease, unspecified; I50.9 Heart failure, unspecified; K27.9 Peptic ulcer, site unspecified, unspecified as acute or chronic, without hemorrhage or perforation; G30.9 Alzheimer's disease, unspecified; F02.80 Dementia in other diseases classified elsewhere, unspecified severity, without behavioral disturbance, psychotic disturbance, mood disturbance, and anxiety; E11.51 Type 2 diabetes mellitus with diabetic peripheral angiopathy without gangrene; Y83.8 Other surgical procedures as the cause of abnormal reaction of the patient, or of later complication, without mention of misadventure at the time of the procedure; Y92.89 Other specified places as the place of occurrence of the external cause; Z79.4 Long term (current) use of insulin
CPT/HCPCS: 36415-UA; 71045-TC; 76000-TC; 80048-TC; 80053-TC; 80061-TC; 80202-TC; 81001-TC; 82948-90; 83036-90; 84100-TC; 84443-TC; 85025-TC; 85610-TC; 85730-TC; 87086-90; 93005; 93970-TC-50; 94760; J0696; J1644; J1815; J2704; J3010; J3370; J7030; Q0162; V2790; X6530; Z7610

== ENCOUNTER 2018-02-26 16:52 | Inpatient (IN) | payer MEDICARE, OTHER ==
[2018-02-26] MEDS ORDERED: Lactated Ringer 1,000 ML IV ONE (17:01)
[2018-02-26 17:37] LABS: ALB/GLOB RATIO 0.5 (1.0-1.8); ALBUMIN 2.3 gm/dL (4.2-5.5); ALKALINE PHOSPHATASE 96 U/L (34-104); ANION GAP 11.9 (7.0-16.0); BILIRUBIN,TOTAL 0.3 mg/dL (0.3-1.0); BUN - UREA NITROGEN 57 mg/dL (7-25); CALCIUM SERUM 8.8 mg/dL (8.6-10.3); CARBON DIOXIDE 30.3 mEq/L (21.0-31.0); CHLORIDE 92 mEq/L (98-107); CREATININE - SERUM 3.1 mg/dL (0.7-1.3); GLUCOSE 217 mg/dL (70-105); MAGNESIUM 2.3 mg/dL (1.9-2.7); PHOSPHOROUS 2.4 mg/dL (2.5-5.0); POTASSIUM SERUM 3.2 mEq/L (3.5-5.1); SGOT 20 U/L (13-39); SGPT/ALT 20 U/L (7-52); SODIUM SERUM 131 mEq/L (136-145); TOTAL PROTEIN,SERUM 6.6 gm/dL (6.0-8.3)
[2018-02-26 17:42] LABS: HEMATOCRIT 28.8 % (41.0-60); HEMOGLOBIN 9.4 gm/dL (12-16); MEAN CELL VOLUME 93.2 fl (80-99); MEAN CORPUSCULAR HEMOGLOBIN 30.5 pg (27.0-31.0); MEAN CORPUSCULAR HGB CONC 32.7 pg (28.0-36.0); MEAN PLATELET VOLUME 7.8 fl; PLATELET COUNT 619 Th/cmm (150-400); RED BLOOD COUNT 3.09 Mil/cmm (3.80-5.80); RED CELL DISTRIBUTION WIDTH 17.6 % (11.5-20.0)
[2018-02-26 17:44] LABS: WHITE BLOOD COUNT 16.5 Th/cmm (4.8-10.8)
[2018-02-26 18:15] LABS: BAND NEUTROPHILE 1 % (0-10); EOSINOPHIL 4 % (0-5); LYMPHOCYTE 15 % (20-50); MONOCYTE 5 % (2-10); NEUTROPHILS 75 % (40-80)
--- NOTE | 2018-02-26 18:22 | ED Physician Chart ---
ED Chief Complaint/HPI - Patient Information Date Seen:: 02/26/18 Time Seen:: 17:12 Chief Complaint:: clostridium difficile positive History of Present Illness:: clostridium difficile positive in a dialysis dependent diabetic who has a h/o MRSA and ESBL in sputum Allergies:: Allergies Allergy/AdvReac Type Severity Reaction Status Date / Time levetiracetam Allergy Verified 02/26/18 17:10 Penicillins Allergy Verified 02/26/18 17:10 Vitals:: Vital Signs - 8 hr 02/26/18 17:12 Temp 98.7 F HR 71 RR 16 BP 125/55 O2 Sat % 96 Review:: Nurse's Note Reviewed, Transfer documents Reviewed ED Review of Systems - Review of Systems General/Constitutional: Weight loss, Weakness Skin: Other (multiple wounds, gangrene and large decubitus) Head: No headache, No light-headedness Eyes: No loss of vision, No pain, No diplopia ENT: No earache, No nasal drainage, No sore throat, No tinnitus Neck: No neck pain, No swelling, No thyromegaly, No stiffness, No mass noted Cardio Vascular: No chest pain, No palpitations, No PND, No orthopnea, No edema GI: Diarrhea G/U: Other (incontinent of urine (per facility)) Musculoskeletal: Bone or joint pain, Back pain, No muscle pain Endocrine: No polyuria, No polydipsia Hematopoietic: No bruising, No lymphadenopathy Allergic/Immuno: No urticaria, No angioedema Neurological: No syncope, No focal symptoms, No weakness, No paresthesia, No headache, No seizure, No dizziness, No confusion, No vertigo ED Past Medical History - Past Medical History Obtainable: No Past Medical History: DM, PUD/GERD, Dementia, Other (peripheral vascular disease ) Psychiatricy History: Dementia Family Medical History - Family Member Mother History Unknown: Yes Ethnicity: Living Status: Unknown Hx Family Cancer: (UNKNOWN) Hx Family Coronary Artery Disease: (UNKNOWN) Hx Family Congestive Heart Failure: (UNKNOWN) Hx Family Hypertension: (UNKNOWN) Hx Family Stroke: (UNKNOWN) Hx Family Diabetes: (UNKNOWN) Hx Family Seizures: (UNKNOWN) Hx Family Dementia: (UNKNOWN) Hx Family AIDS: (UNKNOWN) Hx Family COPD: (UNKNOWN) Hx Family Hepatitis: (UNKNOWN) Hx Family Psychiatric Problems: (UNKNOWN) Hx Family Tuberculosis: (UNKNOWN) ED Physical Exam - Physical Examination Other Gen/Cons comments:: chronically ill appearing emaciated patient. Eyes: Lids, conjuctiva normal Other Skin comments:: large sacral decubitus with involvement of gluteal area. left hand wound, healing right hand wound with surrounding right lower symes amputation left lower extremity dry gangrene ENMT: External ears, nose nl Neck: Nontender, No nuchal rigidity Other Respiratory comments:: decreased breath sounds at bases. Cardio Vascular: RRR, No murmur, gallop, rubs, NL S1 S2 GI: No tenderness/rebounding/guarding Other GI comments:: PEG tube intact. Other Extremities comments:: eft hand wound, healing right hand wound with surrounding right lower symes amputation left lower extremity dry gangrene Neuro/Psych: Mood normal Other Misc comments:: large sacral decubitus with involvement of gluteal area. ED Labs/Radiology/EKG Results - Lab Results Results: Laboratory Tests 02/26/18 02/26/18 02/26/18 17:15 17:15 17:15 WBC 16.5 H RBC 3.09 L Hgb 9.4 L Hct 28.8 L MCV 93.2 MCH 30.5 MCHC Differential 32.7 RDW 17.6 Plt Count 619 H MPV 7.8 Add Manual Diff YES Sodium 131 L Potassium 3.2 L Chloride 92 L Carbon Dioxide 30.3 Anion Gap 11.9 BUN 57 H Creatinine 3.1 H Est GFR ( Amer) TNP Est GFR (Non-Af Amer) TNP BUN/Creatinine Ratio 18.4 Glucose 217 H POC Glucose Whole Bld Lactic Acid 1.49 Calcium 8.8 Phosphorus 2.4 L Magnesium 2.3 Total Bilirubin 0.3 AST 20 ALT 20 Alkaline Phosphatase 96 Total Protein 6.6 Albumin 2.3 L Globulin 4.3 Albumin/Globulin Ratio 0.5 L 02/26/18 17:33 WBC RBC Hgb Hct MCV MCH MCHC Differential RDW Plt Count MPV Add Manual Diff Sodium Potassium Chloride Carbon Dioxide Anion Gap BUN Creatinine Est GFR ( Amer) Est GFR (Non-Af Amer) BUN/Creatinine Ratio Glucose POC Glucose 206 H Whole Bld Lactic Acid Calcium Phosphorus Magnesium Total Bilirubin AST ALT Alkaline Phosphatase Total Protein Albumin Globulin Albumin/Globulin Ratio ED Assessment - Assessment General Assessment: CXR reading by me: LLL pneumonia. case presentation given to Dr. Galeas who will admit the patient to telemetry. Assessment/Comments:: EKG from 19:28:52 p.m. reveals normal sinus rhythm; flipped t wave in III and V1. ED Septic Shock - . Is Septic Shock (SBP<90, OR Lactate>4 mmol\L) present?: No - <6hrs of presentation: Vital Signs: Vital Signs - 8 hr 02/26/18 17:12 Temp 98.7 F HR 71 RR 16 BP 125/55 O2 Sat % 96 ED Reassessment (Disposition) - Reassessment Reassessment Condition:: Unchanged - Diagnosis Diagnosis:: Clostridium difficile positive Left lower lobe pneumonia Dialysis dependent patient--Monday, , Monday (last dialysis Monday) ESBL positive for sputum, recent Vancomycin Large sacral decubitus with gluteal involvement Leukocytosis to 16.5 Hypokalemia to 3.2 Low phosphorous Chronic renal failure with BUN of 57 and creatinine of 3.1 Oral thrush 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 Galeas Time Called:: 18:20 Admitted to:: Telemetry Condition at Disposition:: Stable, Unchanged
[2018-02-26] MEDS: INSULIN ASPART SLIDING SCALE 100 UNITS/ML UNIT SUBQ SCH (22:28)
[2018-02-27 00:56] VITALS: BP 143/56
[2018-02-27 04:33] LABS: HEMATOCRIT 26.4 % (41.0-60); HEMOGLOBIN 8.8 gm/dL (12-16); MEAN CELL VOLUME 90.7 fl (80-99); MEAN CORPUSCULAR HEMOGLOBIN 30.1 pg (27.0-31.0); MEAN CORPUSCULAR HGB CONC 33.2 pg (28.0-36.0); MEAN PLATELET VOLUME 7.7 fl; PLATELET COUNT 556 Th/cmm (150-400); RED BLOOD COUNT 2.91 Mil/cmm (3.80-5.80); RED CELL DISTRIBUTION WIDTH 17.2 % (11.5-20.0)
[2018-02-27 04:52] LABS: WHITE BLOOD COUNT 16.1 Th/cmm (4.8-10.8)
[2018-02-27 05:15] LABS: ALB/GLOB RATIO 0.5 (1.0-1.8); ALBUMIN 2.1 gm/dL (4.2-5.5); ALKALINE PHOSPHATASE 82 U/L (34-104); ANION GAP 10.8 (7.0-16.0); BILIRUBIN,TOTAL 0.3 mg/dL (0.3-1.0); BUN - UREA NITROGEN 62 mg/dL (7-25); CALCIUM SERUM 8.6 mg/dL (8.6-10.3); CARBON DIOXIDE 30.1 mEq/L (21.0-31.0); CHLORIDE 95 mEq/L (98-107); CREATININE - SERUM 3.3 mg/dL (0.7-1.3); SGOT 17 U/L (13-39); SGPT/ALT 16 U/L (7-52); SODIUM SERUM 133 mEq/L (136-145)
[2018-02-27 05:47] LABS: BAND NEUTROPHILE 1 % (0-10); EOSINOPHIL 1 % (0-5); LYMPHOCYTE 18 % (20-50); MONOCYTE 5 % (2-10); NEUTROPHILS 75 % (40-80)
[2018-02-27] MEDS ORDERED: Potassium Chloride 10 mEq ER Tab PO ONE (05:55)
[2018-02-27 06:44] LABS: POTASSIUM SERUM 2.9 mEq/L (3.5-5.1)
[2018-02-27 06:45] LABS: GLUCOSE 121 mg/dL (70-105)
[2018-02-27] MEDS: INSULIN ASPART SLIDING SCALE 100 UNITS/ML UNIT SUBQ SCH ×4 (07:50→21:58)
--- NOTE | 2018-02-27 08:21 | Diagnostic Imaging Report ---
CHEST X-RAY: AP view INDICATION: Aspiration COMPARISON: 10/06/2017 FINDINGS: Left effusion is again noted. Left os catheter is seen curving along the inferior aspect. The tip is located likely within the cavoatrial junction. Cardiomegaly is noted. Gas-filled loops of bowel of the upper abdomen are noted. Osseous structures are intact. Left upper extremity vascular stent is noted. IMPRESSION: Redemonstration of left pleural effusion and probable left lung infiltrates. Left-sided dialysis catheter with tip curved. The tip probably resides within the cavoatrial junction. Cardiomegaly.
[2018-02-27] MEDS ORDERED: VTE Chemical Prophylaxis Screen/Admission MC PRN (11:45)
--- NOTE | 2018-02-27 13:28 | History & Physical ---
ADMIT DATE: 02/27/2018 CHIEF COMPLAINT: Abnormal labs. HISTORY OF PRESENT ILLNESS: This is an 82-year-old male who is a assisted resident, admitted to the telemetry unit due to C. diff positive. The patient did not have any fevers at the SNF. For further management, the patient is now admitted. PAST MEDICAL HISTORY: Diabetes, GERD, dementia, PVD, ESRD, on HD. PAST SURGICAL HISTORY: Dialysis shunt and PEG. FAMILY HISTORY: Noncontributory. SOCIAL HISTORY: The patient is a assisted resident, requiring 24-hour nursing care. REVIEW OF SYSTEMS: Unable to obtain at this time. PHYSICAL EXAMINATION: GENERAL: Elderly male, awake, does not really want to interact at this time, no apparent distress. VITAL SIGNS: Temperature 98.1, heart rate 69, blood pressure 125/41, respiration 18, O2 96%. HEENT: Head: Normocephalic, atraumatic. NECK: Supple. No mass. LUNGS: Clear bilaterally. HEART: Regular rate and rhythm. ABDOMEN: Soft, nontender. SKIN: The patient is noted with large sacral decubitus ulcer, left hand wound, right hand excoriation as well. Left lower extremity noted possible gangrene. EXTREMITIES: The patient's left upper extremity noted with +4 edema. LABORATORY DATA: WBC 16.1, H and H 8.8 and 26.4, platelet of 556. Sodium 132, potassium 3.9, chloride 95, BUN 62, creatinine 3.3, albumin of 2.1. DIAGNOSTICS: The patient had a chest x-ray done and impression is redemonstration of left pleural effusion, probable left lung infiltrates, left-sided dialysis catheter with a curved tip that resides within junction, cardiomegaly. ASSESSMENT: Left Clostridium difficile colitis, left lower lobe pneumonia, ESBL sputum, sacral decubitus ulceration, end-stage renal disease on hemodialysis, leukocytosis, hypokalemia, severe protein-calorie malnutrition. PLAN: We will get Infectious Disease on the case. We will get Renal consultation as well as Surgical consultation. We will get a venous Doppler on left upper extremity. Keep patient on empiric IV antibiotics. We will send urine for cultures. Sputum culture as well. We will continue to monitor this patient. JOB# [id number]
--- NOTE | 2018-02-27 14:06 | Consultation ---
Consult Note - Consult Note Service Date: 02/27/18 Referring Physician: Jorden Galeas Consult Note: PHYSICIAN Consultation Note: Date of Admission: 02/26/18 Purpose of Consultation: Chief Complaint: Patient DONIS SMITH was [facility] Telemetry with C -DIFF ESBL OF SPUTAM. History of Present Illness: 82-year-old male with a past medical history of GERD diabetes mellitus, dementia , prior peripheral vascular disease, CK D stage V number dialysis through left sided permacath on the chest. brought from the ER for diarrhea. Stool for C. difficile came positive. Patient was transferred to the ER for further evaluation and management. Patient still complains of diarrhea. On initial evaluation, he was afebrile and WBC count was 16,500. ID consult was called for further evaluation and management. Besides this, his sputum culture grew ESBL. Past Medical History: GERD diabetes mellitus, dementia, prior peripheral vascular disease, CK D stage V number dialysis through left sided permacath on the chest. Allergies Allergy/AdvReac Type Severity Reaction Status Date / Time levetiracetam Allergy Verified 02/26/18 17:10 Penicillins Allergy Verified 02/26/18 17:10 Vital Signs Temp 97.5 F 02/27/18 12:00 Pulse 69 02/27/18 12:00 Resp 19 02/27/18 12:00 BP 127/48 02/27/18 12:00 Pulse Ox 100 02/27/18 12:00 Intake & Output 02/26/18 02/27/18 02/27/18 18:59 06:59 18:59 Intake Total 250 Output Total 0 Balance 250 Weight (lbs) 79.379 kg 65.317 kg 67.495 kg Intake: Oral 250 Output: Stool 0 Other: # Voids 1 Weight Source Estimated Bedscale Laboratory Results - last 24 hr 02/26/18 02/26/18 02/26/18 17:15 17:15 17:15 WBC 16.5 H RBC 3.09 L Hgb 9.4 L Hct 28.8 L MCV 93.2 MCH 30.5 MCHC Differential 32.7 RDW 17.6 Plt Count 619 H MPV 7.8 Add Manual Diff YES Neutrophils % Band Neutrophils % 1 Lymphocytes % Monocytes % Eosinophils % Basophils % Neutrophils (Manual) 75 Lymphocytes 15 L Monocytes 5 Eosinophils 4 Sodium 131 L Potassium 3.2 L Chloride 92 L Carbon Dioxide 30.3 Anion Gap 11.9 BUN 57 H Creatinine 3.1 H Est GFR ( Amer) TNP Est GFR (Non-Af Amer) TNP BUN/Creatinine Ratio 18.4 Glucose 217 H POC Glucose Whole Bld Lactic Acid 1.49 Calcium 8.8 Phosphorus 2.4 L Magnesium 2.3 Total Bilirubin 0.3 AST 20 ALT 20 Alkaline Phosphatase 96 Total Protein 6.6 Albumin 2.3 L Globulin 4.3 Albumin/Globulin Ratio 0.5 L Random Vancomycin 02/26/18 02/26/18 02/27/18 17:33 22:26 04:10 WBC 16.1 H RBC 2.91 L Hgb 8.8 L Hct 26.4 L MCV 90.7 MCH 30.1 MCHC Differential 33.2 RDW 17.2 Plt Count 556 H MPV 7.7 Add Manual Diff YES Neutrophils % OFFAL SEPARATOR Band Neutrophils % 1 Lymphocytes % OFFAL SEPARATOR Monocytes % OFFAL SEPARATOR Eosinophils % OFFAL SEPARATOR Basophils % OFFAL SEPARATOR Neutrophils (Manual) 75 Lymphocytes 18 L Monocytes 5 Eosinophils 1 Sodium Potassium Chloride Carbon Dioxide Anion Gap BUN Creatinine Est GFR ( Amer) Est GFR (Non-Af Amer) BUN/Creatinine Ratio Glucose POC Glucose 206 H 185 H Whole Bld Lactic Acid Calcium Phosphorus Magnesium Total Bilirubin AST ALT Alkaline Phosphatase Total Protein Albumin Globulin Albumin/Globulin Ratio Random Vancomycin 02/27/18 02/27/18 02/27/18 04:10 07:50 10:20 WBC RBC Hgb Hct MCV MCH MCHC Differential RDW Plt Count MPV Add Manual Diff Neutrophils % Band Neutrophils % Lymphocytes % Monocytes % Eosinophils % Basophils % Neutrophils (Manual) Lymphocytes Monocytes Eosinophils Sodium 133 L Potassium 2.9 L* 3.5 Chloride 95 L Carbon Dioxide 30.1 Anion Gap 10.8 BUN 62 H Creatinine 3.3 H Est GFR ( Amer) TNP Est GFR (Non-Af Amer) TNP BUN/Creatinine Ratio 18.8 Glucose 121 H D POC Glucose 118 H Whole Bld Lactic Acid Calcium 8.6 Phosphorus Magnesium Total Bilirubin 0.3 AST 17 ALT 16 Alkaline Phosphatase 82 Total Protein 6.0 Albumin 2.1 L Globulin 3.9 Albumin/Globulin Ratio 0.5 L Random Vancomycin 02/27/18 10:20 WBC RBC Hgb Hct MCV MCH MCHC Differential RDW Plt Count MPV Add Manual Diff Neutrophils % Band Neutrophils % Lymphocytes % Monocytes % Eosinophils % Basophils % Neutrophils (Manual) Lymphocytes Monocytes Eosinophils Sodium Potassium Chloride Carbon Dioxide Anion Gap BUN Creatinine Est GFR ( Amer) Est GFR (Non-Af Amer) BUN/Creatinine Ratio Glucose POC Glucose Whole Bld Lactic Acid Calcium Phosphorus Magnesium Total Bilirubin AST ALT Alkaline Phosphatase Total Protein Albumin Globulin Albumin/Globulin Ratio Random Vancomycin 6.6 Home Medication Medication Instructions Recorded Type Acetaminophen [Tylenol] 650 mg GT Q4HR PRN 08/19/17 History Amlodipine Besylate 10 mg GT DAILY 08/19/17 History Ascorbic Acid [Vitamin C] 500 mg GT DAILY 08/19/17 History Aspirin [Aspirin Chewable] 81 mg GT DAILY 08/19/17 History Atorvastatin Calcium [Lipitor] 20 mg GT HS 08/19/17 History Bisacodyl [Dulcolax 10 Mg Supp] 10 mg RC DAILY PRN 08/19/17 History Calcium Carbonate 500 mg GT DAILY 08/19/17 History Docusate Sodium [Colace] 100 mg GT DAILY 08/19/17 History Finasteride [Proscar*] 1 tab PO DAILY 08/19/17 History Folic Acid/Vit Bcomp,C 0.8 mg GT DAILY 08/19/17 History [Nephro-Cordelia Tablet] Insulin Detemir [Levemir] 5 unit SQ HS 08/19/17 History Tamsulosin [Flomax] 0.4 mg PO DAILY 08/19/17 History Acetaminophen 2 tab GT DAILY PRN 02/26/18 History Carvedilol 6.25 mg GT BID 02/26/18 History Zinc Sulfate 1 cap GT DAILY 02/26/18 History Current Medications Generic Name Dose Route Start Last Admin Trade Name Freq PRN Reason Stop Dose Admin Acetaminophen 650 mg 02/26/18 22:29 Tylenol 650mg/20.3ml Suspension GT 04/27/18 22:28 DAILY PRN prior to wound healing Acetaminophen 650 mg 02/26/18 22:29 Tylenol GT 04/27/18 22:28 Q4HR PRN MILD PAIN Amlodipine Besylate 10 mg 02/27/18 09:00 02/27/18 08:58 Norvasc GT 04/28/18 08:59 10 mg DAILY INOCENCIO Administration Ascorbic Acid 500 mg 02/27/18 09:00 02/27/18 08:59 Vitamin C GT 04/28/18 08:59 500 mg DAILY INOCENCIO Administration Heparin Sodium (Porcine) 5,000 units 02/27/18 21:00 Heparin SUBQ 04/28/18 20:59 Q12HR [facility] Insulin Aspart 0 units 02/26/18 21:00 02/27/18 12:31 Novolog Insulin Sliding Scale SUBQ 04/27/18 20:59 Not Given ACHS [facility] Protocol Miscellaneous 1 ea 02/26/18 20:16 Vancomycin Iv Per Pharmacy 04/27/18 20:15 PRN PRN PROTOCOL Miscellaneous 1 ea 02/27/18 11:45 Vte Chemical Prophylaxis Screen/ Admission 04/28/18 11:44 PRN PRN PROTOCOL Nystatin 100,000 units 02/26/18 21:00 02/27/18 08:58 Nystatin PO 04/27/18 20:59 100,000 units TID [facility] Administration Review of Systems: A 12 point ROS was reviewed with the pertinent positive and negatives noted in the HPI. Social History Smoking Status Unknown if ever smoked Family Medical History Unknown. Physical Exam: General: Comfortable, not in acute distress. Well-nourished well-developed. HEENT: Head: Normocytic, atraumatic. Oral cavity: Moist, pink tongue. Eyes: Pallor is present. No icterus. Pupil PERRLA. EOMI. Neck: Supple, no JVD. No use of accessory neck muscles. Cardio: S1 and S2 within normal limits regular rhythm no murmur or gallop. Respiratory: Vesicular breath sound. No crackles no wheezing decubitus on basis. Abdominal: Soft, nontender, nondistended, bowel sounds present. Genital/Urinary: Extremities: No cyanosis, no clubbing no edema. Right hand wound with surrounding erythema. Right lower extremity amputaion stump wound. Left Foot gangrene at the amputation site laterally. Left sided permacath on left upper chest, Neurological: Alert, awake, and oriented 3. Assessment: 1. C. difficile colitis. 2. Leukocytosis. 3. Right hand wound and cellulitis. 4. Right leg wound. 5. Left foot gangrene. 6. PAD. 7. DM2. 8. CKD on HD. 9. Dementia. 10. h/o ESBL + pneumonia treated recently. Plan: Start vanco po and start vanco IV. wound cultures. Thank you, Dr Galeas for involving me in taking care of this patient. Pineda, Javi Robin M.D. [phone]
--- NOTE | 2018-02-27 14:27 | Diagnostic Imaging Report ---
Bilateral upper extremity extremity DVT study HISTORY: Pain COMPARISON: None Technique: Longitudinal and transverse sonographic images of the bilateral upper extremity veins were obtained with doppler analysis. FINDINGS: The left subclavian and left axillary vein were not able to be evaluated due to patient's dialysis catheter. The remaining veins of the bilateral upper extremity are patent demonstrating compressibility and augmentation with no evidence of thrombus formation. IMPRESSION: The left subclavian and left axillary veins are not able to be evaluated due to patient's left dialysis catheter. Otherwise no evidence of DVT within the bilateral upper extremity venous system.
--- NOTE | 2018-02-27 15:34 | General Progress Note ---
Subjective - Review of Systems Service Date: 02/27/18 Events since last encounter: Patient has non-functioning left arm AV shunt for 3 months had surgeery at [facility] 1 month ago and was in coma for 10 days has gangrene of both feet Plan: discussed with daughter in law and consent given for tomorrow: 1.replace or place new Permcath 2. AV shunt or fistula right arm Will defer amputation of feet on 03/02/18 Objective - Results Result Diagrams: 02/27/18 04:10 02/27/18 10:20 Recent Labs: Laboratory Last Values WBC 16.1 Th/cmm (4.8-10.8) H 02/27/18 04:10 RBC 2.91 Mil/cmm (3.80-5.80) L 02/27/18 04:10 Hgb 8.8 gm/dL (12-16) L 02/27/18 04:10 Hct 26.4 % (41.0-60) L 02/27/18 04:10 MCV 90.7 fl (80-99) 02/27/18 04:10 MCH 30.1 pg (27.0-31.0) 02/27/18 04:10 MCHC Differential 33.2 pg (28.0-36.0) 02/27/18 04:10 RDW 17.2 % (11.5-20.0) 02/27/18 04:10 Plt Count 556 Th/cmm (150-400) H 02/27/18 04:10 MPV 7.7 fl 02/27/18 04:10 Add Manual Diff YES 02/27/18 04:10 Neutrophils % WATCH REPAIR TECHNICIAN 02/27/18 04:10 Band Neutrophils % 1 % (0-10) 02/27/18 04:10 Lymphocytes % WATCH REPAIR TECHNICIAN 02/27/18 04:10 Monocytes % WATCH REPAIR TECHNICIAN 02/27/18 04:10 Eosinophils % WATCH REPAIR TECHNICIAN 02/27/18 04:10 Basophils % WATCH REPAIR TECHNICIAN 02/27/18 04:10 Neutrophils (Manual) 75 % (40-80) 02/27/18 04:10 Lymphocytes 18 % (20-50) L 02/27/18 04:10 Monocytes 5 % (2-10) 02/27/18 04:10 Eosinophils 1 % (0-5) 02/27/18 04:10 Sodium 133 mEq/L (136-145) L 02/27/18 04:10 Potassium 3.5 mEq/L (3.5-5.1) 02/27/18 10:20 Chloride 95 mEq/L (98-107) L 02/27/18 04:10 Carbon Dioxide 30.1 mEq/L (21.0-31.0) 02/27/18 04:10 Anion Gap 10.8 (7.0-16.0) 02/27/18 04:10 BUN 62 mg/dL (7-25) H 02/27/18 04:10 Creatinine 3.3 mg/dL (0.7-1.3) H 02/27/18 04:10 Est GFR ( Amer) TNP 02/27/18 04:10 Est GFR (Non-Af Amer) TNP 02/27/18 04:10 BUN/Creatinine Ratio 18.8 02/27/18 04:10 Glucose 121 mg/dL (70-105) H D 02/27/18 04:10 POC Glucose 118 MG/DL (70 - 105) H 02/27/18 07:50 Whole Bld Lactic Acid 1.49 mmol/L (0.60-1.99) 02/26/18 17:15 Calcium 8.6 mg/dL (8.6-10.3) 02/27/18 04:10 Phosphorus 2.4 mg/dL (2.5-5.0) L 02/26/18 17:15 Magnesium 2.3 mg/dL (1.9-2.7) 02/26/18 17:15 Total Bilirubin 0.3 mg/dL (0.3-1.0) 02/27/18 04:10 AST 17 U/L (13-39) 02/27/18 04:10 ALT 16 U/L (7-52) 02/27/18 04:10 Alkaline Phosphatase 82 U/L (34-104) 02/27/18 04:10 Total Protein 6.0 gm/dL (6.0-8.3) 02/27/18 04:10 Albumin 2.1 gm/dL (4.2-5.5) L 02/27/18 04:10 Globulin 3.9 gm/dL 02/27/18 04:10 Albumin/Globulin Ratio 0.5 (1.0-1.8) L 02/27/18 04:10 Random Vancomycin 6.6 ug/mL (5.0-40.0) 02/27/18 10:20 - Physical Exam Vitals and I&O: Vital Signs Temp 97.5 F 02/27/18 12:00 Pulse 69 02/27/18 12:00 Resp 18 02/27/18 14:22 BP 127/48 02/27/18 12:00 Pulse Ox 100 02/27/18 12:00 Intake & Output 02/26/18 02/27/18 02/27/18 18:59 06:59 18:59 Intake Total 250 Output Total 0 Balance 250 Weight (lbs) 79.379 kg 65.317 kg 67.495 kg Intake: Oral 250 Output: Stool 0 Other: # Voids 1 Weight Source Estimated Bedscale Active Medications: Current Medications Acetaminophen (Tylenol 650mg/20.3ml Suspension) 650 mg GT DAILY PRN PRN Reason: prior to wound healing Stop: 04/27/18 22:28 Acetaminophen (Tylenol) 650 mg GT Q4HR PRN PRN Reason: MILD PAIN Stop: 04/27/18 22:28 Amlodipine Besylate (Norvasc) 10 mg GT DAILY [facility] Stop: 04/28/18 08:59 Last Admin: 02/27/18 08:58 Dose: 10 mg Ascorbic Acid (Vitamin C) 500 mg GT DAILY [facility] Stop: 04/28/18 08:59 Last Admin: 02/27/18 08:59 Dose: 500 mg Heparin Sodium (Porcine) (Heparin) 5,000 units SUBQ Q12HR [facility] Stop: 04/28/18 20:59 Insulin Aspart (Novolog Insulin Sliding Scale) 0 units SUBQ ACHS [facility]; Protocol Stop: 04/27/18 20:59 Last Admin: 02/27/18 12:31 Dose: Not Given Miscellaneous (Vancomycin Iv Per Pharmacy) 1 ea PRN PRN PRN Reason: PROTOCOL Stop: 04/27/18 20:15 Miscellaneous (Vte Chemical Prophylaxis Screen/ Admission) 1 ea PRN PRN PRN Reason: PROTOCOL Stop: 04/28/18 11:44 Nystatin (Nystatin) 100,000 units PO TID [facility] Stop: 04/27/18 20:59 Last Admin: 02/27/18 14:39 Dose: 100,000 units - Procedures Procedures: Procedures Procedure Code Date AMPUTATION OF TOE 97211 08/19/17 DETACHMENT AT LEFT 1ST TOE, COMPLETE, OPEN APPROACH [id number] 08/19/17 DETACHMENT AT RIGHT 1ST TOE, COMPLETE, OPEN APPROACH [id number] 08/19/17 DETACHMENT AT RIGHT 2ND TOE, COMPLETE, OPEN APPROACH [id number] 08/19/17 DETACHMENT AT RIGHT FOOT, COMPLETE, OPEN APPROACH [id number] 09/23/17 EXCISION OF L LOW LEG SUBCU/FASCIA, OPEN APPROACH [id number] 08/19/17 EXTIRPATION OF MATTER FROM L AXILLA ART, OPEN APPROACH [id number] 09/23/17 EXTIRPATION OF MATTER FROM UPPER ARTERY, OPEN APPROACH 32YH8GU 10/05/17 FLUOROSCOPY OF SUP VENA CAVA USING L OSM CONTRAST, GUIDANCE [id number] 10/05/17 INSERTION OF INFUSION DEV INTO SUP VENA CAVA, PERC APPROACH [id number] 10/05/17 PERFORMANCE OF URINARY FILTRATION, <6 HRS/DAY 4J6H12G 10/05/17 REMOVAL OF INFUSION DEVICE FROM UPPER VEIN, PERC APPROACH 63ET20I 08/19/17 REMOVAL TUNNELED CV CATH [id number] 08/19/17 SUPPLEMENT L AXILLA ART WITH SYNTH SUB, OPEN APPROACH [id number] 09/23/17 Assessment/Plan - Problem List Patient Problems: All Active Problems C-DIFF REPORT (Acute) Nutritional Asmnt/Malnutr-PDOC - Dietary Evaluation Malnutrition Findings (Please click <Entered> for more info): Nutritional Asmnt/Malnutrition Start: 02/27/18 12: 41 Text: Status: Complete Freq: Protocol: Document 02/27/18 13:31 OLE (Rec: 02/27/18 13:53 OLE [email or web address]) Nutritional Asmnt/Malnutrition Patient General Information Nutritional Screening High Risk Diagnosis C-Diff ESBL of Sputam Pertinent Medical Hx/Surgical Hx DM, PUD/GERD, dementia, peripheral vascular disease, PVD, ESRD, on dialysis 3x/week Subjective Information Pt resting in bed at time of visit. Visually verified no TF was running at this time. Current Diet Order/ Nutrition Support tube feeding: Nepro @ 40 cc/hr x 20 hrs (on at 12 pm, off at 8 am) Pertinent Medications Vit C, heparin, novolog, vancomycin Pertinent Labs 02/27: glucose 121, Na 133, Cl 95, BUN 62, Cr 3.3, Alb 2.1, POC 118 02/26: glucose 217, Na 131, Cl 92, BUN 57, Cr 3.1, Alb 2.3, POC 185-206, Phos 2.3 Nutritional Hx/Data Height 1.65 m Height (Calculated Centimeters) 165.1 Current Weight (lbs) 67.495 kg Weight (Calculated Kilograms) 67.5 Weight (Calculated Grams) 87648.5 [place] Body Weight 136 lb Body Mass Index (BMI) 24.7 Weight Status Approriate GI Symptoms GI Symptoms None Last BM none noted Difficult in: None Food Allergies No Skin Integrity/Comment: pressure ulcer to sacrum, ulcer to left foot stump ( amputation), skin tears to both hands, discoloration to amputation site on right leg, gastrostomy/PEG, catarina cathetor to left upper extremity for dialysis Estimated Nutritional Goals BEE in Kcals: Adj wt of IBW Calories/Kcals/Kg 30-35 (based on IBW 136 lbs) Kcals Calculated 5408-1524 Protein: Adj wt of IBW Protein g/k.2-1.5 Protein Calculated 74-93 g Fluid: ml per MD Nutritional Problem 3. Problem Problem inadequate intake from enteral infusion Etiology increased needs for HD and wound healing Signs/Symptoms: current TF regimen provides ~ 75% estimated kcal needs and ~ 85 estimated protein needs 2. 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 Problem Problem Altered nutrition related lab values Etiology endocrine and renal dysfunction, electrolyte imbalance Signs/Symptoms: glucose 121, Na 133, Cl 95, BUN 62, Cr 3.3, POC 118 Malnutrition Related to Morbid Obesity Malnutrition related to morbid obesity No Intervention/Recommendation Comments 1. Recommend to increase rate of Nepro to 55 ml/hr x 20 hrs; this provides 1980 kcals and 89 g protein, which will meet 100% of estimated nutritional needs 2. Monitor TF rate, tolerance, wt, skin integrity and labs 3. F/U as high risk in 2-3 days, 03/01-03/02 Expected Outcomes/Goals Expected Outcomes/Goals 1. Pt to meet at >95% of nutritional needs via nutrition support with tolerance 2. Wt stability, wounds to heal, labs to approach normal limits
[2018-02-27] MEDS: Vancomycin HCL 250 mg /10mL UDC PO SCH ×2 (17:03→21:59)
[2018-02-27] MEDS ORDERED: Heparin Sod 1,000 Units/mL 10ml HD ONE (19:00)
--- NOTE | 2018-02-28 02:19 | Consultation ---
DATE OF CONSULTATION: 02/27/2018 ATTENDING PHYSICIAN: Dr. Glen Galeas. HVAC DESIGN MECHANICAL ENGINEER: Dr. Jose Cruz Mcmahan. REASON FOR CONSULTATION: Electrolyte imbalance and fluid management. HISTORY OF PRESENT ILLNESS: This is an 82-year-old male with past medical history of end-stage renal disease on hemodialysis, who was brought in because of C. diff in his stool. A few hours prior to admission, the patient was found to have C. diff in his stool. He was then brought to the Emergency Room. His white count was 16.5. He had a temperature of 97.5 degrees. Chest x-ray revealed left pleural effusion and left infiltrates. He had edema of both upper extremities and a duplex scan turned out to be negative for any DVT. Alonzo culture were drawn and he was initiated on vancomycin as well as Zosyn. PAST MEDICAL HISTORY: 1. End-stage renal disease on hemodialysis. 2. Type 2 diabetes mellitus. 3. Peptic ulcer disease/GERD. 4. Alzheimer dementia. 5. Peripheral arterial disease. 6. History of ESBL in the sputum. PAST SURGICAL HISTORY: 1. Right TMA. 2. 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 MEDICATIONS: He is currently on acetaminophen, amlodipine, ascorbic acid, nystatin, Zosyn, and vancomycin. ALLERGIES: LEVETIRACETAM AND PENICILLIN. SOCIAL AND FAMILY HISTORY: I was not able to obtain directly from the patient because he remains nonverbal. REVIEW OF SYSTEMS: Again, I was not able to decipher from the patient because of the same reason. PHYSICAL EXAMINATION: GENERAL: The patient is arousable, but quite stuporous, not in any distress. VITAL SIGNS: His temperature is 98.7 degrees, pulse 71, blood pressure is 118/35. SKIN: Good turgor, warm, no rash, no jaundice appreciated. HEENT: Head normocephalic, atraumatic. Eyes: Unable to assess his extraocular muscles. Pupils are equal, round, reactive to light and accommodates. Anicteric sclerae. Pale conjunctivae. Nose, midline nasal septum. Mouth: Dry mucosa, poor dentition. NECK: Supple, no adenopathy, no thyromegaly, no bruits. Trachea palpated in the midline. CHEST AND CARDIOVASCULAR: S1, S2. No rub, murmur nor gallop appreciated. Point of maximal impulse fifth intercostal space, left midclavicular line. No abdominal or femoral bruits appreciated. LUNGS: Equal expansion, no use of accessory muscles. No supraclavicular retractions. Decreased breath sounds, but few rhonchi, no rales nor wheezes appreciated. ABDOMEN: Mildly globular, soft. Positive for bowel sounds. No bruits either diastolic or systolic. RECTAL: Lax sphincter tone. GENITOURINARY: Normal appearing male genitalia. MUSCULOSKELETAL: No effusions present in his joints, but unable to assess his range of motion. EXTREMITIES: He has no edema in his lower extremities; however, he has bilateral upper extremity edema. He has a right lower Syme's amputation and left first and second digits amputation with dry gangrene. He has a palpable femoral, but unable to fully appreciate popliteal and dorsalis pedis pulses. BACK: He has a large sacral decubitus ulcers involving the gluteal area. LABORATORY DATA: Labs did reveal white count 16.5, hemoglobin is 9.4, hematocrit is 28.8, platelets 619. Sodium 131, potassium 3.2, chloride 92, CO2 of 30, BUN 57, creatinine 3.1, glucose 217, albumin 2.3, calcium 8.8, phosphorus 2.4, magnesium 2.3. IMPRESSION: 1. End-stage renal disease on hemodialysis. 2. Severe malnutrition. 3. Electrolyte imbalance of hypokalemia and hypophosphatemia. 4. Type 2 diabetes mellitus with chronic kidney disease. 5. Peptic ulcer disease/gastroesophageal reflux disease. 6. Alzheimer dementia. 7. Peripheral vascular disease, status post right lower Syme's amputation and status post left first and second digits amputation. PLAN: 1. Hemodialysis today. 2. Follow up alonzo culture. 3. Continue on with vancomycin. 4. Antidiuretic. Thank you Dr. Galeas for this consult. I will follow the patient closely with you. JOB# [id number]
[2018-02-28 05:42] LABS: BASOPHILE ABSOLUTE 0.1 Th/cumm (0-0.2); EOSINOPHILE ABSOLUTE 0.1 Th/cmm (0.1-0.4); HEMOGLOBIN 8.3 gm/dL (12-16); LYMPHOCYTE ABSOLUTE 2.4 Th/cmm (1.5-3.0); MEAN CELL VOLUME 91.8 fl (80-99); MEAN CORPUSCULAR HEMOGLOBIN 30.4 pg (27.0-31.0); MEAN CORPUSCULAR HGB CONC 33.1 pg (28.0-36.0); MEAN PLATELET VOLUME 7.7 fl; MONOCYTE ABSOLUTE 1.2 Th/cmm (0.3-1.0); NEUTROPHILE ABSOLUTE 18.3 Th/cmm (1.8-8.0); PLATELET COUNT 536 Th/cmm (150-400); RED BLOOD COUNT 2.72 Mil/cmm (3.80-5.80); RED CELL DISTRIBUTION WIDTH 17.7 % (11.5-20.0)
[2018-02-28 05:49] LABS: INR 1.01 (0.5-1.4); PROTHROMBIN TIME (TEST) 10.5 SECONDS (9.5-11.5)
[2018-02-28 05:58] LABS: BUN - UREA NITROGEN 32 mg/dL (7-25); CALCIUM SERUM 8.3 mg/dL (8.6-10.3); CARBON DIOXIDE 30.4 mEq/L (21.0-31.0); CHLORIDE 101 mEq/L (98-107); CREATININE - SERUM 2.3 mg/dL (0.7-1.3); GLUCOSE 153 mg/dL (70-105); SODIUM SERUM 139 mEq/L (136-145)
[2018-02-28 06:02] LABS: WHITE BLOOD COUNT 22.1 Th/cmm (4.8-10.8)
[2018-02-28 06:32] LABS: BAND NEUTROPHILE 1 % (0-10); NEUTROPHILS 83 % (40-80)
[2018-02-28 06:33] LABS: LYMPHOCYTE 14 % (20-50); MONOCYTE 2 % (2-10)
[2018-02-28] MEDS: INSULIN ASPART SLIDING SCALE 100 UNITS/ML UNIT SUBQ SCH ×4 (08:29→21:09)
--- NOTE | 2018-02-28 08:33 | Diagnostic Imaging Report ---
Bilateral upper extremity venous mapping study for possible fistula or shunt placement History: Dialysis patient, pain Comparison: Bilateral upper extremity venous Doppler performed earlier the same day Technique/procedure: Venous mapping of the bilateral upper extremity veins was performed as requested by the referring physician. Note the left subclavian, left axillary, and left proximal basilic vein were not able to be imaged due to patient's catarina catheter placement and patient left arm contraction. Measurements as below in centimeters Right: Subclavian: 0.35 Axillary: 0.57 basilic proximal 0.58 Basilic mid 0.27 Basilic distal 0.53 Left: Basilic mid 0.36 basilic distal 0.29 IMPRESSION: Venous mapping study as above.
[2018-02-28] MEDS: Vancomycin HCL 250 mg /10mL UDC PO SCH ×4 (09:26→20:57)
[2018-02-28] MEDS ORDERED: Vancomycin HCl 1.5 GM in Sodium Chloride 0.9% 500 ML IV ONE (10:00)
[2018-02-28] MEDS ORDERED: Gelatin Sponge 100cm Spg TP ONE (10:08)
[2018-02-28] MEDS ORDERED: Thrombin, Bovine 5,000 IU Vial TP ONE (10:08)
[2018-02-28] MEDS ORDERED: Probiotic Screen MC PRN (11:21)
--- NOTE | 2018-02-28 11:53 | Internal Medicine Prog Note ---
Internal Medicine Subjective - Subjective Patient seen and examined:: chart reviewed Patient is:: awake, in bed Per staff patient has:: no adverse event Internal Medicine Objective - Results Result Diagrams: 02/28/18 05:05 02/28/18 05:05 Recent Labs: Laboratory Last Values WBC 22.1 Th/cmm (4.8-10.8) H* 02/28/18 05:05 RBC 2.72 Mil/cmm (3.80-5.80) L 02/28/18 05:05 Hgb 8.3 gm/dL (12-16) L 02/28/18 05:05 Hct 25.0 % (41.0-60) L 02/28/18 05:05 MCV 91.8 fl (80-99) 02/28/18 05:05 MCH 30.4 pg (27.0-31.0) 02/28/18 05:05 MCHC Differential 33.1 pg (28.0-36.0) 02/28/18 05:05 RDW 17.7 % (11.5-20.0) 02/28/18 05:05 Plt Count 536 Th/cmm (150-400) H 02/28/18 05:05 MPV 7.7 fl 02/28/18 05:05 Add Manual Diff YES 02/28/18 05:05 Neutrophils % [address] 02/27/18 04:10 Band Neutrophils % 1 % (0-10) 02/28/18 05:05 Lymphocytes % [address] 02/27/18 04:10 Monocytes % [address] 02/27/18 04:10 Eosinophils % [address] 02/27/18 04:10 Basophils % [address] 02/27/18 04:10 Neutrophils (Manual) 83 % (40-80) H 02/28/18 05:05 Lymphocytes 14 % (20-50) L 02/28/18 05:05 Monocytes 2 % (2-10) 02/28/18 05:05 Eosinophils 1 % (0-5) 02/27/18 04:10 PT 10.5 SECONDS (9.5-11.5) 02/28/18 05:05 INR 1.01 (0.5-1.4) 02/28/18 05:05 PTT (Actin FS) 23.1 SECONDS (26.0-38.0) L 02/28/18 05:05 Sodium 139 mEq/L (136-145) 02/28/18 05:05 Potassium 3.5 mEq/L (3.5-5.1) 02/27/18 10:20 Chloride 101 mEq/L (98-107) 02/28/18 05:05 Carbon Dioxide 30.4 mEq/L (21.0-31.0) 02/28/18 05:05 Anion Gap 11.1 (7.0-16.0) 02/28/18 05:05 BUN 32 mg/dL (7-25) H 02/28/18 05:05 Creatinine 2.3 mg/dL (0.7-1.3) H 02/28/18 05:05 Est GFR ( Amer) TNP 02/28/18 05:05 Est GFR (Non-Af Amer) TNP 02/28/18 05:05 BUN/Creatinine Ratio 13.9 02/28/18 05:05 Glucose 153 mg/dL (70-105) H 02/28/18 05:05 POC Glucose 138 MG/DL (70 - 105) H 02/28/18 05:44 Whole Bld Lactic Acid 1.49 mmol/L (0.60-1.99) 02/26/18 17:15 Calcium 8.3 mg/dL (8.6-10.3) L 02/28/18 05:05 Phosphorus 2.4 mg/dL (2.5-5.0) L 02/26/18 17:15 Magnesium 2.3 mg/dL (1.9-2.7) 02/26/18 17:15 Total Bilirubin 0.3 mg/dL (0.3-1.0) 02/27/18 04:10 AST 17 U/L (13-39) 02/27/18 04:10 ALT 16 U/L (7-52) 02/27/18 04:10 Alkaline Phosphatase 82 U/L (34-104) 02/27/18 04:10 Total Protein 6.0 gm/dL (6.0-8.3) 02/27/18 04:10 Albumin 2.1 gm/dL (4.2-5.5) L 02/27/18 04:10 Globulin 3.9 gm/dL 02/27/18 04:10 Albumin/Globulin Ratio 0.5 (1.0-1.8) L 02/27/18 04:10 Random Vancomycin 13.8 ug/mL (5.0-40.0) 02/28/18 05:05 - Physical Exam Vitals and I&O: Vital Signs Temp 98.1 F 02/28/18 11:36 Pulse 86 02/28/18 11:36 Resp 18 02/28/18 11:36 BP 124/57 02/28/18 11:36 Pulse Ox 98 02/28/18 11:36 Intake & Output 02/27/18 02/28/18 02/28/18 18:59 06:59 18:59 Intake Total 250 395 Output Total 0 1000 Balance 250 -605 Weight (lbs) 67.495 kg 67.387 kg Intake: Oral 250 0 Tube Feeding 245 Other 150 Output: Urine 0 Stool 0 Other 1000 Other: # Voids 1 0 # Bowel Movements 1 Stool Characteristics Soft Liquid Weight Source Bedscale Bedscale Active Medications: Current Medications Acetaminophen (Tylenol 650mg/20.3ml Suspension) 650 mg GT DAILY PRN PRN Reason: prior to wound healing Stop: 04/27/18 22:28 Acetaminophen (Tylenol 650mg/20.3ml Suspension) 650 mg GT Q4HR PRN PRN Reason: MILD PAIN Stop: 04/27/18 22:28 Amlodipine Besylate (Norvasc) 10 mg GT DAILY [facility] Stop: 04/28/18 08:59 Last Admin: 02/28/18 09:25 Dose: Not Given Ascorbic Acid (Vitamin C) 500 mg GT DAILY [facility] Stop: 04/28/18 08:59 Last Admin: 02/28/18 09:25 Dose: Not Given Heparin Sodium (Porcine) (Heparin) 5,000 units SUBQ Q12HR [facility] Stop: 04/28/18 20:59 Last Admin: 02/28/18 09:25 Dose: Not Given Vancomycin HCl 1.5 gm/ Sodium (Chloride) 500 mls @ 125 mls/hr IV X1 ONE Stop: 02/28/18 13:59 Last Admin: 02/28/18 10:06 Dose: 125 mls/hr Insulin Aspart (Novolog Insulin Sliding Scale) 0 units SUBQ ACHS [facility]; Protocol Stop: 04/27/18 20:59 Last Admin: 02/28/18 08:29 Dose: Not Given Lactobacillus Rhamnosus (Culturelle 15b) 1 each PO DAILY [facility] Stop: 04/29/18 13:59 Miscellaneous (Vancomycin Iv Per Pharmacy) 1 ea PRN PRN PRN Reason: PROTOCOL Stop: 04/27/18 20:15 Miscellaneous (Vte Chemical Prophylaxis Screen/ Admission) 1 ea PRN PRN PRN Reason: PROTOCOL Stop: 04/28/18 11:44 Miscellaneous (Probiotic Screen) 1 ea PRN PRN PRN Reason: PROTOCOL Stop: 04/29/18 11:20 Nystatin (Nystatin) 100,000 units PO TID [facility] Stop: 04/27/18 20:59 Last Admin: 02/28/18 09:26 Dose: Not Given Vancomycin HCl (Vancomycin Oral) 250 mg PO QID [facility] Stop: 04/28/18 16:59 Last Admin: 02/28/18 09:26 Dose: Not Given General: weak HEENT: NC/AT Neck: Supple Lungs: CTAB Cardiovascular: RRR Abdomen: soft, non-tender Extremities: clear - Procedures Procedures: Procedures Procedure Code Date AMPUTATION OF TOE 44803 08/19/17 DETACHMENT AT LEFT 1ST TOE, COMPLETE, OPEN APPROACH [id number] 08/19/17 DETACHMENT AT RIGHT 1ST TOE, COMPLETE, OPEN APPROACH [id number] 08/19/17 DETACHMENT AT RIGHT 2ND TOE, COMPLETE, OPEN APPROACH [id number] 08/19/17 DETACHMENT AT RIGHT FOOT, COMPLETE, OPEN APPROACH [id number] 09/23/17 EXCISION OF L LOW LEG SUBCU/FASCIA, OPEN APPROACH [id number] 08/19/17 EXTIRPATION OF MATTER FROM L AXILLA ART, OPEN APPROACH [id number] 09/23/17 EXTIRPATION OF MATTER FROM UPPER ARTERY, OPEN APPROACH [id number] 10/05/17 FLUOROSCOPY OF SUP VENA CAVA USING L OSM CONTRAST, GUIDANCE [id number] 10/05/17 INSERTION OF INFUSION DEV INTO SUP VENA CAVA, PERC APPROACH [id number] 10/05/17 PERFORMANCE OF URINARY FILTRATION, <6 HRS/DAY [id number] 10/05/17 REMOVAL OF INFUSION DEVICE FROM UPPER VEIN, PERC APPROACH [id number] 08/19/17 REMOVAL TUNNELED CV CATH [id number] 08/19/17 SUPPLEMENT L AXILLA ART WITH SYNTH SUB, OPEN APPROACH [id number] 09/23/17 Internal Medicine Assmt/Plan - Assessment Assessment: ESRD/HD Severe malnutrition type 2 dm peptic ulcer disease gerd alzheimers peripheral vascular disease - Plan Plan: as per order sheet Nutritional Asmnt/Malnutr-PDOC - Dietary Evaluation Malnutrition Findings (Please click <Entered> for more info): Nutritional Asmnt/Malnutrition Start: 02/27/18 12: 41 Text: Status: Complete Freq: Protocol: Document 02/27/18 13:31 OLE (Rec: 02/27/18 13:53 OLE [email or web address]) Nutritional Asmnt/Malnutrition Patient General Information Nutritional Screening High Risk Diagnosis C-Diff ESBL of Sputam Pertinent Medical Hx/Surgical Hx DM, PUD/GERD, dementia, peripheral vascular disease, PVD, ESRD, on dialysis 3x/week Subjective Information Pt resting in bed at time of visit. Visually verified no TF was running at this time. Current Diet Order/ Nutrition Support tube feeding: Nepro @ 40 cc/hr x 20 hrs (on at 12 pm, off at 8 am) Pertinent Medications Vit C, heparin, novolog, vancomycin Pertinent Labs 02/27: glucose 121, Na 133, Cl 95, BUN 62, Cr 3.3, Alb 2.1, POC 118 02/26: glucose 217, Na 131, Cl 92, BUN 57, Cr 3.1, Alb 2.3, POC 185-206, Phos 2.3 Nutritional Hx/Data Height 1.65 m Height (Calculated Centimeters) 165.1 Current Weight (lbs) 67.495 kg Weight (Calculated Kilograms) 67.5 Weight (Calculated Grams) 45880.5 [place] Body Weight 136 lb Body Mass Index (BMI) 24.7 Weight Status Approriate GI Symptoms GI Symptoms None Last BM none noted Difficult in: None Food Allergies No Skin Integrity/Comment: pressure ulcer to sacrum, ulcer to left foot stump ( amputation), skin tears to both hands, discoloration to amputation site on right leg, gastrostomy/PEG, catarina cathetor to left upper extremity for dialysis Estimated Nutritional Goals BEE in Kcals: Adj wt of IBW Calories/Kcals/Kg 30-35 (based on IBW 136 lbs) Kcals Calculated 5486-1608 Protein: Adj wt of IBW Protein g/k.2-1.5 Protein Calculated 74-93 g Fluid: ml per MD Nutritional Problem 3. Problem Problem inadequate intake from enteral infusion Etiology increased needs for HD and wound healing Signs/Symptoms: current TF regimen provides ~ 75% estimated kcal needs and ~ 85 estimated protein needs 2. 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 Problem Problem Altered nutrition related lab values Etiology endocrine and renal dysfunction, electrolyte imbalance Signs/Symptoms: glucose 121, Na 133, Cl 95, BUN 62, Cr 3.3, POC 118 Malnutrition Related to Morbid Obesity Malnutrition related to morbid obesity No Intervention/Recommendation Comments 1. Recommend to increase rate of Nepro to 55 ml/hr x 20 hrs; this provides 1980 kcals and 89 g protein, which will meet 100% of estimated nutritional needs 2. Monitor TF rate, tolerance, wt, skin integrity and labs 3. F/U as high risk in 2-3 days, 03/01-03/02 Expected Outcomes/Goals Expected Outcomes/Goals 1. Pt to meet at >95% of nutritional needs via nutrition support with tolerance 2. Wt stability, wounds to heal, labs to approach normal limits
[2018-02-28 12:45] LABS: POTASSIUM SERUM 3.4 mEq/L (3.5-5.1)
--- NOTE | 2018-02-28 13:53 | General Progress Note ---
Subjective - Review of Systems Service Date: 02/28/18 Subjective: sleeping, comfortable Objective - Results Result Diagrams: 02/28/18 05:05 02/28/18 05:05 Recent Labs: Laboratory Last Values WBC 22.1 Th/cmm (4.8-10.8) H* 02/28/18 05:05 RBC 2.72 Mil/cmm (3.80-5.80) L 02/28/18 05:05 Hgb 8.3 gm/dL (12-16) L 02/28/18 05:05 Hct 25.0 % (41.0-60) L 02/28/18 05:05 MCV 91.8 fl (80-99) 02/28/18 05:05 MCH 30.4 pg (27.0-31.0) 02/28/18 05:05 MCHC Differential 33.1 pg (28.0-36.0) 02/28/18 05:05 RDW 17.7 % (11.5-20.0) 02/28/18 05:05 Plt Count 536 Th/cmm (150-400) H 02/28/18 05:05 MPV 7.7 fl 02/28/18 05:05 Add Manual Diff YES 02/28/18 05:05 Neutrophils % PROCED TECH 02/27/18 04:10 Band Neutrophils % 1 % (0-10) 02/28/18 05:05 Lymphocytes % PROCED TECH 02/27/18 04:10 Monocytes % PROCED TECH 02/27/18 04:10 Eosinophils % PROCED TECH 02/27/18 04:10 Basophils % PROCED TECH 02/27/18 04:10 Neutrophils (Manual) 83 % (40-80) H 02/28/18 05:05 Lymphocytes 14 % (20-50) L 02/28/18 05:05 Monocytes 2 % (2-10) 02/28/18 05:05 Eosinophils 1 % (0-5) 02/27/18 04:10 PT 10.5 SECONDS (9.5-11.5) 02/28/18 05:05 INR 1.01 (0.5-1.4) 02/28/18 05:05 PTT (Actin FS) 23.1 SECONDS (26.0-38.0) L 02/28/18 05:05 Sodium 139 mEq/L (136-145) 02/28/18 05:05 Potassium 3.4 mEq/L (3.5-5.1) L 02/28/18 05:05 Chloride 101 mEq/L (98-107) 02/28/18 05:05 Carbon Dioxide 30.4 mEq/L (21.0-31.0) 02/28/18 05:05 Anion Gap 11.0 (7.0-16.0) 02/28/18 05:05 BUN 32 mg/dL (7-25) H 02/28/18 05:05 Creatinine 2.3 mg/dL (0.7-1.3) H 02/28/18 05:05 Est GFR ( Amer) TNP 02/28/18 05:05 Est GFR (Non-Af Amer) TNP 02/28/18 05:05 BUN/Creatinine Ratio 13.9 02/28/18 05:05 Glucose 153 mg/dL (70-105) H 02/28/18 05:05 POC Glucose 134 MG/DL (70 - 105) H 02/28/18 12:09 Whole Bld Lactic Acid 1.49 mmol/L (0.60-1.99) 02/26/18 17:15 Calcium 8.3 mg/dL (8.6-10.3) L 02/28/18 05:05 Phosphorus 2.4 mg/dL (2.5-5.0) L 02/26/18 17:15 Magnesium 2.3 mg/dL (1.9-2.7) 02/26/18 17:15 Total Bilirubin 0.3 mg/dL (0.3-1.0) 02/27/18 04:10 AST 17 U/L (13-39) 02/27/18 04:10 ALT 16 U/L (7-52) 02/27/18 04:10 Alkaline Phosphatase 82 U/L (34-104) 02/27/18 04:10 Total Protein 6.0 gm/dL (6.0-8.3) 02/27/18 04:10 Albumin 2.1 gm/dL (4.2-5.5) L 02/27/18 04:10 Globulin 3.9 gm/dL 02/27/18 04:10 Albumin/Globulin Ratio 0.5 (1.0-1.8) L 02/27/18 04:10 Random Vancomycin 13.8 ug/mL (5.0-40.0) 02/28/18 05:05 - Physical Exam Vitals and I&O: Vital Signs Temp 98.1 F 02/28/18 11:36 Pulse 86 02/28/18 11:36 Resp 18 02/28/18 11:36 BP 124/57 02/28/18 11:36 Pulse Ox 98 02/28/18 11:36 Intake & Output 02/27/18 02/28/18 02/28/18 18:59 06:59 18:59 Intake Total 250 395 Output Total 0 1000 Balance 250 -605 Weight (lbs) 67.495 kg 67.387 kg Intake: Oral 250 0 Tube Feeding 245 Other 150 Output: Urine 0 Stool 0 Other 1000 Other: # Voids 1 0 # Bowel Movements 1 Stool Characteristics Soft Liquid Weight Source Bedscale Bedscale Active Medications: Current Medications Acetaminophen (Tylenol 650mg/20.3ml Suspension) 650 mg GT DAILY PRN PRN Reason: prior to wound healing Stop: 04/27/18 22:28 Acetaminophen (Tylenol 650mg/20.3ml Suspension) 650 mg GT Q4HR PRN PRN Reason: MILD PAIN Stop: 04/27/18 22:28 Amlodipine Besylate (Norvasc) 10 mg GT DAILY [facility] Stop: 04/28/18 08:59 Last Admin: 02/28/18 09:25 Dose: Not Given Ascorbic Acid (Vitamin C) 500 mg GT DAILY [facility] Stop: 04/28/18 08:59 Last Admin: 02/28/18 09:25 Dose: Not Given Heparin Sodium (Porcine) (Heparin) 5,000 units SUBQ Q12HR [facility] Stop: 04/28/18 20:59 Last Admin: 02/28/18 09:25 Dose: Not Given Vancomycin HCl 1.5 gm/ Sodium (Chloride) 500 mls @ 125 mls/hr IV X1 ONE Stop: 02/28/18 13:59 Last Admin: 02/28/18 10:06 Dose: 125 mls/hr Insulin Aspart (Novolog Insulin Sliding Scale) 0 units SUBQ ACHS [facility]; Protocol Stop: 04/27/18 20:59 Last Admin: 02/28/18 12:15 Dose: Not Given Lactobacillus Rhamnosus (Culturelle 15b) 1 each PO DAILY [facility] Stop: 04/29/18 13:59 Miscellaneous (Vancomycin Iv Per Pharmacy) 1 ea PRN PRN PRN Reason: PROTOCOL Stop: 04/27/18 20:15 Miscellaneous (Vte Chemical Prophylaxis Screen/ Admission) 1 ea PRN PRN PRN Reason: PROTOCOL Stop: 04/28/18 11:44 Miscellaneous (Probiotic Screen) 1 ea PRN PRN PRN Reason: PROTOCOL Stop: 04/29/18 11:20 Nystatin (Nystatin) 100,000 units PO TID [facility] Stop: 04/27/18 20:59 Last Admin: 02/28/18 09:26 Dose: Not Given Vancomycin HCl (Vancomycin Oral) 250 mg PO QID [facility] Stop: 04/28/18 16:59 Last Admin: 02/28/18 12:39 Dose: Not Given General: No acute distress HEENT: Atraumatic, Mucous membr. moist/pink Neck: Supple, +2 carotid pulse wo bruit Cardiovascular: Regular rate, Normal S1, Normal S2 Lungs: Clear to auscultation Abdomen: Bowel sounds, Soft Extremities: Edema (B/L upper extremities) Neurological: Sensation intact Skin: no Rash Psych/Mental Status: Mood NL - Procedures Procedures: Procedures Procedure Code Date AMPUTATION OF TOE 96994 08/19/17 DETACHMENT AT LEFT 1ST TOE, COMPLETE, OPEN APPROACH [id number] 08/19/17 DETACHMENT AT RIGHT 1ST TOE, COMPLETE, OPEN APPROACH [id number] 08/19/17 DETACHMENT AT RIGHT 2ND TOE, COMPLETE, OPEN APPROACH [id number] 08/19/17 DETACHMENT AT RIGHT FOOT, COMPLETE, OPEN APPROACH [id number] 09/23/17 EXCISION OF L LOW LEG SUBCU/FASCIA, OPEN APPROACH [id number] 08/19/17 EXTIRPATION OF MATTER FROM L AXILLA ART, OPEN APPROACH [id number] 09/23/17 EXTIRPATION OF MATTER FROM UPPER ARTERY, OPEN APPROACH [id number] 10/05/17 FLUOROSCOPY OF SUP VENA CAVA USING L OSM CONTRAST, GUIDANCE [id number] 10/05/17 INSERTION OF INFUSION DEV INTO SUP VENA CAVA, PERC APPROACH [id number] 10/05/17 PERFORMANCE OF URINARY FILTRATION, <6 HRS/DAY [id number] 10/05/17 REMOVAL OF INFUSION DEVICE FROM UPPER VEIN, PERC APPROACH [id number] 04/28/18 REMOVAL TUNNELED CV CATH [id number] 08/19/17 SUPPLEMENT L AXILLA ART WITH SYNTH SUB, OPEN APPROACH [id number] 09/23/17 Assessment/Plan - Problem List Patient Problems: All Active Problems C-DIFF REPORT (Acute) - Assessment Assessment: ESRD on HD C. 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 lower Syme's PUD/GERD Alzh Dementia - Plan Plan: Lab - Result Diagrams 02/28/18 05:05 02/28/18 05:05 Current Medications Acetaminophen (Tylenol 650mg/20.3ml Suspension) 650 mg GT DAILY PRN PRN Reason: prior to wound healing Stop: 04/27/18 22:28 Acetaminophen (Tylenol 650mg/20.3ml Suspension) 650 mg GT Q4HR PRN PRN Reason: MILD PAIN Stop: 04/27/18 22:28 Amlodipine Besylate (Norvasc) 10 mg GT DAILY [facility] Stop: 04/28/18 08:59 Last Admin: 02/28/18 09:25 Dose: Not Given Ascorbic Acid (Vitamin C) 500 mg GT DAILY [facility] Stop: 04/28/18 08:59 Last Admin: 02/28/18 09:25 Dose: Not Given Heparin Sodium (Porcine) (Heparin) 5,000 units SUBQ Q12HR [facility] Stop: 04/28/18 20:59 Last Admin: 02/28/18 09:25 Dose: Not Given Vancomycin HCl 1.5 gm/ Sodium (Chloride) 500 mls @ 125 mls/hr IV X1 ONE Stop: 02/28/18 13:59 Last Admin: 02/28/18 10:06 Dose: 125 mls/hr Insulin Aspart (Novolog Insulin Sliding Scale) 0 units SUBQ ACHS [facility]; Protocol Stop: 04/27/18 20:59 Last Admin: 02/28/18 12:15 Dose: Not Given Lactobacillus Rhamnosus (Culturelle 15b) 1 each PO DAILY [facility] Stop: 04/29/18 13:59 Miscellaneous (Vancomycin Iv Per Pharmacy) 1 ea MC PRN PRN PRN Reason: PROTOCOL Stop: 04/27/18 20:15 Miscellaneous (Vte Chemical Prophylaxis Screen/ Admission) 1 ea MC PRN PRN PRN Reason: PROTOCOL Stop: 04/28/18 11:44 Miscellaneous (Probiotic Screen) 1 ea MC PRN PRN PRN Reason: PROTOCOL Stop: 04/29/18 11:20 Nystatin (Nystatin) 100,000 units PO TID [facility] Stop: 04/27/18 20:59 Last Admin: 02/28/18 09:26 Dose: Not Given Vancomycin HCl (Vancomycin Oral) 250 mg PO QID [facility] Stop: 04/28/18 16:59 Last Admin: 02/28/18 12:39 Dose: Not Given Lab - Result Diagrams 02/28/18 05:05 02/28/18 05:05 Schedule for HD in am replace K for surgery this am WBC up to 22.1 on [facility] Nutritional Asmnt/Malnutr-PDOC - Dietary Evaluation Malnutrition Findings (Please click <Entered> for more info): Nutritional Asmnt/Malnutrition Start: 02/27/18 12: 41 Text: Status: Complete Freq: Protocol: Document 02/27/18 13:31 OLE (Rec: 02/27/18 13:53 OLE [email or web address]) Nutritional Asmnt/Malnutrition Patient General Information Nutritional Screening High Risk Diagnosis C-Diff ESBL of Sputam Pertinent Medical Hx/Surgical Hx DM, PUD/GERD, dementia, peripheral vascular disease, PVD, ESRD, on dialysis 3x/week Subjective Information Pt resting in bed at time of visit. Visually verified no TF was running at this time. Current Diet Order/ Nutrition Support tube feeding: Nepro @ 40 cc/hr x 20 hrs (on at 12 pm, off at 8 am) Pertinent Medications Vit C, heparin, novolog, vancomycin Pertinent Labs 02/27: glucose 121, Na 133, Cl 95, BUN 62, Cr 3.3, Alb 2.1, POC 118 02/26: glucose 217, Na 131, Cl 92, BUN 57, Cr 3.1, Alb 2.3, POC 185-206, Phos 2.3 Nutritional Hx/Data Height 1.65 m Height (Calculated Centimeters) 165.1 Current Weight (lbs) 67.495 kg Weight (Calculated Kilograms) 67.5 Weight (Calculated Grams) 67848.5 [place] Body Weight 136 lb Body Mass Index (BMI) 24.7 Weight Status Approriate GI Symptoms GI Symptoms None Last BM none noted Difficult in: None Food Allergies No Skin Integrity/Comment: pressure ulcer to sacrum, ulcer to left foot stump ( amputation), skin tears to both hands, discoloration to amputation site on right leg, gastrostomy/PEG, catarina cathetor to left upper extremity for dialysis Estimated Nutritional Goals BEE in Kcals: Adj wt of IBW Calories/Kcals/Kg 30-35 (based on IBW 136 lbs) Kcals Calculated [id number] Protein: Adj wt of IBW Protein g/k.2-1.5 Protein Calculated 74-93 g Fluid: ml per MD Nutritional Problem 3. Problem Problem inadequate intake from enteral infusion Etiology increased needs for HD and wound healing Signs/Symptoms: current TF regimen provides ~ 75% estimated kcal needs and ~ 85 estimated protein needs 2. 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 Problem Problem Altered nutrition related lab values Etiology endocrine and renal dysfunction, electrolyte imbalance Signs/Symptoms: glucose 121, Na 133, Cl 95, BUN 62, Cr 3.3, POC 118 Malnutrition Related to Morbid Obesity Malnutrition related to morbid obesity No Intervention/Recommendation Comments 1. Recommend to increase rate of Nepro to 55 ml/hr x 20 hrs; this provides 1980 kcals and 89 g protein, which will meet 100% of estimated nutritional needs 2. Monitor TF rate, tolerance, wt, skin integrity and labs 3. F/U as high risk in 2-3 days, 03/01-03/02 Expected Outcomes/Goals Expected Outcomes/Goals 1. Pt to meet at >95% of nutritional needs via nutrition support with tolerance 2. Wt stability, wounds to heal, labs to approach normal limits
[2018-02-28] MEDS ORDERED: KCL 20mEq/100mL Premix 20 MEQ/100 ML PIGGYBACK IV ONE (13:56)
--- NOTE | 2018-02-28 14:00 | Infectious Disease Prog Note ---
Infectious Disease Subjective - Review of Systems Service Date: 02/28/18 Subjective: There is no new change, no fever. Infectious Disease Objective - Results Result Diagrams: 02/28/18 05:05 02/28/18 05:05 Recent Labs: Laboratory Last Values WBC 22.1 Th/cmm (4.8-10.8) H* 02/28/18 05:05 RBC 2.72 Mil/cmm (3.80-5.80) L 02/28/18 05:05 Hgb 8.3 gm/dL (12-16) L 02/28/18 05:05 Hct 25.0 % (41.0-60) L 02/28/18 05:05 MCV 91.8 fl (80-99) 02/28/18 05:05 MCH 30.4 pg (27.0-31.0) 02/28/18 05:05 MCHC Differential 33.1 pg (28.0-36.0) 02/28/18 05:05 RDW 17.7 % (11.5-20.0) 02/28/18 05:05 Plt Count 536 Th/cmm (150-400) H 02/28/18 05:05 MPV 7.7 fl 02/28/18 05:05 Add Manual Diff YES 02/28/18 05:05 Neutrophils % OVERLOCK SEWING MACHINE OPERATOR 02/27/18 04:10 Band Neutrophils % 1 % (0-10) 02/28/18 05:05 Lymphocytes % OVERLOCK SEWING MACHINE OPERATOR 02/27/18 04:10 Monocytes % OVERLOCK SEWING MACHINE OPERATOR 02/27/18 04:10 Eosinophils % OVERLOCK SEWING MACHINE OPERATOR 02/27/18 04:10 Basophils % OVERLOCK SEWING MACHINE OPERATOR 02/27/18 04:10 Neutrophils (Manual) 83 % (40-80) H 02/28/18 05:05 Lymphocytes 14 % (20-50) L 02/28/18 05:05 Monocytes 2 % (2-10) 02/28/18 05:05 Eosinophils 1 % (0-5) 02/27/18 04:10 PT 10.5 SECONDS (9.5-11.5) 02/28/18 05:05 INR 1.01 (0.5-1.4) 02/28/18 05:05 PTT (Actin FS) 23.1 SECONDS (26.0-38.0) L 02/28/18 05:05 Sodium 139 mEq/L (136-145) 02/28/18 05:05 Potassium 3.4 mEq/L (3.5-5.1) L 02/28/18 05:05 Chloride 101 mEq/L (98-107) 02/28/18 05:05 Carbon Dioxide 30.4 mEq/L (21.0-31.0) 02/28/18 05:05 Anion Gap 11.0 (7.0-16.0) 02/28/18 05:05 BUN 32 mg/dL (7-25) H 02/28/18 05:05 Creatinine 2.3 mg/dL (0.7-1.3) H 02/28/18 05:05 Est GFR ( Amer) TNP 02/28/18 05:05 Est GFR (Non-Af Amer) TNP 02/28/18 05:05 BUN/Creatinine Ratio 13.9 02/28/18 05:05 Glucose 153 mg/dL (70-105) H 02/28/18 05:05 POC Glucose 134 MG/DL (70 - 105) H 02/28/18 12:09 Whole Bld Lactic Acid 1.49 mmol/L (0.60-1.99) 02/26/18 17:15 Calcium 8.3 mg/dL (8.6-10.3) L 02/28/18 05:05 Phosphorus 2.4 mg/dL (2.5-5.0) L 02/26/18 17:15 Magnesium 2.3 mg/dL (1.9-2.7) 02/26/18 17:15 Total Bilirubin 0.3 mg/dL (0.3-1.0) 02/27/18 04:10 AST 17 U/L (13-39) 02/27/18 04:10 ALT 16 U/L (7-52) 02/27/18 04:10 Alkaline Phosphatase 82 U/L (34-104) 02/27/18 04:10 Total Protein 6.0 gm/dL (6.0-8.3) 02/27/18 04:10 Albumin 2.1 gm/dL (4.2-5.5) L 02/27/18 04:10 Globulin 3.9 gm/dL 02/27/18 04:10 Albumin/Globulin Ratio 0.5 (1.0-1.8) L 02/27/18 04:10 Random Vancomycin 13.8 ug/mL (5.0-40.0) 02/28/18 05:05 - Physical Exam Vitals and I&O: Vital Signs Temp 98.1 F 02/28/18 11:36 Pulse 86 02/28/18 11:36 Resp 18 02/28/18 11:36 BP 124/57 02/28/18 11:36 Pulse Ox 98 02/28/18 11:36 Intake & Output 02/27/18 02/28/18 02/28/18 18:59 06:59 18:59 Intake Total 250 395 Output Total 0 1000 Balance 250 -605 Weight (lbs) 67.495 kg 67.387 kg Intake: Oral 250 0 Tube Feeding 245 Other 150 Output: Urine 0 Stool 0 Other 1000 Other: # Voids 1 0 # Bowel Movements 1 Stool Characteristics Soft Liquid Weight Source Bedscale Bedscale Active Medications: Current Medications Acetaminophen (Tylenol 650mg/20.3ml Suspension) 650 mg GT DAILY PRN PRN Reason: prior to wound healing Stop: 04/27/18 22:28 Acetaminophen (Tylenol 650mg/20.3ml Suspension) 650 mg GT Q4HR PRN PRN Reason: MILD PAIN Stop: 04/27/18 22:28 Amlodipine Besylate (Norvasc) 10 mg GT DAILY [facility] Stop: 04/28/18 08:59 Last Admin: 02/28/18 09:25 Dose: Not Given Ascorbic Acid (Vitamin C) 500 mg GT DAILY [facility] Stop: 04/28/18 08:59 Last Admin: 02/28/18 09:25 Dose: Not Given Heparin Sodium (Porcine) (Heparin) 5,000 units SUBQ Q12HR [facility] Stop: 04/28/18 20:59 Last Admin: 02/28/18 09:25 Dose: Not Given Potassium Chloride (Potassium Chloride) 20 meq in 100 mls @ 50 mls/hr IV X1 ONE Stop: 02/28/18 15:55 Insulin Aspart (Novolog Insulin Sliding Scale) 0 units SUBQ ACHS [facility]; Protocol Stop: 04/27/18 20:59 Last Admin: 02/28/18 12:15 Dose: Not Given Lactobacillus Rhamnosus (Culturelle 15b) 1 each PO DAILY [facility] Stop: 04/29/18 13:59 Miscellaneous (Vancomycin Iv Per Pharmacy) 1 ea PRN PRN PRN Reason: PROTOCOL Stop: 04/27/18 20:15 Miscellaneous (Vte Chemical Prophylaxis Screen/ Admission) 1 [facility] PRN PRN PRN Reason: PROTOCOL Stop: 04/28/18 11:44 Miscellaneous (Probiotic Screen) 1 [facility] PRN PRN PRN Reason: PROTOCOL Stop: 04/29/18 11:20 Nystatin (Nystatin) 100,000 units PO TID [facility] Stop: 04/27/18 20:59 Last Admin: 02/28/18 09:26 Dose: Not Given Vancomycin HCl (Vancomycin Oral) 250 mg PO QID [facility] Stop: 04/28/18 16:59 Last Admin: 02/28/18 12:39 Dose: Not Given General: no acute distress, well developed, well nourished HEENT: atraumatic, normocephalic, PERRLA Neck: supple, no thyromegaly Cardiovascular: S1S2, no regular Lungs: no clear to auscultation bilaterally, no clear to percussion Abdomen: soft, no tender, no distended Extremities: no cyanosis, no clubbing, no edema Neurological: awake, alert, oriented Skin: intact - Procedures Procedures: Procedures Procedure Code Date AMPUTATION OF TOE 45283 08/19/17 DETACHMENT AT LEFT 1ST TOE, COMPLETE, OPEN APPROACH [id number] 08/19/17 DETACHMENT AT RIGHT 1ST TOE, COMPLETE, OPEN APPROACH [id number] 08/19/17 DETACHMENT AT RIGHT 2ND TOE, COMPLETE, OPEN APPROACH [id number] 08/19/17 DETACHMENT AT RIGHT FOOT, COMPLETE, OPEN APPROACH [id number] 09/23/17 EXCISION OF L LOW LEG SUBCU/FASCIA, OPEN APPROACH [id number] 08/19/17 EXTIRPATION OF MATTER FROM L AXILLA ART, OPEN APPROACH [id number] 09/23/17 EXTIRPATION OF MATTER FROM UPPER ARTERY, OPEN APPROACH [id number] 10/05/17 FLUOROSCOPY OF SUP VENA CAVA USING L OSM CONTRAST, GUIDANCE [id number] 10/05/17 INSERTION OF INFUSION DEV INTO SUP VENA CAVA, PERC APPROACH [id number] 10/05/17 PERFORMANCE OF URINARY FILTRATION, <6 HRS/DAY [id number] 10/05/17 REMOVAL OF INFUSION DEVICE FROM UPPER VEIN, PERC APPROACH [id number] 08/19/17 REMOVAL TUNNELED CV CATH [id number] 08/19/17 SUPPLEMENT L AXILLA ART WITH SYNTH SUB, OPEN APPROACH [id number] 09/23/17 Infectious Disease Assmt/Plan - Problem List Patient Problems: All Active Problems C-DIFF REPORT (Acute) - Assessment Assessment: 1. C. difficile colitis. 2. Leukocytosis. 3. Right hand wound and cellulitis. 4. Right leg wound. 5. Left foot gangrene. 6. PAD. 7. DM2. 8. CKD on HD. 9. Dementia. 10. h/o ESBL + pneumonia treated recently. - Plan Plan: Continue po vanco. Nutritional Asmnt/Malnutr-PDOC - Dietary Evaluation Malnutrition Findings (Please click <Entered> for more info): Nutritional Asmnt/Malnutrition Start: 02/27/18 12: 41 Text: Status: Complete Freq: Protocol: Document 02/27/18 13:31 OLE (Rec: 02/27/18 13:53 OLE [email or web address]) Nutritional Asmnt/Malnutrition Patient General Information Nutritional Screening High Risk Diagnosis C-Diff ESBL of Sputam Pertinent Medical Hx/Surgical Hx DM, PUD/GERD, dementia, peripheral vascular disease, PVD, ESRD, on dialysis 3x/week Subjective Information Pt resting in bed at time of visit. Visually verified no TF was running at this time. Current Diet Order/ Nutrition Support tube feeding: Nepro @ 40 cc/hr x 20 hrs (on at 12 pm, off at 8 am) Pertinent Medications Vit C, heparin, novolog, vancomycin Pertinent Labs 02/27: glucose 121, Na 133, Cl 95, BUN 62, Cr 3.3, Alb 2.1, POC 118 02/26: glucose 217, Na 131, Cl 92, BUN 57, Cr 3.1, Alb 2.3, POC 185-206, Phos 2.3 Nutritional Hx/Data Height 1.65 m Height (Calculated Centimeters) 165.1 Current Weight (lbs) 67.495 kg Weight (Calculated Kilograms) 67.5 Weight (Calculated Grams) 40547.5 [place] Body Weight 136 lb Body Mass Index (BMI) 24.7 Weight Status Approriate GI Symptoms GI Symptoms None Last BM none noted Difficult in: None Food Allergies No Skin Integrity/Comment: pressure ulcer to sacrum, ulcer to left foot stump ( amputation), skin tears to both hands, discoloration to amputation site on right leg, gastrostomy/PEG, catarina cathetor to left upper extremity for dialysis Estimated Nutritional Goals BEE in Kcals: Adj wt of IBW Calories/Kcals/Kg 30-35 (based on IBW 136 lbs) Kcals Calculated 5412-4791 Protein: Adj wt of IBW Protein g/k.2-1.5 Protein Calculated 74-93 g Fluid: ml per MD Nutritional Problem 3. Problem Problem inadequate intake from enteral infusion Etiology increased needs for HD and wound healing Signs/Symptoms: current TF regimen provides ~ 75% estimated kcal needs and ~ 85 estimated protein needs 2. 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 Problem Problem Altered nutrition related lab values Etiology endocrine and renal dysfunction, electrolyte imbalance Signs/Symptoms: glucose 121, Na 133, Cl 95, BUN 62, Cr 3.3, POC 118 Malnutrition Related to Morbid Obesity Malnutrition related to morbid obesity No Intervention/Recommendation Comments 1. Recommend to increase rate of Nepro to 55 ml/hr x 20 hrs; this provides 1980 kcals and 89 g protein, which will meet 100% of estimated nutritional needs 2. Monitor TF rate, tolerance, wt, skin integrity and labs 3. F/U as high risk in 2-3 days, 03/01-03/02 Expected Outcomes/Goals Expected Outcomes/Goals 1. Pt to meet at >95% of nutritional needs via nutrition support with tolerance 2. Wt stability, wounds to heal, labs to approach normal limits
[2018-02-28] MEDS ORDERED: fentaNYL Citrate 100 mcg/2mL Vial ONE (15:15)
[2018-02-28] MEDS: Lactobacillus Rhamnosus GG 15 Billion CFU CAP.SPRINK PO SCH (15:28)
[2018-02-28] MEDS ORDERED: Propofol **SURGERY USE ONLY** 20 ML IV ONE (15:50)
--- NOTE | 2018-02-28 17:10 | Operative Report ---
DATE OF SURGERY: 02/28/2018 PREOPERATIVE DIAGNOSES: 1. End-stage renal disease on dialysis. 2. Type 2 diabetes. 3. Alzheimer disease. 4. Severe peripheral vascular disease with gangrene of left foot and right Syme's amputation. POSTOPERATIVE DIAGNOSES: 1. End-stage renal disease on dialysis. 2. Type 2 diabetes. 3. Alzheimer disease. 4. Severe peripheral vascular disease with gangrene of left foot and right Syme's amputation. OPERATIONS DONE: 1. Replacement of left internal jugular PermCath under fluoroscopy. 2. Right arm Maria Dolores fistula. SURGEON: Prasanna Day M.D. ANESTHESIA: MAC anesthesia, Dr. Vasques. ESTIMATED BLOOD LOSS: 20 mL. INDICATION FOR SURGERY: A clotted left arm AV shunt for the last 3 months. The patient has a Vinh catheter in left subclavian vein, which turned out to be a PermCath. This was, however replaced. The patient has gangrene of left foot and also of the Syme's amputation stump on the right side. Informed consent discussed with the daughter via telephone about the procedure that needs to be done and the possible complications in view of the recent surgery that resulted in coma for the patient. DESCRIPTION OF PROCEDURE: The patient was given IV sedation. Left chest and the catheter was prepped with Betadine and draped in appropriate manner. A 1% lidocaine was used to infiltrate the exit site of the catheter and the guidewire was inserted into the venous port under fluoroscopy. It was found to follow the course into the inferior vena cava. The catheter was then withdrawn following removal of the cuff from the subcutaneous tissues. The guidewire was retained. The introducer was placed over the guidewire under fluoroscopy and then the 24 cm PermCath. This was placed in the superior vena cava. There was good inflow and outflow on withdrawal and installation of fluids. The catheter was anchored to chest wall with 2-0 nylon sutures. The right arm and axillary areas were prepped with Betadine and draped in appropriate manner. A 1% lidocaine was used to infiltrate the antecubital fossa. Incision was made in the median until cubital vein was identified and was of satisfactory size about 3 mm. The brachial artery was identified and measured about 3.5 mm with minimal calcification. A 3000 units of heparin was given intravenously. The vein was transected. The proximal portion was ligated and the proximal portion was dilated with Rebecca. The artery was clamped proximal and distal. An arteriotomy was made on its anterolateral wall. An end-to-side anastomosis was performed utilizing running suture of 5-0 Prolene. Following release of clamps, there was no leak. The bruit was well documented by ultrasound. The incision was closed with placement of Gelfoam soaked in thrombin and the subcutaneous tissues were closed with 3-0 Vicryl and the skin with subcuticular suture of 4-0 Vicryl. Sterile dressing was placed over this. The patient tolerated the procedure well. [facility]# [id number]
--- NOTE | 2018-02-28 17:45 | Consultation ---
DATE OF CONSULTATION: 02/27/2018 SURGICAL CONSULTATION REFERRING PHYSICIAN: Dr. Galeas. REASON FOR CONSULTATION: 1. Peripheral vascular disease, gangrene. 2. Malfunctioning AV shunt. Thank you for referring this patient to me. This is an 82-year-old male with diabetes mellitus, end-stage renal disease, dementia, and peripheral vascular disease. Apparently, per information from the daughter, the right arm AV shunt has been malfunctioning for the last 3 months and has not been used. He has a Vinh catheter for dialysis. He has been developing gangrene of both feet. His blood count was high and is positive for C. diff infection. About a month ago, he underwent removal of a cyst at [facility] and apparently the patient developed a severe anesthesia reaction and was in coma for 10 days. LABORATORY STUDIES: Now show WBC at 16,500 with platelet count of 619. The BUN is 57, creatinine of 3.1, potassium is 3.2. Blood sugar 185. The chest x-ray shows left pleural effusion and possible left lung infiltrates. The upper extremity ultrasound was done and this showed left subclavian and axillary veins were not able to be evaluated, but there is no evidence of DVT in both veins in the upper extremities. PLAN: The daughter was called over the phone regarding the need to correct the situation with placement of Perm-A-Cath and a left subclavian or location to replace the Vinh catheter. We will try placement of AV shunt or fistula in the right arm. Possible complications were discussed with the patient's daughter and the gangrene of both lower extremities will have to be addressed after these surgeries to resolve more immediate problems. JOB# [id number]
[2018-02-28] MEDS: Aspirin 81mg Chewable Tab PO SCH (18:20)
[2018-03-01 05:32] LABS: HEMATOCRIT 26.2 % (41.0-60); HEMOGLOBIN 8.6 gm/dL (12-16); MEAN CELL VOLUME 93.1 fl (80-99); MEAN CORPUSCULAR HEMOGLOBIN 30.6 pg (27.0-31.0); MEAN CORPUSCULAR HGB CONC 32.9 pg (28.0-36.0); MEAN PLATELET VOLUME 7.5 fl; PLATELET COUNT 503 Th/cmm (150-400); RED BLOOD COUNT 2.82 Mil/cmm (3.80-5.80); RED CELL DISTRIBUTION WIDTH 17.6 % (11.5-20.0); WHITE BLOOD COUNT 12.7 Th/cmm (4.8-10.8)
[2018-03-01 05:41] LABS: % EOSINOPHILS 1.3 % (0.0-5.0)
[2018-03-01 05:46] LABS: ANION GAP 13.8 (7.0-16.0); BUN - UREA NITROGEN 41 mg/dL (7-25); CALCIUM SERUM 8.6 mg/dL (8.6-10.3); CARBON DIOXIDE 25.6 mEq/L (21.0-31.0); CHLORIDE 102 mEq/L (98-107); CREATININE - SERUM 2.8 mg/dL (0.7-1.3); GLUCOSE 184 mg/dL (70-105); POTASSIUM SERUM 3.4 mEq/L (3.5-5.1); SODIUM SERUM 138 mEq/L (136-145)
[2018-03-01 06:29] LABS: LYMPHOCYTE 20 % (20-50); NEUTROPHILS 77 % (40-80)
[2018-03-01 06:30] LABS: MONOCYTE 3 % (2-10); PLATELET ESTIMATE INCREASED PLATELETS (NORMAL)
[2018-03-01] MEDS: Lactobacillus Rhamnosus GG 15 Billion CFU CAP.SPRINK PO SCH (08:52)
[2018-03-01] MEDS: Aspirin 81mg Chewable Tab PO SCH (08:53)
[2018-03-01] MEDS: INSULIN ASPART SLIDING SCALE 100 UNITS/ML UNIT SUBQ SCH ×3 (08:54→17:18)
[2018-03-01] MEDS: Vancomycin HCL 250 mg /10mL UDC PO SCH ×4 (08:55→20:40)
--- NOTE | 2018-03-01 08:58 | Diagnostic Imaging Report ---
Portable chest x-ray HISTORY: Shortness of breath, vascular catheter placement Compared with the prior exam of 02/26/2018, a left-sided vascular catheter is seen. The tip is in the regions. Vena cava. Evidence of a persistent left pleural effusion. Allowing for differences in positioning, no significant change. IMPRESSION: 1. New vascular catheter placement as noted above 2. Allowing for differences in positioning, no significant change in the pulmonary status.
--- NOTE | 2018-03-01 11:11 | General Progress Note ---
Subjective - Review of Systems Service Date: 03/01/18 Events since last encounter: informed discussed with daughter via phone Plan: she wants BKA done, will schedule for toorrow Objective - Results Result Diagrams: 03/01/18 04:55 03/01/18 04:55 Recent Labs: Laboratory Last Values WBC 12.7 Th/cmm (4.8-10.8) H D 03/01/18 04:55 RBC 2.82 Mil/cmm (3.80-5.80) L 03/01/18 04:55 Hgb 8.6 gm/dL (12-16) L 03/01/18 04:55 Hct 26.2 % (41.0-60) L 03/01/18 04:55 MCV 93.1 fl (80-99) 03/01/18 04:55 MCH 30.6 pg (27.0-31.0) 03/01/18 04:55 MCHC Differential 32.9 pg (28.0-36.0) 03/01/18 04:55 RDW 17.6 % (11.5-20.0) 03/01/18 04:55 Plt Count 503 Th/cmm (150-400) H 03/01/18 04:55 MPV 7.5 fl 03/01/18 04:55 Add Manual Diff YES 03/01/18 04:55 Neutrophils % INCIDENT RESPONSE CONSULTANT 02/27/18 04:10 Band Neutrophils % 1 % (0-10) 02/28/18 05:05 Lymphocytes % INCIDENT RESPONSE CONSULTANT 02/27/18 04:10 Monocytes % INCIDENT RESPONSE CONSULTANT 02/27/18 04:10 Eosinophils % 1.3 % (0.0-5.0) 03/01/18 04:55 Basophils % INCIDENT RESPONSE CONSULTANT 02/27/18 04:10 Neutrophils (Manual) 77 % (40-80) 03/01/18 04:55 Lymphocytes 20 % (20-50) 03/01/18 04:55 Monocytes 3 % (2-10) 03/01/18 04:55 Eosinophils 1 % (0-5) 02/27/18 04:10 Platelet Estimate INCREASED PLATELETS (NORMAL) 03/01/18 04:55 PT 10.5 SECONDS (9.5-11.5) 02/28/18 05:05 INR 1.01 (0.5-1.4) 02/28/18 05:05 PTT (Actin FS) 23.1 SECONDS (26.0-38.0) L 02/28/18 05:05 Sodium 138 mEq/L (136-145) 03/01/18 04:55 Potassium 3.4 mEq/L (3.5-5.1) L 03/01/18 04:55 Chloride 102 mEq/L (98-107) 03/01/18 04:55 Carbon Dioxide 25.6 mEq/L (21.0-31.0) 03/01/18 04:55 Anion Gap 13.8 (7.0-16.0) 03/01/18 04:55 BUN 41 mg/dL (7-25) H 03/01/18 04:55 Creatinine 2.8 mg/dL (0.7-1.3) H 03/01/18 04:55 Est GFR ( Amer) TNP 03/01/18 04:55 Est GFR (Non-Af Amer) TNP 03/01/18 04:55 BUN/Creatinine Ratio 14.6 03/01/18 04:55 Glucose 184 mg/dL (70-105) H 03/01/18 04:55 POC Glucose 196 MG/DL (70 - 105) H 03/01/18 06:33 Whole Bld Lactic Acid 1.49 mmol/L (0.60-1.99) 02/26/18 17:15 Calcium 8.6 mg/dL (8.6-10.3) 03/01/18 04:55 Phosphorus 2.4 mg/dL (2.5-5.0) L 02/26/18 17:15 Magnesium 2.3 mg/dL (1.9-2.7) 02/26/18 17:15 Total Bilirubin 0.3 mg/dL (0.3-1.0) 02/27/18 04:10 AST 17 U/L (13-39) 02/27/18 04:10 ALT 16 U/L (7-52) 02/27/18 04:10 Alkaline Phosphatase 82 U/L (34-104) 02/27/18 04:10 Total Protein 6.0 gm/dL (6.0-8.3) 02/27/18 04:10 Albumin 2.1 gm/dL (4.2-5.5) L 02/27/18 04:10 Globulin 3.9 gm/dL 02/27/18 04:10 Albumin/Globulin Ratio 0.5 (1.0-1.8) L 02/27/18 04:10 Random Vancomycin 13.8 ug/mL (5.0-40.0) 02/28/18 05:05 - Physical Exam Vitals and I&O: Vital Signs Temp 97.5 F 03/01/18 08:46 Pulse 84 03/01/18 09:10 Resp 17 03/01/18 08:46 BP 123/62 03/01/18 09:10 Pulse Ox 100 03/01/18 08:46 Intake & Output 02/28/18 03/01/18 03/01/18 18:59 06:59 18:59 Intake Total 100 600 Balance 100 600 Weight (lbs) 67.387 kg 76.43 kg Intake: Oral 0 Tube Feeding 40 450 Other 60 150 Other: # Voids 2 # Bowel Movements 1 1 Stool Characteristics Soft Soft Weight Source Bedscale Bedscale Active Medications: Current Medications Acetaminophen (Tylenol 650mg/20.3ml Suspension) 650 mg GT DAILY PRN PRN Reason: prior to wound healing Stop: 04/27/18 22:28 Acetaminophen (Tylenol 650mg/20.3ml Suspension) 650 mg GT Q4HR PRN PRN Reason: MILD PAIN Stop: 04/27/18 22:28 Amlodipine Besylate (Norvasc) 10 mg GT DAILY [facility] Stop: 04/28/18 08:59 Last Admin: 03/01/18 08:58 Dose: Not Given Ascorbic Acid (Vitamin C) 500 mg GT DAILY [facility] Stop: 04/28/18 08:59 Last Admin: 03/01/18 08:51 Dose: 500 mg Aspirin (Aspirin Chewable) 81 mg GT DAILY [facility] Stop: 04/30/18 08:59 Atorvastatin Calcium (Lipitor) 20 mg PO HS [facility] Stop: 04/30/18 20:59 Bisacodyl (Dulcolax 10 Mg Supp) 10 mg RC DAILY PRN PRN Reason: IF MOM INEFECTIVE Stop: 04/30/18 08:18 Calcium Carbonate (Os-Brad) 500 mg GT DAILY [facility] Stop: 04/30/18 08:59 Last Admin: 03/01/18 09:10 Dose: Not Given Carvedilol (Coreg) 6.25 mg GT BID [facility] Stop: 04/30/18 08:59 Last Admin: 03/01/18 09:10 Dose: Not Given Docusate Sodium (Colace) 100 mg PO DAILY [facility] Stop: 04/30/18 08:59 Last Admin: 03/01/18 08:52 Dose: Not Given Finasteride (Proscar) 5 mg PO DAILY [facility]; Protocol Stop: 04/30/18 08:59 Heparin Sodium (Porcine) (Heparin) 5,000 units SUBQ Q12HR INOCENCIO Stop: 04/28/18 20:59 Last Admin: 03/01/18 08:51 Dose: 5,000 units Insulin Aspart (Novolog Insulin Sliding Scale) 0 units SUBQ ACHS [facility]; Protocol Stop: 04/27/18 20:59 Last Admin: 03/01/18 08:54 Dose: 2 units Lactobacillus Rhamnosus (Culturelle 15b) 1 each PO DAILY [facility] Stop: 04/29/18 13:59 Last Admin: 03/01/18 08:52 Dose: 1 each Miscellaneous (Vancomycin Iv Per Pharmacy) 1 [facility] PRN PRN PRN Reason: PROTOCOL Stop: 04/27/18 20:15 Miscellaneous (Vte Chemical Prophylaxis Screen/ Admission) 1 [facility] PRN PRN PRN Reason: PROTOCOL Stop: 04/28/18 11:44 Miscellaneous (Probiotic Screen) 1 [facility] PRN PRN PRN Reason: PROTOCOL Stop: 04/29/18 11:20 Nystatin (Nystatin) 100,000 units PO TID [facility] Stop: 04/27/18 20:59 Last Admin: 03/01/18 08:51 Dose: 100,000 units Tamsulosin HCl (Flomax) 0.4 mg PO DAILY [facility] Stop: 04/30/18 08:59 Vancomycin HCl (Vancomycin Oral) 250 mg PO QID [facility] Stop: 04/28/18 16:59 Last Admin: 03/01/18 08:55 Dose: 250 mg Vitamin B Complex/Vit C/Folic Acid (Vitamin B Complex W/Vitamin C) 1 tab GT DAILY [facility] Stop: 04/30/18 08:59 Zinc Sulfate (Zinc Sulfate) 220 mg GT DAILY [facility] Stop: 04/30/18 08:59 General: No acute distress HEENT: Atraumatic, Mucous membr. moist/pink Neck: Supple, +2 carotid pulse wo bruit Cardiovascular: Regular rate, Normal S1, Normal S2 Lungs: Clear to auscultation Abdomen: Bowel sounds, Soft Extremities: Edema (B/L upper extremities) Neurological: Sensation intact Skin: no Rash Psych/Mental Status: Mood NL - Procedures Procedures: Procedures Procedure Code Date AMPUTATION OF TOE 42996 08/19/17 DETACHMENT AT LEFT 1ST TOE, COMPLETE, OPEN APPROACH [id number] 08/19/17 DETACHMENT AT RIGHT 1ST TOE, COMPLETE, OPEN APPROACH [id number] 08/19/17 DETACHMENT AT RIGHT 2ND TOE, COMPLETE, OPEN APPROACH [id number] 08/19/17 DETACHMENT AT RIGHT FOOT, COMPLETE, OPEN APPROACH [id number] 09/23/17 EXCISION OF L LOW LEG SUBCU/FASCIA, OPEN APPROACH [id number] 08/19/17 EXTIRPATION OF MATTER FROM L AXILLA ART, OPEN APPROACH [id number] 09/23/17 EXTIRPATION OF MATTER FROM UPPER ARTERY, OPEN APPROACH [id number] 10/05/17 FLUOROSCOPY OF SUP VENA CAVA USING L OSM CONTRAST, GUIDANCE [id number] 10/05/17 INSERTION OF INFUSION DEV INTO SUP VENA CAVA, PERC APPROACH [id number] 10/05/17 PERFORMANCE OF URINARY FILTRATION, <6 HRS/DAY [id number] 10/05/17 REMOVAL OF INFUSION DEVICE FROM UPPER VEIN, PERC APPROACH [id number] 08/19/17 REMOVAL TUNNELED CV CATH [id number] 08/19/17 SUPPLEMENT L AXILLA ART WITH SYNTH SUB, OPEN APPROACH [id number] 09/23/17 Assessment/Plan - Problem List Patient Problems: All Active Problems C-DIFF REPORT (Acute) Nutritional Asmnt/Malnutr-PDOC - Dietary Evaluation Malnutrition Findings (Please click <Entered> for more info): Nutritional Asmnt/Malnutrition Start: 02/27/18 12: 41 Text: Status: Complete Freq: Protocol: Document 02/27/18 13:31 OLE (Rec: 02/27/18 13:53 OLE [email or web address]) Nutritional Asmnt/Malnutrition Patient General Information Nutritional Screening High Risk Diagnosis C-Diff ESBL of Sputam Pertinent Medical Hx/Surgical Hx DM, PUD/GERD, dementia, peripheral vascular disease, PVD, ESRD, on dialysis 3x/week Subjective Information Pt resting in bed at time of visit. Visually verified no TF was running at this time. Current Diet Order/ Nutrition Support tube feeding: Nepro @ 40 cc/hr x 20 hrs (on at 12 pm, off at 8 am) Pertinent Medications Vit C, heparin, novolog, vancomycin Pertinent Labs 02/27: glucose 121, Na 133, Cl 95, BUN 62, Cr 3.3, Alb 2.1, POC 118 02/26: glucose 217, Na 131, Cl 92, BUN 57, Cr 3.1, Alb 2.3, POC 185-206, Phos 2.3 Nutritional Hx/Data Height 1.65 m Height (Calculated Centimeters) 165.1 Current Weight (lbs) 67.495 kg Weight (Calculated Kilograms) 67.5 Weight (Calculated Grams) 77322.5 [place] Body Weight 136 lb Body Mass Index (BMI) 24.7 Weight Status Approriate GI Symptoms GI Symptoms None Last BM none noted Difficult in: None Food Allergies No Skin Integrity/Comment: pressure ulcer to sacrum, ulcer to left foot stump ( amputation), skin tears to both hands, discoloration to amputation site on right leg, gastrostomy/PEG, catarina cathetor to left upper extremity for dialysis Estimated Nutritional Goals BEE in Kcals: Adj wt of IBW Calories/Kcals/Kg 30-35 (based on IBW 136 lbs) Kcals Calculated 3356-4858 Protein: Adj wt of IBW Protein g/k.2-1.5 Protein Calculated 74-93 g Fluid: ml per MD Nutritional Problem 3. Problem Problem inadequate intake from enteral infusion Etiology increased needs for HD and wound healing Signs/Symptoms: current TF regimen provides ~ 75% estimated kcal needs and ~ 85 estimated protein needs 2. 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 Problem Problem Altered nutrition related lab values Etiology endocrine and renal dysfunction, electrolyte imbalance Signs/Symptoms: glucose 121, Na 133, Cl 95, BUN 62, Cr 3.3, POC 118 Malnutrition Related to Morbid Obesity Malnutrition related to morbid obesity No Intervention/Recommendation Comments 1. Recommend to increase rate of Nepro to 55 ml/hr x 20 hrs; this provides 1980 kcals and 89 g protein, which will meet 100% of estimated nutritional needs 2. Monitor TF rate, tolerance, wt, skin integrity and labs 3. F/U as high risk in 2-3 days, 03/01-03/02 Expected Outcomes/Goals Expected Outcomes/Goals 1. Pt to meet at >95% of nutritional needs via nutrition support with tolerance 2. Wt stability, wounds to heal, labs to approach normal limits
[2018-03-01] MEDS ORDERED: Heparin Sod 1,000 Units/mL 10ml HD SCH (11:30)
--- NOTE | 2018-03-01 13:42 | Internal Medicine Prog Note ---
Internal Medicine Subjective - Subjective Service Date: 03/01/18 Patient is:: awake, in bed Per staff patient has:: no adverse event Internal Medicine Objective - Results Result Diagrams: 03/01/18 04:55 03/01/18 04:55 Recent Labs: Laboratory Last Values WBC 12.7 Th/cmm (4.8-10.8) H D 03/01/18 04:55 RBC 2.82 Mil/cmm (3.80-5.80) L 03/01/18 04:55 Hgb 8.6 gm/dL (12-16) L 03/01/18 04:55 Hct 26.2 % (41.0-60) L 03/01/18 04:55 MCV 93.1 fl (80-99) 03/01/18 04:55 MCH 30.6 pg (27.0-31.0) 03/01/18 04:55 MCHC Differential 32.9 pg (28.0-36.0) 03/01/18 04:55 RDW 17.6 % (11.5-20.0) 03/01/18 04:55 Plt Count 503 Th/cmm (150-400) H 03/01/18 04:55 MPV 7.5 fl 03/01/18 04:55 Add Manual Diff YES 03/01/18 04:55 Neutrophils % MICROBIAL SPECIALIST 02/27/18 04:10 Band Neutrophils % 1 % (0-10) 02/28/18 05:05 Lymphocytes % MICROBIAL SPECIALIST 02/27/18 04:10 Monocytes % MICROBIAL SPECIALIST 02/27/18 04:10 Eosinophils % 1.3 % (0.0-5.0) 03/01/18 04:55 Basophils % MICROBIAL SPECIALIST 02/27/18 04:10 Neutrophils (Manual) 77 % (40-80) 03/01/18 04:55 Lymphocytes 20 % (20-50) 03/01/18 04:55 Monocytes 3 % (2-10) 03/01/18 04:55 Eosinophils 1 % (0-5) 02/27/18 04:10 Platelet Estimate INCREASED PLATELETS (NORMAL) 03/01/18 04:55 PT 10.5 SECONDS (9.5-11.5) 02/28/18 05:05 INR 1.01 (0.5-1.4) 02/28/18 05:05 PTT (Actin FS) 23.1 SECONDS (26.0-38.0) L 02/28/18 05:05 Sodium 138 mEq/L (136-145) 03/01/18 04:55 Potassium 3.4 mEq/L (3.5-5.1) L 03/01/18 04:55 Chloride 102 mEq/L (98-107) 03/01/18 04:55 Carbon Dioxide 25.6 mEq/L (21.0-31.0) 03/01/18 04:55 Anion Gap 13.8 (7.0-16.0) 03/01/18 04:55 BUN 41 mg/dL (7-25) H 03/01/18 04:55 Creatinine 2.8 mg/dL (0.7-1.3) H 03/01/18 04:55 Est GFR ( Amer) TNP 03/01/18 04:55 Est GFR (Non-Af Amer) TNP 03/01/18 04:55 BUN/Creatinine Ratio 14.6 03/01/18 04:55 Glucose 184 mg/dL (70-105) H 03/01/18 04:55 POC Glucose 190 MG/DL (70 - 105) H 03/01/18 12:35 Whole Bld Lactic Acid 1.49 mmol/L (0.60-1.99) 02/26/18 17:15 Calcium 8.6 mg/dL (8.6-10.3) 03/01/18 04:55 Phosphorus 2.4 mg/dL (2.5-5.0) L 02/26/18 17:15 Magnesium 2.3 mg/dL (1.9-2.7) 02/26/18 17:15 Total Bilirubin 0.3 mg/dL (0.3-1.0) 02/27/18 04:10 AST 17 U/L (13-39) 02/27/18 04:10 ALT 16 U/L (7-52) 02/27/18 04:10 Alkaline Phosphatase 82 U/L (34-104) 02/27/18 04:10 Total Protein 6.0 gm/dL (6.0-8.3) 02/27/18 04:10 Albumin 2.1 gm/dL (4.2-5.5) L 02/27/18 04:10 Globulin 3.9 gm/dL 02/27/18 04:10 Albumin/Globulin Ratio 0.5 (1.0-1.8) L 02/27/18 04:10 Random Vancomycin 17.9 ug/mL (5.0-40.0) 03/01/18 11:15 - Physical Exam Vitals and I&O: Vital Signs Temp 97.2 F 03/01/18 11:42 Pulse 76 03/01/18 11:42 Resp 18 03/01/18 12:11 BP 120/64 03/01/18 11:42 Pulse Ox 99 03/01/18 11:42 Intake & Output 02/28/18 03/01/18 03/01/18 18:59 06:59 18:59 Intake Total 100 600 Balance 100 600 Weight (lbs) 148 lb 9 oz 168 lb 8 oz Intake: Oral 0 Tube Feeding 40 450 Other 60 150 Other: # Voids 2 # Bowel Movements 1 1 Stool Characteristics Soft Soft Weight Source Bedscale Bedscale Active Medications: Current Medications Acetaminophen (Tylenol 650mg/20.3ml Suspension) 650 mg GT DAILY PRN PRN Reason: prior to wound healing Stop: 04/27/18 22:28 Acetaminophen (Tylenol 650mg/20.3ml Suspension) 650 mg GT Q4HR PRN PRN Reason: MILD PAIN Stop: 04/27/18 22:28 Amlodipine Besylate (Norvasc) 10 mg GT DAILY [facility] Stop: 04/28/18 08:59 Last Admin: 03/01/18 08:58 Dose: Not Given Ascorbic Acid (Vitamin C) 500 mg GT DAILY [facility] Stop: 04/28/18 08:59 Last Admin: 03/01/18 08:51 Dose: 500 mg Aspirin (Aspirin Chewable) 81 mg GT DAILY [facility] Stop: 04/30/18 08:59 Atorvastatin Calcium (Lipitor) 20 mg PO HS [facility] Stop: 04/30/18 20:59 Bisacodyl (Dulcolax 10 Mg Supp) 10 mg RC DAILY PRN PRN Reason: IF MOM INEFECTIVE Stop: 04/30/18 08:18 Calcium Carbonate (Os-Brad) 500 mg GT DAILY [facility] Stop: 04/30/18 08:59 Last Admin: 03/01/18 09:10 Dose: Not Given Carvedilol (Coreg) 6.25 mg GT BID [facility] Stop: 04/30/18 08:59 Last Admin: 03/01/18 09:10 Dose: Not Given Docusate Sodium (Colace) 100 mg PO DAILY [facility] Stop: 04/30/18 08:59 Last Admin: 03/01/18 08:52 Dose: Not Given Finasteride (Proscar) 5 mg PO DAILY [facility]; Protocol Stop: 04/30/18 08:59 Heparin Sodium (Porcine) (Heparin) 5,000 units SUBQ Q12HR INOCENCIO Stop: 04/28/18 20:59 Last Admin: 03/01/18 08:51 Dose: 5,000 units Vancomycin HCl 1.5 gm/ Sodium (Chloride) 500 mls @ 250 mls/hr IV 1400 ONE Stop: 03/01/18 15:59 Insulin Aspart (Novolog Insulin Sliding Scale) 0 units SUBQ ACHS [facility]; Protocol Stop: 04/27/18 20:59 Last Admin: 03/01/18 12:44 Dose: 2 units Lactobacillus Rhamnosus (Culturelle 15b) 1 each PO DAILY [facility] Stop: 04/29/18 13:59 Last Admin: 03/01/18 08:52 Dose: 1 each Miscellaneous (Vancomycin Iv Per Pharmacy) 1 ea PRN PRN PRN Reason: PROTOCOL Stop: 04/27/18 20:15 Miscellaneous (Vte Chemical Prophylaxis Screen/ Admission) 1 [facility] PRN PRN PRN Reason: PROTOCOL Stop: 04/28/18 11:44 Miscellaneous (Probiotic Screen) 1 [facility] PRN PRN PRN Reason: PROTOCOL Stop: 04/29/18 11:20 Nystatin (Nystatin) 100,000 units PO TID [facility] Stop: 04/27/18 20:59 Last Admin: 03/01/18 08:51 Dose: 100,000 units Tamsulosin HCl (Flomax) 0.4 mg PO DAILY [facility] Stop: 04/30/18 08:59 Vancomycin HCl (Vancomycin Oral) 250 mg PO QID [facility] Stop: 04/28/18 16:59 Last Admin: 03/01/18 08:55 Dose: 250 mg Vitamin B Complex/Vit C/Folic Acid (Vitamin B Complex W/Vitamin C) 1 tab GT DAILY [facility] Stop: 04/30/18 08:59 Zinc Sulfate (Zinc Sulfate) 220 mg GT DAILY [facility] Stop: 04/30/18 08:59 General: weak HEENT: NC/AT Neck: Supple Lungs: CTAB Cardiovascular: RRR Abdomen: soft, non-tender Extremities: clear - Procedures Procedures: Procedures Procedure Code Date AMPUTATION OF TOE 52667 08/19/17 DETACHMENT AT LEFT 1ST TOE, COMPLETE, OPEN APPROACH [id number] 08/19/17 DETACHMENT AT RIGHT 1ST TOE, COMPLETE, OPEN APPROACH [id number] 08/19/17 DETACHMENT AT RIGHT 2ND TOE, COMPLETE, OPEN APPROACH [id number] 08/19/17 DETACHMENT AT RIGHT FOOT, COMPLETE, OPEN APPROACH [id number] 09/23/17 EXCISION OF L LOW LEG SUBCU/FASCIA, OPEN APPROACH [id number] 08/19/17 EXTIRPATION OF MATTER FROM L AXILLA ART, OPEN APPROACH [id number] 09/23/17 EXTIRPATION OF MATTER FROM UPPER ARTERY, OPEN APPROACH [id number] 10/05/17 FLUOROSCOPY OF LEFT JUGULAR VEINS, GUIDANCE [id number] 02/26/18 FLUOROSCOPY OF SUP VENA CAVA USING L OSM CONTRAST, GUIDANCE [id number] 10/05/17 INSERT INFUSION DEV IN L INT JUGULAR VEIN, PERC [id number] 02/26/18 INSERTION OF INFUSION DEV INTO SUP VENA CAVA, PERC APPROACH [id number] 10/05/17 PERFORMANCE OF URINARY FILTRATION, <6 HRS/DAY [id number] 10/05/17 REMOVAL OF INFUSION DEVICE FROM UPPER VEIN, OPEN APPROACH [id number] 02/26/18 REMOVAL OF INFUSION DEVICE FROM UPPER VEIN, PERC APPROACH [id number] 08/19/17 REMOVAL TUNNELED CV CATH [id number] 08/19/17 SUPPLEMENT L AXILLA ART WITH SYNTH SUB, OPEN APPROACH [id number] 09/23/17 Internal Medicine Assmt/Plan - Assessment Assessment: C. difficile colitis. Leukocytosis. Right hand wound and cellulitis. Right leg wound. 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 Dementia - Plan Plan: continue ivabx as per id hd as per renal follow up labs in am wound care continue current plan of care Nutritional Asmnt/Malnutr-PDOC - Dietary Evaluation Malnutrition Findings (Please click <Entered> for more info): Nutritional Asmnt/Malnutrition Start: 02/27/18 12: 41 Text: Status: Complete Freq: Protocol: Document 02/27/18 13:31 OLE (Rec: 02/27/18 13:53 OLE [email or web address]) Nutritional Asmnt/Malnutrition Patient General Information Nutritional Screening High Risk Diagnosis C-Diff ESBL of Sputam Pertinent Medical Hx/Surgical Hx DM, PUD/GERD, dementia, peripheral vascular disease, PVD, ESRD, on dialysis 3x/week Subjective Information Pt resting in bed at time of visit. Visually verified no TF was running at this time. Current Diet Order/ Nutrition Support tube feeding: Nepro @ 40 cc/hr x 20 hrs (on at 12 pm, off at 8 am) Pertinent Medications Vit C, heparin, novolog, vancomycin Pertinent Labs 02/27: glucose 121, Na 133, Cl 95, BUN 62, Cr 3.3, Alb 2.1, POC 118 02/26: glucose 217, Na 131, Cl 92, BUN 57, Cr 3.1, Alb 2.3, POC 185-206, Phos 2.3 Nutritional Hx/Data Height 5 ft 5 in Height (Calculated Centimeters) 165.1 Current Weight (lbs) 148 lb 12.8 oz Weight (Calculated Kilograms) 67.5 Weight (Calculated Grams) 27389.5 [place] Body Weight 136 lb Body Mass Index (BMI) 24.7 Weight Status Approriate GI Symptoms GI Symptoms None Last BM none noted Difficult in: None Food Allergies No Skin Integrity/Comment: pressure ulcer to sacrum, ulcer to left foot stump ( amputation), skin tears to both hands, discoloration to amputation site on right leg, gastrostomy/PEG, catarina cathetor to left upper extremity for dialysis Estimated Nutritional Goals BEE in Kcals: Adj wt of IBW Calories/Kcals/Kg 30-35 (based on IBW 136 lbs) Kcals Calculated [id number] Protein: Adj wt of IBW Protein g/k.2-1.5 Protein Calculated 74-93 g Fluid: ml per MD Nutritional Problem 3. Problem Problem inadequate intake from enteral infusion Etiology increased needs for HD and wound healing Signs/Symptoms: current TF regimen provides ~ 75% estimated kcal needs and ~ 85 estimated protein needs 2. 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 Problem Problem Altered nutrition related lab values Etiology endocrine and renal dysfunction, electrolyte imbalance Signs/Symptoms: glucose 121, Na 133, Cl 95, BUN 62, Cr 3.3, POC 118 Malnutrition Related to Morbid Obesity Malnutrition related to morbid obesity No Intervention/Recommendation Comments 1. Recommend to increase rate of Nepro to 55 ml/hr x 20 hrs; this provides 1980 kcals and 89 g protein, which will meet 100% of estimated nutritional needs 2. Monitor TF rate, tolerance, wt, skin integrity and labs 3. F/U as high risk in 2-3 days, 03/01-03/02 Expected Outcomes/Goals Expected Outcomes/Goals 1. Pt to meet at >95% of nutritional needs via nutrition support with tolerance 2. Wt stability, wounds to heal, labs to approach normal limits
[2018-03-01] MEDS: Aspirin 81mg Chewable Tab GT SCH (13:55)
[2018-03-01] MEDS: Vitamin B Complex w/Vitamin C Tab GT SCH (13:56)
[2018-03-01] MEDS ORDERED: Vancomycin HCl 1.5 GM in Sodium Chloride 0.9% 500 ML IV ONE (14:00)
[2018-03-01] MEDS ORDERED: Potassium Chloride 20 mEq ER Tab PO ONE (14:23)
--- NOTE | 2018-03-01 14:29 | General Progress Note ---
Subjective - Review of Systems Service Date: 03/01/18 Subjective: awake, verbal, comfortable Objective - Results Result Diagrams: 03/01/18 04:55 03/01/18 04:55 Recent Labs: Laboratory Last Values WBC 12.7 Th/cmm (4.8-10.8) H D 03/01/18 04:55 RBC 2.82 Mil/cmm (3.80-5.80) L 03/01/18 04:55 Hgb 8.6 gm/dL (12-16) L 03/01/18 04:55 Hct 26.2 % (41.0-60) L 03/01/18 04:55 MCV 93.1 fl (80-99) 03/01/18 04:55 MCH 30.6 pg (27.0-31.0) 03/01/18 04:55 MCHC Differential 32.9 pg (28.0-36.0) 03/01/18 04:55 RDW 17.6 % (11.5-20.0) 03/01/18 04:55 Plt Count 503 Th/cmm (150-400) H 03/01/18 04:55 MPV 7.5 fl 03/01/18 04:55 Add Manual Diff YES 03/01/18 04:55 Neutrophils % [employer] 02/27/18 04:10 Band Neutrophils % 1 % (0-10) 02/28/18 05:05 Lymphocytes % [employer] 02/27/18 04:10 Monocytes % [employer] 02/27/18 04:10 Eosinophils % 1.3 % (0.0-5.0) 03/01/18 04:55 Basophils % [employer] 02/27/18 04:10 Neutrophils (Manual) 77 % (40-80) 03/01/18 04:55 Lymphocytes 20 % (20-50) 03/01/18 04:55 Monocytes 3 % (2-10) 03/01/18 04:55 Eosinophils 1 % (0-5) 02/27/18 04:10 Platelet Estimate INCREASED PLATELETS (NORMAL) 03/01/18 04:55 PT 10.5 SECONDS (9.5-11.5) 02/28/18 05:05 INR 1.01 (0.5-1.4) 02/28/18 05:05 PTT (Actin FS) 23.1 SECONDS (26.0-38.0) L 02/28/18 05:05 Sodium 138 mEq/L (136-145) 03/01/18 04:55 Potassium 3.4 mEq/L (3.5-5.1) L 03/01/18 04:55 Chloride 102 mEq/L (98-107) 03/01/18 04:55 Carbon Dioxide 25.6 mEq/L (21.0-31.0) 03/01/18 04:55 Anion Gap 13.8 (7.0-16.0) 03/01/18 04:55 BUN 41 mg/dL (7-25) H 03/01/18 04:55 Creatinine 2.8 mg/dL (0.7-1.3) H 03/01/18 04:55 Est GFR ( Amer) TNP 03/01/18 04:55 Est GFR (Non-Af Amer) TNP 03/01/18 04:55 BUN/Creatinine Ratio 14.6 03/01/18 04:55 Glucose 184 mg/dL (70-105) H 03/01/18 04:55 POC Glucose 190 MG/DL (70 - 105) H 03/01/18 12:35 Whole Bld Lactic Acid 1.49 mmol/L (0.60-1.99) 02/26/18 17:15 Calcium 8.6 mg/dL (8.6-10.3) 03/01/18 04:55 Phosphorus 2.4 mg/dL (2.5-5.0) L 02/26/18 17:15 Magnesium 2.3 mg/dL (1.9-2.7) 02/26/18 17:15 Total Bilirubin 0.3 mg/dL (0.3-1.0) 02/27/18 04:10 AST 17 U/L (13-39) 02/27/18 04:10 ALT 16 U/L (7-52) 02/27/18 04:10 Alkaline Phosphatase 82 U/L (34-104) 02/27/18 04:10 Total Protein 6.0 gm/dL (6.0-8.3) 02/27/18 04:10 Albumin 2.1 gm/dL (4.2-5.5) L 02/27/18 04:10 Globulin 3.9 gm/dL 02/27/18 04:10 Albumin/Globulin Ratio 0.5 (1.0-1.8) L 02/27/18 04:10 Random Vancomycin 17.9 ug/mL (5.0-40.0) 03/01/18 11:15 - Physical Exam Vitals and I&O: Vital Signs Temp 97.2 F 03/01/18 11:42 Pulse 76 03/01/18 11:42 Resp 18 03/01/18 12:11 BP 120/64 03/01/18 11:42 Pulse Ox 99 03/01/18 11:42 Intake & Output 02/28/18 03/01/18 03/01/18 18:59 06:59 18:59 Intake Total 100 600 Balance 100 600 Weight (lbs) 67.387 kg 76.43 kg Intake: Oral 0 Tube Feeding 40 450 Other 60 150 Other: # Voids 2 # Bowel Movements 1 1 Stool Characteristics Soft Soft Weight Source Bedscale Bedscale Active Medications: Current Medications Acetaminophen (Tylenol 650mg/20.3ml Suspension) 650 mg GT DAILY PRN PRN Reason: prior to wound healing Stop: 04/27/18 22:28 Acetaminophen (Tylenol 650mg/20.3ml Suspension) 650 mg GT Q4HR PRN PRN Reason: MILD PAIN Stop: 04/27/18 22:28 Amlodipine Besylate (Norvasc) 10 mg GT DAILY [facility] Stop: 04/28/18 08:59 Last Admin: 03/01/18 08:58 Dose: Not Given Ascorbic Acid (Vitamin C) 500 mg GT DAILY [facility] Stop: 04/28/18 08:59 Last Admin: 03/01/18 08:51 Dose: 500 mg Aspirin (Aspirin Chewable) 81 mg GT DAILY [facility] Stop: 04/30/18 08:59 Last Admin: 03/01/18 13:55 Dose: 81 mg Atorvastatin Calcium (Lipitor) 20 mg PO HS [facility] Stop: 04/30/18 20:59 Bisacodyl (Dulcolax 10 Mg Supp) 10 mg RC DAILY PRN PRN Reason: IF MOM INEFECTIVE Stop: 04/30/18 08:18 Calcium Carbonate (Os-Brad) 500 mg GT DAILY [facility] Stop: 04/30/18 08:59 Last Admin: 03/01/18 09:10 Dose: Not Given Carvedilol (Coreg) 6.25 mg GT BID [facility] Stop: 04/30/18 08:59 Last Admin: 03/01/18 09:10 Dose: Not Given Docusate Sodium (Colace) 100 mg PO DAILY [facility] Stop: 04/30/18 08:59 Last Admin: 03/01/18 08:52 Dose: Not Given Finasteride (Proscar) 5 mg PO DAILY [facility]; Protocol Stop: 04/30/18 08:59 Last Admin: 03/01/18 13:56 Dose: 5 mg Heparin Sodium (Porcine) (Heparin) 5,000 units SUBQ Q12HR [facility] Stop: 04/28/18 20:59 Last Admin: 03/01/18 08:51 Dose: 5,000 units Vancomycin HCl 1.5 gm/ Sodium (Chloride) 500 mls @ 250 mls/hr IV 1400 ONE Stop: 03/01/18 15:59 Insulin Aspart (Novolog Insulin Sliding Scale) 0 units SUBQ ACHS [facility]; Protocol Stop: 04/27/18 20:59 Last Admin: 03/01/18 12:44 Dose: 2 units Lactobacillus Rhamnosus (Culturelle 15b) 1 each PO DAILY [facility] Stop: 04/29/18 13:59 Last Admin: 03/01/18 08:52 Dose: 1 each Miscellaneous (Vancomycin Iv Per Pharmacy) 1 ea PRN PRN PRN Reason: PROTOCOL Stop: 04/27/18 20:15 Miscellaneous (Vte Chemical Prophylaxis Screen/ Admission) 1 [facility] PRN PRN PRN Reason: PROTOCOL Stop: 04/28/18 11:44 Miscellaneous (Probiotic Screen) 1 [facility] PRN PRN PRN Reason: PROTOCOL Stop: 04/29/18 11:20 Nystatin (Nystatin) 100,000 units PO TID [facility] Stop: 04/27/18 20:59 Last Admin: 03/01/18 13:54 Dose: 100,000 units Potassium Chloride (Klor-Con) 20 meq PO X1 ONE Stop: 03/01/18 14:24 Tamsulosin HCl (Flomax) 0.4 mg PO DAILY [facility] Stop: 04/30/18 08:59 Last Admin: 03/01/18 13:55 Dose: 0.4 mg Vancomycin HCl (Vancomycin Oral) 250 mg PO QID [facility] Stop: 04/28/18 16:59 Last Admin: 03/01/18 13:54 Dose: 250 mg Vitamin B Complex/Vit C/Folic Acid (Vitamin B Complex W/Vitamin C) 1 tab GT DAILY [facility] Stop: 04/30/18 08:59 Last Admin: 03/01/18 13:56 Dose: 1 tab Zinc Sulfate (Zinc Sulfate) 220 mg GT DAILY [facility] Stop: 04/30/18 08:59 Last Admin: 03/01/18 13:55 Dose: 220 mg General: Alert, No acute distress HEENT: Atraumatic, Mucous membr. moist/pink Neck: Supple, +2 carotid pulse wo bruit Cardiovascular: Regular rate, Normal S1, Normal S2 Lungs: Clear to auscultation Abdomen: Bowel sounds, Soft Extremities: Edema (B/L upper extremities) Neurological: Sensation intact Skin: no Rash Psych/Mental Status: Mood NL - Procedures Procedures: Procedures Procedure Code Date AMPUTATION OF TOE 56250 08/19/17 DETACHMENT AT LEFT 1ST TOE, COMPLETE, OPEN APPROACH [id number] 08/19/17 DETACHMENT AT RIGHT 1ST TOE, COMPLETE, OPEN APPROACH [id number] 08/19/17 DETACHMENT AT RIGHT 2ND TOE, COMPLETE, OPEN APPROACH [id number] 08/19/17 DETACHMENT AT RIGHT FOOT, COMPLETE, OPEN APPROACH [id number] 09/23/17 EXCISION OF L LOW LEG SUBCU/FASCIA, OPEN APPROACH [id number] 08/19/17 EXTIRPATION OF MATTER FROM L AXILLA ART, OPEN APPROACH [id number] 09/23/17 EXTIRPATION OF MATTER FROM UPPER ARTERY, OPEN APPROACH [id number] 10/05/17 FLUOROSCOPY OF LEFT JUGULAR VEINS, GUIDANCE [id number] 02/26/18 FLUOROSCOPY OF SUP VENA CAVA USING L OSM CONTRAST, GUIDANCE [id number] 10/05/17 INSERT INFUSION DEV IN L INT JUGULAR VEIN, PERC [id number] 02/26/18 INSERTION OF INFUSION DEV INTO SUP VENA CAVA, PERC APPROACH [id number] 10/05/17 PERFORMANCE OF URINARY FILTRATION, <6 HRS/DAY [id number] 10/05/17 REMOVAL OF INFUSION DEVICE FROM UPPER VEIN, OPEN APPROACH [id number] 02/26/18 REMOVAL OF INFUSION DEVICE FROM UPPER VEIN, PERC APPROACH [id number] 08/19/17 REMOVAL TUNNELED CV CATH [id number] 08/19/17 SUPPLEMENT L AXILLA ART WITH SYNTH SUB, OPEN APPROACH [id number] 06/02/18 Assessment/Plan - Problem List Patient Problems: All Active Problems C-DIFF REPORT (Acute) - Assessment Assessment: ESRD on HD C. 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 lower Syme's PUD/GERD Alzh Dementia - Plan Plan: Lab - Result Diagrams 02/28/18 05:05 02/28/18 05:05 Current Medications Acetaminophen (Tylenol 650mg/20.3ml Suspension) 650 mg GT DAILY PRN PRN Reason: prior to wound healing Stop: 04/27/18 22:28 Acetaminophen (Tylenol 650mg/20.3ml Suspension) 650 mg GT Q4HR PRN PRN Reason: MILD PAIN Stop: 04/27/18 22:28 Amlodipine Besylate (Norvasc) 10 mg GT DAILY [facility] Stop: 04/28/18 08:59 Last Admin: 02/28/18 09:25 Dose: Not Given Ascorbic Acid (Vitamin C) 500 mg GT DAILY [facility] Stop: 04/28/18 08:59 Last Admin: 02/28/18 09:25 Dose: Not Given Heparin Sodium (Porcine) (Heparin) 5,000 units SUBQ Q12HR [facility] Stop: 04/28/18 20:59 Last Admin: 02/28/18 09:25 Dose: Not Given Vancomycin HCl 1.5 gm/ Sodium (Chloride) 500 mls @ 125 mls/hr IV X1 ONE Stop: 02/28/18 13:59 Last Admin: 02/28/18 10:06 Dose: 125 mls/hr Insulin Aspart (Novolog Insulin Sliding Scale) 0 units SUBQ ACHS [facility]; Protocol Stop: 04/27/18 20:59 Last Admin: 02/28/18 12:15 Dose: Not Given Lactobacillus Rhamnosus (Culturelle 15b) 1 each PO DAILY [facility] Stop: 04/29/18 13:59 Miscellaneous (Vancomycin Iv Per Pharmacy) 1 ea [facility] PRN PRN PRN Reason: PROTOCOL Stop: 04/27/18 20:15 Miscellaneous (Vte Chemical Prophylaxis Screen/ Admission) 1 [facility] PRN PRN PRN Reason: PROTOCOL Stop: 04/28/18 11:44 Miscellaneous (Probiotic Screen) 1 ea [facility] PRN PRN PRN Reason: PROTOCOL Stop: 04/29/18 11:20 Nystatin (Nystatin) 100,000 units PO TID [facility] Stop: 04/27/18 20:59 Last Admin: 02/28/18 09:26 Dose: Not Given Vancomycin HCl (Vancomycin Oral) 250 mg PO QID [facility] Stop: 04/28/18 16:59 Last Admin: 02/28/18 12:39 Dose: Not Given Lab - Result Diagrams 03/01/18 04:55 03/01/18 04:55 Schedule for HD today replace K for surgery tomorrow WBC down to 12.7 on Vanco f/u electrolytes, cbc Nutritional Asmnt/Malnutr-PDOC - Dietary Evaluation Malnutrition Findings (Please click <Entered> for more info): Nutritional Asmnt/Malnutrition Start: 02/27/18 12: 41 Text: Status: Complete Freq: Protocol: Document 02/27/18 13:31 OLE (Rec: 02/27/18 13:53 OLE [email or web address]) Nutritional Asmnt/Malnutrition Patient General Information Nutritional Screening High Risk Diagnosis C-Diff ESBL of Sputam Pertinent Medical Hx/Surgical Hx DM, PUD/GERD, dementia, peripheral vascular disease, PVD, ESRD, on dialysis 3x/week Subjective Information Pt resting in bed at time of visit. Visually verified no TF was running at this time. Current Diet Order/ Nutrition Support tube feeding: Nepro @ 40 cc/hr x 20 hrs (on at 12 pm, off at 8 am) Pertinent Medications Vit C, heparin, novolog, vancomycin Pertinent Labs 02/27: glucose 121, Na 133, Cl 95, BUN 62, Cr 3.3, Alb 2.1, POC 118 02/26: glucose 217, Na 131, Cl 92, BUN 57, Cr 3.1, Alb 2.3, POC 185-206, Phos 2.3 Nutritional Hx/Data Height 1.65 m Height (Calculated Centimeters) 165.1 Current Weight (lbs) 67.495 kg Weight (Calculated Kilograms) 67.5 Weight (Calculated Grams) 36051.5 [place] Body Weight 136 lb Body Mass Index (BMI) 24.7 Weight Status Approriate GI Symptoms GI Symptoms None Last BM none noted Difficult in: None Food Allergies No Skin Integrity/Comment: pressure ulcer to sacrum, ulcer to left foot stump ( amputation), skin tears to both hands, discoloration to amputation site on right leg, gastrostomy/PEG, catarina cathetor to left upper extremity for dialysis Estimated Nutritional Goals BEE in Kcals: Adj wt of IBW Calories/Kcals/Kg 30-35 (based on IBW 136 lbs) Kcals Calculated [id number] Protein: Adj wt of IBW Protein g/k.2-1.5 Protein Calculated 74-93 g Fluid: ml per MD Nutritional Problem 3. Problem Problem inadequate intake from enteral infusion Etiology increased needs for HD and wound healing Signs/Symptoms: current TF regimen provides ~ 75% estimated kcal needs and ~ 85 estimated protein needs 2. 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 Problem Problem Altered nutrition related lab values Etiology endocrine and renal dysfunction, electrolyte imbalance Signs/Symptoms: glucose 121, Na 133, Cl 95, BUN 62, Cr 3.3, POC 118 Malnutrition Related to Morbid Obesity Malnutrition related to morbid obesity No Intervention/Recommendation Comments 1. Recommend to increase rate of Nepro to 55 ml/hr x 20 hrs; this provides 1980 kcals and 89 g protein, which will meet 100% of estimated nutritional needs 2. Monitor TF rate, tolerance, wt, skin integrity and labs 3. F/U as high risk in 2-3 days, 03/01-03/02 Expected Outcomes/Goals Expected Outcomes/Goals 1. Pt to meet at >95% of nutritional needs via nutrition support with tolerance 2. Wt stability, wounds to heal, labs to approach normal limits
[2018-03-01] MEDS: Atorvastatin Calcium 10 MG TAB PO SCH (20:38)
[2018-03-01] MEDS ORDERED: Non-Formulary Item 1 EA (Atorvastatin Calcium [Lipitor] 20 MG) GT SCH (21:00)
[2018-03-02] MEDS: INSULIN ASPART SLIDING SCALE 100 UNITS/ML UNIT SUBQ SCH ×4 (00:40→17:11)
[2018-03-02] MEDS: D5-0.45NS 1,000 ML IV SCH (00:53)
[2018-03-02 05:35] LABS: % BASOPHILS 0.9 % (0.0-2.0); % EOSINOPHILS 1.3 % (0.0-5.0); % MONOCYTES 9.1 % (2.0-10.0); % NEUTROPHILS 69.7 % (40.0-80.0); BASOPHILE ABSOLUTE 0.1 Th/cumm (0-0.2); EOSINOPHILE ABSOLUTE 0.2 Th/cmm (0.1-0.4); HEMATOCRIT 25.3 % (41.0-60); HEMOGLOBIN 8.3 gm/dL (12-16); MEAN CELL VOLUME 92.2 fl (80-99); MEAN CORPUSCULAR HEMOGLOBIN 30.2 pg (27.0-31.0); MEAN CORPUSCULAR HGB CONC 32.7 pg (28.0-36.0); MEAN PLATELET VOLUME 7.5 fl; MONOCYTE ABSOLUTE 1.4 Th/cmm (0.3-1.0); NEUTROPHILE ABSOLUTE 10.9 Th/cmm (1.8-8.0); PLATELET COUNT 451 Th/cmm (150-400); RED BLOOD COUNT 2.75 Mil/cmm (3.80-5.80); RED CELL DISTRIBUTION WIDTH 17.4 % (11.5-20.0)
[2018-03-02 05:45] LABS: ALB/GLOB RATIO 0.6 (1.0-1.8); ALBUMIN 2.2 gm/dL (4.2-5.5); ALKALINE PHOSPHATASE 99 U/L (34-104); BILIRUBIN,TOTAL 0.3 mg/dL (0.3-1.0); BUN - UREA NITROGEN 27 mg/dL (7-25); CALCIUM SERUM 8.4 mg/dL (8.6-10.3); CARBON DIOXIDE 27.9 mEq/L (21.0-31.0); CHLORIDE 102 mEq/L (98-107); GLUCOSE 180 mg/dL (70-105); SGOT 16 U/L (13-39); SGPT/ALT 15 U/L (7-52); SODIUM SERUM 138 mEq/L (136-145); TOTAL PROTEIN,SERUM 6.1 gm/dL (6.0-8.3)
[2018-03-02 05:54] LABS: WHITE BLOOD COUNT 15.6 Th/cmm (4.8-10.8)
[2018-03-02 05:57] LABS: POTASSIUM SERUM 2.9 mEq/L (3.5-5.1)
[2018-03-02] MEDS ORDERED: KCL 20mEq/100mL Premix 40 MEQ/200 ML PIGGYBACK IV ONE (07:02)
[2018-03-02] MEDS: KCL 20mEq/100mL Premix 20 MEQ/100 ML PIGGYBACK IV SCH ×2 (07:10→09:26)
[2018-03-02] MEDS: Lactobacillus Rhamnosus GG 15 Billion CFU CAP.SPRINK PO SCH (08:01)
[2018-03-02] MEDS: Aspirin 81mg Chewable Tab GT SCH (08:04)
[2018-03-02] MEDS: Vitamin B Complex w/Vitamin C Tab GT SCH (08:05)
[2018-03-02] MEDS ORDERED: fentaNYL Citrate 100 mcg/2mL Vial ONE (10:29)
--- NOTE | 2018-03-02 13:15 | General Progress Note ---
Subjective - Review of Systems Service Date: 03/02/18 Subjective: awake, verbal, comfortable Objective - Results Result Diagrams: 03/02/18 05:15 03/02/18 09:30 Recent Labs: Laboratory Last Values WBC 15.6 Th/cmm (4.8-10.8) H 03/02/18 05:15 RBC 2.75 Mil/cmm (3.80-5.80) L 03/02/18 05:15 Hgb 8.3 gm/dL (12-16) L 03/02/18 05:15 Hct 25.3 % (41.0-60) L 03/02/18 05:15 MCV 92.2 fl (80-99) 03/02/18 05:15 MCH 30.2 pg (27.0-31.0) 03/02/18 05:15 MCHC Differential 32.7 pg (28.0-36.0) 03/02/18 05:15 RDW 17.4 % (11.5-20.0) 03/02/18 05:15 Plt Count 451 Th/cmm (150-400) H 03/02/18 05:15 MPV 7.5 fl 03/02/18 05:15 Add Manual Diff YES 03/01/18 04:55 Neutrophils % 69.7 % (40.0-80.0) 03/02/18 05:15 Band Neutrophils % 1 % (0-10) 02/28/18 05:05 Lymphocytes % 19.0 % (20.0-50.0) L 03/02/18 05:15 Monocytes % 9.1 % (2.0-10.0) 03/02/18 05:15 Eosinophils % 1.3 % (0.0-5.0) 03/02/18 05:15 Basophils % 0.9 % (0.0-2.0) 03/02/18 05:15 Neutrophils (Manual) 77 % (40-80) 03/01/18 04:55 Lymphocytes 20 % (20-50) 03/01/18 04:55 Monocytes 3 % (2-10) 03/01/18 04:55 Eosinophils 1 % (0-5) 02/27/18 04:10 Platelet Estimate INCREASED PLATELETS (NORMAL) 03/01/18 04:55 PT 10.5 SECONDS (9.5-11.5) 02/28/18 05:05 INR 1.01 (0.5-1.4) 02/28/18 05:05 PTT (Actin FS) 23.1 SECONDS (26.0-38.0) L 02/28/18 05:05 Sodium 138 mEq/L (136-145) 03/02/18 05:15 Potassium 3.5 mEq/L (3.5-5.1) 03/02/18 09:30 Chloride 102 mEq/L (98-107) 03/02/18 05:15 Carbon Dioxide 27.9 mEq/L (21.0-31.0) 03/02/18 05:15 Anion Gap 11.0 (7.0-16.0) 03/02/18 05:15 BUN 27 mg/dL (7-25) H 03/02/18 05:15 Creatinine 2.0 mg/dL (0.7-1.3) H 03/02/18 05:15 Est GFR ( Amer) TNP 03/02/18 05:15 Est GFR (Non-Af Amer) TNP 03/02/18 05:15 BUN/Creatinine Ratio 13.5 03/02/18 05:15 Glucose 180 mg/dL (70-105) H 03/02/18 05:15 POC Glucose 165 MG/DL (70 - 105) H 03/02/18 05:57 Whole Bld Lactic Acid 1.49 mmol/L (0.60-1.99) 02/26/18 17:15 Calcium 8.4 mg/dL (8.6-10.3) L 03/02/18 05:15 Phosphorus 2.4 mg/dL (2.5-5.0) L 02/26/18 17:15 Magnesium 2.0 mg/dL (1.9-2.7) 03/02/18 05:15 Total Bilirubin 0.3 mg/dL (0.3-1.0) 03/02/18 05:15 AST 16 U/L (13-39) 03/02/18 05:15 ALT 15 U/L (7-52) 03/02/18 05:15 Alkaline Phosphatase 99 U/L (34-104) 03/02/18 05:15 Total Protein 6.1 gm/dL (6.0-8.3) 03/02/18 05:15 Albumin 2.2 gm/dL (4.2-5.5) L 03/02/18 05:15 Globulin 3.9 gm/dL 03/02/18 05:15 Albumin/Globulin Ratio 0.6 (1.0-1.8) L 03/02/18 05:15 Random Vancomycin 35.5 ug/mL (5.0-40.0) 03/02/18 05:15 Blood Type A POSITIVE 03/02/18 07:15 Antibody Screen NEGATIVE 03/02/18 07:15 - Physical Exam Vitals and I&O: Vital Signs Temp 98.4 F 03/02/18 08:25 Pulse 59 03/02/18 08:25 Resp 17 03/02/18 08:25 BP 131/72 03/02/18 08:25 Pulse Ox 100 03/02/18 08:25 Intake & Output 03/01/18 03/02/18 03/02/18 18:59 06:59 18:59 Intake Total 900 420 100 Output Total 1800 Balance -900 420 100 Weight (lbs) 76.43 kg 76.232 kg Intake: Intake, IV Amount 100 KCL 20mEq/100mL Premix 20 100 meq In 100 ml @ 50 mls/ hr IV Q2H [facility] Rx#: [id number] Oral 900 Tube Feeding 220 Other 200 Output: Hemodialysis 1800 Other: # Voids 0 0 # Bowel Movements 0 2 Stool Characteristics Liquid Liquid Weight Source Bedscale Bedscale Active Medications: Current Medications Acetaminophen (Tylenol 650mg/20.3ml Suspension) 650 mg GT DAILY PRN PRN Reason: prior to wound healing Stop: 04/27/18 22:28 Acetaminophen (Tylenol 650mg/20.3ml Suspension) 650 mg GT Q4HR PRN PRN Reason: MILD PAIN Stop: 04/27/18 22:28 Amlodipine Besylate (Norvasc) 10 mg GT DAILY [facility] Stop: 04/28/18 08:59 Last Admin: 03/02/18 08:04 Dose: Not Given Ascorbic Acid (Vitamin C) 500 mg GT DAILY [facility] Stop: 04/28/18 08:59 Last Admin: 03/02/18 08:04 Dose: Not Given Aspirin (Aspirin Chewable) 81 mg GT DAILY [facility] Stop: 04/30/18 08:59 Last Admin: 11/09/18 08:04 Dose: Not Given Atorvastatin Calcium (Lipitor) 20 mg PO HS [facility] Stop: 04/30/18 20:59 Last Admin: 03/01/18 20:38 Dose: 20 mg Bisacodyl (Dulcolax 10 Mg Supp) 10 mg RC DAILY PRN PRN Reason: IF MOM INEFECTIVE Stop: 04/30/18 08:18 Calcium Carbonate (Os-Brad) 500 mg GT DAILY [facility] Stop: 04/30/18 08:59 Last Admin: 03/02/18 08:03 Dose: Not Given Carvedilol (Coreg) 6.25 mg GT BID [facility] Stop: 04/30/18 08:59 Last Admin: 03/02/18 08:03 Dose: Not Given Docusate Sodium (Colace) 100 mg PO DAILY [facility] Stop: 04/30/18 08:59 Last Admin: 03/02/18 08:02 Dose: Not Given Finasteride (Proscar) 5 mg PO DAILY [facility]; Protocol Stop: 04/30/18 08:59 Last Admin: 03/02/18 08:02 Dose: Not Given Heparin Sodium (Porcine) (Heparin) 5,000 units SUBQ Q12HR [facility] Stop: 04/28/18 20:59 Last Admin: 03/02/18 08:02 Dose: Not Given Dextrose/Sodium Chloride (D5-0.45ns) 1,000 mls @ 50 mls/hr IV .Q20H [facility] Stop: 04/30/18 20:29 Last Admin: 03/02/18 00:53 Dose: 50 mls/hr Insulin Aspart (Novolog Insulin Sliding Scale) 0 units SUBQ Q6HR [facility]; Protocol Stop: 05/01/18 00:00 Last Admin: 03/02/18 06:07 Dose: Not Given Lactobacillus Rhamnosus (Culturelle 15b) 1 each PO DAILY [facility] Stop: 04/29/18 13:59 Last Admin: 03/02/18 08:01 Dose: Not Given Miscellaneous (Vancomycin Iv Per Pharmacy) 1 ea [facility] PRN PRN PRN Reason: PROTOCOL Stop: 04/27/18 20:15 Miscellaneous (Vte Chemical Prophylaxis Screen/ Admission) 1 ea [facility] PRN PRN PRN Reason: PROTOCOL Stop: 04/28/18 11:44 Miscellaneous (Probiotic Screen) 1 ea PRN PRN PRN Reason: PROTOCOL Stop: 04/29/18 11:20 Nystatin (Nystatin) 100,000 units PO TID [facility] Stop: 04/27/18 20:59 Last Admin: 03/02/18 08:00 Dose: Not Given Tamsulosin HCl (Flomax) 0.4 mg PO DAILY [facility] Stop: 04/30/18 08:59 Last Admin: 03/02/18 08:00 Dose: Not Given Vancomycin HCl (Vancomycin Oral) 250 mg PO QID [facility] Stop: 04/28/18 16:59 Last Admin: 03/01/18 20:40 Dose: 250 mg Vitamin B Complex/Vit C/Folic Acid (Vitamin B Complex W/Vitamin C) 1 tab GT DAILY [facility] Stop: 04/30/18 08:59 Last Admin: 03/02/18 08:05 Dose: Not Given Zinc Sulfate (Zinc Sulfate) 220 mg GT DAILY [facility] Stop: 04/30/18 08:59 Last Admin: 03/02/18 08:05 Dose: Not Given General: Alert, No acute distress HEENT: Atraumatic, Mucous membr. moist/pink Neck: Supple, +2 carotid pulse wo bruit Cardiovascular: Regular rate, Normal S1, Normal S2 Lungs: Clear to auscultation Abdomen: Bowel sounds, Soft Extremities: Edema (B/L upper extremities) Neurological: Sensation intact Skin: no Rash Psych/Mental Status: Mood NL - Procedures Procedures: Procedures Procedure Code Date AMPUTATION OF TOE 30445 08/19/17 DETACHMENT AT LEFT 1ST TOE, COMPLETE, OPEN APPROACH [id number] 08/19/17 DETACHMENT AT RIGHT 1ST TOE, COMPLETE, OPEN APPROACH [id number] 08/19/17 DETACHMENT AT RIGHT 2ND TOE, COMPLETE, OPEN APPROACH [id number] 08/19/17 DETACHMENT AT RIGHT FOOT, COMPLETE, OPEN APPROACH [id number] 09/23/17 EXCISION OF L LOW LEG SUBCU/FASCIA, OPEN APPROACH [id number] 08/19/17 EXTIRPATION OF MATTER FROM L AXILLA ART, OPEN APPROACH [id number] 09/23/17 EXTIRPATION OF MATTER FROM UPPER ARTERY, OPEN APPROACH [id number] 10/05/17 FLUOROSCOPY OF LEFT JUGULAR VEINS, GUIDANCE [id number] 02/26/18 FLUOROSCOPY OF SUP VENA CAVA USING L OSM CONTRAST, GUIDANCE [id number] 10/05/17 INSERT INFUSION DEV IN L INT JUGULAR VEIN, PERC [id number] 02/26/18 INSERTION OF INFUSION DEV INTO SUP VENA CAVA, PERC APPROACH [id number] 10/05/17 PERFORMANCE OF URINARY FILTRATION, <6 HRS/DAY [id number] 10/05/17 REMOVAL OF INFUSION DEVICE FROM UPPER VEIN, OPEN APPROACH [id number] 02/26/18 REMOVAL OF INFUSION DEVICE FROM UPPER VEIN, PERC APPROACH [id number] 08/19/17 REMOVAL TUNNELED CV CATH [id number] 08/19/17 SUPPLEMENT L AXILLA ART WITH SYNTH SUB, OPEN APPROACH [id number] 09/23/17 Assessment/Plan - Problem List Patient Problems: All Active Problems C-DIFF REPORT (Acute) - Assessment Assessment: ESRD on HD C. 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 lower Syme's PUD/GERD Alzh Dementia - Plan Plan: Lab - Result Diagrams 02/28/18 05:05 02/28/18 05:05 Current Medications Acetaminophen (Tylenol 650mg/20.3ml Suspension) 650 mg GT DAILY PRN PRN Reason: prior to wound healing Stop: 04/27/18 22:28 Acetaminophen (Tylenol 650mg/20.3ml Suspension) 650 mg GT Q4HR PRN PRN Reason: MILD PAIN Stop: 04/27/18 22:28 Amlodipine Besylate (Norvasc) 10 mg GT DAILY [facility] Stop: 04/28/18 08:59 Last Admin: 02/28/18 09:25 Dose: Not Given Ascorbic Acid (Vitamin C) 500 mg GT DAILY [facility] Stop: 04/28/18 08:59 Last Admin: 02/28/18 09:25 Dose: Not Given Heparin Sodium (Porcine) (Heparin) 5,000 units SUBQ Q12HR [facility] Stop: 04/28/18 20:59 Last Admin: 02/28/18 09:25 Dose: Not Given Vancomycin HCl 1.5 gm/ Sodium (Chloride) 500 mls @ 125 mls/hr IV X1 ONE Stop: 02/28/18 13:59 Last Admin: 02/28/18 10:06 Dose: 125 mls/hr Insulin Aspart (Novolog Insulin Sliding Scale) 0 units SUBQ ACHS [facility]; Protocol Stop: 04/27/18 20:59 Last Admin: 02/28/18 12:15 Dose: Not Given Lactobacillus Rhamnosus (Culturelle 15b) 1 each PO DAILY [facility] Stop: 04/29/18 13:59 Miscellaneous (Vancomycin Iv Per Pharmacy) 1 ea [facility] PRN PRN PRN Reason: PROTOCOL Stop: 04/27/18 20:15 Miscellaneous (Vte Chemical Prophylaxis Screen/ Admission) 1 ea [facility] PRN PRN PRN Reason: PROTOCOL Stop: 04/28/18 11:44 Miscellaneous (Probiotic Screen) 1 ea [facility] PRN PRN PRN Reason: PROTOCOL Stop: 04/29/18 11:20 Nystatin (Nystatin) 100,000 units PO TID [facility] Stop: 04/27/18 20:59 Last Admin: 02/28/18 09:26 Dose: Not Given Vancomycin HCl (Vancomycin Oral) 250 mg PO QID [facility] Stop: 04/28/18 16:59 Last Admin: 02/28/18 12:39 Dose: Not Given Lab - Result Diagrams 03/02/18 05:15 03/02/18 09:30 Schedule for HD tomorrow replace K for surgery today WBC up to 15.6 on Vanco f/u electrolytes, cbc Nutritional Asmnt/Malnutr-PDOC - Dietary Evaluation Malnutrition Findings (Please click <Entered> for more info): Nutritional Asmnt/Malnutrition Start: 02/27/18 12: 41 Text: Status: Complete Freq: Protocol: Document 02/27/18 13:31 OLE (Rec: 02/27/18 13:53 OLE [email or web address]) Nutritional Asmnt/Malnutrition Patient General Information Nutritional Screening High Risk Diagnosis C-Diff ESBL of Sputam Pertinent Medical Hx/Surgical Hx DM, PUD/GERD, dementia, peripheral vascular disease, PVD, ESRD, on dialysis 3x/week Subjective Information Pt resting in bed at time of visit. Visually verified no TF was running at this time. Current Diet Order/ Nutrition Support tube feeding: Nepro @ 40 cc/hr x 20 hrs (on at 12 pm, off at 8 am) Pertinent Medications Vit C, heparin, novolog, vancomycin Pertinent Labs 02/27: glucose 121, Na 133, Cl 95, BUN 62, Cr 3.3, Alb 2.1, POC 118 02/26: glucose 217, Na 131, Cl 92, BUN 57, Cr 3.1, Alb 2.3, POC 185-206, Phos 2.3 Nutritional Hx/Data Height 1.65 m Height (Calculated Centimeters) 165.1 Current Weight (lbs) 67.495 kg Weight (Calculated Kilograms) 67.5 Weight (Calculated Grams) 39651.5 [place] Body Weight 136 lb Body Mass Index (BMI) 24.7 Weight Status Approriate GI Symptoms GI Symptoms None Last BM none noted Difficult in: None Food Allergies No Skin Integrity/Comment: pressure ulcer to sacrum, ulcer to left foot stump ( amputation), skin tears to both hands, discoloration to amputation site on right leg, gastrostomy/PEG, catarina cathetor to left upper extremity for dialysis Estimated Nutritional Goals BEE in Kcals: Adj wt of IBW Calories/Kcals/Kg 30-35 (based on IBW 136 lbs) Kcals Calculated 3761-5461 Protein: Adj wt of IBW Protein g/k.2-1.5 Protein Calculated 74-93 g Fluid: ml per MD Nutritional Problem 3. Problem Problem inadequate intake from enteral infusion Etiology increased needs for HD and wound healing Signs/Symptoms: current TF regimen provides ~ 75% estimated kcal needs and ~ 85 estimated protein needs 2. 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 Problem Problem Altered nutrition related lab values Etiology endocrine and renal dysfunction, electrolyte imbalance Signs/Symptoms: glucose 121, Na 133, Cl 95, BUN 62, Cr 3.3, POC 118 Malnutrition Related to Morbid Obesity Malnutrition related to morbid obesity No Intervention/Recommendation Comments 1. Recommend to increase rate of Nepro to 55 ml/hr x 20 hrs; this provides 1980 kcals and 89 g protein, which will meet 100% of estimated nutritional needs 2. Monitor TF rate, tolerance, wt, skin integrity and labs 3. F/U as high risk in 2-3 days, 03/01-03/02 Expected Outcomes/Goals Expected Outcomes/Goals 1. Pt to meet at >95% of nutritional needs via nutrition support with tolerance 2. Wt stability, wounds to heal, labs to approach normal limits
[2018-03-02] MEDS: Vancomycin HCL 250 mg /10mL UDC PO SCH ×5 (13:47→20:29)
--- NOTE | 2018-03-02 13:59 | Internal Medicine Prog Note ---
Internal Medicine Subjective - Subjective Patient seen and examined:: chart reviewed, other (no distress ) Patient is:: awake, verbal, in bed Per staff patient has:: no adverse event Internal Medicine Objective - Results Result Diagrams: 03/02/18 05:15 03/02/18 09:30 Recent Labs: Laboratory Last Values WBC 15.6 Th/cmm (4.8-10.8) H 03/02/18 05:15 RBC 2.75 Mil/cmm (3.80-5.80) L 03/02/18 05:15 Hgb 8.3 gm/dL (12-16) L 03/02/18 05:15 Hct 25.3 % (41.0-60) L 03/02/18 05:15 MCV 92.2 fl (80-99) 03/02/18 05:15 MCH 30.2 pg (27.0-31.0) 03/02/18 05:15 MCHC Differential 32.7 pg (28.0-36.0) 03/02/18 05:15 RDW 17.4 % (11.5-20.0) 03/02/18 05:15 Plt Count 451 Th/cmm (150-400) H 03/02/18 05:15 MPV 7.5 fl 03/02/18 05:15 Add Manual Diff YES 03/01/18 04:55 Neutrophils % 69.7 % (40.0-80.0) 03/02/18 05:15 Band Neutrophils % 1 % (0-10) 02/28/18 05:05 Lymphocytes % 19.0 % (20.0-50.0) L 03/02/18 05:15 Monocytes % 9.1 % (2.0-10.0) 03/02/18 05:15 Eosinophils % 1.3 % (0.0-5.0) 03/02/18 05:15 Basophils % 0.9 % (0.0-2.0) 03/02/18 05:15 Neutrophils (Manual) 77 % (40-80) 03/01/18 04:55 Lymphocytes 20 % (20-50) 03/01/18 04:55 Monocytes 3 % (2-10) 03/01/18 04:55 Eosinophils 1 % (0-5) 02/27/18 04:10 Platelet Estimate INCREASED PLATELETS (NORMAL) 03/01/18 04:55 PT 10.5 SECONDS (9.5-11.5) 02/28/18 05:05 INR 1.01 (0.5-1.4) 02/28/18 05:05 PTT (Actin FS) 23.1 SECONDS (26.0-38.0) L 02/28/18 05:05 Sodium 138 mEq/L (136-145) 03/02/18 05:15 Potassium 3.5 mEq/L (3.5-5.1) 03/02/18 09:30 Chloride 102 mEq/L (98-107) 03/02/18 05:15 Carbon Dioxide 27.9 mEq/L (21.0-31.0) 03/02/18 05:15 Anion Gap 11.0 (7.0-16.0) 03/02/18 05:15 BUN 27 mg/dL (7-25) H 03/02/18 05:15 Creatinine 2.0 mg/dL (0.7-1.3) H 03/02/18 05:15 Est GFR ( Amer) TNP 03/02/18 05:15 Est GFR (Non-Af Amer) TNP 03/02/18 05:15 BUN/Creatinine Ratio 13.5 03/02/18 05:15 Glucose 180 mg/dL (70-105) H 03/02/18 05:15 POC Glucose 170 MG/DL (70 - 105) H 03/02/18 13:42 Whole Bld Lactic Acid 1.49 mmol/L (0.60-1.99) 02/26/18 17:15 Calcium 8.4 mg/dL (8.6-10.3) L 03/02/18 05:15 Phosphorus 2.4 mg/dL (2.5-5.0) L 02/26/18 17:15 Magnesium 2.0 mg/dL (1.9-2.7) 03/02/18 05:15 Total Bilirubin 0.3 mg/dL (0.3-1.0) 03/02/18 05:15 AST 16 U/L (13-39) 03/02/18 05:15 ALT 15 U/L (7-52) 03/02/18 05:15 Alkaline Phosphatase 99 U/L (34-104) 03/02/18 05:15 Total Protein 6.1 gm/dL (6.0-8.3) 03/02/18 05:15 Albumin 2.2 gm/dL (4.2-5.5) L 03/02/18 05:15 Globulin 3.9 gm/dL 03/02/18 05:15 Albumin/Globulin Ratio 0.6 (1.0-1.8) L 03/02/18 05:15 Random Vancomycin 35.5 ug/mL (5.0-40.0) 03/02/18 05:15 Blood Type A POSITIVE 03/02/18 07:15 Antibody Screen NEGATIVE 03/02/18 07:15 - Physical Exam Vitals and I&O: Vital Signs Temp 98.4 F 03/02/18 08:25 Pulse 59 03/02/18 08:25 Resp 17 03/02/18 08:25 BP 131/72 03/02/18 08:25 Pulse Ox 100 03/02/18 08:25 Intake & Output 03/01/18 03/02/18 03/02/18 18:59 06:59 18:59 Intake Total 900 420 100 Output Total 1800 Balance -900 420 100 Weight (lbs) 76.43 kg 76.232 kg Intake: Intake, IV Amount 100 KCL 20mEq/100mL Premix 20 100 meq In 100 ml @ 50 mls/ hr IV Q2H [facility] Rx#: [id number] Oral 900 Tube Feeding 220 Other 200 Output: Hemodialysis 1800 Other: # Voids 0 0 # Bowel Movements 0 2 Stool Characteristics Liquid Liquid Weight Source Bedscale Bedscale Active Medications: Current Medications Acetaminophen (Tylenol 650mg/20.3ml Suspension) 650 mg GT DAILY PRN PRN Reason: prior to wound healing Stop: 04/27/18 22:28 Acetaminophen (Tylenol 650mg/20.3ml Suspension) 650 mg GT Q4HR PRN PRN Reason: MILD PAIN Stop: 04/27/18 22:28 Amlodipine Besylate (Norvasc) 10 mg GT DAILY [facility] Stop: 04/28/18 08:59 Last Admin: 03/02/18 08:04 Dose: Not Given Ascorbic Acid (Vitamin C) 500 mg GT DAILY [facility] Stop: 04/28/18 08:59 Last Admin: 03/02/18 08:04 Dose: Not Given Aspirin (Aspirin Chewable) 81 mg GT DAILY [facility] Stop: 04/30/18 08:59 Last Admin: 03/02/18 08:04 Dose: Not Given Atorvastatin Calcium (Lipitor) 20 mg PO HS [facility] Stop: 04/30/18 20:59 Last Admin: 03/01/18 20:38 Dose: 20 mg Bisacodyl (Dulcolax 10 Mg Supp) 10 mg RC DAILY PRN PRN Reason: IF MOM INEFECTIVE Stop: 04/30/18 08:18 Calcium Carbonate (Os-Brad) 500 mg GT DAILY [facility] Stop: 04/30/18 08:59 Last Admin: 03/02/18 08:03 Dose: Not Given Carvedilol (Coreg) 6.25 mg GT BID [facility] Stop: 04/30/18 08:59 Last Admin: 03/02/18 08:03 Dose: Not Given Docusate Sodium (Colace) 100 mg PO DAILY [facility] Stop: 04/30/18 08:59 Last Admin: 03/02/18 08:02 Dose: Not Given Finasteride (Proscar) 5 mg PO DAILY [facility]; Protocol Stop: 04/30/18 08:59 Last Admin: 03/02/18 08:02 Dose: Not Given Heparin Sodium (Porcine) (Heparin) 5,000 units SUBQ Q12HR [facility] Stop: 04/28/18 20:59 Last Admin: 03/02/18 08:02 Dose: Not Given Dextrose/Sodium Chloride (D5-0.45ns) 1,000 mls @ 50 mls/hr IV .Q20H [facility] Stop: 04/30/18 20:29 Last Admin: 03/02/18 00:53 Dose: 50 mls/hr Insulin Aspart (Novolog Insulin Sliding Scale) 0 units SUBQ Q6HR [facility]; Protocol Stop: 05/01/18 00:00 Last Admin: 03/02/18 06:07 Dose: Not Given Lactobacillus Rhamnosus (Culturelle 15b) 1 each PO DAILY [facility] Stop: 04/29/18 13:59 Last Admin: 03/02/18 08:01 Dose: Not Given Miscellaneous (Vancomycin Iv Per Pharmacy) 1 ea [facility] PRN PRN PRN Reason: PROTOCOL Stop: 04/27/18 20:15 Miscellaneous (Vte Chemical Prophylaxis Screen/ Admission) 1 ea MC PRN PRN PRN Reason: PROTOCOL Stop: 04/28/18 11:44 Miscellaneous (Probiotic Screen) 1 [facility] PRN PRN PRN Reason: PROTOCOL Stop: 04/29/18 11:20 Nystatin (Nystatin) 100,000 units PO TID [facility] Stop: 04/27/18 20:59 Last Admin: 03/02/18 08:00 Dose: Not Given Tamsulosin HCl (Flomax) 0.4 mg PO DAILY [facility] Stop: 04/30/18 08:59 Last Admin: 03/02/18 08:00 Dose: Not Given Vancomycin HCl (Vancomycin Oral) 250 mg PO QID [facility] Stop: 04/28/18 16:59 Last Admin: 03/02/18 13:47 Dose: Not Given Vitamin B Complex/Vit C/Folic Acid (Vitamin B Complex W/Vitamin C) 1 tab GT DAILY [facility] Stop: 04/30/18 08:59 Last Admin: 03/02/18 08:05 Dose: Not Given Zinc Sulfate (Zinc Sulfate) 220 mg GT DAILY [facility] Stop: 04/30/18 08:59 Last Admin: 03/02/18 08:05 Dose: Not Given General: weak HEENT: NC/AT Neck: Supple Lungs: CTAB Cardiovascular: RRR Abdomen: soft, non-tender Extremities: clear - Procedures Procedures: Procedures Procedure Code Date AMPUTATION OF TOE 95418 08/19/17 DETACHMENT AT LEFT 1ST TOE, COMPLETE, OPEN APPROACH [id number] 08/19/17 DETACHMENT AT RIGHT 1ST TOE, COMPLETE, OPEN APPROACH [id number] 08/19/17 DETACHMENT AT RIGHT 2ND TOE, COMPLETE, OPEN APPROACH [id number] 08/19/17 DETACHMENT AT RIGHT FOOT, COMPLETE, OPEN APPROACH [id number] 09/23/17 EXCISION OF L LOW LEG SUBCU/FASCIA, OPEN APPROACH [id number] 08/19/17 EXTIRPATION OF MATTER FROM L AXILLA ART, OPEN APPROACH [id number] 09/23/17 EXTIRPATION OF MATTER FROM UPPER ARTERY, OPEN APPROACH [id number] 10/05/17 FLUOROSCOPY OF LEFT JUGULAR VEINS, GUIDANCE [id number] 02/26/18 FLUOROSCOPY OF SUP VENA CAVA USING L OSM CONTRAST, GUIDANCE [id number] 10/05/17 INSERT INFUSION DEV IN L INT JUGULAR VEIN, PERC [id number] 02/26/18 INSERTION OF INFUSION DEV INTO SUP VENA CAVA, PERC APPROACH [id number] 10/05/17 PERFORMANCE OF URINARY FILTRATION, <6 HRS/DAY [id number] 10/05/17 REMOVAL OF INFUSION DEVICE FROM UPPER VEIN, OPEN APPROACH [id number] 02/26/18 REMOVAL OF INFUSION DEVICE FROM UPPER VEIN, PERC APPROACH [id number] 08/19/17 REMOVAL TUNNELED CV CATH [id number] 08/19/17 SUPPLEMENT L AXILLA ART WITH SYNTH SUB, OPEN APPROACH [id number] 09/23/17 Internal Medicine Assmt/Plan - Assessment Assessment: ESRD/HD Severe malnutrition type 2 dm peptic ulcer disease gerd alzheimers peripheral vascular disease - Plan Plan: as per order sheet Nutritional Asmnt/Malnutr-PDOC - Dietary Evaluation Malnutrition Findings (Please click <Entered> for more info): Nutritional Asmnt/Malnutrition Start: 02/27/18 12: 41 Text: Status: Complete Freq: Protocol: Document 02/27/18 13:31 OLE (Rec: 02/27/18 13:53 OLE [email or web address]) Nutritional Asmnt/Malnutrition Patient General Information Nutritional Screening High Risk Diagnosis C-Diff ESBL of Sputam Pertinent Medical Hx/Surgical Hx DM, PUD/GERD, dementia, peripheral vascular disease, PVD, ESRD, on dialysis 3x/week Subjective Information Pt resting in bed at time of visit. Visually verified no TF was running at this time. Current Diet Order/ Nutrition Support tube feeding: Nepro @ 40 cc/hr x 20 hrs (on at 12 pm, off at 8 am) Pertinent Medications Vit C, heparin, novolog, vancomycin Pertinent Labs 02/27: glucose 121, Na 133, Cl 95, BUN 62, Cr 3.3, Alb 2.1, POC 118 02/26: glucose 217, Na 131, Cl 92, BUN 57, Cr 3.1, Alb 2.3, POC 185-206, Phos 2.3 Nutritional Hx/Data Height 1.65 m Height (Calculated Centimeters) 165.1 Current Weight (lbs) 67.495 kg Weight (Calculated Kilograms) 67.5 Weight (Calculated Grams) 30667.5 [place] Body Weight 136 lb Body Mass Index (BMI) 24.7 Weight Status Approriate GI Symptoms GI Symptoms None Last BM none noted Difficult in: None Food Allergies No Skin Integrity/Comment: pressure ulcer to sacrum, 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 Problem Problem inadequate intake from enteral infusion Etiology increased needs for HD and wound healing Signs/Symptoms: current TF regimen provides ~ 75% estimated kcal needs and ~ 85 estimated protein needs 2. 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 Problem Problem Altered nutrition related lab values Etiology endocrine and renal dysfunction, electrolyte imbalance Signs/Symptoms: glucose 121, Na 133, Cl 95, BUN 62, Cr 3.3, POC 118 Malnutrition Related to Morbid Obesity Malnutrition related to morbid obesity No Intervention/Recommendation Comments 1. Recommend to increase rate of Nepro to 55 ml/hr x 20 hrs; this provides 1980 kcals and 89 g protein, which will meet 100% of estimated nutritional needs 2. Monitor TF rate, tolerance, wt, skin integrity and labs 3. F/U as high risk in 2-3 days, 03/01-03/02 Expected Outcomes/Goals Expected Outcomes/Goals 1. Pt to meet at >95% of nutritional needs via nutrition support with tolerance 2. Wt stability, wounds to heal, labs to approach normal limits
[2018-03-02] MEDS: Atorvastatin Calcium 10 MG TAB PO SCH (20:26)
[2018-03-03] MEDS: INSULIN ASPART SLIDING SCALE 100 UNITS/ML UNIT SUBQ SCH ×4 (00:30→17:53)
--- NOTE | 2018-03-03 02:14 | Infectious Disease Prog Note ---
Infectious Disease Subjective - Review of Systems Service Date: 03/02/18 Subjective: There is no new change, no fever. Infectious Disease Objective - Results Result Diagrams: 03/02/18 05:15 03/02/18 09:30 Recent Labs: Laboratory Last Values WBC 15.6 Th/cmm (4.8-10.8) H 03/02/18 05:15 RBC 2.75 Mil/cmm (3.80-5.80) L 03/02/18 05:15 Hgb 8.3 gm/dL (12-16) L 03/02/18 05:15 Hct 25.3 % (41.0-60) L 03/02/18 05:15 MCV 92.2 fl (80-99) 03/02/18 05:15 MCH 30.2 pg (27.0-31.0) 03/02/18 05:15 MCHC Differential 32.7 pg (28.0-36.0) 03/02/18 05:15 RDW 17.4 % (11.5-20.0) 03/02/18 05:15 Plt Count 451 Th/cmm (150-400) H 03/02/18 05:15 MPV 7.5 fl 03/02/18 05:15 Add Manual Diff YES 03/01/18 04:55 Neutrophils % 69.7 % (40.0-80.0) 03/02/18 05:15 Band Neutrophils % 1 % (0-10) 02/28/18 05:05 Lymphocytes % 19.0 % (20.0-50.0) L 03/02/18 05:15 Monocytes % 9.1 % (2.0-10.0) 03/02/18 05:15 Eosinophils % 1.3 % (0.0-5.0) 03/02/18 05:15 Basophils % 0.9 % (0.0-2.0) 03/02/18 05:15 Neutrophils (Manual) 77 % (40-80) 03/01/18 04:55 Lymphocytes 20 % (20-50) 03/01/18 04:55 Monocytes 3 % (2-10) 03/01/18 04:55 Eosinophils 1 % (0-5) 02/27/18 04:10 Platelet Estimate INCREASED PLATELETS (NORMAL) 03/01/18 04:55 PT 10.5 SECONDS (9.5-11.5) 02/28/18 05:05 INR 1.01 (0.5-1.4) 02/28/18 05:05 PTT (Actin FS) 23.1 SECONDS (26.0-38.0) L 02/28/18 05:05 Sodium 138 mEq/L (136-145) 03/02/18 05:15 Potassium 3.5 mEq/L (3.5-5.1) 03/02/18 09:30 Chloride 102 mEq/L (98-107) 03/02/18 05:15 Carbon Dioxide 27.9 mEq/L (21.0-31.0) 03/02/18 05:15 Anion Gap 11.0 (7.0-16.0) 03/02/18 05:15 BUN 27 mg/dL (7-25) H 03/02/18 05:15 Creatinine 2.0 mg/dL (0.7-1.3) H 03/02/18 05:15 Est GFR ( Amer) TNP 03/02/18 05:15 Est GFR (Non-Af Amer) TNP 03/02/18 05:15 BUN/Creatinine Ratio 13.5 03/02/18 05:15 Glucose 180 mg/dL (70-105) H 03/02/18 05:15 POC Glucose 127 MG/DL (70 - 105) H 03/03/18 00:29 Whole Bld Lactic Acid 1.49 mmol/L (0.60-1.99) 02/26/18 17:15 Calcium 8.4 mg/dL (8.6-10.3) L 03/02/18 05:15 Phosphorus 2.4 mg/dL (2.5-5.0) L 02/26/18 17:15 Magnesium 2.0 mg/dL (1.9-2.7) 03/02/18 05:15 Total Bilirubin 0.3 mg/dL (0.3-1.0) 03/02/18 05:15 AST 16 U/L (13-39) 03/02/18 05:15 ALT 15 U/L (7-52) 03/02/18 05:15 Alkaline Phosphatase 99 U/L (34-104) 03/02/18 05:15 Total Protein 6.1 gm/dL (6.0-8.3) 03/02/18 05:15 Albumin 2.2 gm/dL (4.2-5.5) L 03/02/18 05:15 Globulin 3.9 gm/dL 03/02/18 05:15 Albumin/Globulin Ratio 0.6 (1.0-1.8) L 03/02/18 05:15 Random Vancomycin 35.5 ug/mL (5.0-40.0) 03/02/18 05:15 Blood Type A POSITIVE 03/02/18 07:15 Antibody Screen NEGATIVE 03/02/18 07:15 - Physical Exam Vitals and I&O: Vital Signs Temp 98.4 F 03/02/18 20:00 Pulse 81 03/02/18 20:00 Resp 17 03/02/18 20:00 BP 141/75 03/02/18 20:00 Pulse Ox 100 03/02/18 20:00 Intake & Output 03/02/18 03/02/18 03/03/18 06:59 18:59 06:59 Intake Total 420 100 100 Balance 420 100 100 Weight (lbs) 76.232 kg Intake: Intake, IV Amount 100 100 KCL 20mEq/100mL Premix 20 100 meq In 100 ml @ 50 mls/ hr IV Q2H [facility] Rx#: [id number] Tube Feeding 220 Other 200 Other: # Voids 0 # Bowel Movements 2 Stool Characteristics Liquid Liquid Weight Source Bedscale Active Medications: Current Medications Acetaminophen (Tylenol 650mg/20.3ml Suspension) 650 mg GT DAILY PRN PRN Reason: prior to wound healing Stop: 04/27/18 22:28 Last Admin: 03/03/18 01:41 Dose: 650 mg Acetaminophen (Tylenol 650mg/20.3ml Suspension) 650 mg GT Q4HR PRN PRN Reason: MILD PAIN Stop: 04/27/18 22:28 Amlodipine Besylate (Norvasc) 10 mg GT DAILY [facility] Stop: 04/28/18 08:59 Last Admin: 03/02/18 08:04 Dose: Not Given Ascorbic Acid (Vitamin C) 500 mg GT DAILY [facility] Stop: 04/28/18 08:59 Last Admin: 03/02/18 08:04 Dose: Not Given Aspirin (Aspirin Chewable) 81 mg GT DAILY [facility] Stop: 04/30/18 08:59 Last Admin: 03/02/18 08:04 Dose: Not Given Atorvastatin Calcium (Lipitor) 20 mg PO HS [facility] Stop: 04/30/18 20:59 Last Admin: 03/02/18 20:26 Dose: 20 mg Bisacodyl (Dulcolax 10 Mg Supp) 10 mg RC DAILY PRN PRN Reason: IF MOM INEFECTIVE Stop: 04/30/18 08:18 Calcium Carbonate (Os-Brad) 500 mg GT DAILY [facility] Stop: 04/30/18 08:59 Last Admin: 03/02/18 08:03 Dose: Not Given Carvedilol (Coreg) 6.25 mg GT BID [facility] Stop: 04/30/18 08:59 Last Admin: 03/02/18 17:03 Dose: 6.25 mg Docusate Sodium (Colace) 100 mg PO DAILY [facility] Stop: 04/30/18 08:59 Last Admin: 03/02/18 08:02 Dose: Not Given Finasteride (Proscar) 5 mg PO DAILY [facility]; Protocol Stop: 04/30/18 08:59 Last Admin: 03/02/18 08:02 Dose: Not Given Heparin Sodium (Porcine) (Heparin) 5,000 units SUBQ Q12HR [facility] Stop: 04/28/18 20:59 Last Admin: 03/02/18 20:26 Dose: 5,000 units Dextrose/Sodium Chloride (D5-0.45ns) 1,000 mls @ 50 mls/hr IV .Q20H [facility] Stop: 04/30/18 20:29 Last Admin: 03/02/18 00:53 Dose: 50 mls/hr Insulin Aspart (Novolog Insulin Sliding Scale) 0 units SUBQ Q6HR [facility]; Protocol Stop: 05/01/18 00:00 Last Admin: 03/03/18 00:30 Dose: Not Given Lactobacillus Rhamnosus (Culturelle 15b) 1 each PO DAILY [facility] Stop: 04/29/18 13:59 Last Admin: 03/02/18 08:01 Dose: Not Given Miscellaneous (Vancomycin Iv Per Pharmacy) 1 ea PRN PRN PRN Reason: PROTOCOL Stop: 04/27/18 20:15 Miscellaneous (Vte Chemical Prophylaxis Screen/ Admission) 1 ea PRN PRN PRN Reason: PROTOCOL Stop: 04/28/18 11:44 Miscellaneous (Probiotic Screen) 1 ea PRN PRN PRN Reason: PROTOCOL Stop: 04/29/18 11:20 Nystatin (Nystatin) 100,000 units PO TID [facility] Stop: 04/27/18 20:59 Last Admin: 03/02/18 20:26 Dose: 100,000 units Tamsulosin HCl (Flomax) 0.4 mg PO DAILY [facility] Stop: 04/30/18 08:59 Last Admin: 03/02/18 08:00 Dose: Not Given Vancomycin HCl (Vancomycin Oral) 250 mg PO QID [facility] Stop: 04/28/18 16:59 Last Admin: 03/02/18 20:29 Dose: 250 mg Vitamin B Complex/Vit C/Folic Acid (Vitamin B Complex W/Vitamin C) 1 tab GT DAILY [facility] Stop: 04/30/18 08:59 Last Admin: 03/02/18 08:05 Dose: Not Given Zinc Sulfate (Zinc Sulfate) 220 mg GT DAILY [facility] Stop: 04/30/18 08:59 Last Admin: 03/02/18 08:05 Dose: Not Given General: no acute distress, well developed, well nourished HEENT: atraumatic, normocephalic, PERRLA Neck: supple, no thyromegaly Cardiovascular: S1S2, regular Lungs: clear to auscultation bilaterally, clear to percussion Abdomen: soft, no tender, no distended Extremities: no cyanosis, no clubbing, no edema Neurological: awake, alert, oriented Skin: other (Right hand wound with surrounding erythema. Right lower extremity amputaion stump wound. Left Foot gangrene at the amputation site laterally. Left sided permacath on left upper chest, ) - Procedures Procedures: Procedures Procedure Code Date AMPUTATION OF TOE 23976 08/19/17 DETACHMENT AT LEFT 1ST TOE, COMPLETE, OPEN APPROACH [id number] 08/19/17 DETACHMENT AT RIGHT 1ST TOE, COMPLETE, OPEN APPROACH [id number] 08/19/17 DETACHMENT AT RIGHT 2ND TOE, COMPLETE, OPEN APPROACH [id number] 08/19/17 DETACHMENT AT RIGHT FOOT, COMPLETE, OPEN APPROACH [id number] 09/23/17 EXCISION OF L LOW LEG SUBCU/FASCIA, OPEN APPROACH [id number] 08/19/17 EXTIRPATION OF MATTER FROM L AXILLA ART, OPEN APPROACH [id number] 09/23/17 EXTIRPATION OF MATTER FROM UPPER ARTERY, OPEN APPROACH [id number] 10/05/17 FLUOROSCOPY OF LEFT JUGULAR VEINS, GUIDANCE [id number] 02/26/18 FLUOROSCOPY OF SUP VENA CAVA USING L OSM CONTRAST, GUIDANCE [id number] 10/05/17 INSERT INFUSION DEV IN L INT JUGULAR VEIN, PERC [id number] 02/26/18 INSERTION OF INFUSION DEV INTO SUP VENA CAVA, PERC APPROACH [id number] 10/05/17 PERFORMANCE OF URINARY FILTRATION, <6 HRS/DAY [id number] 10/05/17 REMOVAL OF INFUSION DEVICE FROM UPPER VEIN, OPEN APPROACH [id number] 02/26/18 REMOVAL OF INFUSION DEVICE FROM UPPER VEIN, PERC APPROACH [id number] 08/19/17 REMOVAL TUNNELED CV CATH [id number] 08/19/17 SUPPLEMENT L AXILLA ART WITH SYNTH SUB, OPEN APPROACH [id number] 09/23/17 Infectious Disease Assmt/Plan - Problem List Patient Problems: All Active Problems C-DIFF REPORT (Acute) - Assessment Assessment: 1. C. difficile colitis. 2. Leukocytosis. 3. Right hand wound and cellulitis. 4. Right leg wound. 5. Left foot gangrene. 6. PAD. 7. DM2. 8. CKD on HD. 9. Dementia. 10. h/o ESBL + pneumonia treated recently. - Plan Plan: Continue po vanco. Nutritional Asmnt/Malnutr-PDOC - Dietary Evaluation Malnutrition Findings (Please click <Entered> for more info): Nutritional Asmnt/Malnutrition Start: 02/27/18 12: 41 Text: Status: Complete Freq: Protocol: Document 02/27/18 13:31 OLE (Rec: 02/27/18 13:53 OLE [email or web address]) Nutritional Asmnt/Malnutrition Patient General Information Nutritional Screening High Risk Diagnosis C-Diff ESBL of Sputam Pertinent Medical Hx/Surgical Hx DM, PUD/GERD, dementia, peripheral vascular disease, PVD, ESRD, on dialysis 3x/week Subjective Information Pt resting in bed at time of visit. Visually verified no TF was running at this time. Current Diet Order/ Nutrition Support tube feeding: Nepro @ 40 cc/hr x 20 hrs (on at 12 pm, off at 8 am) Pertinent Medications Vit C, heparin, novolog, vancomycin Pertinent Labs 02/27: glucose 121, Na 133, Cl 95, BUN 62, Cr 3.3, Alb 2.1, POC 118 02/26: glucose 217, Na 131, Cl 92, BUN 57, Cr 3.1, Alb 2.3, POC 185-206, Phos 2.3 Nutritional Hx/Data Height 1.65 m Height (Calculated Centimeters) 165.1 Current Weight (lbs) 67.495 kg Weight (Calculated Kilograms) 67.5 Weight (Calculated Grams) 80901.5 [place] Body Weight 136 lb Body Mass Index (BMI) 24.7 Weight Status Approriate GI Symptoms GI Symptoms None Last BM none noted Difficult in: None Food Allergies No Skin Integrity/Comment: pressure ulcer to sacrum, ulcer to left foot stump ( amputation), skin tears to both hands, discoloration to amputation site on right leg, gastrostomy/PEG, catarina cathetor to left upper extremity for dialysis Estimated Nutritional Goals BEE in Kcals: Adj wt of IBW Calories/Kcals/Kg 30-35 (based on IBW 136 lbs) Kcals Calculated [id number] Protein: Adj wt of IBW Protein g/k.2-1.5 Protein Calculated 74-93 g Fluid: ml per MD Nutritional Problem 3. Problem Problem inadequate intake from enteral infusion Etiology increased needs for HD and wound healing Signs/Symptoms: current TF regimen provides ~ 75% estimated kcal needs and ~ 85 estimated protein needs 2. 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 Problem Problem Altered nutrition related lab values Etiology endocrine and renal dysfunction, electrolyte imbalance Signs/Symptoms: glucose 121, Na 133, Cl 95, BUN 62, Cr 3.3, POC 118 Malnutrition Related to Morbid Obesity Malnutrition related to morbid obesity No Intervention/Recommendation Comments 1. Recommend to increase rate of Nepro to 55 ml/hr x 20 hrs; this provides 1980 kcals and 89 g protein, which will meet 100% of estimated nutritional needs 2. Monitor TF rate, tolerance, wt, skin integrity and labs 3. F/U as high risk in 2-3 days, 03/01-03/02 Expected Outcomes/Goals Expected Outcomes/Goals 1. Pt to meet at >95% of nutritional needs via nutrition support with tolerance 2. Wt stability, wounds to heal, labs to approach normal limits Reviewed by Iris Carranza RD
[2018-03-03] MEDS: D5-0.45NS 1,000 ML IV SCH (04:31)
[2018-03-03] MEDS: Lactobacillus Rhamnosus GG 15 Billion CFU CAP.SPRINK PO SCH (09:13)
[2018-03-03] MEDS: Aspirin 81mg Chewable Tab GT SCH (09:13)
[2018-03-03] MEDS: Vitamin B Complex w/Vitamin C Tab GT SCH (09:13)
[2018-03-03] MEDS: Vancomycin HCL 250 mg /10mL UDC PO SCH ×3 (09:14→16:37)
--- NOTE | 2018-03-03 10:37 | General Progress Note ---
Subjective - Review of Systems Service Date: 03/03/18 Events since last encounter: labs note VS stable incisions clean and dry DANIAL drainage right leg 20 ml Objective - Results Result Diagrams: 03/02/18 05:15 03/02/18 09:30 Recent Labs: Laboratory Last Values WBC 15.6 Th/cmm (4.8-10.8) H 03/02/18 05:15 RBC 2.75 Mil/cmm (3.80-5.80) L 03/02/18 05:15 Hgb 8.3 gm/dL (12-16) L 03/02/18 05:15 Hct 25.3 % (41.0-60) L 03/02/18 05:15 MCV 92.2 fl (80-99) 03/02/18 05:15 MCH 30.2 pg (27.0-31.0) 03/02/18 05:15 MCHC Differential 32.7 pg (28.0-36.0) 03/02/18 05:15 RDW 17.4 % (11.5-20.0) 03/02/18 05:15 Plt Count 451 Th/cmm (150-400) H 03/02/18 05:15 MPV 7.5 fl 03/02/18 05:15 Add Manual Diff YES 03/01/18 04:55 Neutrophils % 69.7 % (40.0-80.0) 03/02/18 05:15 Band Neutrophils % 1 % (0-10) 02/28/18 05:05 Lymphocytes % 19.0 % (20.0-50.0) L 03/02/18 05:15 Monocytes % 9.1 % (2.0-10.0) 03/02/18 05:15 Eosinophils % 1.3 % (0.0-5.0) 03/02/18 05:15 Basophils % 0.9 % (0.0-2.0) 03/02/18 05:15 Neutrophils (Manual) 77 % (40-80) 03/01/18 04:55 Lymphocytes 20 % (20-50) 03/01/18 04:55 Monocytes 3 % (2-10) 03/01/18 04:55 Eosinophils 1 % (0-5) 02/27/18 04:10 Platelet Estimate INCREASED PLATELETS (NORMAL) 03/01/18 04:55 PT 10.5 SECONDS (9.5-11.5) 02/28/18 05:05 INR 1.01 (0.5-1.4) 02/28/18 05:05 PTT (Actin FS) 23.1 SECONDS (26.0-38.0) L 02/28/18 05:05 Sodium 138 mEq/L (136-145) 03/02/18 05:15 Potassium 3.5 mEq/L (3.5-5.1) 03/02/18 09:30 Chloride 102 mEq/L (98-107) 03/02/18 05:15 Carbon Dioxide 27.9 mEq/L (21.0-31.0) 03/02/18 05:15 Anion Gap 11.0 (7.0-16.0) 03/02/18 05:15 BUN 27 mg/dL (7-25) H 03/02/18 05:15 Creatinine 2.0 mg/dL (0.7-1.3) H 03/02/18 05:15 Est GFR ( Amer) TNP 03/02/18 05:15 Est GFR (Non-Af Amer) TNP 03/02/18 05:15 BUN/Creatinine Ratio 13.5 03/02/18 05:15 Glucose 180 mg/dL (70-105) H 03/02/18 05:15 POC Glucose 240 MG/DL (70 - 105) H 03/03/18 05:46 Whole Bld Lactic Acid 1.49 mmol/L (0.60-1.99) 02/26/18 17:15 Calcium 8.4 mg/dL (8.6-10.3) L 03/02/18 05:15 Phosphorus 2.4 mg/dL (2.5-5.0) L 02/26/18 17:15 Magnesium 2.0 mg/dL (1.9-2.7) 03/02/18 05:15 Total Bilirubin 0.3 mg/dL (0.3-1.0) 03/02/18 05:15 AST 16 U/L (13-39) 03/02/18 05:15 ALT 15 U/L (7-52) 03/02/18 05:15 Alkaline Phosphatase 99 U/L (34-104) 03/02/18 05:15 Total Protein 6.1 gm/dL (6.0-8.3) 03/02/18 05:15 Albumin 2.2 gm/dL (4.2-5.5) L 03/02/18 05:15 Globulin 3.9 gm/dL 03/02/18 05:15 Albumin/Globulin Ratio 0.6 (1.0-1.8) L 03/02/18 05:15 Random Vancomycin 35.5 ug/mL (5.0-40.0) 03/02/18 05:15 Blood Type A POSITIVE 03/02/18 07:15 Antibody Screen NEGATIVE 03/02/18 07:15 - Physical Exam Vitals and I&O: Vital Signs Temp 98.6 F 03/03/18 04:00 Pulse 98 03/03/18 07:20 Resp 16 03/03/18 07:20 BP 123/58 03/03/18 04:00 Pulse Ox 94 03/03/18 07:20 Intake & Output 03/02/18 03/03/18 03/03/18 18:59 06:59 18:59 Intake Total 100 1880 Balance 100 1880 Weight (lbs) 73.074 kg Intake: Intake, IV Amount 100 1100 D5-0.45NS 1,000 ml @ 50 1000 mls/hr IV .Q20H [facility] Rx#: [id number] KCL 20mEq/100mL Premix 20 100 meq In 100 ml @ 50 mls/ hr IV Q2H [facility] Rx#: [id number] Tube Feeding 660 Other 120 Other: # Voids 2 # Bowel Movements 1 Stool Characteristics Liquid Weight Source Bedscale Active Medications: Current Medications Acetaminophen (Tylenol 650mg/20.3ml Suspension) 650 mg GT DAILY PRN PRN Reason: prior to wound healing Stop: 04/27/18 22:28 Last Admin: 03/03/18 01:41 Dose: 650 mg Acetaminophen (Tylenol 650mg/20.3ml Suspension) 650 mg GT Q4HR PRN PRN Reason: MILD PAIN Stop: 04/27/18 22:28 Amlodipine Besylate (Norvasc) 10 mg GT DAILY [facility] Stop: 04/28/18 08:59 Last Admin: 03/03/18 09:14 Dose: Not Given Ascorbic Acid (Vitamin C) 500 mg GT DAILY [facility] Stop: 04/28/18 08:59 Last Admin: 03/03/18 09:13 Dose: 500 mg Aspirin (Aspirin Chewable) 81 mg GT DAILY [facility] Stop: 04/30/18 08:59 Last Admin: 03/03/18 09:13 Dose: 81 mg Atorvastatin Calcium (Lipitor) 20 mg PO HS [facility] Stop: 04/30/18 20:59 Last Admin: 03/02/18 20:26 Dose: 20 mg Bisacodyl (Dulcolax 10 Mg Supp) 10 mg RC DAILY PRN PRN Reason: IF MOM INEFECTIVE Stop: 04/30/18 08:18 Calcium Carbonate (Os-Brad) 500 mg GT DAILY [facility] Stop: 04/30/18 08:59 Last Admin: 03/03/18 09:13 Dose: 500 mg Carvedilol (Coreg) 6.25 mg GT BID [facility] Stop: 04/30/18 08:59 Last Admin: 03/03/18 09:14 Dose: Not Given Docusate Sodium (Colace) 100 mg PO DAILY [facility] Stop: 04/30/18 08:59 Last Admin: 03/03/18 09:13 Dose: 100 mg Finasteride (Proscar) 5 mg PO DAILY [facility]; Protocol Stop: 04/30/18 08:59 Last Admin: 03/03/18 09:13 Dose: 5 mg Heparin Sodium (Porcine) (Heparin) 5,000 units SUBQ Q12HR [facility] Stop: 04/28/18 20:59 Last Admin: 03/03/18 09:13 Dose: 5,000 units Dextrose/Sodium Chloride (D5-0.45ns) 1,000 mls @ 50 mls/hr IV .Q20H [facility] Stop: 04/30/18 20:29 Last Admin: 03/03/18 04:31 Dose: 50 mls/hr Insulin Aspart (Novolog Insulin Sliding Scale) 0 units SUBQ Q6HR [facility]; Protocol Stop: 05/01/18 00:00 Last Admin: 03/03/18 05:52 Dose: 4 units Lactobacillus Rhamnosus (Culturelle 15b) 1 each PO DAILY [facility] Stop: 04/29/18 13:59 Last Admin: 03/03/18 09:13 Dose: 1 each Miscellaneous (Vancomycin Iv Per Pharmacy) 1 ea PRN PRN PRN Reason: PROTOCOL Stop: 04/27/18 20:15 Miscellaneous (Vte Chemical Prophylaxis Screen/ Admission) 1 ea PRN PRN PRN Reason: PROTOCOL Stop: 04/28/18 11:44 Miscellaneous (Probiotic Screen) 1 [facility] PRN PRN PRN Reason: PROTOCOL Stop: 04/29/18 11:20 Nystatin (Nystatin) 100,000 units PO TID [facility] Stop: 04/27/18 20:59 Last Admin: 03/02/18 20:26 Dose: 100,000 units Tamsulosin HCl (Flomax) 0.4 mg PO DAILY [facility] Stop: 04/30/18 08:59 Last Admin: 03/03/18 09:13 Dose: 0.4 mg Vancomycin HCl (Vancomycin Oral) 250 mg PO QID [facility] Stop: 04/28/18 16:59 Last Admin: 03/03/18 09:14 Dose: 250 mg Vitamin B Complex/Vit C/Folic Acid (Vitamin B Complex W/Vitamin C) 1 tab GT DAILY [facility] Stop: 04/30/18 08:59 Last Admin: 03/03/18 09:13 Dose: 1 tab Zinc Sulfate (Zinc Sulfate) 220 mg GT DAILY [facility] Stop: 04/30/18 08:59 Last Admin: 03/03/18 09:13 Dose: 220 mg General: Alert, No acute distress HEENT: Atraumatic, Mucous membr. moist/pink Neck: Supple, +2 carotid pulse wo bruit Cardiovascular: Regular rate, Normal S1, Normal S2 Lungs: Clear to auscultation Abdomen: Bowel sounds, Soft Extremities: Edema (B/L upper extremities) Neurological: Sensation intact Skin: no Rash Psych/Mental Status: Mood NL - Procedures Procedures: Procedures Procedure Code Date AMPUTATION OF TOE 74269 08/19/17 DETACHMENT AT LEFT 1ST TOE, COMPLETE, OPEN APPROACH [id number] 08/19/17 DETACHMENT AT RIGHT 1ST TOE, COMPLETE, OPEN APPROACH [id number] 08/19/17 DETACHMENT AT RIGHT 2ND TOE, COMPLETE, OPEN APPROACH [id number] 08/19/17 DETACHMENT AT RIGHT FOOT, COMPLETE, OPEN APPROACH [id number] 09/23/17 EXCISION OF L LOW LEG SUBCU/FASCIA, OPEN APPROACH [id number] 08/19/17 EXTIRPATION OF MATTER FROM L AXILLA ART, OPEN APPROACH [id number] 09/23/17 EXTIRPATION OF MATTER FROM UPPER ARTERY, OPEN APPROACH [id number] 10/05/17 FLUOROSCOPY OF LEFT JUGULAR VEINS, GUIDANCE [id number] 02/26/18 FLUOROSCOPY OF SUP VENA CAVA USING L OSM CONTRAST, GUIDANCE [id number] 10/05/17 INSERT INFUSION DEV IN L INT JUGULAR VEIN, PERC [id number] 02/26/18 INSERTION OF INFUSION DEV INTO SUP VENA CAVA, PERC APPROACH [id number] 10/05/17 PERFORMANCE OF URINARY FILTRATION, <6 HRS/DAY [id number] 10/05/17 REMOVAL OF INFUSION DEVICE FROM UPPER VEIN, OPEN APPROACH [id number] 02/26/18 REMOVAL OF INFUSION DEVICE FROM UPPER VEIN, PERC APPROACH [id number] 08/19/17 REMOVAL TUNNELED CV CATH [id number] 08/19/17 SUPPLEMENT L AXILLA ART WITH SYNTH SUB, OPEN APPROACH [id number] 09/23/17 Assessment/Plan - Problem List Patient Problems: All Active Problems C-DIFF REPORT (Acute) Nutritional Asmnt/Malnutr-PDOC - Dietary Evaluation Malnutrition Findings (Please click <Entered> for more info): Nutritional Asmnt/Malnutrition Start: 02/27/18 12: 41 Text: Status: Complete Freq: Protocol: Document 02/27/18 13:31 OLE (Rec: 02/27/18 13:53 OLE [email or web address]) Nutritional Asmnt/Malnutrition Patient General Information Nutritional Screening High Risk Diagnosis C-Diff ESBL of Sputam Pertinent Medical Hx/Surgical Hx DM, PUD/GERD, dementia, peripheral vascular disease, PVD, ESRD, on dialysis 3x/week Subjective Information Pt resting in bed at time of visit. Visually verified no TF was running at this time. Current Diet Order/ Nutrition Support tube feeding: Nepro @ 40 cc/hr x 20 hrs (on at 12 pm, off at 8 am) Pertinent Medications Vit C, heparin, novolog, vancomycin Pertinent Labs 02/27: glucose 121, Na 133, Cl 95, BUN 62, Cr 3.3, Alb 2.1, POC 118 02/26: glucose 217, Na 131, Cl 92, BUN 57, Cr 3.1, Alb 2.3, POC 185-206, Phos 2.3 Nutritional Hx/Data Height 1.65 m Height (Calculated Centimeters) 165.1 Current Weight (lbs) 67.495 kg Weight (Calculated Kilograms) 67.5 Weight (Calculated Grams) 90055.5 [place] Body Weight 136 lb Body Mass Index (BMI) 24.7 Weight Status Approriate GI Symptoms GI Symptoms None Last BM none noted Difficult in: None Food Allergies No Skin Integrity/Comment: pressure ulcer to sacrum, ulcer to left foot stump ( amputation), skin tears to both hands, discoloration to amputation site on right leg, gastrostomy/PEG, catarina cathetor to left upper extremity for dialysis Estimated Nutritional Goals BEE in Kcals: Adj wt of IBW Calories/Kcals/Kg 30-35 (based on IBW 136 lbs) Kcals Calculated [id number] Protein: Adj wt of IBW Protein g/k.2-1.5 Protein Calculated 74-93 g Fluid: ml per MD Nutritional Problem 3. Problem Problem inadequate intake from enteral infusion Etiology increased needs for HD and wound healing Signs/Symptoms: current TF regimen provides ~ 75% estimated kcal needs and ~ 85 estimated protein needs 2. 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 Problem Problem Altered nutrition related lab values Etiology endocrine and renal dysfunction, electrolyte imbalance Signs/Symptoms: glucose 121, Na 133, Cl 95, BUN 62, Cr 3.3, POC 118 Malnutrition Related to Morbid Obesity Malnutrition related to morbid obesity No Intervention/Recommendation Comments 1. Recommend to increase rate of Nepro to 55 ml/hr x 20 hrs; this provides 1980 kcals and 89 g protein, which will meet 100% of estimated nutritional needs 2. Monitor TF rate, tolerance, wt, skin integrity and labs 3. F/U as high risk in 2-3 days, 03/01-03/02 Expected Outcomes/Goals Expected Outcomes/Goals 1. Pt to meet at >95% of nutritional needs via nutrition support with tolerance 2. Wt stability, wounds to heal, labs to approach normal limits Reviewed by Iris Carranza RD
[2018-03-03 11:35] LABS: MEAN CELL VOLUME 91.8 fl (80-99); MEAN CORPUSCULAR HEMOGLOBIN 30.2 pg (27.0-31.0); MEAN CORPUSCULAR HGB CONC 32.9 pg (28.0-36.0); MEAN PLATELET VOLUME 7.6 fl; PLATELET COUNT 402 Th/cmm (150-400); RED BLOOD COUNT 2.21 Mil/cmm (3.80-5.80); RED CELL DISTRIBUTION WIDTH 17.1 % (11.5-20.0)
[2018-03-03 11:44] LABS: ALB/GLOB RATIO 0.5 (1.0-1.8); ALKALINE PHOSPHATASE 94 U/L (34-104); ANION GAP 11.6 (7.0-16.0); BILIRUBIN,TOTAL 0.3 mg/dL (0.3-1.0); BUN - UREA NITROGEN 37 mg/dL (7-25); CALCIUM SERUM 8.1 mg/dL (8.6-10.3); CARBON DIOXIDE 26.3 mEq/L (21.0-31.0); CHLORIDE 100 mEq/L (98-107); CREATININE - SERUM 2.8 mg/dL (0.7-1.3); GLUCOSE 366 mg/dL (70-105); SGOT 16 U/L (13-39); SGPT/ALT 15 U/L (7-52); SODIUM SERUM 135 mEq/L (136-145); TOTAL PROTEIN,SERUM 5.7 gm/dL (6.0-8.3)
[2018-03-03 11:45] LABS: POTASSIUM SERUM 2.9 mEq/L (3.5-5.1)
[2018-03-03 11:46] LABS: WHITE BLOOD COUNT 16.4 Th/cmm (4.8-10.8)
[2018-03-03 11:49] LABS: HEMATOCRIT 20.3 % (41.0-60); HEMOGLOBIN 6.7 gm/dL (12-16)
--- NOTE | 2018-03-03 12:07 | Operative Report ---
DATE OF SURGERY: 03/02/2018 PREOPERATIVE DIAGNOSES: 1. Gangrene, left foot. 2. Gangrene, right Syme's amputation stump. 3. Severe peripheral vascular disease. 4. End-stage renal disease, on hemodialysis. 5. Diabetes mellitus. 6. Dementia. POSTOPERATIVE DIAGNOSES: 1. Gangrene, left foot. 2. Gangrene, right Syme's amputation stump. 3. Severe peripheral vascular disease. 4. End-stage renal disease, on hemodialysis. 5. Diabetes mellitus. 6. Dementia. OPERATION DONE: 1. Right below knee amputation. 2. Left below knee amputation. SURGEON: Dr. Day ANESTHESIOLOGIST: Dr. Vasques ANESTHESIA: Spinal. ESTIMATED BLOOD LOSS: 50 mL. DESCRIPTION OF PROCEDURE: The patient was given spinal anesthesia. Both lower extremities were prepped with Betadine and draped in the appropriate fashion. Right below knee amputation was first done approximately third down the length of the leg. The incision was carried from the skin all the way down to the fascia and the muscles were transected. The tibia was transected 1 inch above the initial skin incision. The fibula was transected 1 cm above this. The vessels were individually identified and ligated. There, however, was persistent bleeding, which needed control with cautery and suture ligation. Posterior muscle layer was transected and control of bleeding was finally achieved. The anterior tip of the tibia was transected to allow for a smooth surface. Irrigation was carried out. Because of the oozing, Souleymane-Carmona drain was left in the incision. The wound was closed with interrupted sutures of 0 Vicryl for the fascia and the skin was closed with anjelica. Compression dressing with Coban was applied. The same procedure was repeated on the left leg, but there was less bleeding on this side compared to one on the right side. No Souleymane-Carmona drain was left in place and compression dressing was applied. The patient tolerated the procedure well. [facility]# [id number]
[2018-03-03 12:25] LABS: HEMATOCRIT 19.2 % (41.0-60); HEMOGLOBIN 6.5 gm/dL (12-16)
--- NOTE | 2018-03-03 12:34 | General Progress Note ---
Subjective - Review of Systems Service Date: 03/03/18 Subjective: awake, verbal, comfortable Objective - Results Result Diagrams: 03/03/18 12:15 03/03/18 11:20 Recent Labs: Laboratory Last Values WBC 16.4 Th/cmm (4.8-10.8) H 03/03/18 11:20 RBC 2.21 Mil/cmm (3.80-5.80) L 03/03/18 11:20 Hgb 6.5 gm/dL (12-16) L* 03/03/18 12:15 Hct 19.2 % (41.0-60) L* 03/03/18 12:15 MCV 91.8 fl (80-99) 03/03/18 11:20 MCH 30.2 pg (27.0-31.0) 03/03/18 11:20 MCHC Differential 32.9 pg (28.0-36.0) 03/03/18 11:20 RDW 17.1 % (11.5-20.0) 03/03/18 11:20 Plt Count 402 Th/cmm (150-400) H 03/03/18 11:20 MPV 7.6 fl 03/03/18 11:20 Add Manual Diff YES 03/03/18 11:20 Neutrophils % 69.7 % (40.0-80.0) 03/02/18 05:15 Band Neutrophils % 1 % (0-10) 02/28/18 05:05 Lymphocytes % 19.0 % (20.0-50.0) L 03/02/18 05:15 Monocytes % 9.1 % (2.0-10.0) 03/02/18 05:15 Eosinophils % 1.3 % (0.0-5.0) 03/02/18 05:15 Basophils % 0.9 % (0.0-2.0) 03/02/18 05:15 Neutrophils (Manual) 77 % (40-80) 03/01/18 04:55 Lymphocytes 20 % (20-50) 03/01/18 04:55 Monocytes 3 % (2-10) 03/01/18 04:55 Eosinophils 1 % (0-5) 02/27/18 04:10 Platelet Estimate INCREASED PLATELETS (NORMAL) 03/01/18 04:55 PT 10.5 SECONDS (9.5-11.5) 02/28/18 05:05 INR 1.01 (0.5-1.4) 02/28/18 05:05 PTT (Actin FS) 23.1 SECONDS (26.0-38.0) L 02/28/18 05:05 Sodium 135 mEq/L (136-145) L 03/03/18 11:20 Potassium 2.9 mEq/L (3.5-5.1) L* 03/03/18 11:20 Chloride 100 mEq/L (98-107) 03/03/18 11:20 Carbon Dioxide 26.3 mEq/L (21.0-31.0) 03/03/18 11:20 Anion Gap 11.6 (7.0-16.0) 03/03/18 11:20 BUN 37 mg/dL (7-25) H 03/03/18 11:20 Creatinine 2.8 mg/dL (0.7-1.3) H 03/03/18 11:20 Est GFR ( Amer) TNP 03/03/18 11:20 Est GFR (Non-Af Amer) TNP 03/03/18 11:20 BUN/Creatinine Ratio 13.2 03/03/18 11:20 Glucose 366 mg/dL (70-105) H 03/03/18 11:20 POC Glucose 355 MG/DL (70 - 105) H 03/03/18 12:10 Whole Bld Lactic Acid 1.49 mmol/L (0.60-1.99) 02/26/18 17:15 Calcium 8.1 mg/dL (8.6-10.3) L 03/03/18 11:20 Phosphorus 2.4 mg/dL (2.5-5.0) L 02/26/18 17:15 Magnesium 2.0 mg/dL (1.9-2.7) 03/02/18 05:15 Total Bilirubin 0.3 mg/dL (0.3-1.0) 03/03/18 11:20 AST 16 U/L (13-39) 03/03/18 11:20 ALT 15 U/L (7-52) 03/03/18 11:20 Alkaline Phosphatase 94 U/L (34-104) 03/03/18 11:20 Total Protein 5.7 gm/dL (6.0-8.3) L 03/03/18 11:20 Albumin 2.0 gm/dL (4.2-5.5) L 03/03/18 11:20 Globulin 3.7 gm/dL 03/03/18 11:20 Albumin/Globulin Ratio 0.5 (1.0-1.8) L 03/03/18 11:20 Random Vancomycin 35.5 ug/mL (5.0-40.0) 03/02/18 05:15 Blood Type A POSITIVE 03/02/18 07:15 Antibody Screen NEGATIVE 03/02/18 07:15 - Physical Exam Vitals and I&O: Vital Signs Temp 97.6 F 03/03/18 12:00 Pulse 97 03/03/18 12:00 Resp 19 03/03/18 12:00 BP 131/69 03/03/18 12:00 Pulse Ox 98 03/03/18 12:00 Intake & Output 03/02/18 03/03/18 03/03/18 18:59 06:59 18:59 Intake Total 100 1880 Balance 100 1880 Weight (lbs) 73.074 kg Intake: Intake, IV Amount 100 1100 D5-0.45NS 1,000 ml @ 50 1000 mls/hr IV .Q20H [facility] Rx#: [id number] KCL 20mEq/100mL Premix 20 100 meq In 100 ml @ 50 mls/ hr IV Q2H [facility] Rx#: [id number] Tube Feeding 660 Other 120 Other: # Voids 2 # Bowel Movements 1 Stool Characteristics Liquid Weight Source Bedscale Active Medications: Current Medications Acetaminophen (Tylenol 650mg/20.3ml Suspension) 650 mg GT DAILY PRN PRN Reason: prior to wound healing Stop: 04/27/18 22:28 Last Admin: 03/03/18 01:41 Dose: 650 mg Acetaminophen (Tylenol 650mg/20.3ml Suspension) 650 mg GT Q4HR PRN PRN Reason: MILD PAIN Stop: 04/27/18 22:28 Amlodipine Besylate (Norvasc) 10 mg GT DAILY [facility] Stop: 04/28/18 08:59 Last Admin: 03/03/18 09:14 Dose: Not Given Ascorbic Acid (Vitamin C) 500 mg GT DAILY [facility] Stop: 04/28/18 08:59 Last Admin: 03/03/18 09:13 Dose: 500 mg Aspirin (Aspirin Chewable) 81 mg GT DAILY [facility] Stop: 04/30/18 08:59 Last Admin: 03/03/18 09:13 Dose: 81 mg Atorvastatin Calcium (Lipitor) 20 mg PO HS [facility] Stop: 04/30/18 20:59 Last Admin: 03/02/18 20:26 Dose: 20 mg Bisacodyl (Dulcolax 10 Mg Supp) 10 mg RC DAILY PRN PRN Reason: IF MOM INEFECTIVE Stop: 04/30/18 08:18 Calcium Carbonate (Os-Brad) 500 mg GT DAILY [facility] Stop: 04/30/18 08:59 Last Admin: 03/03/18 09:13 Dose: 500 mg Carvedilol (Coreg) 6.25 mg GT BID [facility] Stop: 04/30/18 08:59 Last Admin: 03/03/18 09:14 Dose: Not Given Docusate Sodium (Colace) 100 mg PO DAILY [facility] Stop: 04/30/18 08:59 Last Admin: 03/03/18 09:13 Dose: 100 mg Finasteride (Proscar) 5 mg PO DAILY [facility]; Protocol Stop: 04/30/18 08:59 Last Admin: 03/03/18 09:13 Dose: 5 mg Heparin Sodium (Porcine) (Heparin) 5,000 units SUBQ Q12HR [facility] Stop: 04/28/18 20:59 Last Admin: 03/03/18 09:13 Dose: 5,000 units Dextrose/Sodium Chloride (D5-0.45ns) 1,000 mls @ 50 mls/hr IV .Q20H [facility] Stop: 04/30/18 20:29 Last Admin: 03/03/18 04:31 Dose: 50 mls/hr Insulin Aspart (Novolog Insulin Sliding Scale) 0 units SUBQ Q6HR [facility]; Protocol Stop: 05/01/18 00:00 Last Admin: 03/03/18 12:13 Dose: 10 units Lactobacillus Rhamnosus (Culturelle 15b) 1 each PO DAILY [facility] Stop: 04/29/18 13:59 Last Admin: 03/03/18 09:13 Dose: 1 each Miscellaneous (Vancomycin Iv Per Pharmacy) 1 ea PRN PRN PRN Reason: PROTOCOL Stop: 04/27/18 20:15 Miscellaneous (Vte Chemical Prophylaxis Screen/ Admission) 1 [facility] PRN PRN PRN Reason: PROTOCOL Stop: 04/28/18 11:44 Miscellaneous (Probiotic Screen) 1 [facility] PRN PRN PRN Reason: PROTOCOL Stop: 04/29/18 11:20 Nystatin (Nystatin) 100,000 units PO TID [facility] Stop: 04/27/18 20:59 Last Admin: 03/03/18 09:00 Dose: 100,000 units Tamsulosin HCl (Flomax) 0.4 mg PO DAILY [facility] Stop: 04/30/18 08:59 Last Admin: 03/03/18 09:13 Dose: 0.4 mg Vancomycin HCl (Vancomycin Oral) 250 mg PO QID [facility] Stop: 04/28/18 16:59 Last Admin: 03/03/18 12:13 Dose: 250 mg Vitamin B Complex/Vit C/Folic Acid (Vitamin B Complex W/Vitamin C) 1 tab GT DAILY [facility] Stop: 04/30/18 08:59 Last Admin: 03/03/18 09:13 Dose: 1 tab Zinc Sulfate (Zinc Sulfate) 220 mg GT DAILY [facility] Stop: 04/30/18 08:59 Last Admin: 03/03/18 09:13 Dose: 220 mg General: Alert, No acute distress HEENT: Atraumatic, Mucous membr. moist/pink Neck: Supple, +2 carotid pulse wo bruit Cardiovascular: Regular rate, Normal S1, Normal S2 Lungs: Clear to auscultation Abdomen: Bowel sounds, Soft Extremities: Edema (B/L upper extremities) Neurological: Sensation intact Skin: no Rash Psych/Mental Status: Mood NL - Procedures Procedures: Procedures Procedure Code Date AMPUTATION OF TOE 99928 08/19/17 DETACHMENT AT LEFT 1ST TOE, COMPLETE, OPEN APPROACH [id number] 08/19/17 DETACHMENT AT RIGHT 1ST TOE, COMPLETE, OPEN APPROACH [id number] 08/19/17 DETACHMENT AT RIGHT 2ND TOE, COMPLETE, OPEN APPROACH [id number] 08/19/17 DETACHMENT AT RIGHT FOOT, COMPLETE, OPEN APPROACH [id number] 09/23/17 EXCISION OF L LOW LEG SUBCU/FASCIA, OPEN APPROACH [id number] 08/19/17 EXTIRPATION OF MATTER FROM L AXILLA ART, OPEN APPROACH [id number] 09/23/17 EXTIRPATION OF MATTER FROM UPPER ARTERY, OPEN APPROACH [id number] 10/05/17 FLUOROSCOPY OF LEFT JUGULAR VEINS, GUIDANCE [id number] 02/26/18 FLUOROSCOPY OF SUP VENA CAVA USING L OSM CONTRAST, GUIDANCE [id number] 10/05/17 INSERT INFUSION DEV IN L INT JUGULAR VEIN, PERC [id number] 02/26/18 INSERTION OF INFUSION DEV INTO SUP VENA CAVA, PERC APPROACH [id number] 10/05/17 PERFORMANCE OF URINARY FILTRATION, <6 HRS/DAY [id number] 10/05/17 REMOVAL OF INFUSION DEVICE FROM UPPER VEIN, OPEN APPROACH [id number] 02/26/18 REMOVAL OF INFUSION DEVICE FROM UPPER VEIN, PERC APPROACH [id number] 08/19/17 REMOVAL TUNNELED CV CATH [id number] 08/19/17 SUPPLEMENT L AXILLA ART WITH SYNTH SUB, OPEN APPROACH [id number] 09/23/17 Assessment/Plan - Problem List Patient Problems: All Active Problems C-DIFF REPORT (Acute) - Assessment Assessment: ESRD on HD C. diff colitis T2DM PAD S/P Left BKA S/P Right lower Syme's PUD/GERD Alzh Dementia Anemia of CD - Plan Plan: Lab - Result Diagrams 02/28/18 05:05 02/28/18 05:05 Current Medications Acetaminophen (Tylenol 650mg/20.3ml Suspension) 650 mg GT DAILY PRN PRN Reason: prior to wound healing Stop: 04/27/18 22:28 Acetaminophen (Tylenol 650mg/20.3ml Suspension) 650 mg GT Q4HR PRN PRN Reason: MILD PAIN Stop: 04/27/18 22:28 Amlodipine Besylate (Norvasc) 10 mg GT DAILY [facility] Stop: 04/28/18 08:59 Last Admin: 02/28/18 09:25 Dose: Not Given Ascorbic Acid (Vitamin C) 500 mg GT DAILY [facility] Stop: 04/28/18 08:59 Last Admin: 02/28/18 09:25 Dose: Not Given Heparin Sodium (Porcine) (Heparin) 5,000 units SUBQ Q12HR [facility] Stop: 04/28/18 20:59 Last Admin: 02/28/18 09:25 Dose: Not Given Vancomycin HCl 1.5 gm/ Sodium (Chloride) 500 mls @ 125 mls/hr IV X1 ONE Stop: 02/28/18 13:59 Last Admin: 02/28/18 10:06 Dose: 125 mls/hr Insulin Aspart (Novolog Insulin Sliding Scale) 0 units SUBQ ACHS [facility]; Protocol Stop: 04/27/18 20:59 Last Admin: 02/28/18 12:15 Dose: Not Given Lactobacillus Rhamnosus (Culturelle 15b) 1 each PO DAILY [facility] Stop: 04/29/18 13:59 Miscellaneous (Vancomycin Iv Per Pharmacy) 1 ea PRN PRN PRN Reason: PROTOCOL Stop: 04/27/18 20:15 Miscellaneous (Vte Chemical Prophylaxis Screen/ Admission) 1 ea PRN PRN PRN Reason: PROTOCOL Stop: 04/28/18 11:44 Miscellaneous (Probiotic Screen) 1 ea PRN PRN PRN Reason: PROTOCOL Stop: 04/29/18 11:20 Nystatin (Nystatin) 100,000 units PO TID [facility] Stop: 04/27/18 20:59 Last Admin: 02/28/18 09:26 Dose: Not Given Vancomycin HCl (Vancomycin Oral) 250 mg PO QID [facility] Stop: 04/28/18 16:59 Last Admin: 02/28/18 12:39 Dose: Not Given Lab - Result Diagrams 03/03/18 12:15 03/03/18 11:20 currently being dialyzed f/u repeat K & Hgb/Hct transfuse w/ dialysis on [facility] Nutritional Asmnt/Malnutr-PDOC - Dietary Evaluation Malnutrition Findings (Please click <Entered> for more info): Nutritional Asmnt/Malnutrition Start: 02/27/18 12: 41 Text: Status: Complete Freq: Protocol: Document 02/27/18 13:31 OLE (Rec: 02/27/18 13:53 [facility] Nutritional Asmnt/Malnutrition Patient General Information Nutritional Screening High Risk Diagnosis C-Diff ESBL of Sputam Pertinent Medical Hx/Surgical Hx DM, PUD/GERD, dementia, peripheral vascular disease, PVD, ESRD, on dialysis 3x/week Subjective Information Pt resting in bed at time of visit. Visually verified no TF was running at this time. Current Diet Order/ Nutrition Support tube feeding: Nepro @ 40 cc/hr x 20 hrs (on at 12 pm, off at 8 am) Pertinent Medications Vit C, heparin, novolog, vancomycin Pertinent Labs 02/27: glucose 121, Na 133, Cl 95, BUN 62, Cr 3.3, Alb 2.1, POC 118 02/26: glucose 217, Na 131, Cl 92, BUN 57, Cr 3.1, Alb 2.3, POC 185-206, Phos 2.3 Nutritional Hx/Data Height 1.65 m Height (Calculated Centimeters) 165.1 Current Weight (lbs) 67.495 kg Weight (Calculated Kilograms) 67.5 Weight (Calculated Grams) 58707.5 [place] Body Weight 136 lb Body Mass Index (BMI) 24.7 Weight Status Approriate GI Symptoms GI Symptoms None Last BM none noted Difficult in: None Food Allergies No Skin Integrity/Comment: pressure ulcer to sacrum, ulcer to left foot stump ( amputation), skin tears to both hands, discoloration to amputation site on right leg, gastrostomy/PEG, catarina cathetor to left upper extremity for dialysis Estimated Nutritional Goals BEE in Kcals: Adj wt of IBW Calories/Kcals/Kg 30-35 (based on IBW 136 lbs) Kcals Calculated [id number] Protein: Adj wt of IBW Protein g/k.2-1.5 Protein Calculated 74-93 g Fluid: ml per MD Nutritional Problem 3. Problem Problem inadequate intake from enteral infusion Etiology increased needs for HD and wound healing Signs/Symptoms: current TF regimen provides ~ 75% estimated kcal needs and ~ 85 estimated protein needs 2. 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 Problem Problem Altered nutrition related lab values Etiology endocrine and renal dysfunction, electrolyte imbalance Signs/Symptoms: glucose 121, Na 133, Cl 95, BUN 62, Cr 3.3, POC 118 Malnutrition Related to Morbid Obesity Malnutrition related to morbid obesity No Intervention/Recommendation Comments 1. Recommend to increase rate of Nepro to 55 ml/hr x 20 hrs; this provides 1980 kcals and 89 g protein, which will meet 100% of estimated nutritional needs 2. Monitor TF rate, tolerance, wt, skin integrity and labs 3. F/U as high risk in 2-3 days, 03/01-03/02 Expected Outcomes/Goals Expected Outcomes/Goals 1. Pt to meet at >95% of nutritional needs via nutrition support with tolerance 2. Wt stability, wounds to heal, labs to approach normal limits Reviewed by Iris Carranza RD
[2018-03-03 12:37] LABS: EOSINOPHIL 1 % (0-5); LYMPHOCYTE 14 % (20-50); MONOCYTE 10 % (2-10); NEUTROPHILS 75 % (40-80); PLATELET ESTIMATE INCREASED PLATELETS (NORMAL)
--- NOTE | 2018-03-03 23:19 | Progress Notes ---
DATE: 03/03/2018 SUBJECTIVE: The patient was seen in his room. The patient is asleep, but easily arousable. Denies any pain or discomfort at this time. Otherwise, the patient is in no acute distress. OBJECTIVE: VITAL SIGNS: Temperature 98.6, heart rate 98, blood pressure 123/50, respirations 16, 94% oxygen saturation. HEENT: Head is atraumatic and normocephalic. Eyes: Bilateral conjunctivae are clear. Bilateral pupils are equally round and reactive. NECK: Supple. No JVD. CARDIOVASCULAR: S1 and S2, without murmur. PULMONARY: Decreased breath sounds. GASTROINTESTINAL: Soft and nontender without guarding. Positive bowel sounds. MUSCULOSKELETAL: No clubbing. No cyanosis. Positive muscle weakness. ASSESSMENT: 1. End-stage renal disease, hemodialysis dependent. 2. Peripheral vascular disease. 3. Diabetes. 4. Gastroesophageal reflux disease. 5. Dementia. 6. Clostridium difficile colitis. PLAN: We will continue current treatment and current antibiotics. We will follow up with ID doctor for antibiotic management. We will follow up with the it applications developer for hemodialysis schedule and monitoring. Treatment plans were discussed with the patient's nurse. Treatment plans were discussed with Dr. Glaeas. JOB# [id number]
--- NOTE | 2018-03-06 11:42 | Pathology Report ---
[id number] Collection date: 03/02/2018 Surgeon: Dr. Kirstin Day Specimen Description: 1. Right leg below the knee amputation 2. Left leg below the knee amputation Gross Description: Part I: Received in the unfixed state is a right below the knee amputation specimen measuring 33 cm from the surgical margin to the right heel with a deep nonhealing gangrenous ulcer seen on this right heel measuring 5 x 2 cm. The right foot shows a prior amputation stump measuring 7 cm x 5 cm. Sectioning of the right heel ulcer shows necrotic changes and gangrene extending in to the deep subcutaneous soft tissues. Examination of the arterial vessels shows areas of calcification and narrowing. Roll Mechanic sections are submitted in three cassettes labeled A1 to A3. Cassette A1 shows the right heel necrotic ulcer. Cassette A2 shows the soft tissue margin. Cassette A3 shows the arterial vessels. Microscopic Description: Part I: The histologic sections show ulcerated necrotic tissue with extensive suppurative inflammation present consisting of large collections of neutrophils with a very degenerated and necrotic background. The arterial vessels show calcification and narrowing. Diagnosis: Part I: 1. Nonhealing gangrenous ulcer, right heel (right leg below the knee amputation ). 2. The arterial vessels show calcification and narrowing consistent with severe peripheral vascular disease. Gross description: Part II: Received in the unfixed state is a left below the knee amputation measuring 34 cm from the margin to the left heel and 21 cm from the left heel to the left second toe. All of the toes show brownish black gangrenous discoloration and ulceration with a prior amputation of the left big toe appreciated. The amputation stump shows extensive brownish black discoloration and necrosis that extends to the other toes. Sectioning shows the deep gangrenous changes. Sectioning of the arterial vessels shows calcification and narrowing. Roll Mechanic sections are submitted in three cassettes labeled B1 to B3. Cassette B1 shows gangrenous ulcers of the toes. Cassette B2 shows proximal soft tissue margin. Cassette B3 shows arterial vessels. Microscopic Description: Part II: The histologic sections show ulcerated necrotic skin and subcutaneous tissue with extensive suppurative inflammation consisting of large collections of neutrophils with a very degenerated / necrotic background. The arterial vessels show calcification and narrowing. Diagnosis: Part II: 1. Ulcerated necrotic tissue consistent with gangrene, left toes (left leg below the knee amputation). 2. The arterial vessels show calcification and narrowing consistent with severe peripheral vascular disease. [facility]# [id number] [place]
== END 2018-03-03 20:22 | DRG 239 ==
LOC: ER 16:52 → TELE 18:15
PROVIDERS: ADMIT Internal Medicine; ATTEND Internal Medicine
PROC: 5A1D70Z Performance of Urinary Filtration, Intermittent, Less than 6 Hours Per Day (ICD-10-PCS; 2018-02-27)
PROC: 05PY03Z Removal of Infusion Device from Upper Vein, Open Approach (ICD-10-PCS; principal; 2018-02-28)
PROC: 03170ZD Bypass Right Brachial Artery to Upper Arm Vein, Open Approach (ICD-10-PCS; 2018-02-28)
PROC: 02HV33Z Insertion of Infusion Device into Superior Vena Cava, Percutaneous Approach (ICD-10-PCS; 2018-02-28)
PROC: B5181ZA Fluoroscopy of Superior Vena Cava using Low Osmolar Contrast, Guidance (ICD-10-PCS; 2018-02-28)
PROC: 5A1D70Z Performance of Urinary Filtration, Intermittent, Less than 6 Hours Per Day (ICD-10-PCS; 2018-03-01)
PROC: 0Y6J0Z2 Detachment at Left Lower Leg, Mid, Open Approach (ICD-10-PCS; 2018-03-02)
PROC: 0Y6H0Z2 Detachment at Right Lower Leg, Mid, Open Approach (ICD-10-PCS; 2018-03-02)
PROC: 30233N1 Transfusion of Nonautologous Red Blood Cells into Peripheral Vein, Percutaneous Approach (ICD-10-PCS; 2018-03-03)
PROC: 5A1D70Z Performance of Urinary Filtration, Intermittent, Less than 6 Hours Per Day (ICD-10-PCS; 2018-03-03)
DX: T82.818A Embolism due to vascular prosthetic devices, implants and grafts, initial encounter (principal); A41.9 Sepsis, unspecified organism; L89.153 Pressure ulcer of sacral region, stage 3; E43 Unspecified severe protein-calorie malnutrition; N18.6 End stage renal disease; J18.1 Lobar pneumonia, unspecified organism; A04.72 Enterocolitis due to Clostridium difficile, not specified as recurrent; E11.52 Type 2 diabetes mellitus with diabetic peripheral angiopathy with gangrene; I96 Gangrene, not elsewhere classified; B37.0 Candidal stomatitis; L03.113 Cellulitis of right upper limb; Z99.2 Dependence on renal dialysis; E87.6 Hypokalemia; E83.39 Other disorders of phosphorus metabolism; E11.22 Type 2 diabetes mellitus with diabetic chronic kidney disease; K21.9 Gastro-esophageal reflux disease without esophagitis; R32 Unspecified urinary incontinence; S61.402A Unspecified open wound of left hand, initial encounter; S61.401A Unspecified open wound of right hand, initial encounter; G30.9 Alzheimer's disease, unspecified; F02.80 Dementia in other diseases classified elsewhere, unspecified severity, without behavioral disturbance, psychotic disturbance, mood disturbance, and anxiety; K27.9 Peptic ulcer, site unspecified, unspecified as acute or chronic, without hemorrhage or perforation; Y83.8 Other surgical procedures as the cause of abnormal reaction of the patient, or of later complication, without mention of misadventure at the time of the procedure; S81.801A Unspecified open wound, right lower leg, initial encounter; X58.XXXA Exposure to other specified factors, initial encounter; Y93.89 Activity, other specified; Y92.89 Other specified places as the place of occurrence of the external cause; Z68.26 Body mass index [BMI] 26.0-26.9, adult; Z79.4 Long term (current) use of insulin; Y99.8 Other external cause status; Z88.1 Allergy status to other antibiotic agents; Z88.8 Allergy status to other drugs, medicaments and biological substances
CPT/HCPCS: 36415-UA; 71045-TC; 76000-TC; 80048-TC; 80053-TC; 80202-TC; 82948-90; 83036-90; 83605; 83735-TC; 84100-TC; 84132-TC; 85007-TC; 85014-TC; 85018-TC; 85025-TC; 85610-TC; 86850-TC; 86900-TC; 86901-TC; 86922-TC; 90937; 93005; 93970-TC-50; 94760; J1644; J1815; J2001; J2405; J2704; J3010; J3370; J3480; J7030; J7040; J7042; P9016; V2790; Z7610